=== PATIENT | female | born 1950 | race Two or more races ===

== ENCOUNTER 2018-07-04 11:17 | Inpatient (IN) | payer MEDICAID ==
[~2018-07-04] VITALS: Ht 154.9 cm; Wt 88.7 kg
[2018-07-04] VITALS (7 sets, daily range): BP systolic 110–143; BP diastolic 59–81
--- NOTE | 2018-07-04 11:36 | NUR ---
ED Nurse Note: Pt CLAIRA from [facility] due to cellulitis of the left shoulder x 4 days. Redness, warmth, and tenderness noted. Denies any pain. Pt was started on keflex PO yesterday. Hx of anemia, schizo, HTN.
[2018-07-04] MEDS ORDERED: Cefepime HCl 2 GM in NS 110 ML IV STA (11:48)
[2018-07-04] MEDS ORDERED: Vancomycin 1 GM in NS 275 ML IV ONE (12:00)
--- NOTE | 2018-07-04 12:26 | NUR ---
ED Nurse Note: Xray at the bedside.
[2018-07-04 12:35] LABS: HEMATOCRIT 35.5 % (37.0-47.0); HEMOGLOBIN 11.6 G/DL (12.0-16.0); MEAN CORPUSCULAR VOLUME 82 FL (80-99); PLATELET COUNT 235 K/UL (150-450); RED BLOOD COUNT 4.32 M/UL (4.20-5.40); RED CELL DISTRIBUTION WIDTH 13.2 % (11.6-14.8)
[2018-07-04 12:42] LABS: WHITE BLOOD COUNT 25.8 K/UL (4.8-10.8)
[2018-07-04 12:46] LABS: APPEARANCE,URINE CLEAR; BILIRUBIN, URINE NEGATIVE (NEGATIVE); COLOR,URINE PALE YELLOW; GLUCOSE, URINE (UA) NEGATIVE (NEGATIVE); KETONES,URINE NEGATIVE (NEGATIVE); LEUKOCYTE ESTERASE ,URINE 1+ (NEGATIVE); NITRITE,URINE NEGATIVE (NEGATIVE); PH,URINE 6.5 (4.5-8.0); PROTEIN,URINE 2+ (NEGATIVE); UROBILINOGEN,URINE NORMAL MG/DL (0.0-1.0)
[2018-07-04 13:00] LABS: ALANINE AMINOTRANSFERASE 30 U/L (12-78); ALBUMIN 3.1 G/DL (3.4-5.0); ALBUMIN/GLOBULIN RATIO 0.6 (1.0-2.7); ALKALINE PHOSPHATASE 134 U/L (46-116); ANION GAP 9 mmol/L (5-15); ASPARTATE AMINO TRANSFERASE 14 U/L (15-37); BILIRUBIN,TOTAL 0.4 MG/DL (0.2-1.0); BLOOD UREA NITROGEN 17 mg/dL (7-18); CARBON DIOXIDE 25 MMOL/L (21-32); CHLORIDE 99 MMOL/L (98-107); CREATINE KINASE 60 U/L (26-308); CREATININE 1.6 MG/DL (0.55-1.30); POTASSIUM 4.1 MMOL/L (3.5-5.1); SODIUM 133 MMOL/L (136-145)
[2018-07-04 13:19] LABS: CALCIUM 13.5 MG/DL (8.5-10.1)
--- NOTE | 2018-07-04 14:34 | NUR ---
ED Nurse Note: Tried giving report, RN unavailable.
--- NOTE | 2018-07-04 14:50 | Emergency Room Report ---
History of Present Illness General Chief Complaint: Skin Rash/Abscess Source: Patient, EMS Present Illness HPI Patient was sent in from [facility] facility. She has some swelling and redness of the left shoulder. She was started on Keflex yesterday. The patient does complain about pain there. She denies any trauma. She's had a stroke in the past. No cough, sore throat, NVD, headache, dysuria, dyspnea. H/O depression (denies now), schizophrenia. Allergies: Coded Allergies: No Known Allergies (Unverified , 07/04/18) Patient History Past Medical History: see triage record Social History: Denies: smoking Social History Narrative [facility] facility [place] in [place] Reviewed Nursing Documentation: PMH: Agreed; PSxH: Agreed Nursing Documentation-PMH Past Medical History: No History, Except For Hx Cardiac Problems: Yes - Anemia Hx Hypertension: Yes Hx Dialysis: No - Chronic Renal Insufficiency History Of Psychiatric Problem: Yes - Schziophrenia Review of Systems All Other Systems: negative except mentioned in HPI Physical Exam Vital Signs Date Time Temp Pulse Resp B/P (MAP) Pulse Ox O2 Delivery O2 Flow Rate FiO2 07/04/18 11:19 99.3 64 16 136/77 93 Room Air Sp02 EP Interpretation: reviewed, abnormal - interpreted as low by me General Appearance: well appearing, no apparent distress, other - GCS 14 Head: normocephalic Eyes: bilateral eye normal inspection, bilateral eye PERRL ENT: moist mucus membranes Neck: full range of motion, supple, no bony tend Respiratory: lungs clear, normal breath sounds, other - swelling and induration L shoulder Cardiovascular #1: regular rate, rhythm Cardiovascular #2: 2+ radial (R) Gastrointestinal: normal inspection, normal bowel sounds, non tender, no mass, non-distended Musculoskeletal: back normal, normal range of motion Neurologic: alert, sensory intact, motor weakness, oriented - X2 Psychiatric: mood/affect normal Skin: warm/dry, other - erythema and induration L shoulder, no fluctuance Medical Decision Making Diagnostic Impression: Primary Impression: Cellulitis Qualified Codes: L03.818 - Cellulitis of other sites Additional Impressions: Leukocytosis Qualified Codes: D72.828 - Other elevated white blood cell count Hypercalcemia ER Course Patient presents with L shoulder erythema and induration. DDx: cellulitis, necrotizing fasciitis, abscess amongst others. Evaluation with EKG, CXR and labs. Treatment with IV hydration. EKG without injury. CXR no infiltrates or gas L shoulder area. Leukocytosis. Renal insufficiency. Normal lactic acid. Triple antibiotics begun in ED. Cannot exclude necrotizing fasciitis. This was discussed with the admitting physician and a consultation with Dr. Jimenez was undertaken. Admit med floor. Laboratory Tests Test 07/04/18 12:15 07/04/18 12:30 White Blood Count 25.8 K/UL (4.8-10.8) *H Red Blood Count 4.32 M/UL (4.20-5.40) Hemoglobin 11.6 G/DL (12.0-16.0) L Hematocrit 35.5 % (37.0-47.0) L Mean Corpuscular Volume 82 FL (80-99) Mean Corpuscular Hemoglobin 26.8 PG (27.0-31.0) L Mean Corpuscular Hemoglobin Concent 32.6 G/DL (32.0-36.0) Red Cell Distribution Width 13.2 % (11.6-14.8) Platelet Count 235 K/UL (150-450) Mean Platelet Volume 7.4 FL (6.5-10.1) Neutrophils (%) (Auto) % (45.0-75.0) Lymphocytes (%) (Auto) % (20.0-45.0) Monocytes (%) (Auto) % (1.0-10.0) Eosinophils (%) (Auto) % (0.0-3.0) Basophils (%) (Auto) % (0.0-2.0) Differential Total Cells Counted 100 Neutrophils % (Manual) 90 % (45-75) H Lymphocytes % (Manual) 6 % (20-45) L Monocytes % (Manual) 3 % (1-10) Eosinophils % (Manual) 1 % (0-3) Basophils % (Manual) 0 % (0-2) Band Neutrophils 0 % (0-8) Platelet Estimate Adequate Platelet Morphology Normal Red Blood Cell Morphology Normal Prothrombin Time 10.9 SEC (9.30-11.50) Prothrombin Time INR 1.0 (0.9-1.1) PTT 32 SEC (23-33) Sodium Level 133 MMOL/L (136-145) L Potassium Level 4.1 MMOL/L (3.5-5.1) Chloride Level 99 MMOL/L (98-107) Carbon Dioxide Level 25 MMOL/L (21-32) Anion Gap 9 mmol/L (5-15) Blood Urea Nitrogen 17 mg/dL (7-18) Creatinine 1.6 MG/DL (0.55-1.30) H Estimate Glomerular Filtration Rate 32.4 mL/min (>60) Glucose Level 100 MG/DL (74-106) Lactic Acid Level 0.90 mmol/L (0.4-2.0) Calcium Level 13.5 MG/DL (8.5-10.1) *H Magnesium Level 2.1 MG/DL (1.8-2.4) Total Bilirubin 0.4 MG/DL (0.2-1.0) Aspartate Amino Transferase (AST) 14 U/L (15-37) L Alanine Aminotransferase (ALT) 30 U/L (12-78) Alkaline Phosphatase 134 U/L (46-116) H Total Creatine Kinase 60 U/L (26-308) Troponin I 0.000 ng/mL (0.000-0.056) Pro-B-Type Natriuretic Peptide 259 pg/mL (0-125) H Total Protein 8.7 G/DL (6.4-8.2) H Albumin 3.1 G/DL (3.4-5.0) L Globulin 5.6 g/dL Albumin/Globulin Ratio 0.6 (1.0-2.7) L Urine Color Pale yellow Urine Appearance Clear Urine pH 6.5 (4.5-8.0) Urine Specific [place] 1.015 (1.005-1.035) Urine Protein 2+ (NEGATIVE) H Urine Glucose (UA) Negative (NEGATIVE) Urine Ketones Negative (NEGATIVE) Urine Blood Negative (NEGATIVE) Urine Nitrite Negative (NEGATIVE) Urine Bilirubin Negative (NEGATIVE) Urine Urobilinogen Normal MG/DL (0.0-1.0) Urine Leukocyte Esterase 1+ (NEGATIVE) H Urine RBC 0-2 /HPF (0 - 2) Urine WBC 0-2 /HPF (0 - 2) Urine Squamous Epithelial Cells Few /LPF (NONE/OCC) Urine Bacteria Occasional /HPF (NONE) EKG Diagnostic Results Rate: normal Rhythm: NSR ST Segments: no acute changes - RBBB Rhythm Strip Diag. Results EP Interpretation: yes Rhythm: NSR, no PVC's, no ectopy Chest X-Ray Diagnostic Results Chest X-Ray Diagnostic Results : Chest X-Ray Ordered: Yes # of Views/Limited/Complete: 1 View Indication: Other EP Interpretation: Yes Interpretation: no consolidation, no effusion, no pneumothorax Impression: Other Electronically Signed by: Electronically signed by Iain Fowler MD Last Vital Signs Date Time Temp Pulse Resp B/P (MAP) Pulse Ox O2 Delivery O2 Flow Rate FiO2 07/04/18 13:42 99.3 63 17 110/61 100 Room Air Status: improved Disposition: ADMITTED INPATIENT Condition: Serious Referrals: Mady Perez MD (PCP) Iain Fowler MD Jul 04, 2018 14:50
[2018-07-04] MEDS ORDERED: ADALAT10 MG (15:10)
--- NOTE | 2018-07-04 15:13 | NUR ---
ED Nurse Note: Gave telephone report to RORY Benoit. Transported pt up to unit. Left ER w/ all belongings. No acute distress noted.
[2018-07-04] MEDS ORDERED: Isovue-300 100ml vial INJ PRN (15:45)
--- NOTE | 2018-07-04 17:41 | NUR ---
CHARGE NURSE NOTES: CONTACTED DR. NIELSON FOR ADMISSION ORDERS. PER MD WILL CALL BACK IN 15 MINS.
[2018-07-04] MEDS ORDERED: HYDROcodone/Acetamin 5/325 tab ORAL PRN (18:30)
--- NOTE | 2018-07-04 19:36 | NUR ---
CHARGE NURSE NOTES: DR. TORRES MADE AN ORDER TO TRANSFER PATIENT TO ICU FOR CRITICAL CT RESULT. DR. NISREEN PICHARDO.
--- NOTE | 2018-07-04 19:44 | NUR ---
NURSE NOTES: Received a report from RORY Benoit. Pt is in stable condition. AAOX4. Able to make needs known. IV site is patent and intact. Bed in lowest position. Bed alarm is on. Call light within reach. Will transfer the pt once the receiving nurse is ready.
--- NOTE | 2018-07-04 19:48 | NUR ---
HAND-OFF: Report given to RORY Vick.
--- NOTE | 2018-07-04 19:53 | NUR ---
HAND-OFF: Report given to RORY Reyna.
--- NOTE | 2018-07-04 19:55 | NUR ---
NURSE NOTES: Transferred the pt to the ICU. All belongings are with the pt. Belongings checked. Pt is in stable condition.
--- NOTE | 2018-07-04 20:00 | NUR ---
NURSE NOTES: Admitted a transfer from [facility] 67YOF with (L) Shoulder cellulitis,AAO per CT result shows no pus accumulation on cellulitis site but Resp.Status is compromise R/T swelling that airway pipe (TRACHEAL) bec.thin like pt.breathing thru a straw.See V/S.Scope SR.Denies CP.P.Ox.95-97%.
[2018-07-04] MEDS ORDERED: Heparin 5000 units/ml inj SUBQ SCH (21:00)
--- NOTE | 2018-07-04 21:51 | Consultation ---
History of Present Illness General Date patient seen: Jul 04, 2018 Reason for Hospitalization: Skin Rash/Abscess Present Illness HPI This is a 67-year-old female who presented to the emergency department in [facility] complaining of worsening left neck and shoulder and clavicular pain. States that she has had some discomfort for a few days now but cannot recall when it first began. Denies any nausea vomiting fever chills. States she is otherwise well. Denies any respiratory or swallowing deficits. In ED was noted to have a significant leukocytosis and abnormal labs. Left clavicular/neck erythema, edema, tenderness. Patient was admitted for further care and management. Surgery was called to evaluate and assist with care. Patient seen, patient evaluated, chart reviewed. Allergies: Coded Allergies: No Known Allergies (Unverified , 07/04/18) Medication History Miscellaneous Medications Nifedipine (Nifedipine*), (Reported) Patient History History Provided By: Patient, Medical Record, PMD Healthcare decision maker Resuscitation status Advanced Directive on File Past Medical/Surgical History Past Medical/Surgical History: (1) Cellulitis Review of Systems Review of Symptoms General ROS: no weight loss or fever Psychological ROS: no depression or mood changes, no memory loss Ophthalmic ROS: no visual changes or eye irritation ENT ROS: no nasal congestion, hearing loss, dizziness Allergy and Immunology ROS: no allergic symptoms or urticaria Hematological and Lymphatic ROS: no swollen glands, unusual bleeding or bruising Endocrine ROS: no polyuria, polydipsia, weight changes, temperature intolerance Respiratory ROS: no cough, shortness of breath, or wheezing Cardiovascular ROS: no chest pain or dyspnea on exertion Gastrointestinal ROS: denies abdominal pain, bright red blood in stool. Musculoskeletal ROS: no myalgias or arthralgias Neurological ROS: no TIA or stroke symptoms Dermatological ROS: no new or changing skin lesions, rashes or pruritis Physical Exam Physical Exam General appearance: alert, cooperative, no distress, appears stated age Head: Normocephalic, without obvious abnormality, atraumatic Eyes: conjunctivae/corneas clear. PERRL, EOM's intact. Fundi benign Throat: Lips, mucosa, and tongue normal. Teeth and gums normal Neck: supple, symmetrical, trachea midline, adenopathy, thyroid: tender in left neck and zone 1 down to clavicle. no abscess, indurated, erythema, warm. no drainage. Lungs: clear to auscultation bilaterally Heart: regular rate and rhythm, S1, S2 normal, no murmur, click, rub or gallop Abdomen: soft, non-tender. Bowel sounds normal. No masses, no organomegaly Extremities: extremities normal, atraumatic, no cyanosis or edema Pulses: 2+ and symmetric Skin: Skin color, texture, turgor normal. No rashes or lesions Neurologic: Grossly normal Last 24 Hour Vital Signs Date Time Temp Pulse Resp B/P (MAP) Pulse Ox O2 Delivery O2 Flow Rate FiO2 07/04/18 18:34 Room Air 07/04/18 18:04 Room Air 07/04/18 17:10 Room Air 07/04/18 16:00 99.5 75 19 119/59 (79) 99 07/04/18 15:12 98.1 63 22 115/65 98 Room Air 07/04/18 13:42 99.3 63 17 110/61 100 Room Air 07/04/18 11:37 99.2 63 11 117/76 99 Room Air 07/04/18 11:19 99.3 64 16 136/77 93 Room Air Laboratory Tests Test 07/04/18 12:15 07/04/18 12:30 White Blood Count 25.8 K/UL (4.8-10.8) *H Red Blood Count 4.32 M/UL (4.20-5.40) Hemoglobin 11.6 G/DL (12.0-16.0) L Hematocrit 35.5 % (37.0-47.0) L Mean Corpuscular Volume 82 FL (80-99) Mean Corpuscular Hemoglobin 26.8 PG (27.0-31.0) L Mean Corpuscular Hemoglobin Concent 32.6 G/DL (32.0-36.0) Red Cell Distribution Width 13.2 % (11.6-14.8) Platelet Count 235 K/UL (150-450) Mean Platelet Volume 7.4 FL (6.5-10.1) Neutrophils (%) (Auto) % (45.0-75.0) Lymphocytes (%) (Auto) % (20.0-45.0) Monocytes (%) (Auto) % (1.0-10.0) Eosinophils (%) (Auto) % (0.0-3.0) Basophils (%) (Auto) % (0.0-2.0) Differential Total Cells Counted 100 Neutrophils % (Manual) 90 % (45-75) H Lymphocytes % (Manual) 6 % (20-45) L Monocytes % (Manual) 3 % (1-10) Eosinophils % (Manual) 1 % (0-3) Basophils % (Manual) 0 % (0-2) Band Neutrophils 0 % (0-8) Platelet Estimate Adequate Platelet Morphology Normal Red Blood Cell Morphology Normal Prothrombin Time 10.9 SEC (9.30-11.50) Prothromb Time International Ratio 1.0 (0.9-1.1) Activated Partial Thromboplast Time 32 SEC (23-33) Sodium Level 133 MMOL/L (136-145) L Potassium Level 4.1 MMOL/L (3.5-5.1) Chloride Level 99 MMOL/L (98-107) Carbon Dioxide Level 25 MMOL/L (21-32) Anion Gap 9 mmol/L (5-15) Blood Urea Nitrogen 17 mg/dL (7-18) Creatinine 1.6 MG/DL (0.55-1.30) H Estimat Glomerular Filtration Rate 32.4 mL/min (>60) Glucose Level 100 MG/DL (74-106) Lactic Acid Level 0.90 mmol/L (0.4-2.0) Calcium Level 13.5 MG/DL (8.5-10.1) *H Magnesium Level 2.1 MG/DL (1.8-2.4) Total Bilirubin 0.4 MG/DL (0.2-1.0) Aspartate Amino Transf (AST/SGOT) 14 U/L (15-37) L Alanine Aminotransferase (ALT/SGPT) 30 U/L (12-78) Alkaline Phosphatase 134 U/L (46-116) H Total Creatine Kinase 60 U/L (26-308) Troponin I 0.000 ng/mL (0.000-0.056) Pro-B-Type Natriuretic Peptide 259 pg/mL (0-125) H Total Protein 8.7 G/DL (6.4-8.2) H Albumin 3.1 G/DL (3.4-5.0) L Globulin 5.6 g/dL Albumin/Globulin Ratio 0.6 (1.0-2.7) L Urine Color Pale yellow Urine Appearance Clear Urine pH 6.5 (4.5-8.0) Urine Specific [place] 1.015 (1.005-1.035) Urine Protein 2+ (NEGATIVE) H Urine Glucose (UA) Negative (NEGATIVE) Urine Ketones Negative (NEGATIVE) Urine Blood Negative (NEGATIVE) Urine Nitrite Negative (NEGATIVE) Urine Bilirubin Negative (NEGATIVE) Urine Urobilinogen Normal MG/DL (0.0-1.0) Urine Leukocyte Esterase 1+ (NEGATIVE) H Urine RBC 0-2 /HPF (0 - 2) Urine WBC 0-2 /HPF (0 - 2) Urine Squamous Epithelial Cells Few /LPF (NONE/OCC) Urine Bacteria Occasional /HPF (NONE) Height (Feet): 5 Height (Inches): 1.00 Weight (Pounds): 180 Medications Current Medications Medications (Trade) Dose Ordered Sig/Omari Route PRN Reason Start Time Stop Time Status Last Admin Dose Admin Acetaminophen (Tylenol) 650 mg Q6H PRN ORAL Mild Pain/Temp > 100.5 07/04/18 18:30 08/03/18 18:29 Acetaminophen/ Hydrocodone Bitart ([place] 5/325) 1 tab Q6H PRN ORAL Severe Pain (Pain Scale 7-10) 07/04/18 18:30 07/11/18 18:29 Benztropine Mesylate (Cogentin) 1 mg BID ORAL 07/05/18 09:00 08/04/18 08:59 Cefepime HCl 2 gm/ Dextrose 55 ml @ 110 mls/hr Q12HR@0000,1200 IVPB 07/05/18 00:00 07/12/18 00:00 Docusate Sodium (Colace) 250 mg DAILY ORAL 07/05/18 09:00 08/04/18 08:59 Haloperidol (Haldol) 5 mg DAILY ORAL 07/05/18 09:00 08/04/18 08:59 Heparin Sodium (Porcine) (Heparin 5000 units/ml) 5,000 units EVERY 12 HOURS SUBQ 07/04/18 21:00 08/03/18 20:59 07/04/18 21:02 Iopamidol (Isovue-300 100ml) 100 ml NOW PRN INJ Radiology Procedure 07/04/18 15:45 07/06/18 15:34 Levofloxacin 150 ml @ 100 mls/hr Q48H IVPB 07/06/18 13:00 07/13/18 12:59 Marcellus Carbonate (Marcellus Carbonate) 300 mg BID ORAL 07/05/18 09:00 08/04/18 08:59 Mirtazapine (Remeron) 7.5 mg BEDTIME ORAL 07/04/18 21:00 08/03/18 20:59 07/04/18 21:03 Nifedipine (Adalat) 10 mg Q12HR ORAL 07/05/18 09:00 08/04/18 08:59 Pantoprazole (Protonix) 40 mg DAILY ORAL 07/05/18 09:00 08/04/18 08:59 Vancomycin HCl (Vanco rx to dose) 1 ea DAILY PRN MISC Per rx protocol 07/04/18 18:30 08/03/18 18:29 Vancomycin HCl 750 mg/Sodium Chloride 275 ml @ 183.333 mls/hr Q24H IVPB 07/05/18 14:00 07/10/18 13:59 Assessment/Plan Problem List: (1) Cellulitis Assessment & Plan: 67-year-old with left neck cellulitis. Leukocytosis. Low- grade fevers. Tenderness on examination with large area of cellulitis without fluctuance. CT scan ordered and pending final read but did speak with the radiologist and there is significant inflammation in the oropharynx and neck around the pharynx and trachea. There is subcutaneous tissue swelling consistent with cellulitis in the area as identified on clinical examination. There is a narrowed airway. Even these findings patient was transferred to the intensive care unit for close monitoring. Etiology of patient's infection is currently unknown and will need further workup. Currently respiratory stable without any signs of compromise or distress. Patient states she is breathing well without any shortness of breath or difficulty. Airway is currently patent. Radiological findings noted. N.p.o. IV abx cultures will need ENT evaluation if shows signs of respiratory issues will need urgent intubation for airway protection vs tracheostomy will follow with recs thank you ICD Codes: L03.90 - Cellulitis, unspecified SNOMED: [id number] Qualifiers: Qualified Codes: L03.221 - Cellulitis of neck Florencio Jimenez Jul 04, 2018 21:51
--- NOTE | 2018-07-04 22:30 | NUR ---
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
[2018-07-04] MEDS: Cefepime HCl 2 GM in D5W 55 ML IVPB SCH (23:44)
[2018-07-05] VITALS (24 sets, daily range): BP systolic 118–148; BP diastolic 49–87
--- NOTE | 2018-07-05 00:07 | NUR ---
NURSE NOTES: See V/S.Scope rhythm same.Repositioned self to comfort.Resp.Status closely monitored.Voided.P.Ox.95-96% on RA.Due meds admin.
[2018-07-05] MEDS ORDERED: HYDROcodone/Acetamin 5/325 tab ORAL PRN (00:30)
--- NOTE | 2018-07-05 02:00 | NUR ---
NURSE NOTES: Desat.to 87% when in deep sleep.Had to be awaken and easily respond to deep breathing.Cont.close monitoring with Resp.status.
--- NOTE | 2018-07-05 04:20 | NUR ---
NURSE NOTES: Blood drawn for cbc/cmp./tsh etc.spec.to Lab.see V/S.scope rhythm same.denies CP.cont.plan of care.
[2018-07-05 06:00] LABS: HEMATOCRIT 32.7 % (37.0-47.0); HEMOGLOBIN 10.5 G/DL (12.0-16.0); MEAN CORPUSCULAR VOLUME 83 FL (80-99); PLATELET COUNT 214 K/UL (150-450); RED BLOOD COUNT 3.93 M/UL (4.20-5.40); RED CELL DISTRIBUTION WIDTH 13.5 % (11.6-14.8); WHITE BLOOD COUNT 19.6 K/UL (4.8-10.8)
[2018-07-05 06:36] LABS: ALANINE AMINOTRANSFERASE 26 U/L (12-78); ALBUMIN 2.7 G/DL (3.4-5.0); ALBUMIN/GLOBULIN RATIO 0.5 (1.0-2.7); ALKALINE PHOSPHATASE 131 U/L (46-116); ANION GAP 10 mmol/L (5-15); ASPARTATE AMINO TRANSFERASE 14 U/L (15-37); BILIRUBIN,TOTAL 0.3 MG/DL (0.2-1.0); BLOOD UREA NITROGEN 17 mg/dL (7-18); CARBON DIOXIDE 23 MMOL/L (21-32); CHLORIDE 110 MMOL/L (98-107); CREATININE 1.5 MG/DL (0.55-1.30); POTASSIUM 3.8 MMOL/L (3.5-5.1); SODIUM 143 MMOL/L (136-145)
[2018-07-05 06:50] LABS: CALCIUM 14.1 MG/DL (8.5-10.1)
--- NOTE | 2018-07-05 07:30 | NUR ---
HAND-OFF: Report given to RORY CAMPOS.
--- NOTE | 2018-07-05 08:05 | Nephrology Progress Note ---
Subjective Date patient seen: Jul 05, 2018 Time patient seen: 08:05 Allergies: Coded Allergies: No Known Allergies (Unverified , 07/04/18) Subjective Patient seen and examined. Full consult dictated and hypercalcemia treated Objective Last 24 Hour Vital Signs Date Time Temp Pulse Resp B/P (MAP) Pulse Ox O2 Delivery O2 Flow Rate FiO2 07/05/18 06:00 83 20 125/67 (86) 97 07/05/18 05:00 78 17 127/67 (87) 96 07/05/18 04:00 98.6 73 20 126/62 (83) 95 07/05/18 04:00 Room Air 07/05/18 03:00 79 20 138/78 (98) 95 07/05/18 02:00 78 20 133/71 (91) 94 07/05/18 01:00 98.8 73 20 128/72 (90) 95 07/05/18 00:00 80 19 131/75 (93) 96 07/05/18 00:00 Room Air 07/04/18 23:00 83 21 128/66 (86) 95 07/04/18 22:00 73 23 143/78 (99) 97 07/04/18 21:00 74 12 140/76 (97) 96 07/04/18 21:00 Room Air 07/04/18 20:00 99.2 75 21 142/81 (101) 77 07/04/18 18:34 Room Air 07/04/18 18:04 Room Air 07/04/18 17:10 Room Air 07/04/18 16:00 99.5 75 19 119/59 (79) 99 07/04/18 15:12 98.1 63 22 115/65 98 Room Air 07/04/18 13:42 99.3 63 17 110/61 100 Room Air 07/04/18 11:37 99.2 63 11 117/76 99 Room Air 07/04/18 11:19 99.3 64 16 136/77 93 Room Air Intake and Output 07/04/18 07/05/18 19:00 07:00 Intake Total 350 ml 645 ml Output Total 800 ml Balance 350 ml -155 ml Intake Oral 490 ml IV Total 350 ml 155 ml Output Urine Total 800 ml # Voids 1 3 Laboratory Tests 07/04/18 12:15: White Blood Count 25.8*H, Red Blood Count 4.32, Hemoglobin 11.6L, Hematocrit 35.5L, Mean Corpuscular Volume 82, Mean Corpuscular Hemoglobin 26.8L, Mean Corpuscular Hemoglobin Concent 32.6, Red Cell Distribution Width 13.2, Platelet Count 235, Mean Platelet Volume 7.4, Neutrophils (%) (Auto) , Lymphocytes (%) ( Auto) , Monocytes (%) (Auto) , Eosinophils (%) (Auto) , Basophils (%) (Auto) , Differential Total Cells Counted 100, Neutrophils % (Manual) 90H, Lymphocytes % (Manual) 6L, Monocytes % (Manual) 3, Eosinophils % (Manual) 1, Basophils % ( Manual) 0, Band Neutrophils 0, Platelet Estimate Adequate, Platelet Morphology Normal, Red Blood Cell Morphology Normal, Prothrombin Time 10.9, Prothromb Time International Ratio 1.0, Activated Partial Thromboplast Time 32, Sodium Level 133L, Potassium Level 4.1, Chloride Level 99, Carbon Dioxide Level 25, Anion Gap 9, Blood Urea Nitrogen 17, Creatinine 1.6H, Estimat Glomerular Filtration Rate 32.4, Glucose Level 100, Lactic Acid Level 0.90, Calcium Level 13.5*H, Magnesium Level 2.1, Total Bilirubin 0.4, Aspartate Amino Transf (AST/SGOT) 14L , Alanine Aminotransferase (ALT/SGPT) 30, Alkaline Phosphatase 134H, Total Creatine Kinase 60, Troponin I 0.000, Pro-B-Type Natriuretic Peptide 259H, Total Protein 8.7H, Albumin 3.1L, Globulin 5.6, Albumin/Globulin Ratio 0.6L 07/04/18 12:30: Urine Color Pale yellow, Urine Appearance Clear, Urine pH 6.5, Urine Specific [place] 1.015, Urine Protein 2+H, Urine Glucose (UA) Negative, Urine Ketones Negative, Urine Blood Negative, Urine Nitrite Negative, Urine Bilirubin Negative , Urine Urobilinogen Normal, Urine Leukocyte Esterase 1+H, Urine RBC 0-2, Urine WBC 0-2, Urine Squamous Epithelial Cells Few, Urine Bacteria Occasional 07/05/18 04:50: White Blood Count 19.6H, Red Blood Count 3.93L, Hemoglobin 10.5L, Hematocrit 32.7L, Mean Corpuscular Volume 83, Mean Corpuscular Hemoglobin 26.6L, Mean Corpuscular Hemoglobin Concent 32.0, Red Cell Distribution Width 13.5, Platelet Count 214, Mean Platelet Volume 7.4, Neutrophils (%) (Auto) , Lymphocytes (%) ( Auto) , Monocytes (%) (Auto) , Eosinophils (%) (Auto) , Basophils (%) (Auto) , Neutrophils % (Manual) [Pending], Lymphocytes % (Manual) [Pending], Platelet Estimate [Pending], Platelet Morphology [Pending], Sodium Level 143#, Potassium Level 3.8, Chloride Level 110H, Carbon Dioxide Level 23, Anion Gap 10, Blood Urea Nitrogen 17, Creatinine 1.5H, Estimat Glomerular Filtration Rate 34.9, Glucose Level 74, Calcium Level 14.1*H, Total Bilirubin 0.3, Aspartate Amino Transf (AST/SGOT) 14L, Alanine Aminotransferase (ALT/SGPT) 26, Alkaline Phosphatase 131H, Total Protein 8.2, Albumin 2.7L, Globulin 5.5, Albumin/ Globulin Ratio 0.5L, Hemoglobin A1c 5.5, Calcium (Send out) [Pending], Thyroid Stimulating Hormone (TSH) 2.948, Parathyroid Hormone (Intact) [Pending], Oso Level [Pending] Height (Feet): 5 Height (Inches): 1.00 Weight (Pounds): 192 Kota Navarrete MD Jul 05, 2018 08:05
[2018-07-05] MEDS: NIFEdipine 10mg cap ORAL SCH ×2 (08:28→20:55)
[2018-07-05] MEDS: Docusate 250mg cap ORAL SCH (08:28)
[2018-07-05] MEDS: Benztropine 1mg tab ORAL SCH ×2 (08:29→17:04)
[2018-07-05] MEDS: Heparin 5000 units/ml inj SUBQ SCH ×2 (08:33→20:56)
--- NOTE | 2018-07-05 08:40 | NUR ---
NURSE NOTES: Report received from RORY Bergeron
[2018-07-05] MEDS ORDERED: Docusate 250mg cap ORAL SCH (09:00)
[2018-07-05] MEDS ORDERED: Benztropine 1mg tab ORAL SCH (09:00)
[2018-07-05] MEDS ORDERED: NIFEdipine 10mg cap ORAL SCH (09:00)
[2018-07-05] MEDS ORDERED: Pamidronate Disodium Inj 30 MG in Sodium Chloride 550 ML IVPB ONE (09:00)
--- NOTE | 2018-07-05 10:40 | NUR ---
NURSE NOTES: Asleep when received. Afebrile and easily arousal verbal and tactile stimuli.Mouth care done and ice chips given.Still noted with redness and swell on the left neck.On close monitoring for respiratory status.Able to self repositioned.IV line placed right hand 22 yoel , patent and running well.HOB elevated to prevent aspiration.Kept clean dry and comfortable.Will continue to monitor.Seen by Dr Navarrete will follow up with new orders.
--- NOTE | 2018-07-05 11:03 | NUR ---
[employer] RUNNERSREGULATORY LEAD 67 Y/O FEMALE SLIME FROM [facility] TO [facility] ER CC:SKIN RASH /ABSCESS SI:SHOULDER CELLULITIS VS: BP 136/77, P 64, T 99.4, RR 11, SpO2 93 WBC 25.8, Hgb 11.6, Hct 35.5, CR 1.5 IS:CEFEPIME HCI 110ml IV NS 2,400 Ml IVLG LEVOFLOXACIN 150 ml IV VANCOMYCIN HCI 275ml IV REMERON 7.5mg HEPARIN SUBQ ADMITTED TO ICU DC PLAN: RETURN TO [facility].
[2018-07-05] MEDS ORDERED: Cefepime HCl 2 GM in D5W 55 ML IVPB SCH ×3 (12:00)
--- NOTE | 2018-07-05 12:21 | NUR ---
NURSE NOTES: Patient seen bu Dr Baltazar and Dr Perez, keep patient on close monitoring for respiratory status.No apparent acute distress noted at this time.Kept clean dry and comfortable.Urine not collected, pt has not voided yet.
[2018-07-05] MEDS: Cefepime HCl 2 GM in D5W 55 ML IVPB SCH (14:00)
[2018-07-05] MEDS ORDERED: Vancomycin 750mg/NS 275ml IVPB SCH ×2 (14:00)
[2018-07-05] MEDS: Vancomycin 750 MG in NS 275 ML IVPB SCH (14:02)
--- NOTE | 2018-07-05 14:05 | Surgery Progress Note ---
Surgery Progress Note Subjective Additional Comments no acute events. leukocytosis improving . no n/v/f/c. no respiratory complaints. no swallowing deficits. states only pain in left neck. otherwise well. Objective Last 24 Hour Vital Signs Date Time Temp Pulse Resp B/P (MAP) Pulse Ox O2 Delivery O2 Flow Rate FiO2 07/05/18 12:00 97.8 65 17 127/60 (82) 98 07/05/18 12:00 Room Air 07/05/18 11:00 77 19 127/72 (90) 98 07/05/18 10:00 72 19 118/87 (97) 97 07/05/18 09:00 71 19 130/49 (76) 97 07/05/18 08:28 76 123/56 07/05/18 08:00 Room Air 07/05/18 08:00 78 18 123/56 (78) 97 07/05/18 07:00 98.6 79 17 124/65 (84) 100 07/05/18 06:00 83 20 125/67 (86) 97 07/05/18 05:00 78 17 127/67 (87) 96 07/05/18 04:00 98.6 73 20 126/62 (83) 95 07/05/18 04:00 Room Air 07/05/18 03:00 79 20 138/78 (98) 95 07/05/18 02:00 78 20 133/71 (91) 94 07/05/18 01:00 98.8 73 20 128/72 (90) 95 07/05/18 00:00 80 19 131/75 (93) 96 07/05/18 00:00 Room Air 07/04/18 23:00 83 21 128/66 (86) 95 07/04/18 22:00 73 23 143/78 (99) 97 07/04/18 21:00 74 12 140/76 (97) 96 07/04/18 21:00 Room Air 07/04/18 20:00 99.2 75 21 142/81 (101) 77 07/04/18 18:34 Room Air 07/04/18 18:04 Room Air 07/04/18 17:10 Room Air 07/04/18 16:00 99.5 75 19 119/59 (79) 99 07/04/18 15:12 98.1 63 22 115/65 98 Room Air I&O Intake and Output 07/04/18 07/05/18 19:00 07:00 Intake Total 350 ml 645 ml Output Total 800 ml Balance 350 ml -155 ml Intake Oral 490 ml IV Total 350 ml 155 ml Output Urine Total 800 ml # Voids 1 3 Drains: none Cardiovascular: RSR Respiratory: clear Abdomen: soft, non-tender, present bowel sounds, non-distended Extremities: no edema, no tenderness, no cyanosis Laboratory Tests Test 07/05/18 04:50 White Blood Count 19.6 K/UL (4.8-10.8) H Red Blood Count 3.93 M/UL (4.20-5.40) L Hemoglobin 10.5 G/DL (12.0-16.0) L Hematocrit 32.7 % (37.0-47.0) L Mean Corpuscular Volume 83 FL (80-99) Mean Corpuscular Hemoglobin 26.6 PG (27.0-31.0) L Mean Corpuscular Hemoglobin Concent 32.0 G/DL (32.0-36.0) Red Cell Distribution Width 13.5 % (11.6-14.8) Platelet Count 214 K/UL (150-450) Mean Platelet Volume 7.4 FL (6.5-10.1) Neutrophils (%) (Auto) % (45.0-75.0) Lymphocytes (%) (Auto) % (20.0-45.0) Monocytes (%) (Auto) % (1.0-10.0) Eosinophils (%) (Auto) % (0.0-3.0) Basophils (%) (Auto) % (0.0-2.0) Differential Total Cells Counted 100 Neutrophils % (Manual) 83 % (45-75) H Lymphocytes % (Manual) 12 % (20-45) L Monocytes % (Manual) 4 % (1-10) Eosinophils % (Manual) 1 % (0-3) Basophils % (Manual) 0 % (0-2) Band Neutrophils 0 % (0-8) Platelet Estimate Adequate Platelet Morphology Normal Hypochromasia 1+ Sodium Level 143 MMOL/L (136-145) # Potassium Level 3.8 MMOL/L (3.5-5.1) Chloride Level 110 MMOL/L (98-107) H Carbon Dioxide Level 23 MMOL/L (21-32) Anion Gap 10 mmol/L (5-15) Blood Urea Nitrogen 17 mg/dL (7-18) Creatinine 1.5 MG/DL (0.55-1.30) H Estimat Glomerular Filtration Rate 34.9 mL/min (>60) Glucose Level 74 MG/DL (74-106) Hemoglobin A1c 5.5 % (4.3-6.0) Calcium Level 14.1 MG/DL (8.5-10.1) *H Calcium (Send out) Pending Total Bilirubin 0.3 MG/DL (0.2-1.0) Aspartate Amino Transf (AST/SGOT) 14 U/L (15-37) L Alanine Aminotransferase (ALT/SGPT) 26 U/L (12-78) Alkaline Phosphatase 131 U/L (46-116) H Total Protein 8.2 G/DL (6.4-8.2) Total Protein (PEP) Pending Albumin 2.7 G/DL (3.4-5.0) L Albumin (PEP) Pending Globulin 5.5 g/dL Globulin (PEP) Pending Albumin/Globulin Ratio Pending Slqir-5-Psjeobjxk Pending Ubanj-5-Ijybxbbqi Pending Beta Globulins Pending Beta Gamma Globulin Pending PEP Abnormal Protein Bands Pending Protein Electrophoresis Interpret Pending Vitamin D 25-Hydroxy Pending 25-Hydroxy Vitamin D2 Pending 25-Hydroxy Vitamin D3 Pending Thyroid Stimulating Hormone (TSH) 2.948 uiU/mL (0.358-3.740) Parathyroid Hormone (Intact) Pending [place] Level 0.57 MMOL/L (1.00-1.20) Plan Problems: (1) Cellulitis Assessment & Plan: 67-year-old with left neck cellulitis. Leukocytosis. Low- grade fevers. Tenderness on examination with large area of cellulitis without fluctuance. CT scan ordered and pending final read but did speak with the radiologist and there is significant inflammation in the oropharynx and neck around the pharynx and trachea. There is subcutaneous tissue swelling consistent with cellulitis in the area as identified on clinical examination. There is a narrowed airway. Even these findings patient was transferred to the intensive care unit for close monitoring. Etiology of patient's infection is currently unknown and will need further workup. Currently respiratory stable without any signs of compromise or distress. Patient states she is breathing well without any shortness of breath or difficulty. Airway is currently patent. Radiological findings noted. labs improved today exam stable if not slightly improved keep in ICU for monitoring. N.p.o. IV abx cultures will need ENT evaluation pending final read of CT if shows signs of respiratory issues will need urgent intubation for airway protection vs tracheostomy will follow with recs thank you Florencio Jimenez Jul 05, 2018 14:05
--- NOTE | 2018-07-05 14:11 | NUR ---
NURSE NOTES: Asleep, no apparent distress. Kept clean and dry.Call light within easy reach
--- NOTE | 2018-07-05 14:16 | History & Physical ---
History of Present Illness General Date patient seen: Jul 05, 2018 Reason for Hospitalization: Skin Rash/Abscess Present Illness HPI 67 years old female. presented for worsening of redness in the base of neck. No fever or chills. no nausea, no sob. partial response to po antibiotic . Allergies: Coded Allergies: No Known Allergies (Unverified , 07/04/18) Medication History Miscellaneous Medications Nifedipine (Nifedipine*), (Reported) Patient History Healthcare decision maker Resuscitation status Advanced Directive on File Past Medical/Surgical History Past Medical/Surgical History: (1) Cellulitis Review of Systems Review of Symptoms General ROS: no weight loss or fever Psychological ROS: no depression or mood changes, no memory loss Ophthalmic ROS: no visual changes or eye irritation ENT ROS: no nasal congestion, hearing loss, dizziness Allergy and Immunology ROS: no allergic symptoms or urticaria Hematological and Lymphatic ROS: no swollen glands, unusual bleeding or bruising Endocrine ROS: no polyuria, polydipsia, weight changes, temperature intolerance Respiratory ROS: no cough, shortness of breath, or wheezing Cardiovascular ROS: no chest pain or dyspnea on exertion Gastrointestinal ROS: denies abdominal pain, bright red blood in stool. Musculoskeletal ROS: no myalgias or arthralgias Neurological ROS: no TIA or stroke symptoms Dermatological ROS: diffuse redness in base of the neck Physical Exam Physical Exam General appearance: alert, cooperative, no distress, appears stated age Head: Normocephalic, without obvious abnormality, atraumatic Eyes: conjunctivae/corneas clear. PERRL, EOM's intact. Fundi benign Throat: Lips, mucosa, and tongue normal. Teeth and gums normal Neck: supple, symmetrical, trachea midline, no adenopathy, t Lungs: clear to auscultation bilaterally Heart: regular rate and rhythm, S1, S2 normal, no murmur, click, rub or gallop Abdomen: soft, non-tender. Bowel sounds normal. No masses, no organomegaly Extremities: Diffuse swelling in base of the neck. Pulses: 2+ and symmetric Skin: Skin color, texture, turgor normal. No rashes or lesions Neurologic: Grossly normal Last 24 Hour Vital Signs Date Time Temp Pulse Resp B/P (MAP) Pulse Ox O2 Delivery O2 Flow Rate FiO2 07/05/18 12:00 97.8 65 17 127/60 (82) 98 07/05/18 12:00 Room Air 07/05/18 11:00 77 19 127/72 (90) 98 07/05/18 10:00 72 19 118/87 (97) 97 07/05/18 09:00 71 19 130/49 (76) 97 07/05/18 08:28 76 123/56 07/05/18 08:00 Room Air 07/05/18 08:00 78 18 123/56 (78) 97 07/05/18 07:00 98.6 79 17 124/65 (84) 100 07/05/18 06:00 83 20 125/67 (86) 97 07/05/18 05:00 78 17 127/67 (87) 96 07/05/18 04:00 98.6 73 20 126/62 (83) 95 07/05/18 04:00 Room Air 07/05/18 03:00 79 20 138/78 (98) 95 07/05/18 02:00 78 20 133/71 (91) 94 07/05/18 01:00 98.8 73 20 128/72 (90) 95 07/05/18 00:00 80 19 131/75 (93) 96 07/05/18 00:00 Room Air 07/04/18 23:00 83 21 128/66 (86) 95 07/04/18 22:00 73 23 143/78 (99) 97 07/04/18 21:00 74 12 140/76 (97) 96 07/04/18 21:00 Room Air 07/04/18 20:00 99.2 75 21 142/81 (101) 77 07/04/18 18:34 Room Air 07/04/18 18:04 Room Air 07/04/18 17:10 Room Air 07/04/18 16:00 99.5 75 19 119/59 (79) 99 07/04/18 15:12 98.1 63 22 115/65 98 Room Air Intake and Output 07/04/18 07/05/18 19:00 07:00 Intake Total 350 ml 645 ml Output Total 800 ml Balance 350 ml -155 ml Intake Oral 490 ml IV Total 350 ml 155 ml Output Urine Total 800 ml # Voids 1 3 Laboratory Tests Test 07/05/18 04:50 White Blood Count 19.6 K/UL (4.8-10.8) H Red Blood Count 3.93 M/UL (4.20-5.40) L Hemoglobin 10.5 G/DL (12.0-16.0) L Hematocrit 32.7 % (37.0-47.0) L Mean Corpuscular Volume 83 FL (80-99) Mean Corpuscular Hemoglobin 26.6 PG (27.0-31.0) L Mean Corpuscular Hemoglobin Concent 32.0 G/DL (32.0-36.0) Red Cell Distribution Width 13.5 % (11.6-14.8) Platelet Count 214 K/UL (150-450) Mean Platelet Volume 7.4 FL (6.5-10.1) Neutrophils (%) (Auto) % (45.0-75.0) Lymphocytes (%) (Auto) % (20.0-45.0) Monocytes (%) (Auto) % (1.0-10.0) Eosinophils (%) (Auto) % (0.0-3.0) Basophils (%) (Auto) % (0.0-2.0) Differential Total Cells Counted 100 Neutrophils % (Manual) 83 % (45-75) H Lymphocytes % (Manual) 12 % (20-45) L Monocytes % (Manual) 4 % (1-10) Eosinophils % (Manual) 1 % (0-3) Basophils % (Manual) 0 % (0-2) Band Neutrophils 0 % (0-8) Platelet Estimate Adequate Platelet Morphology Normal Hypochromasia 1+ Sodium Level 143 MMOL/L (136-145) # Potassium Level 3.8 MMOL/L (3.5-5.1) Chloride Level 110 MMOL/L (98-107) H Carbon Dioxide Level 23 MMOL/L (21-32) Anion Gap 10 mmol/L (5-15) Blood Urea Nitrogen 17 mg/dL (7-18) Creatinine 1.5 MG/DL (0.55-1.30) H Estimat Glomerular Filtration Rate 34.9 mL/min (>60) Glucose Level 74 MG/DL (74-106) Hemoglobin A1c 5.5 % (4.3-6.0) Calcium Level 14.1 MG/DL (8.5-10.1) *H Calcium (Send out) Pending Total Bilirubin 0.3 MG/DL (0.2-1.0) Aspartate Amino Transf (AST/SGOT) 14 U/L (15-37) L Alanine Aminotransferase (ALT/SGPT) 26 U/L (12-78) Alkaline Phosphatase 131 U/L (46-116) H Total Protein 8.2 G/DL (6.4-8.2) Total Protein (PEP) Pending Albumin 2.7 G/DL (3.4-5.0) L Albumin (PEP) Pending Globulin 5.5 g/dL Globulin (PEP) Pending Albumin/Globulin Ratio Pending Swkta-1-Tvtlfjjrh Pending Rfash-2-Erbfsyaok Pending Beta Globulins Pending Beta Gamma Globulin Pending PEP Abnormal Protein Bands Pending Protein Electrophoresis Interpret Pending Vitamin D 25-Hydroxy Pending 25-Hydroxy Vitamin D2 Pending 25-Hydroxy Vitamin D3 Pending Thyroid Stimulating Hormone (TSH) 2.948 uiU/mL (0.358-3.740) Parathyroid Hormone (Intact) Pending [place] Level 0.57 MMOL/L (1.00-1.20) Height (Feet): 5 Height (Inches): 1.00 Weight (Pounds): 192 Medications Current Medications Medications (Trade) Dose Ordered Sig/Omari Route PRN Reason Start Time Stop Time Status Last Admin Dose Admin Acetaminophen (Tylenol) 650 mg Q6H PRN ORAL Mild Pain/Temp > 100.5 07/05/18 00:30 08/03/18 18:29 Acetaminophen/ Hydrocodone Bitart ([place] 5/325) 1 tab Q6H PRN ORAL Severe Pain (Pain Scale 7-10) 07/05/18 00:30 07/11/18 18:29 Benztropine Mesylate (Cogentin) 1 mg BID ORAL 07/05/18 09:00 08/04/18 08:59 07/05/18 08:29 Cefepime HCl 2 gm/ Dextrose 55 ml @ 110 mls/hr Q12HR@0000,1200 IVPB 07/05/18 00:00 07/12/18 00:00 07/05/18 14:00 Docusate Sodium (Colace) 250 mg DAILY ORAL 07/05/18 09:00 08/04/18 08:59 07/05/18 08:28 Haloperidol (Haldol) 5 mg DAILY ORAL 07/05/18 09:00 08/04/18 08:59 07/05/18 08:28 Heparin Sodium (Porcine) (Heparin 5000 units/ml) 5,000 units EVERY 12 HOURS SUBQ 07/05/18 09:00 08/03/18 20:59 07/05/18 08:33 Iopamidol (Isovue-300 100ml) 100 ml NOW PRN INJ Radiology Procedure 07/05/18 15:45 07/06/18 15:34 [place] Carbonate ([place] Carbonate) 300 mg BID ORAL 07/05/18 09:00 08/04/18 08:59 07/05/18 08:33 Metronidazole 100 ml @ 100 mls/hr Q8HR IVPB 07/04/18 23:30 07/11/18 23:29 07/05/18 14:00 Mirtazapine (Remeron) 7.5 mg BEDTIME ORAL 07/05/18 21:00 08/03/18 20:59 Nifedipine (Adalat) 10 mg Q12HR ORAL 07/05/18 09:00 08/04/18 08:59 07/05/18 08:28 Pantoprazole (Protonix) 40 mg DAILY ORAL 07/05/18 09:00 08/04/18 08:59 07/05/18 08:27 Vancomycin HCl (Vanco rx to dose) 1 ea DAILY PRN MISC Per rx protocol 07/05/18 09:00 08/03/18 18:29 Vancomycin HCl 750 mg/Sodium Chloride 275 ml @ 183.333 mls/hr Q24H IVPB 07/05/18 14:00 07/10/18 13:59 07/05/18 14:02 Assessment/Plan Assessment/Plan 1- Diffuse soft tissue swelling of the neck 2- Diffuse Cellulitis of base of neck 3- Hypercalcemia Plan: Notes form Nephro and surgeon reviewed Will consult ENT No sign of respirator compromise at this time current abx [facility] Hospital declaration INPATIENT level of care is warranted for this patient because patient is a 89 year old with who presents with suspicion of . I have a high level of concern because . Patient is at high risk for . Plan of care/treatment include . Patient care is expected to be greater than 2 midnights. OBSERVATION level of care is warranted for this patient. Patient is a 89 year old with who presents with . Patient will be admitted for 1 midnight, but if additional night(s) is/are necessary, patient will be converted to inpatient status for the entire hospitalization Disposition: Once the patient is stable to leave the hospital, I anticipate the patient will likely be discharged to the following environment: Estimated discharge date: I spent 70 minutes on this patient's case, and minutes was dedicated to counseling and/or care coordination. MIPS (Merit-based Incentive Payment System) Applicable CPT: 81103, 93557 CHECK ALL THAT ARE MET: Measure #5 (CHF): All ages. Prescribe MANNIE/ARB upon discharge for patients with left ventricular systolic dysfunction. If not, the reason is clearly documented in the medical chart. Measure #8 (CHF): All ages. Prescribe a beta anitha upon discharge for patients with left ventricular systolic dysfunction. If not, the reason is clearly documented in the medical chart. Measure #47 Advance care plan or surrogate decision maker documented in the medical record. Measure #130 The provider has documented, updated, or reviewed the patients current medication list and has documented it in the patients note. Measure #374 (All): Send report to referring provider. Measure #407(Sepsis due to MSSA bacteremia): Age 18+ Patient treated with a beta-lactam antibiotic (Nafcillin, Oxacillin or Cefazolin) as definitive therapy. MEDICAL COMPLEXITY High complexity medical decision making (need 2/3 categories) Problem - need 4 points Acute/new problem with new plan for workup (4 points, 1 max) Acute/new problem without additional workup (3 points, 1 max) Unstable chronic problem actively being managed (2 point each, 2 max) Stable chronic problem actively being managed (1 point each, 2 max) Self-limited/transient process (constipation, muscle ache, etc) (1 point each , 2 max) Data - need 4 points Reviewed labs/imaging studies (1 points, 2 max) Independent review of imaging (EKG, xrays, etc) (2 points, 2 max) Discussed case with consult/other MD/RN (2 points, 2 max) High Risk - qualify if have one of the following: Severe exacerbation of acute problem, acute mental status change, IV narcotics , monitoring drug levels (vancomycin, INR, tacrolimus etc) Mady Perez MD Jul 05, 2018 14:16
[2018-07-05] MEDS ORDERED: Isovue-300 100ml vial INJ PRN (15:45)
--- NOTE | 2018-07-05 16:30 | NUR ---
NURSE NOTES: Awake in bed watching tv with no s/s acute distress.Kept clean and dry.Call light within easy reach
--- NOTE | 2018-07-05 18:10 | NUR ---
NURSE NOTES: Patient asleep,no s/s acute distress. Call light within easy reach
--- NOTE | 2018-07-05 19:26 | NUR ---
HAND-OFF: Report given to RORY Whitley.
--- NOTE | 2018-07-05 19:30 | NUR ---
NURSE NOTES:Received pt awake and alert oriebted x3 gallo x4 speaks [place] only, Sb-SR on the monitor, bp stable afebrile, 02 sat 100% on room air. IVF infusing well to pts Rt hand, NS at 125ml/hr, site atraumatic . Voiding well lg amt of yellowish urine,- will continue to monitor.
--- NOTE | 2018-07-05 22:00 | NUR ---
NURSE NOTES:Voiding lg amt of yellowish urine- partial bath given- No resp. distress noted.
[2018-07-06] VITALS (20 sets, daily range): BP systolic 110–149; BP diastolic 39–78
--- NOTE | 2018-07-06 | NUR ---
NURSE NOTES:Watching tv at this time,lees
[2018-07-06] MEDS: Cefepime HCl 2 GM in D5W 55 ML IVPB SCH ×2 (00:33→12:55)
--- NOTE | 2018-07-06 00:57 | NUR ---
NURSE NOTES:Tylenol 650mg po was given due to shoulder to neck pain
--- NOTE | 2018-07-06 02:00 | NUR ---
NURSE NOTES:sleeping well at this time. Pain free.
--- NOTE | 2018-07-06 04:06 | NUR ---
NURSE NOTES:Sinus Lxkocdcegut96/min Bp 122/57. 02 sat 100%
--- NOTE | 2018-07-06 06:00 | NUR ---
NURSE NOTES:uneventful night. no resp, distress noted.
[2018-07-06 06:56] LABS: ANION GAP 12 mmol/L (5-15); BLOOD UREA NITROGEN 18 mg/dL (7-18); CARBON DIOXIDE 21 MMOL/L (21-32); CHLORIDE 110 MMOL/L (98-107); CREATININE 1.6 MG/DL (0.55-1.30); SODIUM 143 MMOL/L (136-145)
--- NOTE | 2018-07-06 07:00 | NUR ---
HAND-OFF: Report given to Alondra VALADEZ.
[2018-07-06 07:14] LABS: CALCIUM 13.9 MG/DL (8.5-10.1)
--- NOTE | 2018-07-06 07:24 | NUR ---
NURSE NOTES: Report received from Angi VALADEZ. Pt asleep but arousable. Pt connected to telemetry monitor, SR. Pt on RA saturating 100%, no SOB. Pt kept NPO at this time. PT RH connected to NS @ 125 cc/hr. ERNESTINE yung noted and intact. Safety measures in place with bed locked in lowest position, side rails x3 up and bed alarm on. Will continue to monitor and continue plan of care.
[2018-07-06] MEDS: Docusate 250mg cap ORAL SCH (08:13)
[2018-07-06] MEDS: NIFEdipine 10mg cap ORAL SCH ×2 (08:14→22:07)
[2018-07-06] MEDS: Benztropine 1mg tab ORAL SCH ×2 (08:14→17:09)
[2018-07-06] MEDS: Heparin 5000 units/ml inj SUBQ SCH ×2 (08:15→22:10)
--- NOTE | 2018-07-06 08:54 | Nephrology Progress Note ---
Assessment/Plan Assessment/Plan A/P 1) YASMEEN- multifact (Contrast Neph/sepsis/hypercalcemia/vol depl) - Continue IVFs and treating hypercalcemia -a void any nephrotoxins 2) Hypercalcemia- can be caused by lithium - IVFs, s/p pamidronate - w/u pending - add calcitonin x 4 doses 3) Neck Cellulitis- Abx per ID and mgmt per surgery Subjective Date patient seen: Jul 06, 2018 Time patient seen: 08:51 ROS Limited/Unobtainable: No Allergies: Coded Allergies: No Known Allergies (Unverified , 07/04/18) Subjective Patient in no overt distress Objective Last 24 Hour Vital Signs Date Time Temp Pulse Resp B/P (MAP) Pulse Ox O2 Delivery O2 Flow Rate FiO2 07/06/18 08:14 56 112/39 07/06/18 08:00 Room Air 07/06/18 08:00 99.0 70 20 133/75 (94) 100 07/06/18 07:00 56 18 112/39 (63) 96 07/06/18 06:00 60 18 120/62 (81) 96 07/06/18 05:00 65 18 122/62 (82) 96 07/06/18 04:00 98.4 63 18 139/68 (91) 96 07/06/18 04:00 Room Air 07/06/18 03:00 59 18 120/56 (77) 96 07/06/18 02:00 59 18 122/56 (78) 96 07/06/18 01:00 70 18 119/59 (79) 100 07/06/18 00:00 98.0 70 18 138/63 (88) 100 07/06/18 00:00 Room Air 07/05/18 23:00 65 19 137/62 (87) 98 07/05/18 22:00 65 19 120/64 (82) 98 07/05/18 21:00 66 19 123/64 (83) 98 07/05/18 20:55 67 130/62 07/05/18 20:00 98.5 67 19 131/59 (83) 99 07/05/18 20:00 Room Air 07/05/18 19:00 67 18 148/63 (91) 96 07/05/18 18:00 63 25 130/68 (88) 99 07/05/18 17:00 60 25 127/58 (81) 95 07/05/18 16:00 Room Air 07/05/18 16:00 98.0 66 17 120/61 (80) 99 07/05/18 15:00 64 19 119/62 (81) 98 07/05/18 14:00 64 19 133/65 (87) 99 07/05/18 13:00 61 19 124/58 (80) 98 07/05/18 12:00 97.8 65 17 127/60 (82) 98 07/05/18 12:00 Room Air 07/05/18 11:00 77 19 127/72 (90) 98 07/05/18 10:00 72 19 118/87 (97) 97 07/05/18 09:00 71 19 130/49 (76) 97 Intake and Output 07/05/18 07/06/18 19:00 07:00 Intake Total 2221.666 ml 1980 ml Output Total 450 ml 2000 ml Balance 1771.666 ml -20 ml Intake Oral 800 ml 480 ml IV Total 1421.666 ml 1500 ml Output Urine Total 450 ml 2000 ml # Voids 1 Laboratory Tests 07/05/18 14:00: Urine Total Protein [Pending], Urine Albumin (%) [Pending], Urine Alpha-1- Globulins (%) [Pending], Urine Ordtk-0-Jsclkxjdz (%) [Pending], Urine Beta- Globulin (%) [Pending], Urine Gamma Globulin (%) [Pending], Ur Protein Electrophoresis M-Jordy [Pending], Urine Protein Electrophoresis Intrp [Pending] 07/06/18 05:00: Sodium Level 143, Potassium Level 4.0, Chloride Level 110H, Carbon Dioxide Level 21, Anion Gap 12, Blood Urea Nitrogen 18, Creatinine 1.6H, Estimat Glomerular Filtration Rate 32.4, Glucose Level 53L, Calcium Level 13.9*H, Ionized Calcium (Measured) 1.61H Height (Feet): 5 Height (Inches): 1.00 Weight (Pounds): 196 General Appearance: no apparent distress, alert EENT: normal ENT inspection Neck: normal alignment, supple Cardiovascular: normal rate, regular rhythm Respiratory/Chest: lungs clear, normal breath sounds Abdomen: non tender, soft Edema: 1+ Arm (L), 1+ Arm (R), 1+ Leg (L), 1+ Leg (R), 1+ Pedal (L), 1+ Pedal ( R), 1+ Generalized Kota Navarrete MD Jul 06, 2018 08:54
--- NOTE | 2018-07-06 09:10 | NUR ---
NURSE NOTES: Dr Hargrove here to see pt. will review Chest CT. No acute distress. Will continue to monitor.
--- NOTE | 2018-07-06 10:37 | Consultation ---
History of Present Illness General Date patient seen: Jul 06, 2018 Time patient seen: 09:00 Chief Complaint: Skin Rash/Abscess Referring physician: Dr. Perez Reason for Consultation: Swelling in neck Present Illness HPI Pt admitted for leukocytosis and some possible swelling in neck. CT pending of H/N per Dr. Barriga note. No difficulty breathing or swallowing. Allergies: Coded Allergies: No Known Allergies (Unverified , 07/04/18) Medication History Miscellaneous Medications Nifedipine (Nifedipine*), (Reported) Patient History Limited by: language barrier History Provided By: Medical Record Healthcare decision maker Resuscitation status Advanced Directive on File Review of Systems Constitutional: Reports: no symptoms Eye: Reports: no symptoms ENT: Reports: other - erythema left upper chest and neck Physical Exam General Appearance: no apparent distress - laying flat in bed without difficulty breathing. HEENT: other - erythema of upper left chest and lower neck on left-not temder Last 24 Hour Vital Signs Date Time Temp Pulse Resp B/P (MAP) Pulse Ox O2 Delivery O2 Flow Rate FiO2 07/06/18 09:00 74 18 130/63 (85) 100 07/06/18 08:51 85 07/06/18 08:14 56 112/39 07/06/18 08:00 Room Air 07/06/18 08:00 99.0 70 20 133/75 (94) 100 07/06/18 07:00 56 18 112/39 (63) 96 07/06/18 06:00 60 18 120/62 (81) 96 07/06/18 05:00 65 18 122/62 (82) 96 07/06/18 04:00 98.4 63 18 139/68 (91) 96 07/06/18 04:00 Room Air 07/06/18 03:00 59 18 120/56 (77) 96 07/06/18 02:00 59 18 122/56 (78) 96 07/06/18 01:00 70 18 119/59 (79) 100 07/06/18 00:00 98.0 70 18 138/63 (88) 100 07/06/18 00:00 Room Air 07/05/18 23:00 65 19 137/62 (87) 98 07/05/18 22:00 65 19 120/64 (82) 98 07/05/18 21:00 66 19 123/64 (83) 98 07/05/18 20:55 67 130/62 07/05/18 20:00 98.5 67 19 131/59 (83) 99 07/05/18 20:00 Room Air 07/05/18 19:00 67 18 148/63 (91) 96 07/05/18 18:00 63 25 130/68 (88) 99 07/05/18 17:00 60 25 127/58 (81) 95 07/05/18 16:00 Room Air 07/05/18 16:00 98.0 66 17 120/61 (80) 99 07/05/18 15:00 64 19 119/62 (81) 98 07/05/18 14:00 64 19 133/65 (87) 99 07/05/18 13:00 61 19 124/58 (80) 98 07/05/18 12:00 97.8 65 17 127/60 (82) 98 07/05/18 12:00 Room Air 07/05/18 11:00 77 19 127/72 (90) 98 Intake and Output 07/05/18 07/06/18 19:00 07:00 Intake Total 2221.666 ml 1980 ml Output Total 450 ml 2000 ml Balance 1771.666 ml -20 ml Intake Oral 800 ml 480 ml IV Total 1421.666 ml 1500 ml Output Urine Total 450 ml 2000 ml # Voids 1 Laboratory Tests Test 07/05/18 14:00 07/06/18 05:00 Urine Total Protein Pending Urine Albumin (%) Pending Urine [id number] (%) Pending Urine Mccvj-5-Pkipmbgus (%) Pending Urine Beta-Globulin (%) Pending Urine Gamma Globulin (%) Pending Ur Protein Electrophoresis M-Jordy Pending Urine Protein Electrophoresis Intrp Pending Sodium Level 143 MMOL/L (136-145) Potassium Level 4.0 MMOL/L (3.5-5.1) Chloride Level 110 MMOL/L (98-107) H Carbon Dioxide Level 21 MMOL/L (21-32) Anion Gap 12 mmol/L (5-15) Blood Urea Nitrogen 18 mg/dL (7-18) Creatinine 1.6 MG/DL (0.55-1.30) H Estimat Glomerular Filtration Rate 32.4 mL/min (>60) Glucose Level 53 MG/DL (74-106) L Calcium Level 13.9 MG/DL (8.5-10.1) *H Ionized Calcium (Measured) 1.61 mmol/L (1.10-1.35) H Height (Feet): 5 Height (Inches): 1.00 Weight (Pounds): 196 Medications Current Medications Medications (Trade) Dose Ordered Sig/Omari Route PRN Reason Start Time Stop Time Status Last Admin Dose Admin Acetaminophen (Tylenol) 650 mg Q6H PRN ORAL Mild Pain/Temp > 100.5 07/05/18 00:30 08/03/18 18:29 07/06/18 00:56 Acetaminophen/ Hydrocodone Bitart ([place] 5/325) 1 tab Q6H PRN ORAL Severe Pain (Pain Scale 7-10) 07/05/18 00:30 07/11/18 18:29 Benztropine Mesylate (Cogentin) 1 mg BID ORAL 07/05/18 09:00 08/04/18 08:59 07/06/18 08:14 Calcitonin [place] (Miacalcin) 1 sprays BID NASAL 07/06/18 10:30 08/05/18 10:29 Cefepime HCl 2 gm/ Dextrose 55 ml @ 110 mls/hr Q12HR@0000,1200 IVPB 07/05/18 00:00 07/12/18 00:00 07/06/18 00:33 Docusate Sodium (Colace) 250 mg DAILY ORAL 07/05/18 09:00 08/04/18 08:59 07/06/18 08:13 Haloperidol (Haldol) 5 mg DAILY ORAL 07/05/18 09:00 08/04/18 08:59 07/06/18 08:13 Heparin Sodium (Porcine) (Heparin 5000 units/ml) 5,000 units EVERY 12 HOURS SUBQ 07/05/18 09:00 08/03/18 20:59 07/06/18 08:15 Iopamidol (Isovue-300 100ml) 100 ml NOW PRN INJ Radiology Procedure 07/05/18 15:45 07/06/18 15:34 [place] Carbonate ([place] Carbonate) 300 mg BID ORAL 07/05/18 09:00 08/04/18 08:59 07/06/18 08:13 Metronidazole 100 ml @ 100 mls/hr Q8HR IVPB 07/04/18 23:30 07/11/18 23:29 07/06/18 06:18 Mirtazapine (Remeron) 7.5 mg BEDTIME ORAL 07/05/18 21:00 08/03/18 20:59 07/05/18 20:55 Nifedipine (Adalat) 10 mg Q12HR ORAL 07/05/18 09:00 08/04/18 08:59 07/06/18 08:14 Pantoprazole (Protonix) 40 mg DAILY ORAL 07/05/18 09:00 08/04/18 08:59 07/06/18 08:13 Sodium Chloride 1,000 ml @ 125 mls/hr Q8H IV 07/05/18 16:06 08/04/18 16:05 07/06/18 08:12 Vancomycin HCl (Vanco rx to dose) 1 ea DAILY PRN MISC Per rx protocol 07/05/18 09:00 08/03/18 18:29 Vancomycin HCl 750 mg/Sodium Chloride 275 ml @ 183.333 mls/hr Q24H IVPB 07/05/18 14:00 07/10/18 13:59 07/05/18 14:02 Assessment/Plan Status: stable Assessment/Plan Will review CT scan neck to see if any issue with airway. Otherwise continue present care. MIPS Medication Reconciliation Is this a Psycho/Diag encounte: No Depression Does this Patient have Dementi: Karlo Fuentes MD Jul 06, 2018 10:37
--- NOTE | 2018-07-06 13:00 | NUR ---
NURSE NOTES: DR Perez here to see pt. No acute distress. Pt voided and had a large bm per commode. Will continue to monitor.
--- NOTE | 2018-07-06 13:51 | Consultation ---
DATE OF CONSULTATION: 07/05/2018 CONSULTING PHYSICIAN: Kota Navarrete M.D. REFERRING PHYSICIAN: Mady Perez M.D. REASON FOR CONSULTATION: 1. Acute kidney injury. 2. Hypercalcemia. HISTORY OF PRESENT ILLNESS: The patient is a 67-year-old female, sent from skilled nursing facility for further evaluation and care, swelling and redness of her left shoulder. She had been placed on Keflex prior. She was complaining about some pain in the area. Neurosurgery had evaluated the patient and noted a narrow airway. She was transferred to intensive care unit the patient had creatinine of 1.6, albumin 2.1, and calcium level over 14. She denies any nausea, vomiting, or diarrhea. The patient has been on lithium for schizophrenia. PAST MEDICAL HISTORY: 1. Depression. 2. Schizophrenia. 3. Anemia. 4. Hypertension SOCIAL HISTORY: No tobacco, alcohol, or illicit drug use. FAMILY HISTORY: Positive for hypertension. REVIEW OF SYSTEMS: NEUROLOGIC: No headache, change in vision, syncope, presyncopal episodes. CARDIOVASCULAR: No current chest pain, palpitations, or angina. PULMONARY: No difficulty breathing, productive cough, or sputum. GASTROINTESTINAL/GENITOURINARY: No change in urine or bowel habits. No nausea, vomiting, or diarrhea. ENDOCRINOLOGY: No night sweats, fevers, or chills. MUSCULOSKELETAL: The patient is complaining of left shoulder pain. PHYSICAL EXAMINATION: VITAL SIGNS: Blood pressure 125/67, respiratory rate 20, pulse 83, temperature 98.5, and 97% oxygen saturation on room air. GENERAL: The patient is awake, seemingly alert, not otherwise in distress. HEENT: Extraocular muscles intact. No lymphadenopathy noted. CARDIOVASCULAR: S1 and S2. No rubs or gallops. Regular rate. PULMONARY: Clear to auscultation bilaterally. No rales, rhonchi, or wheezes. ABDOMEN: Nondistended, nontender, and obese. EXTREMITIES: No edema noted. LABORATORY AND DIAGNOSTIC DATA: Labs dated 07/05/2018, sodium 150, potassium 3.8, creatinine of 1.5, calcium 14.1, ionized calcium pending, PTH pending, TSH 2.9, albumin 2.7, and lithium level pending. Hemoglobin 10.5, white cell count 19.6, and platelet count 214,000. ASSESSMENT AND PLAN: 1. Acute on chronic kidney disease. At this time, baseline creatinine not known. Acute kidney injury could be secondary to severe volume depletion and hypercalcemia. At this time, we will continue aggressive hydration while monitoring renal function and renal ultrasound to rule out the possibility of underlying obstruction. Also concern is proximal tubular damage from cytokine, inflammatory damage from underlying cellulitis/infection. 2. Hypercalcemia. This could be secondary to her lithium. Liborio Negron Torres level is pending. Due to the extremely high level of calcium, the patient will be treated with one dose of pamidronate and aggressive hydration. SPEP, UPEP, PTH, and vitamin D levels have been now ordered and are pending. 3. Left shoulder cellulitis/sepsis. Continue IV antibiotics and General Surgery to evaluate. 4. Hypertension, stable. Adjust medications as deemed appropriate. Let me take this opportunity to thank Dr. Perez for allowing me to assist in care of this patient. Kota Navarrete MD DR: JOSEPH/CINTHYA JOB#: [id number] CC:
--- NOTE | 2018-07-06 14:13 | NUR ---
NURSE NOTES: Dr Carrions here to see pt. says cellulitis looks better. Dr Jimenez came to assess pt. said pt can transfer to med surg. No acute distress. Will continue to monitor.
[2018-07-06] MEDS: Vancomycin 750 MG in NS 275 ML IVPB SCH (14:55)
--- NOTE | 2018-07-06 15:06 | Infectious Diseases Prog Note ---
Assessment/Plan Problems: (1) Cellulitis Assessment & Plan: of the left neck and upper shoulder, continue vancomycin , cefepime and metronidazole empirically, may need skin biopsy if no improvement with antibiotics alone to rule out malignant process (2) Sepsis Assessment & Plan: with leukocytosis , due to the above , continue wide spectrum antibiotics pending cultures (3) Hypercalcemia Assessment & Plan: rule out malignancy , renal is following (4) Renal failure Assessment & Plan: suspect due to the above, continue hydration , with close monitoring of renal function and renally dosed medications . Subjective Constitutional: Reports: no symptoms HEENT: Reports: other - left upper shoulder and neck skin swelling and redness with local tenderness Respiratory: Reports: no symptoms Breasts: Reports: no symptoms Cardiovascular: Reports: no symptoms Gastrointestinal/Abdominal: Reports: no symptoms Genitourinary: Reports: no symptoms Neurologic: Reports: no symptoms Psychiatric: Reports: no symptoms Skin: Reports: no symptoms Endocrine: Reports: no symptoms Hematologic: Reports: no symptoms Musculoskeletal: Reports: no symptoms Allergies: Coded Allergies: No Known Allergies (Unverified , 07/04/18) Objective Vital Signs Last 24 Hour Vital Signs Date Time Temp Pulse Resp B/P (MAP) Pulse Ox O2 Delivery O2 Flow Rate FiO2 07/06/18 14:00 63 18 143/63 (89) 99 07/06/18 13:00 64 19 149/62 (91) 100 07/06/18 12:00 98.9 67 19 110/78 (89) 100 07/06/18 12:00 Room Air 07/06/18 11:00 66 16 125/63 (83) 100 07/06/18 10:00 68 16 130/68 (88) 100 07/06/18 09:00 74 18 130/63 (85) 100 07/06/18 08:51 85 07/06/18 08:14 56 112/39 07/06/18 08:00 Room Air 07/06/18 08:00 99.0 70 20 133/75 (94) 100 07/06/18 07:00 56 18 112/39 (63) 96 07/06/18 06:00 60 18 120/62 (81) 96 07/06/18 05:00 65 18 122/62 (82) 96 07/06/18 04:00 98.4 63 18 139/68 (91) 96 07/06/18 04:00 Room Air 07/06/18 03:00 59 18 120/56 (77) 96 07/06/18 02:00 59 18 122/56 (78) 96 07/06/18 01:00 70 18 119/59 (79) 100 07/06/18 00:00 98.0 70 18 138/63 (88) 100 07/06/18 00:00 Room Air 07/05/18 23:00 65 19 137/62 (87) 98 07/05/18 22:00 65 19 120/64 (82) 98 07/05/18 21:00 66 19 123/64 (83) 98 07/05/18 20:55 67 130/62 07/05/18 20:00 98.5 67 19 131/59 (83) 99 07/05/18 20:00 Room Air 07/05/18 19:00 67 18 148/63 (91) 96 07/05/18 18:00 63 25 130/68 (88) 99 07/05/18 17:00 60 25 127/58 (81) 95 07/05/18 16:00 Room Air 07/05/18 16:00 98.0 66 17 120/61 (80) 99 07/05/18 15:00 64 19 119/62 (81) 98 Height (Feet): 5 Height (Inches): 1.00 Weight (Pounds): 196 General Appearance: WD/WN, no acute distress HEENT: normocephalic, atraumatic, anicteric, mucous membranes moist, PERRL, pharynx normal, supple, no JVD Respiratory/Chest: chest wall non-tender, normal breath sounds, no respiratory distress, no accessory muscle use, decreased breath sounds Cardiovascular: normal peripheral pulses, normal rate, regular rhythm, no gallop/murmur, no JVD Abdomen: normal bowel sounds, soft, non tender, no organomegaly, non distended , no mass, no scars Extremities: no cyanosis, no clubbing, other - left upper shoulder skin swelling and tenderness Skin: no lesions, no ulcers, other - red, thickened and warm on the left lower neck and upper shoulder 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 Complete 07/04/18 12:40 Rectum VRE Culture - Final NO VANCOMYCIN RESISTANT ENTEROCOCCUS ... Complete 07/04/18 12:40 Rectum - Final NO CARBAPENEM-RESISTANT ENTEROBACTERI... Complete Laboratory Tests Test 07/06/18 05:00 Sodium Level 143 MMOL/L (136-145) Potassium Level 4.0 MMOL/L (3.5-5.1) Chloride Level 110 MMOL/L (98-107) H Carbon Dioxide Level 21 MMOL/L (21-32) Anion Gap 12 mmol/L (5-15) Blood Urea Nitrogen 18 mg/dL (7-18) Creatinine 1.6 MG/DL (0.55-1.30) H Estimat Glomerular Filtration Rate 32.4 mL/min (>60) Glucose Level 53 MG/DL (74-106) L Calcium Level 13.9 MG/DL (8.5-10.1) *H Ionized Calcium (Measured) 1.61 mmol/L (1.10-1.35) H Current Medications Medications (Trade) Dose Ordered Sig/Omari Route PRN Reason Start Time Stop Time Status Last Admin Dose Admin Acetaminophen (Tylenol) 650 mg Q6H PRN ORAL Mild Pain/Temp > 100.5 07/05/18 00:30 08/03/18 18:29 07/06/18 00:56 Acetaminophen/ Hydrocodone Bitart ([place] 5/325) 1 tab Q6H PRN ORAL Severe Pain (Pain Scale 7-10) 07/05/18 00:30 07/11/18 18:29 Benztropine Mesylate (Cogentin) 1 mg BID ORAL 07/05/18 09:00 08/04/18 08:59 07/06/18 08:14 Calcitonin [place] (Miacalcin) 1 sprays BID NASAL 07/06/18 10:30 08/05/18 10:29 07/06/18 11:41 Cefepime HCl 2 gm/ Dextrose 55 ml @ 110 mls/hr Q12HR@0000,1200 IVPB 07/05/18 00:00 07/12/18 00:00 07/06/18 12:55 Docusate Sodium (Colace) 250 mg DAILY ORAL 07/05/18 09:00 08/04/18 08:59 07/06/18 08:13 Haloperidol (Haldol) 5 mg DAILY ORAL 07/05/18 09:00 08/04/18 08:59 07/06/18 08:13 Heparin Sodium (Porcine) (Heparin 5000 units/ml) 5,000 units EVERY 12 HOURS SUBQ 07/05/18 09:00 08/03/18 20:59 07/06/18 08:15 Iopamidol (Isovue-300 100ml) 100 ml NOW PRN INJ Radiology Procedure 07/05/18 15:45 07/06/18 15:34 [place] Carbonate ([place] Carbonate) 300 mg BID ORAL 07/05/18 09:00 08/04/18 08:59 07/06/18 08:13 Metronidazole 100 ml @ 100 mls/hr Q8HR IVPB 07/04/18 23:30 07/11/18 23:29 07/06/18 13:56 Mirtazapine (Remeron) 7.5 mg BEDTIME ORAL 07/05/18 21:00 08/03/18 20:59 07/05/18 20:55 Nifedipine (Adalat) 10 mg Q12HR ORAL 07/05/18 09:00 08/04/18 08:59 07/06/18 08:14 Pantoprazole (Protonix) 40 mg DAILY ORAL 07/05/18 09:00 08/04/18 08:59 07/06/18 08:13 Sodium Chloride 1,000 ml @ 125 mls/hr Q8H IV 07/05/18 16:06 08/04/18 16:05 07/06/18 08:12 Vancomycin HCl (Vanco rx to dose) 1 ea DAILY PRN MISC Per rx protocol 07/05/18 09:00 08/03/18 18:29 Vancomycin HCl 750 mg/Sodium Chloride 275 ml @ 183.333 mls/hr Q24H IVPB 07/05/18 14:00 07/10/18 13:59 07/06/18 14:55 Gloria Nelson M.D. Jul 06, 2018 15:06
--- NOTE | 2018-07-06 15:46 | NUR ---
TRAINING GENERALISTREEL WINDER SI: SHOULDER CELLULITIS VS: BP 149/62, P 64, T 98.9, RR 16, SpO2 99 CR 1.6, CHLORIDE 110, GLUCOSE 53, Ca 13.9, IS: METRONIDAZOLE 100ml IVPB CALCITONIN [place] 1 SPRAY CEFEPIME HCI 55ml IV PROTONIX 40mg NIFEDIPINE 10mg LITHIUM CARBONATE 300mg HEPARIN SUBQ HALDOL 5mg COGENTIN 1mg VANCOMYCIN HCI 275ml IV ICU STATUS
--- NOTE | 2018-07-06 15:55 | Surgery Progress Note ---
Surgery Progress Note Subjective Additional Comments improved today. pain improved. comfortable. no sob. no respiratory issues. swallowing okay Objective Last 24 Hour Vital Signs Date Time Temp Pulse Resp B/P (MAP) Pulse Ox O2 Delivery O2 Flow Rate FiO2 07/06/18 15:00 71 18 118/55 (76) 99 07/06/18 14:00 63 18 143/63 (89) 99 07/06/18 13:00 64 19 149/62 (91) 100 07/06/18 12:00 98.9 67 19 110/78 (89) 100 07/06/18 12:00 Room Air 07/06/18 11:00 66 16 125/63 (83) 100 07/06/18 10:00 68 16 130/68 (88) 100 07/06/18 09:00 74 18 130/63 (85) 100 07/06/18 08:51 85 07/06/18 08:14 56 112/39 07/06/18 08:00 Room Air 07/06/18 08:00 99.0 70 20 133/75 (94) 100 07/06/18 07:00 56 18 112/39 (63) 96 07/06/18 06:00 60 18 120/62 (81) 96 07/06/18 05:00 65 18 122/62 (82) 96 07/06/18 04:00 98.4 63 18 139/68 (91) 96 07/06/18 04:00 Room Air 07/06/18 03:00 59 18 120/56 (77) 96 07/06/18 02:00 59 18 122/56 (78) 96 07/06/18 01:00 70 18 119/59 (79) 100 07/06/18 00:00 98.0 70 18 138/63 (88) 100 07/06/18 00:00 Room Air 07/05/18 23:00 65 19 137/62 (87) 98 07/05/18 22:00 65 19 120/64 (82) 98 07/05/18 21:00 66 19 123/64 (83) 98 07/05/18 20:55 67 130/62 07/05/18 20:00 98.5 67 19 131/59 (83) 99 07/05/18 20:00 Room Air 07/05/18 19:00 67 18 148/63 (91) 96 07/05/18 18:00 63 25 130/68 (88) 99 07/05/18 17:00 60 25 127/58 (81) 95 07/05/18 16:00 Room Air 07/05/18 16:00 98.0 66 17 120/61 (80) 99 I&O Intake and Output 07/05/18 07/06/18 19:00 07:00 Intake Total 2221.666 ml 1980 ml Output Total 450 ml 2000 ml Balance 1771.666 ml -20 ml Intake Oral 800 ml 480 ml IV Total 1421.666 ml 1500 ml Output Urine Total 450 ml 2000 ml # Voids 1 Cardiovascular: RSR Respiratory: clear Abdomen: soft, non-tender, non-distended Extremities: no tenderness, no cyanosis Laboratory Tests Test 07/06/18 05:00 Sodium Level 143 MMOL/L (136-145) Potassium Level 4.0 MMOL/L (3.5-5.1) Chloride Level 110 MMOL/L (98-107) H Carbon Dioxide Level 21 MMOL/L (21-32) Anion Gap 12 mmol/L (5-15) Blood Urea Nitrogen 18 mg/dL (7-18) Creatinine 1.6 MG/DL (0.55-1.30) H Estimat Glomerular Filtration Rate 32.4 mL/min (>60) Glucose Level 53 MG/DL (74-106) L Calcium Level 13.9 MG/DL (8.5-10.1) *H Ionized Calcium (Measured) 1.61 mmol/L (1.10-1.35) H Plan Problems: (1) Cellulitis Assessment & Plan: 67-year-old with left neck cellulitis. Leukocytosis. Low- grade fevers. Tenderness on examination with large area of cellulitis without fluctuance. CT scan ordered and pending final read but did speak with the radiologist and there is significant inflammation in the oropharynx and neck around the pharynx and trachea. There is subcutaneous tissue swelling consistent with cellulitis in the area as identified on clinical examination. There is a narrowed airway. Even these findings patient was transferred to the intensive care unit for close monitoring. Etiology of patient's infection is currently unknown and will need further workup. Currently respiratory stable without any signs of compromise or distress. Patient states she is breathing well without any shortness of breath or difficulty. Airway is currently patent. Radiological findings noted. labs improved today exam stable if not slightly improved okay to downgrade. N.p.o. IV abx cultures appreciate ENT input pending final read of CT if shows signs of respiratory issues will need urgent intubation for airway protection vs tracheostomy will follow with recs thank you Florencio Jimenez Jul 06, 2018 15:55
--- NOTE | 2018-07-06 16:21 | NUR ---
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 Patient with a history of mental health disorder, schizophrenia. POLST completed by mahesh Yañez [phone]. 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 Once medically appropriate patient is anticipated to return to [facility] upon discharge. Will monitor and be available as needed.
--- NOTE | 2018-07-06 16:23 | General Progress Note ---
Assessment/Plan Assessment/Plan Review of Systems Review of Symptoms General ROS: no weight loss or fever Psychological ROS: no depression or mood changes, no memory loss Ophthalmic ROS: no visual changes or eye irritation ENT ROS: no nasal congestion, hearing loss, dizziness Allergy and Immunology ROS: no allergic symptoms or urticaria Hematological and Lymphatic ROS: no swollen glands, unusual bleeding or bruising Endocrine ROS: no polyuria, polydipsia, weight changes, temperature intolerance Respiratory ROS: no cough, shortness of breath, or wheezing Cardiovascular ROS: no chest pain or dyspnea on exertion Gastrointestinal ROS: denies abdominal pain, bright red blood in stool. Musculoskeletal ROS: no myalgias or arthralgias Neurological ROS: no TIA or stroke symptoms Dermatological ROS: diffuse redness in base of the neck S: I am feeling ok O: appears comfrotable. no breathing compromise Physical Exam Physical Exam General appearance: alert, cooperative, no distress, appears stated age Head: Normocephalic, without obvious abnormality, atraumatic Eyes: conjunctivae/corneas clear. PERRL, EOM's intact. Fundi benign Throat: Lips, mucosa, and tongue normal. Teeth and gums normal Neck: supple, symmetrical, trachea midline, no adenopathy, t Lungs: clear to auscultation bilaterally Heart: regular rate and rhythm, S1, S2 normal, no murmur, click, rub or gallop Abdomen: soft, non-tender. Bowel sounds normal. No masses, no organomegaly Extremities: Diffuse swelling in base of the neck. Pulses: 2+ and symmetric Skin: Skin color, texture, turgor normal. No rashes or lesions Neurologic: Grossly normal 1- Sepsis 2. Diffuse soft tissue swelling of the neck 2- Diffuse Cellulitis of base of neck 3- Hypercalcemia Plan: Notes form Nephro and ID reviewed consult notes from ENT is reviewed No sign of respirator compromise at this time current abx Ok to transfer to [facility] Subjective Allergies: Coded Allergies: No Known Allergies (Unverified , 07/04/18) Objective Last 24 Hour Vital Signs Date Time Temp Pulse Resp B/P (MAP) Pulse Ox O2 Delivery O2 Flow Rate FiO2 07/06/18 16:00 Room Air 07/06/18 16:00 98.7 62 16 111/59 (76) 100 07/06/18 15:00 71 18 118/55 (76) 99 07/06/18 14:00 63 18 143/63 (89) 99 07/06/18 13:00 64 19 149/62 (91) 100 07/06/18 12:00 98.9 67 19 110/78 (89) 100 07/06/18 12:00 Room Air 07/06/18 11:00 66 16 125/63 (83) 100 07/06/18 10:00 68 16 130/68 (88) 100 07/06/18 09:00 74 18 130/63 (85) 100 07/06/18 08:51 85 07/06/18 08:14 56 112/39 07/06/18 08:00 Room Air 07/06/18 08:00 99.0 70 20 133/75 (94) 100 07/06/18 07:00 56 18 112/39 (63) 96 07/06/18 06:00 60 18 120/62 (81) 96 07/06/18 05:00 65 18 122/62 (82) 96 07/06/18 04:00 98.4 63 18 139/68 (91) 96 07/06/18 04:00 Room Air 07/06/18 03:00 59 18 120/56 (77) 96 07/06/18 02:00 59 18 122/56 (78) 96 07/06/18 01:00 70 18 119/59 (79) 100 07/06/18 00:00 98.0 70 18 138/63 (88) 100 07/06/18 00:00 Room Air 07/05/18 23:00 65 19 137/62 (87) 98 07/05/18 22:00 65 19 120/64 (82) 98 07/05/18 21:00 66 19 123/64 (83) 98 07/05/18 20:55 67 130/62 07/05/18 20:00 98.5 67 19 131/59 (83) 99 07/05/18 20:00 Room Air 07/05/18 19:00 67 18 148/63 (91) 96 07/05/18 18:00 63 25 130/68 (88) 99 07/05/18 17:00 60 25 127/58 (81) 95 Intake and Output 07/05/18 07/06/18 19:00 07:00 Intake Total 2221.666 ml 1980 ml Output Total 450 ml 2000 ml Balance 1771.666 ml -20 ml Intake Oral 800 ml 480 ml IV Total 1421.666 ml 1500 ml Output Urine Total 450 ml 2000 ml # Voids 1 Laboratory Tests 07/06/18 05:00: Sodium Level 143, Potassium Level 4.0, Chloride Level 110H, Carbon Dioxide Level 21, Anion Gap 12, Blood Urea Nitrogen 18, Creatinine 1.6H, Estimat Glomerular Filtration Rate 32.4, Glucose Level 53L, Calcium Level 13.9*H, Ionized Calcium (Measured) 1.61H Height (Feet): 5 Height (Inches): 1.00 Weight (Pounds): 196 Mady Perez MD Jul 06, 2018 16:22
[2018-07-06] MEDS ORDERED: HYDROcodone/Acetamin 5/325 tab ORAL PRN (17:33)
--- NOTE | 2018-07-06 17:50 | NUR ---
NURSE NOTES: Pt resting comfortably. VSS. Will continue to monitor.
[2018-07-06] MEDS ORDERED: Benztropine 1mg tab ORAL SCH (18:00)
--- NOTE | 2018-07-06 18:34 | NUR ---
RECEIVED PATIENT FROM ICU AWAKE.. DJIBOUTIAN SPEAKING NO RESPIRATORY DISTRESS OR SOB.. PLACED HEAD OF THE BED UP 40 DEGREES TO PREVENT ANY ASPIRATION. ASKED PAIN IF ANY PAIN OR DISCOMFORT.. STATED NO PAIN LEFT FOREARM INTACT , RUNNING NS@125/CC PATIENT IS A FALL RISK.. WILL CONTINUE TO MONITOR FOR ANY DISTRESS CALL LIGHT IN REACH
--- NOTE | 2018-07-06 18:35 | NUR ---
HAND-OFF: Report given to Key VALADEZ.
[2018-07-06] MEDS ORDERED: NS 275ml ONE ×2 (18:57→19:03)
[2018-07-06] MEDS ORDERED: Tubing IV Secondary IV ONE ×2 (18:57→19:03)
--- NOTE | 2018-07-06 18:59 | NUR ---
report given to Raquel velazco patient is stable no acute distress no respiratory distress or sob abdomen distended and obese with bowl sounds present.. call light inreahcv
--- NOTE | 2018-07-06 19:14 | Cardiology Report ---
APPROVED REPORT EKG Measurement Heart [id number] Sinus bradycardia Right bundle branch block T wave abnormality, consider lateral ischemia Abnormal ECG
--- NOTE | 2018-07-06 19:30 | NUR ---
NURSE NOTES: Report received from Key VALADEZ. Pt is resting in bed in stable condition. Pt is awake, alert, and oriented x4, primarily turkish speaking. Pt is on room air and breathing is even and unlabored. No acute distress noted. IV site on L forearm is red and puffy. IV site discontinued. Will place new IV site NATALY. Bed is in lowest position with brake engaged, side rails up x3, and bed alarm on. Call light and side table are placed within reach. Will continue to monitor.
--- NOTE | 2018-07-06 21:00 | NUR ---
NURSE NOTES: New IV site placed in L hand #22g. Site is asymptomatic, patent, and intact. IV fluids restarted at rx rate.
--- NOTE | 2018-07-06 21:30 | Consultation ---
DATE OF CONSULTATION: 07/03/2018 INFECTIOUS DISEASE CONSULTATION CONSULTING PHYSICIAN: Gloria Nelson M.D. REQUESTING PHYSICIAN: Mady Perez M.D. REASON FOR CONSULTATION: Left lower neck and left upper shoulder skin cellulitis with sepsis and leukocytosis. Recommendation for antibiotics treatment. HISTORY OF PRESENT ILLNESS: The patient is a 67-year-old female with past medical history of hypertension, cardiac disease, anemia, and schizophrenia, was [facility] to [facility] emergency room for swelling and redness of the left lower neck and upper shoulder. The patient was started on Keflex at the facility with no significant improvement. She does have some pain and tenderness in that area. Denied any fall or trauma. No skin injury. No cough, sore throat, nausea, vomiting, or diarrhea. No headache. No dyspnea. In the emergency room, the patient had a fever of 99.3 with pulse of 64 and respiration of 16 and saturating 93% on room air. Chest x-ray showed no infiltrate or gas in the left shoulder area. WBC were significantly elevated concerning for sepsis. So, Infectious Disease consultation was requested for antibiotics treatment and further management. As of note, the patient is a poor historian. Could not provide good history. History was mainly obtained from the medical record. REVIEW OF SYSTEMS: A 14-point of system reviewed were all negative apart from the one I mentioned above in my History and Physical. PAST MEDICAL HISTORY: Significant for anemia, hypertension, chronic renal failure, and and schizophrenia. PAST SURGICAL HISTORY: Not on record. MEDICATIONS: The patient was started on Levaquin, vancomycin, and cefepime. For the rest of her medications, please refer to MAR. ALLERGIES: No known drug allergies. SOCIAL HISTORY: The patient [facility]. She was mainly born in [place]. No recent drugs, tobacco, or alcohol. FAMILY HISTORY: Unable to obtain. PHYSICAL EXAMINATION: VITAL SIGNS: Temperature 98, pulse 66, respirations 17, blood pressure 120/61, and saturation 99% on room air. GENERAL: A middle-aged female, obese, St Helenian speaker, lying in bed with significant redness and swelling in the left lower neck and upper shoulder area, not in acute distress. HEENT: Normocephalic and atraumatic. Pupils reactive to light equally. Moist oral mucosa. No exudate or thrush. NECK: Red, swollen, and tender in the left lower aspect with lymphadenopathy. Swelling, tenderness, and edema extend to the left upper shoulder area. Decreased range of motion in the left neck. CARDIOVASCULAR: Regular rate and rhythm. No murmur or gallop. LUNGS: Clear bilaterally. No wheezing or rhonchi. Normal breathing efforts. ABDOMEN: Soft, obese, nontender, and nondistended. Normal bowel sounds. No hepatosplenomegaly or ascites. EXTREMITY: No edema or cyanosis. SKIN: Red, tender, and erythematous in the left lower neck and left upper shoulder. GENITOURINARY: Normal genitalia. No [place]. LABORATORY DATA: Labs showed white count of 19.6 down from 25.8, hemoglobin of 10.5,and platelet count of 214,000. BUN of 18 and creatinine of 1.6. Calcium of 13.9. Urinalysis showed +2 protein and +1 leukocyte esterase. MICROBIOLOGY: Blood culture x2 negative to date. Methicillin resistant Staphylococcus aureus swab is negative. ASSESSMENT AND RECOMMENDATION: 1. Left lower neck and upper shoulder skin cellulitis with redness and thickness. Continue vancomycin, cefepime, and metronidazole empirically. The patient may need skin biopsy if no improvement with antibiotics alone to rule out malignant process of the soft tissue of the neck and shoulder being hypercalcemic, which raised the question of occult malignancy. 2. Sepsis with leukocytosis due to the above. Continue wide-spectrum antibiotics pending culture. 3. Hypercalcemia. Rule out malignancy such as multiple myeloma or squamous cell carcinoma. Renal is following. 4. Renal failure, suspect due to the above. Continue hydration with close monitor of renal function and renally-dosed medications. Thank you for the consult. ID will continue to follow. Gloria Nelson M.D. DR: DONNA JOB#: [id number] CC:
[2018-07-07] VITALS: BP 122/72
[2018-07-07] MEDS: Cefepime HCl 2 GM in D5W 55 ML IVPB SCH ×3 (01:22→23:11)
[2018-07-07 04:00] VITALS: BP 119/57
--- NOTE | 2018-07-07 07:43 | NUR ---
HAND-OFF: Report given to Flakita VALADEZ. Pt is resting in bed in stable condition. No acute distress noted. Endorsed plan of care.
[2018-07-07 07:44] LABS: ANION GAP 9 mmol/L (5-15); BLOOD UREA NITROGEN 15 mg/dL (7-18); CALCIUM 10.7 MG/DL (8.5-10.1); CARBON DIOXIDE 20 MMOL/L (21-32); CHLORIDE 114 MMOL/L (98-107); CREATININE 1.2 MG/DL (0.55-1.30); POTASSIUM 3.7 MMOL/L (3.5-5.1); SODIUM 143 MMOL/L (136-145)
[2018-07-07 08:00] VITALS: BP 113/61
--- NOTE | 2018-07-07 08:16 | Nephrology Progress Note ---
Assessment/Plan Assessment/Plan A/P 1) YASMEEN- multifact (Contrast Neph/sepsis/hypercalcemia/vol depl) - DC IVFs now. Cr down to 1.2 -avoid any nephrotoxins 2) Hypercalcemia- can be caused by lithium - IVFs, s/p pamidronate and calcitonin - w/u pending - will DC IVFs and calcitonin. Calcium level much improved 3) Neck Cellulitis- Abx per ID and mgmt per surgery Subjective Date patient seen: Jul 07, 2018 Time patient seen: 08:15 ROS Limited/Unobtainable: No Allergies: Coded Allergies: No Known Allergies (Unverified , 07/04/18) Subjective Patient in no overt distress. Transferred out of MICU Objective Last 24 Hour Vital Signs Date Time Temp Pulse Resp B/P (MAP) Pulse Ox O2 Delivery O2 Flow Rate FiO2 07/07/18 04:00 98.1 55 20 119/57 (77) 96 07/07/18 00:00 98.4 57 18 122/72 (89) 97 07/06/18 22:07 60 122/63 07/06/18 21:00 Room Air 07/06/18 20:00 98.7 61 17 122/63 (82) 97 07/06/18 18:00 98.5 79 17 147/72 (97) 99 07/06/18 17:00 67 16 111/59 (76) 100 07/06/18 16:00 Room Air 07/06/18 16:00 98.7 62 16 111/59 (76) 100 07/06/18 15:00 71 18 118/55 (76) 99 07/06/18 14:00 63 18 143/63 (89) 99 07/06/18 13:00 64 19 149/62 (91) 100 07/06/18 12:00 98.9 67 19 110/78 (89) 100 07/06/18 12:00 Room Air 07/06/18 11:00 66 16 125/63 (83) 100 07/06/18 10:00 68 16 130/68 (88) 100 07/06/18 09:00 74 18 130/63 (85) 100 07/06/18 08:51 85 Intake and Output 07/06/18 07/07/18 18:59 06:59 Intake Total 2740 ml 980 ml Output Total 2100 ml Balance 640 ml 980 ml Intake Oral 1560 ml 980 ml IV Total 1180 ml Output Urine Total 2100 ml # Voids 6 # Bowel Movements 1 Laboratory Tests 07/07/18 06:24: Sodium Level 143, Potassium Level 3.7, Chloride Level 114H, Carbon Dioxide Level 20L, Anion Gap 9, Blood Urea Nitrogen 15, Creatinine 1.2, Estimat Glomerular Filtration Rate 45.1, Glucose Level 85, Calcium Level 10.7#H Height (Feet): 5 Height (Inches): 1.00 Weight (Pounds): 195 General Appearance: no apparent distress EENT: normal ENT inspection Neck: normal alignment, supple Cardiovascular: normal rate, regular rhythm Respiratory/Chest: lungs clear, normal breath sounds Abdomen: non tender, soft Edema: 1+ Arm (L), 1+ Arm (R), 1+ Leg (L), 1+ Leg (R), 1+ Pedal (L), 1+ Pedal ( R), 1+ Generalized Kota Navarrete MD Jul 07, 2018 08:16
[2018-07-07] MEDS: Benztropine 1mg tab ORAL SCH ×2 (08:23→17:34)
[2018-07-07] MEDS: Docusate 250mg cap ORAL SCH (08:24)
[2018-07-07] MEDS: NIFEdipine 10mg cap ORAL SCH ×2 (08:25→21:02)
[2018-07-07] MEDS: Heparin 5000 units/ml inj SUBQ SCH ×2 (08:27→21:03)
--- NOTE | 2018-07-07 10:34 | NUR ---
NURSE NOTES: No signs of discomfort or pain noted. Pt is resting comfortably. IV line intact. Pt is ambulatory with assist, was instructed to call for help if she needs to go out of the bed.
[2018-07-07 12:00] VITALS: BP 119/66
--- NOTE | 2018-07-07 13:45 | Infectious Diseases Prog Note ---
Assessment/Plan Problems: (1) Cellulitis Assessment & Plan: of the left neck and upper shoulder, continue vancomycin , cefepime and metronidazole empirically, may need skin biopsy if no improvement with antibiotics alone to rule out malignant process (2) Sepsis Assessment & Plan: with leukocytosis , due to the above , continue wide spectrum antibiotics pending cultures (3) Hypercalcemia Assessment & Plan: rule out malignancy , renal is following (4) Renal failure Assessment & Plan: suspect due to the above, continue hydration , with close monitoring of renal function and renally dosed medications . Subjective Allergies: Coded Allergies: No Known Allergies (Unverified , 07/04/18) Objective Vital Signs Last 24 Hour Vital Signs Date Time Temp Pulse Resp B/P (MAP) Pulse Ox O2 Delivery O2 Flow Rate FiO2 07/07/18 12:00 98.3 71 18 119/66 (83) 98 07/07/18 09:00 Room Air 07/07/18 08:25 65 113/61 07/07/18 08:00 98.4 65 18 113/61 (78) 98 07/07/18 04:00 98.1 55 20 119/57 (77) 96 07/07/18 00:00 98.4 57 18 122/72 (89) 97 07/06/18 22:07 60 122/63 07/06/18 21:00 Room Air 07/06/18 20:00 98.7 61 17 122/63 (82) 97 07/06/18 18:00 98.5 79 17 147/72 (97) 99 07/06/18 17:00 67 16 111/59 (76) 100 07/06/18 16:00 Room Air 07/06/18 16:00 98.7 62 16 111/59 (76) 100 07/06/18 15:00 71 18 118/55 (76) 99 07/06/18 14:00 63 18 143/63 (89) 99 Height (Feet): 5 Height (Inches): 1.00 Weight (Pounds): 195 Laboratory Tests Test 07/07/18 06:24 07/07/18 12:59 Sodium Level 143 MMOL/L (136-145) Potassium Level 3.7 MMOL/L (3.5-5.1) Chloride Level 114 MMOL/L (98-107) H Carbon Dioxide Level 20 MMOL/L (21-32) L Anion Gap 9 mmol/L (5-15) Blood Urea Nitrogen 15 mg/dL (7-18) Creatinine 1.2 MG/DL (0.55-1.30) Estimat Glomerular Filtration Rate 45.1 mL/min (>60) Glucose Level 85 MG/DL (74-106) Calcium Level 10.7 MG/DL (8.5-10.1) #H Vancomycin Level Trough Pending Current Medications Medications (Trade) Dose Ordered Sig/Omari Route PRN Reason Start Time Stop Time Status Last Admin Dose Admin Acetaminophen (Tylenol) 650 mg Q6H PRN ORAL Mild Pain/Temp > 100.5 07/06/18 17:33 08/05/18 17:32 Acetaminophen/ Hydrocodone Bitart ([place] 5/325) 1 tab Q6H PRN ORAL Severe Pain (Pain Scale 7-10) 07/06/18 17:33 07/13/18 17:32 Benztropine Mesylate (Cogentin) 1 mg BID ORAL 07/07/18 09:00 08/06/18 08:59 07/07/18 08:23 Cefepime HCl 2 gm/ Dextrose 55 ml @ 110 mls/hr Q12HR@0000,1200 IVPB 07/07/18 00:00 07/12/18 00:00 07/07/18 12:08 Docusate Sodium (Colace) 250 mg DAILY ORAL 07/07/18 09:00 08/04/18 08:59 07/07/18 08:24 Haloperidol (Haldol) 5 mg DAILY ORAL 07/07/18 09:00 08/04/18 08:59 07/07/18 08:24 Heparin Sodium (Porcine) (Heparin 5000 units/ml) 5,000 units EVERY 12 HOURS SUBQ 07/06/18 21:00 08/03/18 20:59 07/07/18 08:27 [place] Carbonate ([place] Carbonate) 300 mg BID ORAL 07/07/18 09:00 08/06/18 08:59 07/07/18 08:25 Metronidazole 100 ml @ 100 mls/hr Q8HR IVPB 07/06/18 22:00 07/11/18 23:29 07/07/18 05:46 Mirtazapine (Remeron) 7.5 mg BEDTIME ORAL 07/06/18 21:00 08/03/18 20:59 07/06/18 22:05 Nifedipine (Adalat) 10 mg Q12HR ORAL 07/06/18 21:00 08/04/18 08:59 07/06/18 22:07 Pantoprazole (Protonix) 40 mg DAILY ORAL 07/07/18 09:00 08/04/18 08:59 07/07/18 08:24 Vancomycin HCl (Vanco rx to dose) 1 ea DAILY PRN MISC Per rx protocol 07/07/18 09:00 08/03/18 18:29 Vancomycin HCl 750 mg/Sodium Chloride 275 ml @ 183.333 mls/hr Q24H IVPB 07/07/18 14:00 07/10/18 13:59 Gloria Nelson M.D. Jul 07, 2018 13:45
[2018-07-07] MEDS ORDERED: Vancomycin 750 MG in NS 275 ML IVPB SCH (14:00)
--- NOTE | 2018-07-07 14:09 | General Progress Note ---
Progress Note Progress Note ENT note Pt left shoulder a bit softer but no sig.change in erythema. Fiberoptic exam indicates supraglottic airway narrowing, although pt was lying flat when I came into the room resting comfortably. CT scan reviewed with Radiology-retropharyngeal abscess into clavicle. I suggest she be transferred to a hospital where a higher level of care is supplied. She will need drainage but may get complicated. Also may need a trach to secure airway if no sig. improvement. She is stable at this time. I have left a message for PMD as well have discussed with CNO-Ms. Maldonado. Karlo Hargrove MD Jul 07, 2018 14:09
--- NOTE | 2018-07-07 15:14 | NUR ---
CASE MANAGEMENT:REVIEW 07/07/18 SI: SEPSIS. CELLULITIS 98.3 71 18 119/66 98% ON RA IS: IV VANCOMYCIN Q12 IV CEFEPIME Q12 IV FLAGYL Q8HRS HEPARIN SQ Q12 : MED/SURG STATUS 3 EAST
[2018-07-07] MEDS: Vancomycin 750 MG in NS 275 ML IVPB SCH (15:32)
[2018-07-07 16:00] VITALS: BP 116/82
--- NOTE | 2018-07-07 18:21 | Infectious Diseases Prog Note ---
Assessment/Plan Problems: (1) Retropharyngeal abscess Assessment & Plan: with extension to the left clavicle , on triple antibiotics , need I&D , S/P ENT eval, will require transfer to higher level of care facility (2) Cellulitis Assessment & Plan: of the left neck and upper shoulder, continue vancomycin , cefepime and metronidazole empirically, may need skin biopsy if no improvement with antibiotics alone to rule out malignant process (3) Sepsis Assessment & Plan: with leukocytosis , due to the above , continue wide spectrum antibiotics pending cultures (4) Hypercalcemia Assessment & Plan: rule out malignancy , renal is following (5) Renal failure Assessment & Plan: suspect due to the above, continue hydration , with close monitoring of renal function and renally dosed medications . Subjective Constitutional: Reports: no symptoms HEENT: Reports: dysphagia, congestion Respiratory: Reports: no symptoms Breasts: Reports: no symptoms Cardiovascular: Reports: no symptoms Gastrointestinal/Abdominal: Reports: no symptoms Genitourinary: Reports: no symptoms Neurologic: Reports: no symptoms Psychiatric: Reports: no symptoms Skin: Reports: other - red, thick and tender on the left upper clavicle Hematologic: Reports: no symptoms Musculoskeletal: Reports: pain Allergies: Coded Allergies: No Known Allergies (Unverified , 07/04/18) Objective Vital Signs Last 24 Hour Vital Signs Date Time Temp Pulse Resp B/P (MAP) Pulse Ox O2 Delivery O2 Flow Rate FiO2 07/07/18 16:00 98.5 94 18 116/82 (93) 98 07/07/18 12:00 98.3 71 18 119/66 (83) 98 07/07/18 09:00 Room Air 07/07/18 08:25 65 113/61 07/07/18 08:00 98.4 65 18 113/61 (78) 98 07/07/18 04:00 98.1 55 20 119/57 (77) 96 07/07/18 00:00 98.4 57 18 122/72 (89) 97 07/06/18 22:07 60 122/63 07/06/18 21:00 Room Air 07/06/18 20:00 98.7 61 17 122/63 (82) 97 Height (Feet): 5 Height (Inches): 1.00 Weight (Pounds): 195 General Appearance: WD/WN, no acute distress HEENT: normocephalic, atraumatic, anicteric, mucous membranes moist, PERRL, EOMI, supple, no JVD Respiratory/Chest: chest wall non-tender, lungs clear, normal breath sounds, no respiratory distress, no accessory muscle use Cardiovascular: normal peripheral pulses, normal rate, regular rhythm, no gallop/murmur, no JVD Abdomen: normal bowel sounds, soft, non tender, no organomegaly, non distended , no mass, no scars Genitourinary: normal external genitalia Extremities: no cyanosis, no clubbing Skin: no rash, no lesions, no ulcers, other - red, thick and tender on the left upper shoulder and left lower neck Neurologic/Psychiatric: aspnet developer II-XII grossly normal, alert, responsive Lymphatic: no neck adenopathy, no groin adenopathy Musculoskeletal: normal muscle bulk, no effusion Laboratory Tests Test 07/07/18 06:24 07/07/18 12:59 Sodium Level 143 MMOL/L (136-145) Potassium Level 3.7 MMOL/L (3.5-5.1) Chloride Level 114 MMOL/L (98-107) H Carbon Dioxide Level 20 MMOL/L (21-32) L Anion Gap 9 mmol/L (5-15) Blood Urea Nitrogen 15 mg/dL (7-18) Creatinine 1.2 MG/DL (0.55-1.30) Estimat Glomerular Filtration Rate 45.1 mL/min (>60) Glucose Level 85 MG/DL (74-106) Calcium Level 10.7 MG/DL (8.5-10.1) #H Vancomycin Level Trough 7.8 ug/mL (5.0-12.0) Current Medications Medications (Trade) Dose Ordered Sig/Omari Route PRN Reason Start Time Stop Time Status Last Admin Dose Admin Acetaminophen (Tylenol) 650 mg Q6H PRN ORAL Mild Pain/Temp > 100.5 07/06/18 17:33 08/05/18 17:32 Acetaminophen/ Hydrocodone Bitart ([place] 5/325) 1 tab Q6H PRN ORAL Severe Pain (Pain Scale 7-10) 07/06/18 17:33 07/13/18 17:32 Benztropine Mesylate (Cogentin) 1 mg BID ORAL 07/07/18 09:00 08/06/18 08:59 07/07/18 17:34 Cefepime HCl 2 gm/ Dextrose 55 ml @ 110 mls/hr Q12HR@0000,1200 IVPB 07/07/18 00:00 07/12/18 00:00 07/07/18 12:08 Docusate Sodium (Colace) 250 mg DAILY ORAL 07/07/18 09:00 08/04/18 08:59 07/07/18 08:24 Haloperidol (Haldol) 5 mg DAILY ORAL 07/07/18 09:00 08/04/18 08:59 07/07/18 08:24 Heparin Sodium (Porcine) (Heparin 5000 units/ml) 5,000 units EVERY 12 HOURS SUBQ 07/06/18 21:00 08/03/18 20:59 07/07/18 08:27 [place] Carbonate ([place] Carbonate) 300 mg BID ORAL 07/07/18 09:00 08/06/18 08:59 07/07/18 17:34 Metronidazole 100 ml @ 100 mls/hr Q8HR IVPB 07/06/18 22:00 07/11/18 23:29 07/07/18 14:24 Mirtazapine (Remeron) 7.5 mg BEDTIME ORAL 07/06/18 21:00 08/03/18 20:59 07/06/18 22:05 Nifedipine (Adalat) 10 mg Q12HR ORAL 07/06/18 21:00 08/04/18 08:59 07/06/18 22:07 Pantoprazole (Protonix) 40 mg DAILY ORAL 07/07/18 09:00 08/04/18 08:59 07/07/18 08:24 Vancomycin HCl (Vanco rx to dose) 1 ea DAILY PRN MISC Per rx protocol 07/07/18 09:00 08/03/18 18:29 Vancomycin HCl 750 mg/Sodium Chloride 275 ml @ 183.333 mls/hr Q12H IVPB 07/07/18 15:00 07/12/18 14:59 07/07/18 15:32 Gloria Nelson M.D. Jul 07, 2018 18:21
--- NOTE | 2018-07-07 19:38 | NUR ---
NURSE NOTES: Initial rounding done. Pt resting in bed, resp even. denies pain at this time. IV Left hand intact/clean. Call light w/in reach.
--- NOTE | 2018-07-07 19:53 | NUR ---
HAND-OFF: Report given to RORY Cole.
[2018-07-07 20:00] VITALS: BP 149/66
--- NOTE | 2018-07-07 21:41 | Surgery Progress Note ---
Surgery Progress Note Subjective Additional Comments no acute events. resting comfortable. discussed with PCP. plan to transfer to higher level of care as per ENT Objective Last 24 Hour Vital Signs Date Time Temp Pulse Resp B/P (MAP) Pulse Ox O2 Delivery O2 Flow Rate FiO2 07/07/18 21:02 60 149/66 07/07/18 20:43 Room Air 07/07/18 20:00 98.1 60 20 149/66 (93) 100 07/07/18 16:00 98.5 94 18 116/82 (93) 98 07/07/18 12:00 98.3 71 18 119/66 (83) 98 07/07/18 09:00 Room Air 07/07/18 08:25 65 113/61 07/07/18 08:00 98.4 65 18 113/61 (78) 98 07/07/18 04:00 98.1 55 20 119/57 (77) 96 07/07/18 00:00 98.4 57 18 122/72 (89) 97 07/06/18 22:07 60 122/63 I&O Intake and Output 07/06/18 07/07/18 19:00 07:00 Intake Total 2555 ml 980 ml Output Total 2000 ml Balance 555 ml 980 ml Intake Oral 1500 ml 980 ml IV Total 1055 ml Output Urine Total 2000 ml # Voids 6 # Bowel Movements 1 Cardiovascular: RSR Respiratory: clear Abdomen: soft, present bowel sounds Extremities: no tenderness, no cyanosis Laboratory Tests Test 07/07/18 06:24 07/07/18 12:59 Sodium Level 143 MMOL/L (136-145) Potassium Level 3.7 MMOL/L (3.5-5.1) Chloride Level 114 MMOL/L (98-107) H Carbon Dioxide Level 20 MMOL/L (21-32) L Anion Gap 9 mmol/L (5-15) Blood Urea Nitrogen 15 mg/dL (7-18) Creatinine 1.2 MG/DL (0.55-1.30) Estimat Glomerular Filtration Rate 45.1 mL/min (>60) Glucose Level 85 MG/DL (74-106) Calcium Level 10.7 MG/DL (8.5-10.1) #H Vancomycin Level Trough 7.8 ug/mL (5.0-12.0) Plan Problems: (1) Cellulitis Assessment & Plan: 67-year-old with left neck cellulitis. Leukocytosis. Low- grade fevers. Tenderness on examination with large area of cellulitis without fluctuance. CT scan ordered and pending final read but did speak with the radiologist and there is significant inflammation in the oropharynx and neck around the pharynx and trachea. There is subcutaneous tissue swelling consistent with cellulitis in the area as identified on clinical examination. There is a narrowed airway. Even these findings patient was transferred to the intensive care unit for close monitoring. Etiology of patient's infection is currently unknown and will need further workup. Currently respiratory stable without any signs of compromise or distress. Patient states she is breathing well without any shortness of breath or difficulty. Airway is currently patent. Radiological findings noted. labs improved today exam stable if not slightly improved okay to downgrade. N.p.o. IV abx cultures appreciate ENT input - transfer for higher level of care pending final read of CT if shows signs of respiratory issues will need urgent intubation for airway protection vs tracheostomy will follow with recs thank you Florencio Jimenez Jul 07, 2018 21:41
[2018-07-08] VITALS: BP 136/87
[2018-07-08] MEDS: Vancomycin 750 MG in NS 275 ML IVPB SCH ×2 (02:26→15:33)
--- NOTE | 2018-07-08 03:30 | Operative Note - Dictated ---
DATE OF OPERATION: 07/07/2018 SURGEON: Karlo Hargrove M.D. WEB WORKER: None. INDICATION FOR PROCEDURE: Airway narrowing on CT scan. PREOPERATIVE DIAGNOSIS: Airway narrowing on CT scan. POSTOPERATIVE DIAGNOSIS: Supraglottic airway narrowing, but the larynx itself is fine. PROCEDURE: Fiberoptic laryngoscopy. TECHNIQUE: The patient was prepped and draped in usual manner. Nurse helped me. The patient was seated up although she was lying flat when I went into the room, and seen comfortable. I then sat her up. I placed a scope through her right nostril without difficulty. There is a thin airway supraglottically, but once I got to the false vocal cord all the way down to the vocal cords open airway. Scope was removed. ESTIMATED BLOOD LOSS: Zero. COMPLICATIONS: None. DRAINS: None. Please note, I have left a call for Dr. Perez, the primary. This patient should be transferred, she does appears to be a parapharyngeal abscess and perhaps from the tonsil into her left clavicle area. This was reviewed with the radiologist who concurred. Karlo Hargrove M.D. : CARMITA JOB#: [id number] CC: IMAN
[2018-07-08 04:00] VITALS: BP 126/72
[2018-07-08 07:15] LABS: ANION GAP 9 mmol/L (5-15); BLOOD UREA NITROGEN 13 mg/dL (7-18); CALCIUM 10.3 MG/DL (8.5-10.1); CARBON DIOXIDE 21 MMOL/L (21-32); CHLORIDE 117 MMOL/L (98-107); CREATININE 1.2 MG/DL (0.55-1.30); POTASSIUM 3.7 MMOL/L (3.5-5.1); SODIUM 147 MMOL/L (136-145)
--- NOTE | 2018-07-08 07:15 | NUR ---
HAND-OFF: Report given to RORY Velasquez.
--- NOTE | 2018-07-08 07:20 | NUR ---
NURSE NOTES: Report received from outgoing nurse, rounds made. Patient sitting/dangling at bedside, eating breakfast. Patient alert, Ukrainian speaking, calm. No distress or c/o pain/SOB on RA or NV. Left hand heplock intact, asymptomatic. Call light in reach, bed in lowest position. Will continue to monitor.
[2018-07-08 08:00] VITALS: BP 140/68
--- NOTE | 2018-07-08 08:11 | NUR ---
TRANSFER UPDATE 3 PAGE HAND WRITTEN FORM COMPLETED AND FAXED TO [facility] ([facility]) REQUESTING A HIGHER LEVEL OF CARE Addendum: 07/08/18 at 0812 by RADHA CERNA LVN LVN [facility] T: [phone] F: [phone] Addendum: 07/08/18 at 1309 by RADHA CERNA LVN LVN [facility] IS REQUESTING PROOF OF RESIDENCY AND EXACT PROCEDURE THAT NEEDS TO BE DONE PER DR NIELSON ~ NEEDS INCISION AND DRAINAGE OF THE BASE OF THE NECK EXTENSION TO THE DEEP COMPARTMENTS OF POSSIBLE COMPRISE OF UPPER AIRWAY SECONDARY TO DIFFUSE CELLULITIS W/POSSIBLE DEEP COMPARTMENT ABSCESS FORM SETTER STEEL PAN FORMS IS TRYING TO GET PROOF OF RESIDENCY FROM JAIL *ASSIGNED [facility] NUMBER IS [id number]
[2018-07-08] MEDS: NIFEdipine 10mg cap ORAL SCH ×2 (08:29→20:33)
[2018-07-08] MEDS: Benztropine 1mg tab ORAL SCH ×2 (08:29→17:36)
[2018-07-08] MEDS: Docusate 250mg cap ORAL SCH (08:29)
[2018-07-08] MEDS: Heparin 5000 units/ml inj SUBQ SCH ×2 (08:32→20:37)
--- NOTE | 2018-07-08 08:45 | NUR ---
NURSE NOTES: Patient with left neck/upper shoulder redness/swelling, skin remains intact. Medicated with [place] 5/325 mg as ordered, pain 4/10. Warm compress applied as ordered. Will continue to monitor.
--- NOTE | 2018-07-08 09:36 | General Progress Note ---
Progress Note Progress Note ENT Pt remains unchanged ID note read and appreciated I spoke with CNO and Primary who agree with me that pt. should be transferred to a hospital with a greater acuity of care for this pt. Karlo Hargrove MD Jul 08, 2018 09:36
--- NOTE | 2018-07-08 09:56 | NUR ---
CASE MANAGEMENT:REVIEW 07/08/18 SI: PARAPHARYNGEAL ABSCESS EXTENDING TO CLAVICLE 98.3 61 20 140/68 100% ON RA NA+147 IS: IV VANCOMYCIN Q12 IV CEFEPIME Q12 IV FLAGYL Q8HRS LIBRIUM PO BID HEPARIN SQ Q12 : MED/SURG STATUS 3 EAST
[2018-07-08] MEDS: Cefepime HCl 2 GM in D5W 55 ML IVPB SCH (11:30)
[2018-07-08 12:00] VITALS: BP 126/62
--- NOTE | 2018-07-08 13:18 | General Progress Note ---
Assessment/Plan Status: stable Assessment/Plan S: I am feeling ok O: diffuse redness and swelling in the base of the neck. Review of Systems Review of Symptoms General ROS: no weight loss or fever Psychological ROS: no depression or mood changes, no memory loss Ophthalmic ROS: no visual changes or eye irritation ENT ROS: no nasal congestion, hearing loss, dizziness Allergy and Immunology ROS: no allergic symptoms or urticaria Hematological and Lymphatic ROS: no swollen glands, unusual bleeding or bruising Endocrine ROS: no polyuria, polydipsia, weight changes, temperature intolerance Respiratory ROS: no cough, shortness of breath, or wheezing Cardiovascular ROS: no chest pain or dyspnea on exertion Gastrointestinal ROS: denies abdominal pain, bright red blood in stool. Musculoskeletal ROS: no myalgias or arthralgias Neurological ROS: no TIA or stroke symptoms Dermatological ROS: diffuse redness in base of the neck Physical Exam Physical Exam General appearance: alert, cooperative, no distress, appears stated age Head: Normocephalic, without obvious abnormality, atraumatic Eyes: conjunctivae/corneas clear. PERRL, EOM's intact. Fundi benign Throat: Lips, mucosa, and tongue normal. Teeth and gums normal Neck: supple, symmetrical, trachea midline, no adenopathy, t Lungs: clear to auscultation bilaterally Heart: regular rate and rhythm, S1, S2 normal, no murmur, click, rub or gallop Abdomen: soft, non-tender. Bowel sounds normal. No masses, no organomegaly Extremities: Diffuse swelling in base of the neck. Pulses: 2+ and symmetric Neurologic: Grossly normal 1- Sepsis 2. Diffuse soft tissue swelling of the neck, possible parapharyngeal abcess 3- Diffuse Cellulitis of base of neck 4- Hypercalcemia Plan: D/w ENT, agreed and will proceed for transferring patient to higher level of care secondary to possibility of expansion of infection/abscess in deep compartment of head and neck region. No sign of respiratory compromise at this time current abx Subjective Allergies: Coded Allergies: No Known Allergies (Unverified , 07/04/18) Objective Last 24 Hour Vital Signs Date Time Temp Pulse Resp B/P (MAP) Pulse Ox O2 Delivery O2 Flow Rate FiO2 07/08/18 12:00 97.4 60 20 126/62 (83) 100 07/08/18 09:00 Room Air 3/28/19 08:29 61 140/68 07/08/18 08:00 98.3 61 20 140/68 (92) 100 07/08/18 04:00 97.5 56 16 126/72 (90) 100 07/08/18 00:00 96.1 58 18 136/87 (103) 99 07/07/18 21:02 60 149/66 07/07/18 20:43 Room Air 07/07/18 20:00 98.1 60 20 149/66 (93) 100 07/07/18 16:00 98.5 94 18 116/82 (93) 98 Intake and Output 07/07/18 07/08/18 18:59 06:59 Intake Total 435088 ml 475.000 ml Balance 968000 ml 475.000 ml Intake Oral 1000 ml IV Total 131185 ml 475.000 ml # Voids 1 2 Laboratory Tests 07/08/18 05:20: Sodium Level 147H, Potassium Level 3.7, Chloride Level 117H, Carbon Dioxide Level 21, Anion Gap 9, Blood Urea Nitrogen 13, Creatinine 1.2, Estimat Glomerular Filtration Rate 45.1, Glucose Level 81, Calcium Level 10.3H Height (Feet): 5 Height (Inches): 1.00 Weight (Pounds): 200 Mady Perez MD Jul 08, 2018 13:18
--- NOTE | 2018-07-08 13:58 | Nephrology Progress Note ---
Assessment/Plan Assessment/Plan A/P 1) YASMEEN- multifact (Contrast Neph/sepsis/hypercalcemia/vol depl) - Cr stable -avoid any nephrotoxins 2) Hypercalcemia- can be caused by lithium - IVFs stopped. s/p pamidronate and calcitonin. Ca level improved - w/u pending 3) Neck Cellulitis- Abx per ID and mgmt per surgery 4) Hypernatremia- mild. If worsens will add D5W Subjective Date patient seen: Jul 08, 2018 Time patient seen: 13:57 ROS Limited/Unobtainable: No Allergies: Coded Allergies: No Known Allergies (Unverified , 07/04/18) Subjective Patient in no overt distress. Resting comfortably Objective Last 24 Hour Vital Signs Date Time Temp Pulse Resp B/P (MAP) Pulse Ox O2 Delivery O2 Flow Rate FiO2 07/08/18 13:18 Room Air 07/08/18 12:00 97.4 60 20 126/62 (83) 100 07/08/18 09:00 Room Air 07/08/18 08:29 61 140/68 07/08/18 08:00 98.3 61 20 140/68 (92) 100 07/08/18 04:00 97.5 56 16 126/72 (90) 100 07/08/18 00:00 96.1 58 18 136/87 (103) 99 07/07/18 21:02 60 149/66 07/07/18 20:43 Room Air 07/07/18 20:00 98.1 60 20 149/66 (93) 100 07/07/18 16:00 98.5 94 18 116/82 (93) 98 Intake and Output 07/07/18 07/08/18 19:00 07:00 Intake Total 510791 ml 475.000 ml Balance 606674 ml 475.000 ml Intake Oral 1000 ml IV Total 698531 ml 475.000 ml # Voids 1 2 Laboratory Tests 07/08/18 05:20: Sodium Level 147H, Potassium Level 3.7, Chloride Level 117H, Carbon Dioxide Level 21, Anion Gap 9, Blood Urea Nitrogen 13, Creatinine 1.2, Estimat Glomerular Filtration Rate 45.1, Glucose Level 81, Calcium Level 10.3H Height (Feet): 5 Height (Inches): 1.00 Weight (Pounds): 200 General Appearance: no apparent distress, alert EENT: normal ENT inspection Neck: normal alignment, supple Cardiovascular: normal rate, regular rhythm Respiratory/Chest: lungs clear, normal breath sounds Abdomen: non tender, soft Edema: no edema noted Arm (L), no edema noted Arm (R), no edema noted Leg (L), no edema noted Leg (R), no edema noted Pedal (L), no edema noted Pedal (R), no edema noted Generalized Kota Navarrete MD Jul 08, 2018 13:58
--- NOTE | 2018-07-08 15:26 | Surgery Progress Note ---
Surgery Progress Note Subjective Symptoms: improved, tolerating diet, voiding well, passing flatus, BM, pain decreased Objective Last 24 Hour Vital Signs Date Time Temp Pulse Resp B/P (MAP) Pulse Ox O2 Delivery O2 Flow Rate FiO2 07/08/18 13:18 Room Air 07/08/18 12:00 97.4 60 20 126/62 (83) 100 07/08/18 09:00 Room Air 07/08/18 08:29 61 140/68 07/08/18 08:00 98.3 61 20 140/68 (92) 100 07/08/18 04:00 97.5 56 16 126/72 (90) 100 07/08/18 00:00 96.1 58 18 136/87 (103) 99 07/07/18 21:02 60 149/66 07/07/18 20:43 Room Air 07/07/18 20:00 98.1 60 20 149/66 (93) 100 07/07/18 16:00 98.5 94 18 116/82 (93) 98 I&O Intake and Output 07/07/18 07/08/18 19:00 07:00 Intake Total 014440 ml 475.000 ml Balance 244221 ml 475.000 ml Intake Oral 1000 ml IV Total 532423 ml 475.000 ml # Voids 1 2 Drains: none Cardiovascular: RSR Respiratory: clear Abdomen: soft, non-tender, present bowel sounds, non-distended Extremities: no edema, no tenderness, no cyanosis Laboratory Tests Test 07/08/18 05:20 Sodium Level 147 MMOL/L (136-145) H Potassium Level 3.7 MMOL/L (3.5-5.1) Chloride Level 117 MMOL/L (98-107) H Carbon Dioxide Level 21 MMOL/L (21-32) Anion Gap 9 mmol/L (5-15) Blood Urea Nitrogen 13 mg/dL (7-18) Creatinine 1.2 MG/DL (0.55-1.30) Estimat Glomerular Filtration Rate 45.1 mL/min (>60) Glucose Level 81 MG/DL (74-106) Calcium Level 10.3 MG/DL (8.5-10.1) H Plan Problems: (1) Cellulitis Assessment & Plan: 67-year-old with left neck cellulitis. Leukocytosis. Low- grade fevers. Tenderness on examination with large area of cellulitis without fluctuance. CT scan ordered and pending final read but did speak with the radiologist and there is significant inflammation in the oropharynx and neck around the pharynx and trachea. There is subcutaneous tissue swelling consistent with cellulitis in the area as identified on clinical examination. There is a narrowed airway. Even these findings patient was transferred to the intensive care unit for close monitoring. Etiology of patient's infection is currently unknown and will need further workup. Currently respiratory stable without any signs of compromise or distress. Patient states she is breathing well without any shortness of breath or difficulty. Airway is currently patent. Radiological findings noted. labs improved exam improved liquid soft diet IV abx appreciate ENT input - transfer for higher level of care if shows signs of respiratory issues will need urgent intubation for airway protection vs tracheostomy will follow with recs thank you Florencio Jimenez Jul 08, 2018 15:26
[2018-07-08 16:00] VITALS: BP 140/70
--- NOTE | 2018-07-08 18:11 | Infectious Diseases Prog Note ---
Assessment/Plan Problems: (1) Retropharyngeal abscess Assessment & Plan: with extension to the left clavicle , on triple antibiotics , need I&D , S/P ENT eval, will require transfer to higher level of care facility for close monitoring and surgical intervention (2) Cellulitis Assessment & Plan: of the left neck and upper shoulder, continue vancomycin , cefepime and metronidazole empirically, may need skin biopsy if no improvement with antibiotics alone to rule out malignant process (3) Sepsis Assessment & Plan: with leukocytosis , due to the above , continue wide spectrum antibiotics pending cultures (4) Hypercalcemia Assessment & Plan: rule out malignancy , renal is following (5) Renal failure Assessment & Plan: suspect due to the above, continue hydration , with close monitoring of renal function and renally dosed medications . Subjective Constitutional: Reports: no symptoms HEENT: Reports: other - left neck and upper shoulder skin redness and thickness Respiratory: Reports: no symptoms Cardiovascular: Reports: no symptoms Gastrointestinal/Abdominal: Reports: no symptoms Genitourinary: Reports: no symptoms Neurologic: Reports: weakness Psychiatric: Reports: no symptoms Skin: Reports: other - left lower neck skin redness and thicness Endocrine: Reports: no symptoms Hematologic: Reports: no symptoms Musculoskeletal: Reports: no symptoms Allergies: Coded Allergies: No Known Allergies (Unverified , 07/04/18) Objective Vital Signs Last 24 Hour Vital Signs Date Time Temp Pulse Resp B/P (MAP) Pulse Ox O2 Delivery O2 Flow Rate FiO2 07/08/18 17:49 Room Air 07/08/18 16:00 98.2 60 20 140/70 (93) 99 07/08/18 13:18 Room Air 07/08/18 12:00 97.4 60 20 126/62 (83) 100 07/08/18 09:00 Room Air 07/08/18 08:29 61 140/68 07/08/18 08:00 98.3 61 20 140/68 (92) 100 07/08/18 04:00 97.5 56 16 126/72 (90) 100 07/08/18 00:00 96.1 58 18 136/87 (103) 99 07/07/18 21:02 60 149/66 07/07/18 20:43 Room Air 07/07/18 20:00 98.1 60 20 149/66 (93) 100 Height (Feet): 5 Height (Inches): 1.00 Weight (Pounds): 200 General Appearance: WD/WN, no acute distress HEENT: normocephalic, atraumatic, anicteric, mucous membranes moist, PERRL, pharynx normal, supple, no JVD, other - left lower neck skin swelling and redness Respiratory/Chest: chest wall non-tender, lungs clear, normal breath sounds, no respiratory distress, no accessory muscle use Cardiovascular: normal peripheral pulses, normal rate, regular rhythm, no gallop/murmur, no JVD Abdomen: normal bowel sounds, soft, non tender, no organomegaly, non distended , no mass, no scars Genitourinary: normal external genitalia Extremities: no cyanosis, no clubbing Skin: no rash, no lesions, no ulcers Neurologic/Psychiatric: alert, responsive Lymphatic: no groin adenopathy, other Musculoskeletal: normal muscle bulk Laboratory Tests Test 07/08/18 05:20 Sodium Level 147 MMOL/L (136-145) H Potassium Level 3.7 MMOL/L (3.5-5.1) Chloride Level 117 MMOL/L (98-107) H Carbon Dioxide Level 21 MMOL/L (21-32) Anion Gap 9 mmol/L (5-15) Blood Urea Nitrogen 13 mg/dL (7-18) Creatinine 1.2 MG/DL (0.55-1.30) Estimat Glomerular Filtration Rate 45.1 mL/min (>60) Glucose Level 81 MG/DL (74-106) Calcium Level 10.3 MG/DL (8.5-10.1) H Current Medications Medications (Trade) Dose Ordered Sig/Omari Route PRN Reason Start Time Stop Time Status Last Admin Dose Admin Acetaminophen (Tylenol) 650 mg Q6H PRN ORAL Mild Pain/Temp > 100.5 07/06/18 17:33 08/05/18 17:32 Acetaminophen/ Hydrocodone Bitart ([place] 5/325) 1 tab Q6H PRN ORAL Severe Pain (Pain Scale 7-10) 07/06/18 17:33 07/13/18 17:32 07/08/18 08:28 Benztropine Mesylate (Cogentin) 1 mg BID ORAL 07/07/18 09:00 08/06/18 08:59 07/08/18 17:36 Cefepime HCl 2 gm/ Dextrose 55 ml @ 110 mls/hr Q12HR@0000,1200 IVPB 07/07/18 00:00 07/12/18 00:00 07/08/18 11:30 Docusate Sodium (Colace) 250 mg DAILY ORAL 07/07/18 09:00 08/04/18 08:59 07/08/18 08:29 Haloperidol (Haldol) 5 mg DAILY ORAL 07/07/18 09:00 08/04/18 08:59 07/08/18 08:29 Heparin Sodium (Porcine) (Heparin 5000 units/ml) 5,000 units EVERY 12 HOURS SUBQ 07/06/18 21:00 08/03/18 20:59 07/08/18 08:32 Furman Carbonate (Furman Carbonate) 300 mg BID ORAL 07/07/18 09:00 08/06/18 08:59 07/08/18 17:36 Metronidazole 100 ml @ 100 mls/hr Q8HR IVPB 07/06/18 22:00 07/11/18 23:29 07/08/18 14:14 Mirtazapine (Remeron) 7.5 mg BEDTIME ORAL 07/06/18 21:00 08/03/18 20:59 07/07/18 21:02 Nifedipine (Adalat) 10 mg Q12HR ORAL 07/06/18 21:00 08/04/18 08:59 07/08/18 08:29 Pantoprazole (Protonix) 40 mg DAILY ORAL 07/07/18 09:00 08/04/18 08:59 07/08/18 08:29 Vancomycin HCl (Vanco rx to dose) 1 ea DAILY PRN MISC Per rx protocol 07/07/18 09:00 08/03/18 18:29 Vancomycin HCl 750 mg/Sodium Chloride 275 ml @ 183.333 mls/hr Q12H IVPB 07/07/18 15:00 07/12/18 14:59 07/08/18 15:33 Gloria Nelson M.D. Jul 08, 2018 18:11
[2018-07-08 18:54] LABS: BASOPHILS % (AUTO) 0.7 % (0.0-2.0); EOSINOPHILS % (AUTO) 4.3 % (0.0-3.0); HEMATOCRIT 30.1 % (37.0-47.0); HEMOGLOBIN 9.5 G/DL (12.0-16.0); LYMPHOCYTES % (AUTO) 15.2 % (20.0-45.0); MEAN CORPUSCULAR VOLUME 84 FL (80-99); MONOCYTES % (AUTO) 5.2 % (1.0-10.0); NEUTROPHILS % (AUTO) 74.6 % (45.0-75.0); PLATELET COUNT 213 K/UL (150-450); RED BLOOD COUNT 3.59 M/UL (4.20-5.40); RED CELL DISTRIBUTION WIDTH 13.6 % (11.6-14.8); WHITE BLOOD COUNT 9.9 K/UL (4.8-10.8)
--- NOTE | 2018-07-08 19:10 | NUR ---
HAND-OFF: Report given to Kathleen VALADEZ.
[2018-07-08 19:13] LABS: ALANINE AMINOTRANSFERASE 47 U/L (12-78); ALBUMIN 2.4 G/DL (3.4-5.0); ALBUMIN/GLOBULIN RATIO 0.6 (1.0-2.7); ALKALINE PHOSPHATASE 99 U/L (46-116); ANION GAP 10 mmol/L (5-15); ASPARTATE AMINO TRANSFERASE 49 U/L (15-37); BILIRUBIN,TOTAL 0.1 MG/DL (0.2-1.0); BLOOD UREA NITROGEN 11 mg/dL (7-18); CALCIUM 9.6 MG/DL (8.5-10.1); CARBON DIOXIDE 22 MMOL/L (21-32); CHLORIDE 114 MMOL/L (98-107); CREATININE 1.4 MG/DL (0.55-1.30); POTASSIUM 3.7 MMOL/L (3.5-5.1); SODIUM 146 MMOL/L (136-145)
--- NOTE | 2018-07-08 19:53 | NUR ---
NURSE NOTES: Received patient in bed, awake, alert, oriented, Haitian speaking only, VSS, afebrile, no acute distress noted, call light is within reach, bed is in lowest position, locked and alarm is on. Will continue to monitor for safety and comfort.
[2018-07-08 20:00] VITALS: BP 137/86
[2018-07-09] VITALS: BP 129/87
[2018-07-09] MEDS: Cefepime HCl 2 GM in D5W 55 ML IVPB SCH ×3 (00:29→23:32)
[2018-07-09 02:18] LABS: BASOPHILS % (AUTO) 0.7 % (0.0-2.0); EOSINOPHILS % (AUTO) 3.7 % (0.0-3.0); HEMATOCRIT 33.5 % (37.0-47.0); HEMOGLOBIN 10.6 G/DL (12.0-16.0); LYMPHOCYTES % (AUTO) 17.1 % (20.0-45.0); MEAN CORPUSCULAR VOLUME 84 FL (80-99); MONOCYTES % (AUTO) 4.1 % (1.0-10.0); NEUTROPHILS % (AUTO) 74.4 % (45.0-75.0); PLATELET COUNT 176 K/UL (150-450); RED BLOOD COUNT 3.99 M/UL (4.20-5.40); RED CELL DISTRIBUTION WIDTH 14.2 % (11.6-14.8); WHITE BLOOD COUNT 9.7 K/UL (4.8-10.8)
[2018-07-09 03:04] LABS: ANION GAP 14 mmol/L (5-15); BLOOD UREA NITROGEN 12 mg/dL (7-18); CALCIUM 10.3 MG/DL (8.5-10.1); CARBON DIOXIDE 18 MMOL/L (21-32); CHLORIDE 113 MMOL/L (98-107); CREATININE 1.3 MG/DL (0.55-1.30); SODIUM 145 MMOL/L (136-145)
[2018-07-09 04:00] VITALS: BP 137/87
--- NOTE | 2018-07-09 06:56 | NUR ---
HAND-OFF: Report given to Cathy VALADEZ.
--- NOTE | 2018-07-09 07:10 | NUR ---
NURSE NOTES: Report received from outgoing nurse, rounds made. Patient sleeping in supine position in bed. IV antibiotic infusing to left hand IV site, intact/asymptomatic. Left neck/upper shoulder area skin red, tight, remains intact. Call light in reach, bed in lowest position, will continue to monitor.
[2018-07-09 08:00] VITALS: BP 149/88
[2018-07-09] MEDS: Vancomycin 1.5gm/D5W 275ml IVPB SCH ×2 (08:09)
[2018-07-09] MEDS: Benztropine 1mg tab ORAL SCH ×2 (08:27→17:47)
[2018-07-09] MEDS: Docusate 250mg cap ORAL SCH (08:27)
[2018-07-09] MEDS: NIFEdipine 10mg cap ORAL SCH ×2 (08:27→21:08)
[2018-07-09] MEDS: Heparin 5000 units/ml inj SUBQ SCH ×2 (08:31→21:09)
--- NOTE | 2018-07-09 11:23 | NUR ---
CASE MANAGEMENT:REVIEW 07/09/18 SI: PARAPHARYNGEAL ABSCESS EXTENDING TO CLAVICLE 97.9 64 20 149/88 100% ON RA IS: IV VANCOMYCIN Q12 IV CEFEPIME Q12 IV FLAGYL Q8HRS LIBRIUM PO BID HEPARIN SQ Q12 : MED/SURG STATUS 3 EAST
--- NOTE | 2018-07-09 11:30 | NUR ---
TRANSFER UPDATE CALLED [facility] AND SPOKE WITH ARLINE LOCKE T: [phone] F: [phone] [facility] #[id number] PER DR NIELSON ~ NEEDS INCISION AND DRAINAGE OF THE BASE OF THE NECK EXTENSION TO THE DEEP COMPARTMENTS OF POSSIBLE COMPRISE OF UPPER AIRWAY SECONDARY TO DIFFUSE CELLULITIS W/POSSIBLE DEEP COMPARTMENT ABSCESS Addendum: 07/09/18 at 1200 by RADHA CERNA LVN LVN CALLED [facility] AND SPOKE WITH ARLINE PER ARLINE THEY HAVE EVERYTHING THEY NEED AND CASE HAS BEEN REVIEW. UNFORTUNATELY THEY ARE FULL TO CAPACITY AT THIS TIME. [facility] HAS THE PHONE NUMBER TO THE NURSES STATION IN CASE TRANSFER OCCURS AFTER COLOR ROOM ATTENDANT HAS GONE FOR THE DAY
[2018-07-09 12:00] VITALS: BP 120/66
--- NOTE | 2018-07-09 12:35 | General Progress Note ---
Assessment/Plan Assessment/Plan S: I am feeling ok O: diffuse redness and swelling in the base of the neck. Review of Systems Review of Symptoms General ROS: no weight loss or fever Psychological ROS: no depression or mood changes, no memory loss Ophthalmic ROS: no visual changes or eye irritation ENT ROS: no nasal congestion, hearing loss, dizziness Allergy and Immunology ROS: no allergic symptoms or urticaria Hematological and Lymphatic ROS: no swollen glands, unusual bleeding or bruising Endocrine ROS: no polyuria, polydipsia, weight changes, temperature intolerance Respiratory ROS: no cough, shortness of breath, or wheezing Cardiovascular ROS: no chest pain or dyspnea on exertion Gastrointestinal ROS: denies abdominal pain, bright red blood in stool. Musculoskeletal ROS: no myalgias or arthralgias Neurological ROS: no TIA or stroke symptoms Dermatological ROS: diffuse redness in base of the neck Physical Exam Physical Exam General appearance: alert, cooperative, no distress, appears stated age Head: Normocephalic, without obvious abnormality, atraumatic Eyes: conjunctivae/corneas clear. PERRL, EOM's intact. Fundi benign Throat: Lips, mucosa, and tongue normal. Teeth and gums normal Neck: supple, symmetrical, trachea midline, no adenopathy, t Lungs: clear to auscultation bilaterally Heart: regular rate and rhythm, S1, S2 normal, no murmur, click, rub or gallop Abdomen: soft, non-tender. Bowel sounds normal. No masses, no organomegaly Extremities: Diffuse swelling in base of the neck. Pulses: 2+ and symmetric Neurologic: Grossly normal 1- Sepsis : Resolved 2. Diffuse soft tissue swelling of the neck, possible parapharyngeal abscess 3- Diffuse Cellulitis of base of neck 4- Hypercalcemia, workup deferred to outpatient Plan: D/w ENT, agreed and will proceed for transferring patient to higher level of care secondary to possibility of expansion of infection/abscess in deep compartment of head and neck region. No sign of respiratory compromise at this time current abx Subjective Allergies: Coded Allergies: No Known Allergies (Unverified , 07/04/18) Objective Last 24 Hour Vital Signs Date Time Temp Pulse Resp B/P (MAP) Pulse Ox O2 Delivery O2 Flow Rate FiO2 07/09/18 08:27 64 149/88 07/09/18 08:00 97.9 64 20 149/88 (108) 100 07/09/18 04:00 97.9 89 18 137/87 (104) 07/09/18 00:00 98.9 87 18 129/87 (101) 07/08/18 21:00 Room Air 07/08/18 20:33 85 137/89 07/08/18 20:00 98.7 87 20 137/86 (103) 07/08/18 17:49 Room Air 07/08/18 16:00 98.2 60 20 140/70 (93) 99 07/08/18 13:18 Room Air Intake and Output 07/08/18 07/09/18 18:59 06:59 Intake Total 1584 ml Output Total 601 ml Balance 983 ml Intake Oral 1584 ml Output Urine Total 600 ml Stool Total 1 ml # Voids 4 3 # Bowel Movements 3 Laboratory Tests 07/08/18 18:20: White Blood Count 9.9, Red Blood Count 3.59L, Hemoglobin 9.5L, Hematocrit 30.1L , Mean Corpuscular Volume 84, Mean Corpuscular Hemoglobin 26.6L, Mean Corpuscular Hemoglobin Concent 31.7L, Red Cell Distribution Width 13.6, Platelet Count 213, Mean Platelet Volume 6.6, Neutrophils (%) (Auto) 74.6, Lymphocytes (%) (Auto) 15.2L, Monocytes (%) (Auto) 5.2, Eosinophils (%) (Auto) 4.3H, Basophils (%) (Auto) 0.7, Sodium Level 146H, Potassium Level 3.7, Chloride Level 114H, Carbon Dioxide Level 22, Anion Gap 10, Blood Urea Nitrogen 11, Creatinine 1.4H, Estimat Glomerular Filtration Rate 37.8, Glucose Level 124H , Calcium Level 9.6, Total Bilirubin 0.1L, Aspartate Amino Transf (AST/SGOT) 49H , Alanine Aminotransferase (ALT/SGPT) 47, Alkaline Phosphatase 99, Total Protein 6.6, Albumin 2.4L, Globulin 4.2, Albumin/Globulin Ratio 0.6L 07/09/18 02:00: White Blood Count 9.7, Red Blood Count 3.99L, Hemoglobin 10.6L, Hematocrit 33.5L , Mean Corpuscular Volume 84, Mean Corpuscular Hemoglobin 26.6L, Mean Corpuscular Hemoglobin Concent 31.7L, Red Cell Distribution Width 14.2, Platelet Count 176, Mean Platelet Volume 8.5, Neutrophils (%) (Auto) 74.4, Lymphocytes (%) (Auto) 17.1L, Monocytes (%) (Auto) 4.1, Eosinophils (%) (Auto) 3.7H, Basophils (%) (Auto) 0.7, Sodium Level 145, Potassium Level 4.0, Chloride Level 113H, Carbon Dioxide Level 18L, Anion Gap 14, Blood Urea Nitrogen 12, Creatinine 1.3, Estimat Glomerular Filtration Rate 41.1, Glucose Level 83, Calcium Level 10.3H, Vancomycin Level Trough 16.1H Height (Feet): 5 Height (Inches): 1.00 Weight (Pounds): 200 Mady Perez MD Jul 09, 2018 12:35
--- NOTE | 2018-07-09 14:32 | Nephrology Progress Note ---
Assessment/Plan Assessment/Plan A/P 1) YASMEEN- multifact (Contrast Neph/sepsis/hypercalcemia/vol depl) - Cr stable at 1.2-1.3 -avoid any nephrotoxins and treat hypercalcemia 2) Hypercalcemia- SPEP neg. UPEP pending. Large Prot:Alb dissociation - s/p pamidronate and calcitonin. Ca level improved, monitor for now. Pending transfer 3) Neck Cellulitis- ENT, agrees and will proceed for transferring patient to higher level of care secondary to possibility of expansion of infection/abscess in deep compartment of head and neck region 4) Hypernatremia- resolved Subjective Date patient seen: Jul 09, 2018 Time patient seen: 14:30 ROS Limited/Unobtainable: No Allergies: Coded Allergies: No Known Allergies (Unverified , 07/04/18) Subjective Patient in good spirits. No overt distress Objective Last 24 Hour Vital Signs Date Time Temp Pulse Resp B/P (MAP) Pulse Ox O2 Delivery O2 Flow Rate FiO2 07/09/18 12:00 98.0 62 20 120/66 (84) 99 07/09/18 09:00 Room Air 07/09/18 08:27 64 149/88 07/09/18 08:00 97.9 64 20 149/88 (108) 100 07/09/18 04:00 97.9 89 18 137/87 (104) 07/09/18 00:00 98.9 87 18 129/87 (101) 07/08/18 21:00 Room Air 07/08/18 20:33 85 137/89 07/08/18 20:00 98.7 87 20 137/86 (103) 07/08/18 17:49 Room Air 07/08/18 16:00 98.2 60 20 140/70 (93) 99 Intake and Output 07/08/18 07/09/18 18:59 06:59 Intake Total 1584 ml Output Total 601 ml Balance 983 ml Intake Oral 1584 ml Output Urine Total 600 ml Stool Total 1 ml # Voids 4 3 # Bowel Movements 3 Laboratory Tests 07/08/18 18:20: White Blood Count 9.9, Red Blood Count 3.59L, Hemoglobin 9.5L, Hematocrit 30.1L , Mean Corpuscular Volume 84, Mean Corpuscular Hemoglobin 26.6L, Mean Corpuscular Hemoglobin Concent 31.7L, Red Cell Distribution Width 13.6, Platelet Count 213, Mean Platelet Volume 6.6, Neutrophils (%) (Auto) 74.6, Lymphocytes (%) (Auto) 15.2L, Monocytes (%) (Auto) 5.2, Eosinophils (%) (Auto) 4.3H, Basophils (%) (Auto) 0.7, Sodium Level 146H, Potassium Level 3.7, Chloride Level 114H, Carbon Dioxide Level 22, Anion Gap 10, Blood Urea Nitrogen 11, Creatinine 1.4H, Estimat Glomerular Filtration Rate 37.8, Glucose Level 124H , Calcium Level 9.6, Total Bilirubin 0.1L, Aspartate Amino Transf (AST/SGOT) 49H , Alanine Aminotransferase (ALT/SGPT) 47, Alkaline Phosphatase 99, Total Protein 6.6, Albumin 2.4L, Globulin 4.2, Albumin/Globulin Ratio 0.6L 07/09/18 02:00: White Blood Count 9.7, Red Blood Count 3.99L, Hemoglobin 10.6L, Hematocrit 33.5L , Mean Corpuscular Volume 84, Mean Corpuscular Hemoglobin 26.6L, Mean Corpuscular Hemoglobin Concent 31.7L, Red Cell Distribution Width 14.2, Platelet Count 176, Mean Platelet Volume 8.5, Neutrophils (%) (Auto) 74.4, Lymphocytes (%) (Auto) 17.1L, Monocytes (%) (Auto) 4.1, Eosinophils (%) (Auto) 3.7H, Basophils (%) (Auto) 0.7, Sodium Level 145, Potassium Level 4.0, Chloride Level 113H, Carbon Dioxide Level 18L, Anion Gap 14, Blood Urea Nitrogen 12, Creatinine 1.3, Estimat Glomerular Filtration Rate 41.1, Glucose Level 83, Calcium Level 10.3H, Vancomycin Level Trough 16.1H Height (Feet): 5 Height (Inches): 1.00 Weight (Pounds): 200 General Appearance: no apparent distress EENT: normal ENT inspection Neck: normal alignment, supple Cardiovascular: normal rate, regular rhythm Respiratory/Chest: lungs clear, normal breath sounds Abdomen: non tender, soft Edema: no edema noted Arm (L), no edema noted Arm (R), no edema noted Leg (L), no edema noted Leg (R), no edema noted Pedal (L), no edema noted Pedal (R), no edema noted Generalized Kota Navarrete MD Jul 09, 2018 14:32
--- NOTE | 2018-07-09 15:40 | Infectious Diseases Prog Note ---
Assessment/Plan Problems: (1) Retropharyngeal abscess Assessment & Plan: with extension to the left clavicle , on triple antibiotics , need I&D , S/P ENT eval, will require transfer to higher level of care facility for close monitoring and surgical intervention (2) Cellulitis Assessment & Plan: of the left neck and upper shoulder, continue vancomycin , cefepime and metronidazole empirically, may need skin biopsy if no improvement with antibiotics alone to rule out malignant process (3) Sepsis Assessment & Plan: with leukocytosis , due to the above , continue wide spectrum antibiotics pending cultures (4) Hypercalcemia Assessment & Plan: improving , rule out malignancy , renal is following (5) Renal failure Assessment & Plan: suspect due to the above, continue hydration , with close monitoring of renal function and renally dosed medications . Subjective Constitutional: Reports: no symptoms HEENT: Reports: other - LEFT LOWER NECK SWELLING WITH REDNESS AND SKIN THICKNESS Respiratory: Reports: no symptoms Breasts: Reports: no symptoms Cardiovascular: Reports: no symptoms Gastrointestinal/Abdominal: Reports: no symptoms Genitourinary: Reports: no symptoms Neurologic: Reports: no symptoms Psychiatric: Reports: no symptoms Skin: Reports: no symptoms, other - skin redness and thickness on the left lower neck and left shoulder Endocrine: Reports: no symptoms Hematologic: Reports: no symptoms Musculoskeletal: Reports: no symptoms Allergies: Coded Allergies: No Known Allergies (Unverified , 07/04/18) Objective Vital Signs Last 24 Hour Vital Signs Date Time Temp Pulse Resp B/P (MAP) Pulse Ox O2 Delivery O2 Flow Rate FiO2 07/09/18 12:00 98.0 62 20 120/66 (84) 99 07/09/18 09:00 Room Air 07/09/18 08:27 64 149/88 07/09/18 08:00 97.9 64 20 149/88 (108) 100 07/09/18 04:00 97.9 89 18 137/87 (104) 07/09/18 00:00 98.9 87 18 129/87 (101) 07/08/18 21:00 Room Air 07/08/18 20:33 85 137/89 07/08/18 20:00 98.7 87 20 137/86 (103) 07/08/18 17:49 Room Air 07/08/18 16:00 98.2 60 20 140/70 (93) 99 Height (Feet): 5 Height (Inches): 1.00 Weight (Pounds): 200 General Appearance: WD/WN, no acute distress HEENT: normocephalic, atraumatic, anicteric, mucous membranes moist, PERRL Respiratory/Chest: chest wall non-tender, lungs clear, normal breath sounds, no respiratory distress, no accessory muscle use Cardiovascular: normal peripheral pulses, normal rate, regularly irregular, no gallop/murmur, no JVD Abdomen: normal bowel sounds, soft, non tender, no organomegaly, non distended , no mass, no scars Extremities: no cyanosis, no clubbing Skin: no lesions, other - red, thick and erythematous in the left lower neck and upper shoulder Neurologic/Psychiatric: alert, responsive Lymphatic: no neck adenopathy, no groin adenopathy Laboratory Tests Test 07/08/18 18:20 07/09/18 02:00 White Blood Count 9.9 K/UL (4.8-10.8) 9.7 K/UL (4.8-10.8) Red Blood Count 3.59 M/UL (4.20-5.40) L 3.99 M/UL (4.20-5.40) L Hemoglobin 9.5 G/DL (12.0-16.0) L 10.6 G/DL (12.0-16.0) L Hematocrit 30.1 % (37.0-47.0) L 33.5 % (37.0-47.0) L Mean Corpuscular Volume 84 FL (80-99) 84 FL (80-99) Mean Corpuscular Hemoglobin 26.6 PG (27.0-31.0) L 26.6 PG (27.0-31.0) L Mean Corpuscular Hemoglobin Concent 31.7 G/DL (32.0-36.0) L 31.7 G/DL (32.0-36.0) L Red Cell Distribution Width 13.6 % (11.6-14.8) 14.2 % (11.6-14.8) Platelet Count 213 K/UL (150-450) 176 K/UL (150-450) Mean Platelet Volume 6.6 FL (6.5-10.1) 8.5 FL (6.5-10.1) Neutrophils (%) (Auto) 74.6 % (45.0-75.0) 74.4 % (45.0-75.0) Lymphocytes (%) (Auto) 15.2 % (20.0-45.0) L 17.1 % (20.0-45.0) L Monocytes (%) (Auto) 5.2 % (1.0-10.0) 4.1 % (1.0-10.0) Eosinophils (%) (Auto) 4.3 % (0.0-3.0) H 3.7 % (0.0-3.0) H Basophils (%) (Auto) 0.7 % (0.0-2.0) 0.7 % (0.0-2.0) Sodium Level 146 MMOL/L (136-145) H 145 MMOL/L (136-145) Potassium Level 3.7 MMOL/L (3.5-5.1) 4.0 MMOL/L (3.5-5.1) Chloride Level 114 MMOL/L (98-107) H 113 MMOL/L (98-107) H Carbon Dioxide Level 22 MMOL/L (21-32) 18 MMOL/L (21-32) L Anion Gap 10 mmol/L (5-15) 14 mmol/L (5-15) Blood Urea Nitrogen 11 mg/dL (7-18) 12 mg/dL (7-18) Creatinine 1.4 MG/DL (0.55-1.30) H 1.3 MG/DL (0.55-1.30) Estimat Glomerular Filtration Rate 37.8 mL/min (>60) 41.1 mL/min (>60) Glucose Level 124 MG/DL (74-106) H 83 MG/DL (74-106) Calcium Level 9.6 MG/DL (8.5-10.1) 10.3 MG/DL (8.5-10.1) H Total Bilirubin 0.1 MG/DL (0.2-1.0) L Aspartate Amino Transf (AST/SGOT) 49 U/L (15-37) H Alanine Aminotransferase (ALT/SGPT) 47 U/L (12-78) Alkaline Phosphatase 99 U/L (46-116) Total Protein 6.6 G/DL (6.4-8.2) Albumin 2.4 G/DL (3.4-5.0) L Globulin 4.2 g/dL Albumin/Globulin Ratio 0.6 (1.0-2.7) L Vancomycin Level Trough 16.1 ug/mL (5.0-12.0) H Current Medications Medications (Trade) Dose Ordered Sig/Omari Route PRN Reason Start Time Stop Time Status Last Admin Dose Admin Acetaminophen (Tylenol) 650 mg Q6H PRN ORAL Mild Pain/Temp > 100.5 07/06/18 17:33 08/05/18 17:32 Acetaminophen/ Hydrocodone Bitart ([place] 5/325) 1 tab Q6H PRN ORAL Severe Pain (Pain Scale 7-10) 07/06/18 17:33 07/13/18 17:32 07/08/18 08:28 Benztropine Mesylate (Cogentin) 1 mg BID ORAL 07/07/18 09:00 08/06/18 08:59 07/09/18 08:27 Cefepime HCl 2 gm/ Dextrose 55 ml @ 110 mls/hr Q12HR@0000,1200 IVPB 07/07/18 00:00 07/12/18 00:00 07/09/18 12:58 Docusate Sodium (Colace) 250 mg DAILY ORAL 07/07/18 09:00 08/04/18 08:59 07/09/18 08:27 Haloperidol (Haldol) 5 mg DAILY ORAL 07/07/18 09:00 08/04/18 08:59 07/09/18 08:27 Heparin Sodium (Porcine) (Heparin 5000 units/ml) 5,000 units EVERY 12 HOURS SUBQ 07/06/18 21:00 08/03/18 20:59 07/09/18 08:31 Rotan Carbonate (Rotan Carbonate) 300 mg BID ORAL 07/07/18 09:00 08/06/18 08:59 07/09/18 08:28 Metronidazole 100 ml @ 100 mls/hr Q8HR IVPB 07/06/18 22:00 07/11/18 23:29 07/09/18 13:55 Mirtazapine (Remeron) 7.5 mg BEDTIME ORAL 07/06/18 21:00 08/03/18 20:59 07/08/18 20:33 Nifedipine (Adalat) 10 mg Q12HR ORAL 07/06/18 21:00 08/04/18 08:59 07/09/18 08:27 Pantoprazole (Protonix) 40 mg DAILY ORAL 07/07/18 09:00 08/04/18 08:59 07/09/18 08:27 Vancomycin HCl (Vanco rx to dose) 1 ea DAILY PRN MISC Per rx protocol 07/07/18 09:00 08/03/18 18:29 Vancomycin HCl 1.5 gm/Dextrose 275 ml @ 137.5 mls/ hr Q24H IVPB 07/09/18 08:00 07/14/18 07:59 07/09/18 08:09 Gloria Nelson M.D. Jul 09, 2018 15:40
[2018-07-09 16:00] VITALS: BP 151/76
--- NOTE | 2018-07-09 17:06 | Surgery Progress Note ---
Surgery Progress Note Subjective Symptoms: improved, pain absent, tolerating diet, passing flatus, BM Additional Comments no acute events. doing well. comfortable. edema improved. Objective Last 24 Hour Vital Signs Date Time Temp Pulse Resp B/P (MAP) Pulse Ox O2 Delivery O2 Flow Rate FiO2 07/09/18 16:00 97.6 53 19 151/76 (101) 100 07/09/18 12:00 98.0 62 20 120/66 (84) 99 07/09/18 09:00 Room Air 07/09/18 08:27 64 149/88 07/09/18 08:00 97.9 64 20 149/88 (108) 100 07/09/18 04:00 97.9 89 18 137/87 (104) 07/09/18 00:00 98.9 87 18 129/87 (101) 07/08/18 21:00 Room Air 07/08/18 20:33 85 137/89 07/08/18 20:00 98.7 87 20 137/86 (103) 07/08/18 17:49 Room Air I&O Intake and Output 07/08/18 07/09/18 19:00 07:00 Intake Total 1584 ml Output Total 601 ml Balance 983 ml Intake Oral 1584 ml Output Urine Total 600 ml Stool Total 1 ml # Voids 4 3 # Bowel Movements 3 Drains: none Cardiovascular: RSR Respiratory: clear Abdomen: soft, non-tender, present bowel sounds, non-distended Extremities: no tenderness, no cyanosis Laboratory Tests Test 07/08/18 18:20 07/09/18 02:00 White Blood Count 9.9 K/UL (4.8-10.8) 9.7 K/UL (4.8-10.8) Red Blood Count 3.59 M/UL (4.20-5.40) L 3.99 M/UL (4.20-5.40) L Hemoglobin 9.5 G/DL (12.0-16.0) L 10.6 G/DL (12.0-16.0) L Hematocrit 30.1 % (37.0-47.0) L 33.5 % (37.0-47.0) L Mean Corpuscular Volume 84 FL (80-99) 84 FL (80-99) Mean Corpuscular Hemoglobin 26.6 PG (27.0-31.0) L 26.6 PG (27.0-31.0) L Mean Corpuscular Hemoglobin Concent 31.7 G/DL (32.0-36.0) L 31.7 G/DL (32.0-36.0) L Red Cell Distribution Width 13.6 % (11.6-14.8) 14.2 % (11.6-14.8) Platelet Count 213 K/UL (150-450) 176 K/UL (150-450) Mean Platelet Volume 6.6 FL (6.5-10.1) 8.5 FL (6.5-10.1) Neutrophils (%) (Auto) 74.6 % (45.0-75.0) 74.4 % (45.0-75.0) Lymphocytes (%) (Auto) 15.2 % (20.0-45.0) L 17.1 % (20.0-45.0) L Monocytes (%) (Auto) 5.2 % (1.0-10.0) 4.1 % (1.0-10.0) Eosinophils (%) (Auto) 4.3 % (0.0-3.0) H 3.7 % (0.0-3.0) H Basophils (%) (Auto) 0.7 % (0.0-2.0) 0.7 % (0.0-2.0) Sodium Level 146 MMOL/L (136-145) H 145 MMOL/L (136-145) Potassium Level 3.7 MMOL/L (3.5-5.1) 4.0 MMOL/L (3.5-5.1) Chloride Level 114 MMOL/L (98-107) H 113 MMOL/L (98-107) H Carbon Dioxide Level 22 MMOL/L (21-32) 18 MMOL/L (21-32) L Anion Gap 10 mmol/L (5-15) 14 mmol/L (5-15) Blood Urea Nitrogen 11 mg/dL (7-18) 12 mg/dL (7-18) Creatinine 1.4 MG/DL (0.55-1.30) H 1.3 MG/DL (0.55-1.30) Estimat Glomerular Filtration Rate 37.8 mL/min (>60) 41.1 mL/min (>60) Glucose Level 124 MG/DL (74-106) H 83 MG/DL (74-106) Calcium Level 9.6 MG/DL (8.5-10.1) 10.3 MG/DL (8.5-10.1) H Total Bilirubin 0.1 MG/DL (0.2-1.0) L Aspartate Amino Transf (AST/SGOT) 49 U/L (15-37) H Alanine Aminotransferase (ALT/SGPT) 47 U/L (12-78) Alkaline Phosphatase 99 U/L (46-116) Total Protein 6.6 G/DL (6.4-8.2) Albumin 2.4 G/DL (3.4-5.0) L Globulin 4.2 g/dL Albumin/Globulin Ratio 0.6 (1.0-2.7) L Vancomycin Level Trough 16.1 ug/mL (5.0-12.0) H Plan Problems: (1) Cellulitis Assessment & Plan: 67-year-old with left neck cellulitis. Leukocytosis. Low- grade fevers. Tenderness on examination with large area of cellulitis without fluctuance. CT scan ordered and pending final read but did speak with the radiologist and there is significant inflammation in the oropharynx and neck around the pharynx and trachea. There is subcutaneous tissue swelling consistent with cellulitis in the area as identified on clinical examination. There is a narrowed airway. Even these findings patient was transferred to the intensive care unit for close monitoring. Etiology of patient's infection is currently unknown and will need further workup. Currently respiratory stable without any signs of compromise or distress. Patient states she is breathing well without any shortness of breath or difficulty. Airway is currently patent. Radiological findings noted. labs improved exam improved liquid soft diet IV abx appreciate ENT input - transfer for higher level of care for I&D if shows signs of respiratory issues will need urgent intubation for airway protection vs tracheostomy will follow with recs thank you Florencio Jimenez Jul 09, 2018 17:06
--- NOTE | 2018-07-09 19:30 | NUR ---
HAND-OFF: Report given to Lulu VALADEZ.
[2018-07-09 20:00] VITALS: BP 141/73
[2018-07-09] MEDS ORDERED: NS 275ml ONE (20:33)
--- NOTE | 2018-07-10 00:55 | NUR ---
NURSE NOTES: Report received from RORY Velasquez. Pt is lying comfortably in semi-fowlers with no signs of distress. Pt is is A+Ox4 and denies pain/SOB. Respirations are even and unlabored on room air. IV site is patent, intact, and saline locked. Bed is at lowest position, brakes engaged, siderails x2, bed alarm on, and call light within reach. Pt is in stable condition at this time; will continue to monitor. Addendum: 07/10/18 at 0056 by MYA DAVID RN correct date and time: 07/09/181939
[2018-07-10 04:00] VITALS: BP 148/76
--- NOTE | 2018-07-10 07:17 | NUR ---
NURSE NOTES: Report given to RORY Velasquez. Pt in stable condition; plan of care endorsed.
--- NOTE | 2018-07-10 07:20 | NUR ---
NURSE NOTES: Report received from outgoing nurse, rounds made. Patient alert, [place]ones[place] speaking. No SOB on RA, pain, NV. Afebrile, VSS. Left neck/upper shoulder remains unchanged, redness, rough/tight skin, remains intact. Left hand IV, intact, mild swelling noted, will restart. Call light in reach, bed in lowest position, will continue to monitor.
[2018-07-10 08:00] VITALS: BP 124/66
[2018-07-10] MEDS: Vancomycin 1.5gm/D5W 275ml IVPB SCH ×2 (08:14)
[2018-07-10] MEDS: NIFEdipine 10mg cap ORAL SCH ×2 (08:15→21:08)
[2018-07-10] MEDS: Benztropine 1mg tab ORAL SCH ×2 (08:15→18:42)
[2018-07-10] MEDS: Docusate 250mg cap ORAL SCH (08:16)
[2018-07-10] MEDS: Heparin 5000 units/ml inj SUBQ SCH ×2 (08:17→21:13)
[2018-07-10 08:43] LABS: BASOPHILS % (AUTO) 0.9 % (0.0-2.0); EOSINOPHILS % (AUTO) 4.2 % (0.0-3.0); HEMOGLOBIN 10.4 G/DL (12.0-16.0); LYMPHOCYTES % (AUTO) 16.7 % (20.0-45.0); MEAN CORPUSCULAR VOLUME 85 FL (80-99); MONOCYTES % (AUTO) 5.3 % (1.0-10.0); NEUTROPHILS % (AUTO) 72.9 % (45.0-75.0); PLATELET COUNT 248 K/UL (150-450); RED BLOOD COUNT 3.91 M/UL (4.20-5.40); RED CELL DISTRIBUTION WIDTH 14.5 % (11.6-14.8); WHITE BLOOD COUNT 8.6 K/UL (4.8-10.8)
[2018-07-10 09:07] LABS: ANION GAP 9 mmol/L (5-15); BLOOD UREA NITROGEN 11 mg/dL (7-18); CALCIUM 9.8 MG/DL (8.5-10.1); CARBON DIOXIDE 21 MMOL/L (21-32); CHLORIDE 116 MMOL/L (98-107); CREATININE 1.3 MG/DL (0.55-1.30); POTASSIUM 3.7 MMOL/L (3.5-5.1); SODIUM 146 MMOL/L (136-145)
[2018-07-10 12:00] VITALS: BP 120/67
[2018-07-10] MEDS: Cefepime HCl 2 GM in D5W 55 ML IVPB SCH ×2 (12:18→23:54)
--- NOTE | 2018-07-10 14:07 | NUR ---
CASE MANAGEMENT: REVIEW SI: LEFT NECK CELLULITIS . PAIN IN LEFT NECK CT SCAN - SUPRAGLOTTIC AIRWAY NARROWING . T 98.2 HR 52 RR 21 BP 148/76 SAT 97% ROOM AIR LYMPH 16.7 NA 146 IS: VANCO IV Q24HR CEFEPIME IV Q12HR FLAGYL IV Q8HR [place] 5/325 PO Q6HR PRN SOFT PO DIET MED/SURG STATUS DCP: TRANSFER FOR HIGHER LEVEL OF CARE . PATIENT IS FROM HOME .
--- NOTE | 2018-07-10 14:50 | Infectious Diseases Prog Note ---
Assessment/Plan Problems: (1) Retropharyngeal abscess Assessment & Plan: with extension to the left clavicle , on triple antibiotics , need I&D , S/P ENT eval, will require transfer to higher level of care facility for close monitoring and surgical intervention (2) Cellulitis Assessment & Plan: of the left neck and upper shoulder, continue vancomycin , cefepime and metronidazole empirically, may need skin biopsy if no improvement with antibiotics alone to rule out malignant process (3) Sepsis Assessment & Plan: with leukocytosis , due to the above , continue wide spectrum antibiotics pending cultures (4) Hypercalcemia Assessment & Plan: improving , rule out malignancy , renal is following (5) Renal failure Assessment & Plan: suspect due to the above, continue hydration , with close monitoring of renal function and renally dosed medications . Subjective Constitutional: Reports: no symptoms HEENT: Reports: no symptoms Respiratory: Reports: no symptoms Breasts: Reports: no symptoms Cardiovascular: Reports: no symptoms Gastrointestinal/Abdominal: Reports: no symptoms Genitourinary: Reports: no symptoms Neurologic: Reports: no symptoms Psychiatric: Reports: no symptoms Skin: Reports: no symptoms Endocrine: Reports: no symptoms Hematologic: Reports: no symptoms Musculoskeletal: Reports: no symptoms Allergies: Coded Allergies: No Known Allergies (Unverified , 07/04/18) Objective Vital Signs Last 24 Hour Vital Signs Date Time Temp Pulse Resp B/P (MAP) Pulse Ox O2 Delivery O2 Flow Rate FiO2 07/10/18 12:00 98.1 93 19 120/67 (84) 99 07/10/18 08:15 82 124/66 07/10/18 08:00 98.2 82 21 124/66 (85) 97 07/10/18 04:00 97.6 52 20 148/76 (100) 100 07/09/18 21:08 61 141/73 07/09/18 21:00 Room Air 07/09/18 20:00 98.0 61 18 141/73 (95) 100 07/09/18 16:00 97.6 53 19 151/76 (101) 100 Height (Feet): 5 Height (Inches): 1.00 Weight (Pounds): 201 General Appearance: WD/WN, no acute distress HEENT: normocephalic, atraumatic, anicteric, mucous membranes moist Respiratory/Chest: chest wall non-tender, no respiratory distress, no accessory muscle use, decreased breath sounds Cardiovascular: normal peripheral pulses, normal rate, regular rhythm, no gallop/murmur, no JVD Abdomen: normal bowel sounds, soft, non tender, no organomegaly, non distended , no mass, no scars Extremities: no cyanosis, no clubbing Skin: no rash, no lesions, other - red, thick and nontender on the left lower neck and left upper shoulder Neurologic/Psychiatric: alert, responsive Lymphatic: no neck adenopathy, no groin adenopathy Musculoskeletal: normal muscle bulk, no effusion Laboratory Tests Test 07/10/18 07:57 White Blood Count 8.6 K/UL (4.8-10.8) Red Blood Count 3.91 M/UL (4.20-5.40) L Hemoglobin 10.4 G/DL (12.0-16.0) L Hematocrit 33.0 % (37.0-47.0) L Mean Corpuscular Volume 85 FL (80-99) Mean Corpuscular Hemoglobin 26.5 PG (27.0-31.0) L Mean Corpuscular Hemoglobin Concent 31.4 G/DL (32.0-36.0) L Red Cell Distribution Width 14.5 % (11.6-14.8) Platelet Count 248 K/UL (150-450) Mean Platelet Volume 7.0 FL (6.5-10.1) Neutrophils (%) (Auto) 72.9 % (45.0-75.0) Lymphocytes (%) (Auto) 16.7 % (20.0-45.0) L Monocytes (%) (Auto) 5.3 % (1.0-10.0) Eosinophils (%) (Auto) 4.2 % (0.0-3.0) H Basophils (%) (Auto) 0.9 % (0.0-2.0) Sodium Level 146 MMOL/L (136-145) H Potassium Level 3.7 MMOL/L (3.5-5.1) Chloride Level 116 MMOL/L (98-107) H Carbon Dioxide Level 21 MMOL/L (21-32) Anion Gap 9 mmol/L (5-15) Blood Urea Nitrogen 11 mg/dL (7-18) Creatinine 1.3 MG/DL (0.55-1.30) Estimat Glomerular Filtration Rate 41.1 mL/min (>60) Glucose Level 121 MG/DL (74-106) H Calcium Level 9.8 MG/DL (8.5-10.1) Current Medications Medications (Trade) Dose Ordered Sig/Omari Route PRN Reason Start Time Stop Time Status Last Admin Dose Admin Acetaminophen (Tylenol) 650 mg Q6H PRN ORAL Mild Pain/Temp > 100.5 07/06/18 17:33 08/05/18 17:32 Acetaminophen/ Hydrocodone Bitart ([place] 5/325) 1 tab Q6H PRN ORAL Severe Pain (Pain Scale 7-10) 07/06/18 17:33 07/13/18 17:32 07/08/18 08:28 Benztropine Mesylate (Cogentin) 1 mg BID ORAL 07/07/18 09:00 08/06/18 08:59 07/10/18 08:15 Cefepime HCl 2 gm/ Dextrose 55 ml @ 110 mls/hr Q12HR@0000,1200 IVPB 07/07/18 00:00 07/12/18 00:00 07/10/18 12:18 Docusate Sodium (Colace) 250 mg DAILY ORAL 07/07/18 09:00 08/04/18 08:59 07/10/18 08:16 Haloperidol (Haldol) 5 mg DAILY ORAL 07/07/18 09:00 08/04/18 08:59 07/10/18 08:16 Heparin Sodium (Porcine) (Heparin 5000 units/ml) 5,000 units EVERY 12 HOURS SUBQ 07/06/18 21:00 08/03/18 20:59 07/10/18 08:17 [place] Carbonate ([place] Carbonate) 300 mg BID ORAL 07/07/18 09:00 08/06/18 08:59 07/10/18 08:15 Metronidazole 100 ml @ 100 mls/hr Q8HR IVPB 07/06/18 22:00 07/11/18 23:29 07/10/18 14:08 Mirtazapine (Remeron) 7.5 mg BEDTIME ORAL 07/06/18 21:00 08/03/18 20:59 07/09/18 21:08 Nifedipine (Adalat) 10 mg Q12HR ORAL 07/06/18 21:00 08/04/18 08:59 07/10/18 08:15 Pantoprazole (Protonix) 40 mg DAILY ORAL 07/07/18 09:00 08/04/18 08:59 07/10/18 08:15 Vancomycin HCl (Vanco rx to dose) 1 ea DAILY PRN MISC Per rx protocol 07/07/18 09:00 08/03/18 18:29 Vancomycin HCl 1.5 gm/Dextrose 275 ml @ 137.5 mls/ hr Q24H IVPB 07/09/18 08:00 07/14/18 07:59 07/10/18 08:14 Gloria Nelson M.D. Jul 10, 2018 14:50
[2018-07-10 16:00] VITALS: BP 145/80
--- NOTE | 2018-07-10 16:54 | Surgery Progress Note ---
Surgery Progress Note Subjective Symptoms: improved, tolerating diet, passing flatus, pain decreased Additional Comments family at bedside. discussed care and plan. she looks improved. still with cellulitis Objective Last 24 Hour Vital Signs Date Time Temp Pulse Resp B/P (MAP) Pulse Ox O2 Delivery O2 Flow Rate FiO2 07/10/18 12:00 98.1 93 19 120/67 (84) 99 07/10/18 09:00 Room Air 07/10/18 08:15 82 124/66 07/10/18 08:00 98.2 82 21 124/66 (85) 97 07/10/18 04:00 97.6 52 20 148/76 (100) 100 07/09/18 21:08 61 141/73 07/09/18 21:00 Room Air 07/09/18 20:00 98.0 61 18 141/73 (95) 100 I&O Intake and Output 07/09/18 07/10/18 18:59 06:59 Intake Total 720 ml Balance 720 ml Intake Oral 720 ml # Voids 2 1 # Bowel Movements 1 Cardiovascular: RSR Respiratory: clear Abdomen: soft, flat, non-tender, present bowel sounds, non-distended Extremities: no edema, no tenderness, no cyanosis Laboratory Tests Test 07/10/18 07:57 White Blood Count 8.6 K/UL (4.8-10.8) Red Blood Count 3.91 M/UL (4.20-5.40) L Hemoglobin 10.4 G/DL (12.0-16.0) L Hematocrit 33.0 % (37.0-47.0) L Mean Corpuscular Volume 85 FL (80-99) Mean Corpuscular Hemoglobin 26.5 PG (27.0-31.0) L Mean Corpuscular Hemoglobin Concent 31.4 G/DL (32.0-36.0) L Red Cell Distribution Width 14.5 % (11.6-14.8) Platelet Count 248 K/UL (150-450) Mean Platelet Volume 7.0 FL (6.5-10.1) Neutrophils (%) (Auto) 72.9 % (45.0-75.0) Lymphocytes (%) (Auto) 16.7 % (20.0-45.0) L Monocytes (%) (Auto) 5.3 % (1.0-10.0) Eosinophils (%) (Auto) 4.2 % (0.0-3.0) H Basophils (%) (Auto) 0.9 % (0.0-2.0) Sodium Level 146 MMOL/L (136-145) H Potassium Level 3.7 MMOL/L (3.5-5.1) Chloride Level 116 MMOL/L (98-107) H Carbon Dioxide Level 21 MMOL/L (21-32) Anion Gap 9 mmol/L (5-15) Blood Urea Nitrogen 11 mg/dL (7-18) Creatinine 1.3 MG/DL (0.55-1.30) Estimat Glomerular Filtration Rate 41.1 mL/min (>60) Glucose Level 121 MG/DL (74-106) H Calcium Level 9.8 MG/DL (8.5-10.1) Plan Problems: (1) Cellulitis Assessment & Plan: 67-year-old with left neck cellulitis. Leukocytosis. Low- grade fevers. Tenderness on examination with large area of cellulitis without fluctuance. CT scan ordered and pending final read but did speak with the radiologist and there is significant inflammation in the oropharynx and neck around the pharynx and trachea. There is subcutaneous tissue swelling consistent with cellulitis in the area as identified on clinical examination. There is a narrowed airway. Even these findings patient was transferred to the intensive care unit for close monitoring. Etiology of patient's infection is currently unknown and will need further workup. Currently respiratory stable without any signs of compromise or distress. Patient states she is breathing well without any shortness of breath or difficulty. Airway is currently patent. Radiological findings noted. labs improved exam improved liquid soft diet IV abx appreciate ENT input - transfer for higher level of care for I&D if shows signs of respiratory issues will need urgent intubation for airway protection vs tracheostomy will follow with recs thank you Florencio Jimenez Jul 10, 2018 16:54
[2018-07-10] MEDS ORDERED: NS 500ML ONE (18:43)
[2018-07-10] MEDS ORDERED: Tubing IV Secondary IV ONE (18:43)
--- NOTE | 2018-07-10 19:40 | NUR ---
HAND-OFF: Report given to Alexandria VALADEZ.
[2018-07-10 20:00] VITALS: BP 129/87
--- NOTE | 2018-07-10 20:00 | NUR ---
NURSE NOTES: Patient in bed, awake, alert. IV in place, patent. No complaints of pain at this time, no s/s distress. Redness noted on left side of neck, no drainage noted, intact. Bed in lowest position, call light within reach, bed alarm on. will continue to monitor.
[2018-07-10 22:00] VITALS: BP 129/87
[2018-07-11 00:40] VITALS: BP 154/81
[2018-07-11 04:00] VITALS: BP 135/96
--- NOTE | 2018-07-11 04:00 | NUR ---
NURSE NOTES: PATIENT ASLEEP, NO DISTRESS NOTED.
--- NOTE | 2018-07-11 07:15 | NUR ---
NURSE NOTES: Report received from outgoing nurse, rounds made. Patient sleeping in supine position in bed. No distress noted. No SOB on RA. TKO IV infusing to right wrist, without difficulty. Left neck/upper shoulder area reddened, thickened, remains intact. Bed in lowest position, call light in reach, will continue to monitor.
--- NOTE | 2018-07-11 07:28 | NUR ---
HAND-OFF: Report given to DESEAN Uriostegui RN.
[2018-07-11 07:53] LABS: BASOPHILS % (AUTO) 0.8 % (0.0-2.0); EOSINOPHILS % (AUTO) 3.8 % (0.0-3.0); HEMOGLOBIN 10.2 G/DL (12.0-16.0); LYMPHOCYTES % (AUTO) 17.1 % (20.0-45.0); MEAN CORPUSCULAR VOLUME 83 FL (80-99); MONOCYTES % (AUTO) 5.7 % (1.0-10.0); NEUTROPHILS % (AUTO) 72.6 % (45.0-75.0); PLATELET COUNT 251 K/UL (150-450); RED BLOOD COUNT 3.83 M/UL (4.20-5.40); RED CELL DISTRIBUTION WIDTH 14.4 % (11.6-14.8); WHITE BLOOD COUNT 8.8 K/UL (4.8-10.8)
[2018-07-11 08:00] VITALS: BP 135/76
[2018-07-11 08:48] LABS: ANION GAP 9 mmol/L (5-15); BLOOD UREA NITROGEN 9 mg/dL (7-18); CALCIUM 9.8 MG/DL (8.5-10.1); CARBON DIOXIDE 20 MMOL/L (21-32); CHLORIDE 116 MMOL/L (98-107); CREATININE 1.3 MG/DL (0.55-1.30); SODIUM 145 MMOL/L (136-145)
[2018-07-11] MEDS: Vancomycin 1.5gm/D5W 275ml IVPB SCH ×2 (08:51)
[2018-07-11] MEDS: Benztropine 1mg tab ORAL SCH ×2 (08:51→18:19)
[2018-07-11] MEDS: Docusate 250mg cap ORAL SCH (08:52)
[2018-07-11] MEDS: NIFEdipine 10mg cap ORAL SCH ×2 (08:52→21:19)
[2018-07-11] MEDS: Heparin 5000 units/ml inj SUBQ SCH ×2 (08:53→21:21)
[2018-07-11 12:00] VITALS: BP 132/68
[2018-07-11] MEDS: Cefepime HCl 2 GM in D5W 55 ML IVPB SCH ×2 (12:09→23:50)
[2018-07-11] MEDS ORDERED: Lidocaine 1% Plain 30 ml INJ PRN (12:29)
[2018-07-11] MEDS ORDERED: Heparin1,000 units/500ml Premix(Conc:2 units/ml) IV PRN (12:29)
[2018-07-11] MEDS ORDERED: NS 500ML ONE (12:49)
[2018-07-11] MEDS ORDERED: Tubing IV Secondary IV ONE (12:49)
--- NOTE | 2018-07-11 14:21 | Surgery Progress Note ---
Surgery Progress Note Subjective Symptoms: improved, tolerating diet, passing flatus, BM, pain decreased Additional Comments no complaints. doing well. comfortable. respiratory stable Objective Last 24 Hour Vital Signs Date Time Temp Pulse Resp B/P (MAP) Pulse Ox O2 Delivery O2 Flow Rate FiO2 07/11/18 12:00 98.3 64 18 132/68 (89) 98 07/11/18 09:00 Room Air 07/11/18 08:52 64 135/76 07/11/18 08:00 98.1 64 18 135/76 (95) 98 07/11/18 04:00 98.1 53 19 135/96 (109) 98 07/11/18 00:40 98.0 57 19 154/81 (105) 100 07/10/18 22:01 Room Air 07/10/18 21:08 68 129/87 07/10/18 20:00 97.9 68 19 129/87 (101) 100 07/10/18 16:00 97.1 62 20 145/80 (101) 96 I&O Intake and Output 07/10/18 07/11/18 19:00 07:00 Intake Total 720 ml 395 ml Balance 720 ml 395 ml Intake Oral 720 ml 240 ml IV Total 155 ml # Voids 6 4 Drains: none Cardiovascular: RSR Respiratory: clear Abdomen: soft, non-tender, present bowel sounds, non-distended Extremities: no edema, no tenderness, no cyanosis Laboratory Tests Test 07/11/18 07:37 White Blood Count 8.8 K/UL (4.8-10.8) Red Blood Count 3.83 M/UL (4.20-5.40) L Hemoglobin 10.2 G/DL (12.0-16.0) L Hematocrit 32.0 % (37.0-47.0) L Mean Corpuscular Volume 83 FL (80-99) Mean Corpuscular Hemoglobin 26.6 PG (27.0-31.0) L Mean Corpuscular Hemoglobin Concent 31.9 G/DL (32.0-36.0) L Red Cell Distribution Width 14.4 % (11.6-14.8) Platelet Count 251 K/UL (150-450) Mean Platelet Volume 6.9 FL (6.5-10.1) Neutrophils (%) (Auto) 72.6 % (45.0-75.0) Lymphocytes (%) (Auto) 17.1 % (20.0-45.0) L Monocytes (%) (Auto) 5.7 % (1.0-10.0) Eosinophils (%) (Auto) 3.8 % (0.0-3.0) H Basophils (%) (Auto) 0.8 % (0.0-2.0) Sodium Level 145 MMOL/L (136-145) Potassium Level 4.0 MMOL/L (3.5-5.1) Chloride Level 116 MMOL/L (98-107) H Carbon Dioxide Level 20 MMOL/L (21-32) L Anion Gap 9 mmol/L (5-15) Blood Urea Nitrogen 9 mg/dL (7-18) Creatinine 1.3 MG/DL (0.55-1.30) Estimat Glomerular Filtration Rate 41.1 mL/min (>60) Glucose Level 89 MG/DL (74-106) Calcium Level 9.8 MG/DL (8.5-10.1) Plan Problems: (1) Cellulitis Assessment & Plan: 67-year-old with left neck cellulitis. Leukocytosis. Low- grade fevers. Tenderness on examination with large area of cellulitis without fluctuance. CT scan ordered and pending final read but did speak with the radiologist and there is significant inflammation in the oropharynx and neck around the pharynx and trachea. There is subcutaneous tissue swelling consistent with cellulitis in the area as identified on clinical examination. There is a narrowed airway. Even these findings patient was transferred to the intensive care unit for close monitoring. Etiology of patient's infection is currently unknown and will need further workup. Currently respiratory stable without any signs of compromise or distress. Patient states she is breathing well without any shortness of breath or difficulty. Airway is currently patent. Radiological findings noted. labs improved exam improved liquid soft diet IV abx appreciate ENT input - transfer for higher level of care for I&D if shows signs of respiratory issues will need urgent intubation for airway protection vs tracheostomy will follow with recs thank you Florencio Jimenez Jul 11, 2018 14:21
[2018-07-11 16:00] VITALS: BP 136/69
--- NOTE | 2018-07-11 18:45 | NUR ---
NURSE NOTES: Patient and family member notified of new order for PICC line placement. Family member translated to patient, verbalized understanding. Consent signed by family member (brother). Plans for PICC line insertion 07/12/2018.
--- NOTE | 2018-07-11 19:20 | NUR ---
HAND-OFF: Report given to Giana Puente RN.
--- NOTE | 2018-07-11 19:29 | Infectious Diseases Prog Note ---
Assessment/Plan Problems: (1) Retropharyngeal abscess Assessment & Plan: with extension to the left clavicle , on triple antibiotics , need I&D , S/P ENT eval, will require transfer to higher level of care facility for close monitoring and surgical intervention (2) Cellulitis Assessment & Plan: of the left neck and upper shoulder, continue vancomycin , cefepime and metronidazole empirically, may need skin biopsy if no improvement with antibiotics alone to rule out malignant process (3) Sepsis Assessment & Plan: with leukocytosis , due to the above , continue wide spectrum antibiotics pending cultures (4) Hypercalcemia Assessment & Plan: improving , rule out malignancy , renal is following (5) Renal failure Assessment & Plan: suspect due to the above, continue hydration , with close monitoring of renal function and renally dosed medications . Subjective Constitutional: Reports: no symptoms Respiratory: Reports: no symptoms Breasts: Reports: no symptoms Cardiovascular: Reports: no symptoms Gastrointestinal/Abdominal: Reports: no symptoms Genitourinary: Reports: no symptoms Neurologic: Reports: no symptoms Psychiatric: Reports: no symptoms Skin: Reports: other - red and thick on the left upper shoulder Endocrine: Reports: no symptoms Hematologic: Reports: no symptoms Musculoskeletal: Reports: no symptoms Allergies: Coded Allergies: No Known Allergies (Unverified , 07/04/18) Objective Vital Signs Last 24 Hour Vital Signs Date Time Temp Pulse Resp B/P (MAP) Pulse Ox O2 Delivery O2 Flow Rate FiO2 07/11/18 16:00 98.1 61 18 136/69 (91) 98 07/11/18 12:00 98.3 64 18 132/68 (89) 98 07/11/18 09:00 Room Air 07/11/18 08:52 64 135/76 07/11/18 08:00 98.1 64 18 135/76 (95) 98 07/11/18 04:00 98.1 53 19 135/96 (109) 98 07/11/18 00:40 98.0 57 19 154/81 (105) 100 07/10/18 22:01 Room Air 07/10/18 21:08 68 129/87 07/10/18 20:00 97.9 68 19 129/87 (101) 100 Height (Feet): 5 Height (Inches): 1.00 Weight (Pounds): 203 General Appearance: WD/WN, no acute distress HEENT: normocephalic, atraumatic, anicteric, mucous membranes moist, PERRL Respiratory/Chest: chest wall non-tender, lungs clear, normal breath sounds, no respiratory distress, no accessory muscle use Cardiovascular: normal peripheral pulses, normal rate, regular rhythm, no gallop/murmur, no JVD Abdomen: normal bowel sounds, soft, non tender, no organomegaly, non distended , no mass, no scars Genitourinary: normal external genitalia Extremities: no cyanosis, no clubbing Skin: no rash, no lesions, no ulcers Neurologic/Psychiatric: manager chemistry II-XII grossly normal, alert, responsive Lymphatic: no groin adenopathy, other - left neck lymphadenopathy Musculoskeletal: normal muscle bulk, no effusion Laboratory Tests Test 07/11/18 07:37 White Blood Count 8.8 K/UL (4.8-10.8) Red Blood Count 3.83 M/UL (4.20-5.40) L Hemoglobin 10.2 G/DL (12.0-16.0) L Hematocrit 32.0 % (37.0-47.0) L Mean Corpuscular Volume 83 FL (80-99) Mean Corpuscular Hemoglobin 26.6 PG (27.0-31.0) L Mean Corpuscular Hemoglobin Concent 31.9 G/DL (32.0-36.0) L Red Cell Distribution Width 14.4 % (11.6-14.8) Platelet Count 251 K/UL (150-450) Mean Platelet Volume 6.9 FL (6.5-10.1) Neutrophils (%) (Auto) 72.6 % (45.0-75.0) Lymphocytes (%) (Auto) 17.1 % (20.0-45.0) L Monocytes (%) (Auto) 5.7 % (1.0-10.0) Eosinophils (%) (Auto) 3.8 % (0.0-3.0) H Basophils (%) (Auto) 0.8 % (0.0-2.0) Sodium Level 145 MMOL/L (136-145) Potassium Level 4.0 MMOL/L (3.5-5.1) Chloride Level 116 MMOL/L (98-107) H Carbon Dioxide Level 20 MMOL/L (21-32) L Anion Gap 9 mmol/L (5-15) Blood Urea Nitrogen 9 mg/dL (7-18) Creatinine 1.3 MG/DL (0.55-1.30) Estimat Glomerular Filtration Rate 41.1 mL/min (>60) Glucose Level 89 MG/DL (74-106) Calcium Level 9.8 MG/DL (8.5-10.1) Current Medications Medications (Trade) Dose Ordered Sig/Omari Route PRN Reason Start Time Stop Time Status Last Admin Dose Admin Acetaminophen (Tylenol) 650 mg Q6H PRN ORAL Mild Pain/Temp > 100.5 07/06/18 17:33 08/05/18 17:32 Acetaminophen/ Hydrocodone Bitart ([place] 5/325) 1 tab Q6H PRN ORAL Severe Pain (Pain Scale 7-10) 07/06/18 17:33 07/13/18 17:32 07/08/18 08:28 Benztropine Mesylate (Cogentin) 1 mg BID ORAL 07/07/18 09:00 08/06/18 08:59 07/11/18 18:19 Cefepime HCl 2 gm/ Dextrose 55 ml @ 110 mls/hr Q12HR@0000,1200 IVPB 07/07/18 00:00 07/16/18 00:00 07/11/18 12:09 Chlorhexidine Gluconate (Hyun-Hex 2%) 1 applic DAILY@2000 TOPIC 07/11/18 20:00 08/10/18 19:59 Docusate Sodium (Colace) 250 mg DAILY ORAL 07/07/18 09:00 08/04/18 08:59 07/11/18 08:52 Haloperidol (Haldol) 5 mg DAILY ORAL 07/07/18 09:00 08/04/18 08:59 07/11/18 08:52 Heparin Sodium (Porcine) (Heparin 5000 units/ml) 5,000 units EVERY 12 HOURS SUBQ 07/06/18 21:00 08/03/18 20:59 07/11/18 08:53 Heparin Sodium/ Sodium Chloride (Heparin 1000 units/500ml Premix) 1,000 unit ONCE PRN IV PICC LINE 07/11/18 12:29 07/11/18 23:59 Lidocaine HCl (Xylocaine 1% 30ml) 30 ml ONCE PRN INJ picc 07/11/18 12:29 07/11/18 23:59 [place] Carbonate ([place] Carbonate) 300 mg BID ORAL 07/07/18 09:00 08/06/18 08:59 07/11/18 18:19 Metronidazole 100 ml @ 100 mls/hr Q8HR IVPB 07/06/18 22:00 07/16/18 21:59 07/11/18 13:29 Mirtazapine (Remeron) 7.5 mg BEDTIME ORAL 07/06/18 21:00 08/03/18 20:59 07/10/18 21:08 Nifedipine (Adalat) 10 mg Q12HR ORAL 07/06/18 21:00 08/04/18 08:59 07/11/18 08:52 Pantoprazole (Protonix) 40 mg DAILY ORAL 07/07/18 09:00 08/04/18 08:59 07/11/18 08:52 Vancomycin HCl (Vanco rx to dose) 1 ea DAILY PRN MISC Per rx protocol 07/07/18 09:00 08/03/18 18:29 Vancomycin HCl 1.5 gm/Dextrose 275 ml @ 137.5 mls/ hr Q24H IVPB 07/09/18 08:00 07/14/18 07:59 07/11/18 08:51 Gloria Nelson M.D. Jul 11, 2018 19:29
--- NOTE | 2018-07-11 19:36 | NUR ---
CASE MANAGEMENT: REVIEW 07/11/2018 SI:SHOULDER CELLULITIS. T 98.1 HR 61 RR 18 B/P 136/69 SATS 98% ON RA CL 116 CO2 20 IS:COGENTIN PO BID LITHIUM PO BID HALDOL PO QD ADALAT PO Q12H CEFEPIME IV Q12H VANCO IV Q24H FLAGYL IV Q8H MED/SURG STATUS
[2018-07-11 20:00] VITALS: BP 145/66
[2018-07-11] MEDS: Dyna-Hex 2% Top Sol 2oz TOPIC SCH ×2 (21:00→21:19)
--- NOTE | 2018-07-11 22:12 | NUR ---
NURSE NOTES: Report received from outgoing nurse, rounds made. Patient sleeping in supine position in bed. No distress noted. No SOB on RA. NS lock IV 24 gauge right wrist, asymptomatic. Bed in lowest position, side rails x2. Bed alarm on and call light within reach.
[2018-07-12] VITALS: BP 132/72
[2018-07-12 04:56] VITALS: BP 138/58
--- NOTE | 2018-07-12 07:38 | NUR ---
HAND-OFF: Report given to Isela VALADEZ.
--- NOTE | 2018-07-12 07:39 | NUR ---
NURSE NOTES: Pt sitting up at bedside . is feeding her breakfast. Pt did not respond verbally. when property underwriter entered room. made aware to press call light if he needed assistance
[2018-07-12 08:00] VITALS: BP 164/75
--- NOTE | 2018-07-12 08:32 | NUR ---
CASE MANAGEMENT:REVIEW 07/12/18 SI: LEFT NECK CELLULITIS PARAPHARYNGEAL ABSCESS EXTENDING TO CLAVICLE 97.7 52 18 138/58 100% ON RA IS: IV VANCOMYCIN Q24 IV CEFEPIME Q12 IV FLAGYL Q8HRS LIBRIUM PO BID HEPARIN SQ Q12 : MED/SURG STATUS 3 EAST PLAN: PATIENT IS ON THE [facility] LIST TO TRANSFER TO A HIGHER LEVEL OF CARE
--- NOTE | 2018-07-12 08:35 | NUR ---
TRANSFER UPDATE CALLED [facility] AND SPOKE WITH NAZANIN WHO STATED THEY ARE AT CAPACITY. HYDROLOGICAL TECHNICAL OFFICER WILL CONTINUE TO F/U [facility] T: [phone] F: [phone] [facility] #[id number]
[2018-07-12] MEDS: NIFEdipine 10mg cap ORAL SCH ×2 (08:59→21:11)
[2018-07-12] MEDS: Docusate 250mg cap ORAL SCH (08:59)
[2018-07-12] MEDS: Heparin 5000 units/ml inj SUBQ SCH ×2 (09:00→21:19)
[2018-07-12] MEDS ORDERED: Lidocaine 1% Plain 30 ml INJ PRN (09:00)
[2018-07-12] MEDS ORDERED: Heparin1,000 units/500ml Premix(Conc:2 units/ml) IV PRN (09:00)
[2018-07-12] MEDS: Vancomycin 1.5gm/D5W 275ml IVPB SCH ×2 (09:00)
[2018-07-12] MEDS: Benztropine 1mg tab ORAL SCH ×2 (09:00→18:19)
--- NOTE | 2018-07-12 10:25 | NUR ---
NURSE NOTES: Pt off of unit went down for picc line placement stable condition
--- NOTE | 2018-07-12 10:45 | NUR ---
NURSE NOTES: Pt returned from picc line placement . Peripheral IV in use for completion of antibiotic therapy
[2018-07-12 12:00] VITALS: BP 181/81
--- NOTE | 2018-07-12 13:59 | Surgery Progress Note ---
Surgery Progress Note Subjective Symptoms: improved, tolerating diet, passing flatus, BM, pain decreased Objective Last 24 Hour Vital Signs Date Time Temp Pulse Resp B/P (MAP) Pulse Ox O2 Delivery O2 Flow Rate FiO2 07/12/18 09:00 Room Air 07/12/18 08:59 64 164/75 07/12/18 08:00 97.1 64 17 164/75 (104) 100 07/12/18 04:56 97.7 52 18 138/58 (84) 100 07/12/18 00:00 97.2 58 20 132/72 (92) 95 07/11/18 21:19 56 145/66 07/11/18 21:00 Room Air 07/11/18 20:00 97.9 56 18 145/66 (92) 100 07/11/18 16:00 98.1 61 18 136/69 (91) 98 I&O Intake and Output 07/11/18 07/12/18 19:00 07:00 Intake Total 960 ml 255 ml Balance 960 ml 255 ml Intake Oral 960 ml IV Total 255 ml # Voids 4 2 Dressing: dry Wound: clean Drains: none Cardiovascular: RSR Respiratory: clear Abdomen: soft, flat, non-tender Extremities: no edema, no tenderness, no cyanosis Plan Problems: (1) Cellulitis Assessment & Plan: 67-year-old with left neck cellulitis. Leukocytosis. Low- grade fevers. Tenderness on examination with large area of cellulitis without fluctuance. CT scan ordered and pending final read but did speak with the radiologist and there is significant inflammation in the oropharynx and neck around the pharynx and trachea. There is subcutaneous tissue swelling consistent with cellulitis in the area as identified on clinical examination. There is a narrowed airway. Even these findings patient was transferred to the intensive care unit for close monitoring. Etiology of patient's infection is currently unknown and will need further workup. Currently respiratory stable without any signs of compromise or distress. Patient states she is breathing well without any shortness of breath or difficulty. Airway is currently patent. Radiological findings noted. labs improved exam improved liquid soft diet IV abx appreciate ENT input - transfer for higher level of care for I&D if shows signs of respiratory issues will need urgent intubation for airway protection vs tracheostomy will follow with recs thank you Florencio Jimenez Jul 12, 2018 13:59
--- NOTE | 2018-07-12 14:02 | Diagnostic Imaging Report ---
Indications: Needs long-term IV access Technique: Ultrasound confirms patent compressible right basilic vein. Total sterile technique, including sterile probe cover and sterile gel, hat, mask, sterile gown, large sterile drape, and preparation with 2% chlorhexidine utilized. Local anesthesia with 1% lidocaine. Under real-time ultrasound guidance, puncture right vein using 21-gauge needle, documented and archived, passage 0.018 guidewire under direct fluoroscopy, which was used to determine appropriate catheter length, exchange for 4 Stateless peel-away sheath. 4 Stateless Bard dual-lumen power PICC cut to 41 cm. It was inserted through the peel-away sheath. Peel-away sheath and guidewire removed. Catheter fixed to the skin. Both catheter ports aspirated and flushed. Patient tolerated procedure well, without immediate complication. Digital radiograph documents satisfactory catheter tip position, at the cavoatrial junction. Total fluoroscopy time 15.4 seconds. Total dose area product [id number] Total number of images: 1 Impression: Successful placement of right arm PICC under sonographic and fluoroscopic guidance, as described above.
--- NOTE | 2018-07-12 14:42 | General Progress Note ---
Assessment/Plan Assessment/Plan S: I am feeling ok O: diffuse redness and swelling in the base of the neck, interval improvement. at the bedside Review of Systems Review of Symptoms General ROS: no weight loss or fever Psychological ROS: no depression or mood changes, no memory loss Ophthalmic ROS: no visual changes or eye irritation ENT ROS: no nasal congestion, hearing loss, dizziness Allergy and Immunology ROS: no allergic symptoms or urticaria Hematological and Lymphatic ROS: no swollen glands, unusual bleeding or bruising Endocrine ROS: no polyuria, polydipsia, weight changes, temperature intolerance Respiratory ROS: no cough, shortness of breath, or wheezing Cardiovascular ROS: no chest pain or dyspnea on exertion Gastrointestinal ROS: denies abdominal pain, bright red blood in stool. Musculoskeletal ROS: no myalgias or arthralgias Neurological ROS: no TIA or stroke symptoms Dermatological ROS: diffuse redness in base of the neck Physical Exam Physical Exam General appearance: alert, cooperative, no distress, appears stated age Head: Normocephalic, without obvious abnormality, atraumatic Eyes: conjunctivae/corneas clear. PERRL, EOM's intact. Fundi benign Throat: Lips, mucosa, and tongue normal. Teeth and gums normal Neck: supple, symmetrical, trachea midline, no adenopathy, t Lungs: clear to auscultation bilaterally Heart: regular rate and rhythm, S1, S2 normal, no murmur, click, rub or gallop Abdomen: soft, non-tender. Bowel sounds normal. No masses, no organomegaly Extremities: Diffuse swelling in base of the neck. Pulses: 2+ and symmetric Neurologic: Grossly normal 1- Sepsis : Resolved 2. Diffuse soft tissue swelling of the neck, possible parapharyngeal abscess 3- Diffuse Cellulitis of base of neck 4- Hypercalcemia, workup deferred to outpatient Plan: D/w ENT, agreed and will proceed for transferring patient to higher level of care secondary to possibility of expansion of infection/abscess in deep compartment of head and neck region. No sign of respiratory compromise at this time current abx Subjective Allergies: Coded Allergies: No Known Allergies (Unverified , 07/04/18) Objective Last 24 Hour Vital Signs Date Time Temp Pulse Resp B/P (MAP) Pulse Ox O2 Delivery O2 Flow Rate FiO2 07/12/18 09:00 Room Air 07/12/18 08:59 64 164/75 07/12/18 08:00 97.1 64 17 164/75 (104) 100 07/12/18 04:56 97.7 52 18 138/58 (84) 100 07/12/18 00:00 97.2 58 20 132/72 (92) 95 07/11/18 21:19 56 145/66 07/11/18 21:00 Room Air 07/11/18 20:00 97.9 56 18 145/66 (92) 100 07/11/18 16:00 98.1 61 18 136/69 (91) 98 Intake and Output 07/11/18 07/12/18 19:00 07:00 Intake Total 960 ml 255 ml Balance 960 ml 255 ml Intake Oral 960 ml IV Total 255 ml # Voids 4 2 Height (Feet): 5 Height (Inches): 1.00 Weight (Pounds): 203 Mady Perez MD Jul 12, 2018 14:42
--- NOTE | 2018-07-12 15:38 | NUR ---
RD ASSESSMENT & RECOMMENDATIONS SEE CARE ACTIVITY FOR COMPLETE ASSESSMENT DAILY ESTIMATED NEEDS: Needs based on Obese/ 59kg abw 25-30 kcals/kg 2655-3264 total kcals 1-1.2 g protein/kg 59-70 g total protein 25-30 mL/kg 2561-4102 total fluid mLs NUTRITION DIAGNOSIS: Chewing difficult R/T poor dentition as evidenced by edentulous status, on soft easy chew texture. CURRENT DIET:REGULAR, SOFT EASY CHEW PO DIET RECOMMENDATIONS: REGULAR, texture as tolerated ADDITIONAL RECOMMENDATIONS: * Calibrated bedscale wt for accurate CBW * Texture as tolerated- edentulous
[2018-07-12 16:00] VITALS: BP 149/69
--- NOTE | 2018-07-12 16:36 | Infectious Diseases Prog Note ---
Assessment/Plan Problems: (1) Retropharyngeal abscess Assessment & Plan: with extension to the left clavicle , on triple antibiotics , need I&D , S/P ENT eval, will require transfer to higher level of care facility for close monitoring and surgical intervention (2) Cellulitis Assessment & Plan: of the left neck and upper shoulder, continue vancomycin , cefepime and metronidazole empirically, may need skin biopsy if no improvement with antibiotics alone to rule out malignant process (3) Sepsis Assessment & Plan: with leukocytosis , due to the above , continue wide spectrum antibiotics pending cultures (4) Hypercalcemia Assessment & Plan: improving , rule out malignancy , renal is following (5) Renal failure Assessment & Plan: suspect due to the above, continue hydration , with close monitoring of renal function and renally dosed medications . Subjective Constitutional: Reports: no symptoms HEENT: Reports: no symptoms Respiratory: Reports: no symptoms Breasts: Reports: no symptoms Cardiovascular: Reports: no symptoms Gastrointestinal/Abdominal: Reports: no symptoms Genitourinary: Reports: no symptoms Neurologic: Reports: no symptoms Psychiatric: Reports: no symptoms Skin: Reports: no symptoms Endocrine: Reports: no symptoms Hematologic: Reports: no symptoms Musculoskeletal: Reports: no symptoms Allergies: Coded Allergies: No Known Allergies (Unverified , 07/04/18) Objective Vital Signs Last 24 Hour Vital Signs Date Time Temp Pulse Resp B/P (MAP) Pulse Ox O2 Delivery O2 Flow Rate FiO2 07/12/18 09:00 Room Air 07/12/18 08:59 64 164/75 07/12/18 08:00 97.1 64 17 164/75 (104) 100 07/12/18 04:56 97.7 52 18 138/58 (84) 100 07/12/18 00:00 97.2 58 20 132/72 (92) 95 07/11/18 21:19 56 145/66 07/11/18 21:00 Room Air 07/11/18 20:00 97.9 56 18 145/66 (92) 100 Height (Feet): 5 Height (Inches): 1.00 Weight (Pounds): 203 General Appearance: WD/WN, no acute distress HEENT: normocephalic, atraumatic, anicteric, mucous membranes moist, PERRL Respiratory/Chest: chest wall non-tender, lungs clear, normal breath sounds, no respiratory distress, no accessory muscle use Cardiovascular: normal peripheral pulses, normal rate, regular rhythm, no gallop/murmur, no JVD Abdomen: normal bowel sounds, soft, non tender, no organomegaly, non distended , no mass, no scars Extremities: no cyanosis, no clubbing Skin: no rash, no lesions, no ulcers Neurologic/Psychiatric: alert, oriented x 3, responsive Lymphatic: no neck adenopathy, no groin adenopathy Musculoskeletal: normal muscle bulk, no effusion Current Medications Medications (Trade) Dose Ordered Sig/Omari Route PRN Reason Start Time Stop Time Status Last Admin Dose Admin Acetaminophen (Tylenol) 650 mg Q6H PRN ORAL Mild Pain/Temp > 100.5 07/06/18 17:33 08/05/18 17:32 Acetaminophen/ Hydrocodone Bitart ([place] 5/325) 1 tab Q6H PRN ORAL Severe Pain (Pain Scale 7-10) 07/06/18 17:33 07/13/18 17:32 07/08/18 08:28 Benztropine Mesylate (Cogentin) 1 mg BID ORAL 07/07/18 09:00 08/06/18 08:59 07/12/18 09:00 Cefepime HCl 2 gm/ Dextrose 55 ml @ 110 mls/hr Q24H IVPB 07/13/18 00:00 07/16/18 00:00 Chlorhexidine Gluconate (Hyun-Hex 2%) 1 applic DAILY@2000 TOPIC 07/11/18 20:00 08/10/18 19:59 Docusate Sodium (Colace) 250 mg DAILY ORAL 07/07/18 09:00 08/04/18 08:59 07/12/18 08:59 Haloperidol (Haldol) 5 mg DAILY ORAL 07/07/18 09:00 08/04/18 08:59 07/12/18 09:00 Heparin Sodium (Porcine) (Heparin 5000 units/ml) 5,000 units EVERY 12 HOURS SUBQ 07/06/18 21:00 08/03/18 20:59 07/11/18 21:21 Heparin Sodium/ Sodium Chloride (Heparin 1000 units/500ml Premix) 1,000 unit ONCE PRN IV LINE 07/12/18 09:00 07/12/18 23:59 Lidocaine HCl (Xylocaine 1% 30ml) 30 ml ONCE PRN INJ LINE 07/12/18 09:00 07/12/18 23:59 [place] Carbonate ([place] Carbonate) 300 mg BID ORAL 07/07/18 09:00 08/06/18 08:59 07/12/18 09:00 Metronidazole 100 ml @ 100 mls/hr Q8HR IVPB 07/06/18 22:00 07/16/18 21:59 07/12/18 14:03 Mirtazapine (Remeron) 7.5 mg BEDTIME ORAL 07/06/18 21:00 08/03/18 20:59 07/11/18 21:18 Nifedipine (Adalat) 10 mg Q12HR ORAL 07/06/18 21:00 08/04/18 08:59 07/12/18 08:59 Pantoprazole (Protonix) 40 mg DAILY ORAL 07/07/18 09:00 08/04/18 08:59 07/12/18 08:59 Vancomycin HCl (Vanco rx to dose) 1 ea DAILY PRN MISC Per rx protocol 07/07/18 09:00 08/03/18 18:29 Vancomycin HCl 1.5 gm/Dextrose 275 ml @ 137.5 mls/ hr Q24H IVPB 07/09/18 08:00 07/14/18 07:59 07/12/18 09:00 Gloria Nelson M.D. Jul 12, 2018 16:36
--- NOTE | 2018-07-12 19:40 | NUR ---
NURSE NOTES:Patient receive from Lily Pérez Patient A/A/AOX4 . patient denies any pain at this time .NO S/S of distress noted right peripheral G#24 H/L and right upper forearm picc line patent and intact . patient at bedside . call light within reach . bed in low position at all times . will continue to monitor.
[2018-07-12 20:00] VITALS: BP 133/94
--- NOTE | 2018-07-12 20:40 | NUR ---
NURSE NOTES: pt currently sleeping , remains at bedside. Current plan of care will be followed
--- NOTE | 2018-07-12 20:41 | NUR ---
HAND-OFF: Report given to Miranda.RORY
[2018-07-13] VITALS: BP 140/69
[2018-07-13] MEDS: Cefepime HCl 2 GM in D5W 55 ML IVPB SCH (00:31)
[2018-07-13 04:00] VITALS: BP 138/82
--- NOTE | 2018-07-13 07:25 | NUR ---
NURSE NOTES: Pt sleeping , is at bedside. Call light is in reach. Hydroelectric Operator informed that he could press call light if he needed anything. Pt is a Frisian speaker, child like bx. Current plan of care will be given.
--- NOTE | 2018-07-13 07:40 | NUR ---
HAND-OFF: Report given to Lily Pérez
[2018-07-13 08:00] VITALS: BP 135/71
[2018-07-13] MEDS: NIFEdipine 10mg cap ORAL SCH ×2 (08:56→20:35)
[2018-07-13] MEDS: Docusate 250mg cap ORAL SCH (08:56)
[2018-07-13] MEDS: Benztropine 1mg tab ORAL SCH ×2 (08:56→18:20)
[2018-07-13] MEDS: Heparin 5000 units/ml inj SUBQ SCH ×2 (08:57→20:43)
[2018-07-13 12:00] VITALS: BP 116/62
[2018-07-13] MEDS: Vancomycin 1gm/D5W 275ml IVPB SCH ×2 (12:09)
--- NOTE | 2018-07-13 12:13 | Surgery Progress Note ---
Surgery Progress Note Subjective Additional Comments cellulitis much improved. doing well. no complaints. tolerating diet. respiratory stable. Objective Last 24 Hour Vital Signs Date Time Temp Pulse Resp B/P (MAP) Pulse Ox O2 Delivery O2 Flow Rate FiO2 07/13/18 09:00 Room Air 07/13/18 08:56 64 135/71 07/13/18 08:00 97.9 62 18 135/71 (92) 98 07/13/18 04:00 98.5 64 18 138/82 (100) 97 07/13/18 00:00 98.4 69 17 140/69 (92) 97 07/12/18 21:11 57 133/94 07/12/18 21:00 Room Air 07/12/18 20:00 98.7 57 18 133/94 (107) 98 07/12/18 16:00 97.8 51 17 149/69 (95) 100 I&O Intake and Output 07/12/18 07/13/18 19:00 07:00 Intake Total 477.5 ml 475 ml Balance 477.5 ml 475 ml Intake Oral 240 ml 320 ml IV Total 237.5 ml 155 ml # Voids 2 2 Drains: none Cardiovascular: RSR Respiratory: clear Abdomen: soft, flat, non-tender, non-distended Extremities: no tenderness, no cyanosis Laboratory Tests Test 07/13/18 07:00 Vancomycin Level Trough 18.7 ug/mL (5.0-12.0) H Plan Problems: (1) Cellulitis Assessment & Plan: 67-year-old with left neck cellulitis. Leukocytosis. Low- grade fevers. Tenderness on examination with large area of cellulitis without fluctuance. CT scan ordered and pending final read but did speak with the radiologist and there is significant inflammation in the oropharynx and neck around the pharynx and trachea. There is subcutaneous tissue swelling consistent with cellulitis in the area as identified on clinical examination. There is a narrowed airway. Even these findings patient was transferred to the intensive care unit for close monitoring. Etiology of patient's infection is currently unknown and will need further workup. Currently respiratory stable without any signs of compromise or distress. Patient states she is breathing well without any shortness of breath or difficulty. Airway is currently patent. Radiological findings noted. labs improved exam improved liquid soft diet IV abx appreciate ENT input - transfer for higher level of care for I&D if shows signs of respiratory issues will need urgent intubation for airway protection vs tracheostomy will follow with recs thank you Florencio Jimenez Jul 13, 2018 12:13
--- NOTE | 2018-07-13 12:29 | NUR ---
CASE MANAGEMENT:REVIEW 07/13/18 SI: LEFT NECK CELLULITIS PARAPHARYNGEAL ABSCESS EXTENDING TO CLAVICLE 97.9 62 18 135/71 98% ON RA IS: IV VANCOMYCIN Q24 IV CEFEPIME Q12 IV FLAGYL Q8HRS LIBRIUM PO BID HEPARIN SQ Q12 : MED/SURG STATUS 3 EAST PLAN: PATIENT IS ON THE [facility] LIST TO TRANSFER TO A HIGHER LEVEL OF CARE...WAITING FOR A BED
--- NOTE | 2018-07-13 12:32 | NUR ---
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
--- NOTE | 2018-07-13 15:18 | NUR ---
NURSE NOTES: Pt sitting up at side of bed . Provided with IV antibiotic denies nausea or vomiting as a possible adverse effect of antibiotic use. Pt is ambulatory and is continent of urine and bowel . Pt is stable. Does take frequent naps, . Current plan of care will be followed
--- NOTE | 2018-07-13 15:52 | Infectious Diseases Prog Note ---
Assessment/Plan Problems: (1) Retropharyngeal abscess Assessment & Plan: with extension to the left clavicle , on triple antibiotics , need I&D , S/P ENT eval, will require transfer to higher level of care facility for close monitoring and surgical intervention (2) Cellulitis Assessment & Plan: of the left neck and upper shoulder, continue vancomycin , cefepime and metronidazole empirically, may need skin biopsy if no improvement with antibiotics alone to rule out malignant process (3) Sepsis Assessment & Plan: with leukocytosis , due to the above , continue wide spectrum antibiotics pending cultures (4) Hypercalcemia Assessment & Plan: improving , rule out malignancy , renal is following (5) Renal failure Assessment & Plan: suspect due to the above, continue hydration , with close monitoring of renal function and renally dosed medications . Subjective Constitutional: Reports: no symptoms HEENT: Reports: other - left upper shoulder skin redness and thickness Respiratory: Reports: no symptoms Cardiovascular: Reports: no symptoms Gastrointestinal/Abdominal: Reports: no symptoms Genitourinary: Reports: no symptoms Neurologic: Reports: no symptoms Psychiatric: Reports: no symptoms Skin: Reports: other - red, thick on the left upper shoulder Endocrine: Reports: no symptoms Hematologic: Reports: no symptoms Musculoskeletal: Reports: no symptoms Allergies: Coded Allergies: No Known Allergies (Unverified , 07/04/18) Objective Vital Signs Last 24 Hour Vital Signs Date Time Temp Pulse Resp B/P (MAP) Pulse Ox O2 Delivery O2 Flow Rate FiO2 07/13/18 12:00 98.1 56 20 116/62 (80) 97 07/13/18 09:00 Room Air 07/13/18 08:56 64 135/71 07/13/18 08:00 97.9 62 18 135/71 (92) 98 07/13/18 04:00 98.5 64 18 138/82 (100) 97 07/13/18 00:00 98.4 69 17 140/69 (92) 97 07/12/18 21:11 57 133/94 07/12/18 21:00 Room Air 07/12/18 20:00 98.7 57 18 133/94 (107) 98 07/12/18 16:00 97.8 51 17 149/69 (95) 100 Height (Feet): 5 Height (Inches): 1.00 Weight (Pounds): 203 General Appearance: WD/WN, no acute distress HEENT: normocephalic, atraumatic, anicteric, mucous membranes moist, PERRL Respiratory/Chest: chest wall non-tender, lungs clear, normal breath sounds, no respiratory distress, no accessory muscle use Cardiovascular: normal peripheral pulses, normal rate, regular rhythm, no gallop/murmur, no JVD Abdomen: normal bowel sounds, soft, non tender, no organomegaly, non distended , no mass, no scars Genitourinary: normal external genitalia Extremities: no cyanosis, no clubbing Skin: no rash, no lesions, no ulcers Neurologic/Psychiatric: alert, responsive Laboratory Tests Test 07/13/18 07:00 Vancomycin Level Trough 18.7 ug/mL (5.0-12.0) H Current Medications Medications (Trade) Dose Ordered Sig/Omari Route PRN Reason Start Time Stop Time Status Last Admin Dose Admin Acetaminophen (Tylenol) 650 mg Q6H PRN ORAL Mild Pain/Temp > 100.5 07/06/18 17:33 08/05/18 17:32 Acetaminophen/ Hydrocodone Bitart ([place] 5/325) 1 tab Q6H PRN ORAL Severe Pain (Pain Scale 7-10) 07/06/18 17:33 07/13/18 17:32 07/08/18 08:28 Benztropine Mesylate (Cogentin) 1 mg BID ORAL 07/07/18 09:00 08/06/18 08:59 07/13/18 08:56 Cefepime HCl 2 gm/ Dextrose 55 ml @ 110 mls/hr Q24H IVPB 07/13/18 00:00 07/16/18 00:00 07/13/18 00:31 Chlorhexidine Gluconate (Hyun-Hex 2%) 1 applic DAILY@2000 TOPIC 07/11/18 20:00 08/10/18 19:59 Docusate Sodium (Colace) 250 mg DAILY ORAL 07/07/18 09:00 08/04/18 08:59 07/13/18 08:56 Haloperidol (Haldol) 5 mg DAILY ORAL 07/07/18 09:00 08/04/18 08:59 07/13/18 08:56 Heparin Sodium (Porcine) (Heparin 5000 units/ml) 5,000 units EVERY 12 HOURS SUBQ 07/06/18 21:00 08/03/18 20:59 07/13/18 08:57 [place] Carbonate ([place] Carbonate) 300 mg BID ORAL 07/07/18 09:00 08/06/18 08:59 07/13/18 08:56 Metronidazole 100 ml @ 100 mls/hr Q8HR IVPB 07/06/18 22:00 07/16/18 21:59 07/13/18 14:08 Mirtazapine (Remeron) 7.5 mg BEDTIME ORAL 07/06/18 21:00 08/03/18 20:59 07/12/18 21:11 Nifedipine (Adalat) 10 mg Q12HR ORAL 07/06/18 21:00 08/04/18 08:59 07/13/18 08:56 Pantoprazole (Protonix) 40 mg DAILY ORAL 07/07/18 09:00 08/04/18 08:59 07/13/18 08:56 Vancomycin HCl (Vanco rx to dose) 1 ea DAILY PRN MISC Per rx protocol 07/07/18 09:00 08/03/18 18:29 Vancomycin HCl 1 gm/Dextrose 275 ml @ 183.708 mls/hr Q24H IVPB 07/13/18 10:00 07/18/18 09:59 07/13/18 12:09 Gloria Nelson M.D. Jul 13, 2018 15:52
[2018-07-13 16:00] VITALS: BP 135/65
--- NOTE | 2018-07-13 16:33 | General Progress Note ---
Assessment/Plan Assessment/Plan S: I am feeling ok O: diffuse redness and swelling in the base of the neck, interval improvement. at the bedside Review of Systems Review of Symptoms General ROS: no weight loss or fever Psychological ROS: no depression or mood changes, no memory loss Ophthalmic ROS: no visual changes or eye irritation ENT ROS: no nasal congestion, hearing loss, dizziness Allergy and Immunology ROS: no allergic symptoms or urticaria Hematological and Lymphatic ROS: no swollen glands, unusual bleeding or bruising Endocrine ROS: no polyuria, polydipsia, weight changes, temperature intolerance Respiratory ROS: no cough, shortness of breath, or wheezing Cardiovascular ROS: no chest pain or dyspnea on exertion Gastrointestinal ROS: denies abdominal pain, bright red blood in stool. Musculoskeletal ROS: no myalgias or arthralgias Neurological ROS: no TIA or stroke symptoms Dermatological ROS: diffuse redness in base of the neck Physical Exam Physical Exam General appearance: alert, cooperative, no distress, appears stated age Head: Normocephalic, without obvious abnormality, atraumatic Eyes: conjunctivae/corneas clear. PERRL, EOM's intact. Fundi benign Throat: Lips, mucosa, and tongue normal. Teeth and gums normal Neck: supple, symmetrical, trachea midline, no adenopathy, t Lungs: clear to auscultation bilaterally Heart: regular rate and rhythm, S1, S2 normal, no murmur, click, rub or gallop Abdomen: soft, non-tender. Bowel sounds normal. No masses, no organomegaly Extremities: Diffuse swelling in base of the neck. Pulses: 2+ and symmetric Neurologic: Grossly normal 1- Sepsis : Resolved 2. Diffuse soft tissue swelling of the neck, possible parapharyngeal abscess 3- Diffuse Cellulitis of base of neck 4- Hypercalcemia, workup deferred to outpatient Plan: D/w ENT, agreed and will proceed for transferring patient to higher level of care secondary to possibility of expansion of infection/abscess in deep compartment of head and neck region. No sign of respiratory compromise at this time current abx on [facility] list , Subjective Allergies: Coded Allergies: No Known Allergies (Unverified , 07/04/18) Objective Last 24 Hour Vital Signs Date Time Temp Pulse Resp B/P (MAP) Pulse Ox O2 Delivery O2 Flow Rate FiO2 07/13/18 12:00 98.1 56 20 116/62 (80) 97 07/13/18 09:00 Room Air 07/13/18 08:56 64 135/71 07/13/18 08:00 97.9 62 18 135/71 (92) 98 07/13/18 04:00 98.5 64 18 138/82 (100) 97 07/13/18 00:00 98.4 69 17 140/69 (92) 97 07/12/18 21:11 57 133/94 07/12/18 21:00 Room Air 07/12/18 20:00 98.7 57 18 133/94 (107) 98 Intake and Output 07/12/18 07/13/18 19:00 07:00 Intake Total 477.5 ml 475 ml Balance 477.5 ml 475 ml Intake Oral 240 ml 320 ml IV Total 237.5 ml 155 ml # Voids 2 2 Laboratory Tests 07/13/18 07:00: Vancomycin Level Trough 18.7H Height (Feet): 5 Height (Inches): 1.00 Weight (Pounds): 203 Mady Perez MD Jul 13, 2018 16:33
--- NOTE | 2018-07-13 18:50 | NUR ---
NURSE NOTES: Pt currently sleeping curriculum writer provided bed bath. Pt hair malodorous, visible flakes. Skin to neck and shoulder area has diminished redness. remains at bedside. Bed is in safe position. Bandage to picc line changed and cleaned earlier in shift. Surrounding skin intact no visible redness or swelling noted, remains patent
--- NOTE | 2018-07-13 19:26 | NUR ---
HAND-OFF: Report given to Miranda .RORY
[2018-07-13 20:00] VITALS: BP 156/81
[2018-07-13] MEDS: Dyna-Hex 2% Top Sol 2oz TOPIC SCH (20:34)
[2018-07-14] VITALS: BP 144/78
[2018-07-14] MEDS: Cefepime HCl 2 GM in D5W 55 ML IVPB SCH ×2 (00:06→23:56)
[2018-07-14 04:00] VITALS: BP 145/73
[2018-07-14 07:03] LABS: ANION GAP 8 mmol/L (5-15); BLOOD UREA NITROGEN 11 mg/dL (7-18); CALCIUM 9.7 MG/DL (8.5-10.1); CARBON DIOXIDE 23 MMOL/L (21-32); CHLORIDE 118 MMOL/L (98-107); CREATININE 1.2 MG/DL (0.55-1.30); SODIUM 149 MMOL/L (136-145)
--- NOTE | 2018-07-14 07:40 | NUR ---
HAND-OFF: Report given to Lily Thakkar patient on stable condition.
--- NOTE | 2018-07-14 07:41 | NUR ---
NURSE NOTES: Pt sitting up at side of bed. Remains in stable condition, Breathing room air , Current plan of care will be followed. is at bedside
--- NOTE | 2018-07-14 07:59 | Nephrology Progress Note ---
Assessment/Plan Assessment/Plan A/P 1) YASMEEN- multifact (Contrast Neph/sepsis/hypercalcemia/vol depl) - Cr stable at 1.2 -avoid any nephrotoxins. 2) Hypercalcemia- SPEP neg. UPEP pending. Large Prot:Alb dissociation. PTH pending - s/p pamidronate and calcitonin. Ca level normal 3) Neck Cellulitis- ENT, agrees and will proceed for transferring patient to higher level of care secondary to possibility of expansion of infection/abscess in deep compartment of head and neck region 4) Hypernatremia- add D5W x 1 L Subjective Date patient seen: Jul 14, 2018 Time patient seen: 07:57 Allergies: Coded Allergies: No Known Allergies (Unverified , 07/04/18) Subjective Patient asleep Objective Last 24 Hour Vital Signs Date Time Temp Pulse Resp B/P (MAP) Pulse Ox O2 Delivery O2 Flow Rate FiO2 07/14/18 04:00 97.3 62 19 145/73 (97) 97 07/14/18 00:00 98.5 60 19 144/78 (100) 99 07/13/18 21:00 Room Air 07/13/18 20:35 58 156/81 07/13/18 20:00 98.7 58 20 156/81 (106) 99 07/13/18 16:00 98.3 55 135/65 (88) 07/13/18 12:00 98.1 56 20 116/62 (80) 97 07/13/18 09:00 Room Air 07/13/18 08:56 64 135/71 07/13/18 08:00 97.9 62 18 135/71 (92) 98 Intake and Output 07/13/18 07/14/18 19:00 07:00 Intake Total 1527.416 ml 960 ml Balance 1527.416 ml 960 ml Intake Oral 960 ml 760 ml IV Total 567.416 ml 200 ml # Voids 1 4 # Bowel Movements 1 Laboratory Tests 07/14/18 05:00: Sodium Level 149H, Potassium Level 4.0, Chloride Level 118H, Carbon Dioxide Level 23, Anion Gap 8, Blood Urea Nitrogen 11, Creatinine 1.2, Estimat Glomerular Filtration Rate 45.1, Glucose Level 91, Calcium Level 9.7 Height (Feet): 5 Height (Inches): 1.00 Weight (Pounds): 203 De Cy,Kota MD Jul 14, 2018 07:59
[2018-07-14 08:00] VITALS: BP 161/83
[2018-07-14] MEDS: Docusate 250mg cap ORAL SCH (08:50)
[2018-07-14] MEDS: Benztropine 1mg tab ORAL SCH ×2 (08:50→17:29)
[2018-07-14] MEDS: NIFEdipine 10mg cap ORAL SCH ×2 (08:51→20:37)
[2018-07-14] MEDS: Vancomycin 1gm/D5W 275ml IVPB SCH ×2 (09:09)
[2018-07-14] MEDS: Heparin 5000 units/ml inj SUBQ SCH ×2 (09:19→20:38)
--- NOTE | 2018-07-14 09:21 | General Progress Note ---
Assessment/Plan Assessment/Plan S: I am feeling ok O: diffuse redness and swelling in the base of the neck, interval improvement. at the bedside Review of Systems Review of Symptoms General ROS: no weight loss or fever Psychological ROS: no depression or mood changes, no memory loss Ophthalmic ROS: no visual changes or eye irritation ENT ROS: no nasal congestion, hearing loss, dizziness Allergy and Immunology ROS: no allergic symptoms or urticaria Hematological and Lymphatic ROS: no swollen glands, unusual bleeding or bruising Endocrine ROS: no polyuria, polydipsia, weight changes, temperature intolerance Respiratory ROS: no cough, shortness of breath, or wheezing Cardiovascular ROS: no chest pain or dyspnea on exertion Gastrointestinal ROS: denies abdominal pain, bright red blood in stool. Musculoskeletal ROS: no myalgias or arthralgias Neurological ROS: no TIA or stroke symptoms Dermatological ROS: diffuse redness in base of the neck Physical Exam Physical Exam General appearance: alert, cooperative, no distress, appears stated age Head: Normocephalic, without obvious abnormality, atraumatic Eyes: conjunctivae/corneas clear. PERRL, EOM's intact. Fundi benign Throat: Lips, mucosa, and tongue normal. Teeth and gums normal Neck: supple, symmetrical, trachea midline, no adenopathy, t Lungs: clear to auscultation bilaterally Heart: regular rate and rhythm, S1, S2 normal, no murmur, click, rub or gallop Abdomen: soft, non-tender. Bowel sounds normal. No masses, no organomegaly Extremities: Diffuse swelling in base of the neck. Pulses: 2+ and symmetric Neurologic: Grossly normal 1- Sepsis : Resolved 2. Diffuse soft tissue swelling of the neck, possible parapharyngeal abscess 3- Diffuse Cellulitis of base of neck 4- Hypercalcemia, workup deferred to outpatient Plan: D/w ENT, agreed and will proceed for transferring patient to higher level of care secondary to possibility of expansion of infection/abscess in deep compartment of head and neck region. No sign of respiratory compromise at this time current abx on MAC list , Subjective Allergies: Coded Allergies: No Known Allergies (Unverified , 07/04/18) Objective Last 24 Hour Vital Signs Date Time Temp Pulse Resp B/P (MAP) Pulse Ox O2 Delivery O2 Flow Rate FiO2 07/14/18 08:51 68 161/83 07/14/18 04:00 97.3 62 19 145/73 (97) 97 07/14/18 00:00 98.5 60 19 144/78 (100) 99 07/13/18 21:00 Room Air 07/13/18 20:35 58 156/81 07/13/18 20:00 98.7 58 20 156/81 (106) 99 07/13/18 16:00 98.3 55 135/65 (88) 07/13/18 12:00 98.1 56 20 116/62 (80) 97 Intake and Output 07/13/18 07/14/18 19:00 07:00 Intake Total 1527.416 ml 960 ml Balance 1527.416 ml 960 ml Intake Oral 960 ml 760 ml IV Total 567.416 ml 200 ml # Voids 1 4 # Bowel Movements 1 Laboratory Tests 07/14/18 05:00: Sodium Level 149H, Potassium Level 4.0, Chloride Level 118H, Carbon Dioxide Level 23, Anion Gap 8, Blood Urea Nitrogen 11, Creatinine 1.2, Estimat Glomerular Filtration Rate 45.1, Glucose Level 91, Calcium Level 9.7 Height (Feet): 5 Height (Inches): 1.00 Weight (Pounds): 203 Mady Perez MD Jul 14, 2018 09:21
[2018-07-14 12:00] VITALS: BP 139/79
--- NOTE | 2018-07-14 15:30 | NUR ---
NURSE NOTES: Pt remained in stable condition , able to verbalize known needs , bx is child like. Picc line patent surrounding skin is intact., no visible swelling. is at bedside. Skin to left side of neck and shoulders has greatly improved in appearance area is not as red , and swelling has went down tremendously. Denies pain upon palpation to area. Remainder of skin intact and clear, no possible dermatological side effect 2 to antibiotic use noted. Denies n/v . inquired on plan of care, informed that there are no pending discharge orders at this time. Current paln of care will be followed , and noted updated if necessary
--- NOTE | 2018-07-14 15:44 | Surgery Progress Note ---
Surgery Progress Note Subjective Additional Comments no acute events. comfortable. stable Objective Last 24 Hour Vital Signs Date Time Temp Pulse Resp B/P (MAP) Pulse Ox O2 Delivery O2 Flow Rate FiO2 07/14/18 12:00 98.3 59 18 139/79 (99) 98 07/14/18 09:00 Room Air 07/14/18 08:51 68 161/83 07/14/18 08:00 98.0 68 17 161/83 (109) 99 07/14/18 04:00 97.3 62 19 145/73 (97) 97 07/14/18 00:00 98.5 60 19 144/78 (100) 99 07/13/18 21:00 Room Air 07/13/18 20:35 58 156/81 07/13/18 20:00 98.7 58 20 156/81 (106) 99 07/13/18 16:00 98.3 55 135/65 (88) I&O Intake and Output 07/13/18 07/14/18 19:00 07:00 Intake Total 1527.416 ml 960 ml Balance 1527.416 ml 960 ml Intake Oral 960 ml 760 ml IV Total 567.416 ml 200 ml # Voids 1 4 # Bowel Movements 1 Drains: none Cardiovascular: RSR Respiratory: clear Abdomen: soft, non-tender, non-distended Extremities: no tenderness, no cyanosis Laboratory Tests Test 07/14/18 05:00 Sodium Level 149 MMOL/L (136-145) H Potassium Level 4.0 MMOL/L (3.5-5.1) Chloride Level 118 MMOL/L (98-107) H Carbon Dioxide Level 23 MMOL/L (21-32) Anion Gap 8 mmol/L (5-15) Blood Urea Nitrogen 11 mg/dL (7-18) Creatinine 1.2 MG/DL (0.55-1.30) Estimat Glomerular Filtration Rate 45.1 mL/min (>60) Glucose Level 91 MG/DL (74-106) Calcium Level 9.7 MG/DL (8.5-10.1) Plan Problems: (1) Cellulitis Assessment & Plan: 67-year-old with left neck cellulitis. Leukocytosis. Low- grade fevers. Tenderness on examination with large area of cellulitis without fluctuance. CT scan ordered and pending final read but did speak with the radiologist and there is significant inflammation in the oropharynx and neck around the pharynx and trachea. There is subcutaneous tissue swelling consistent with cellulitis in the area as identified on clinical examination. There is a narrowed airway. Even these findings patient was transferred to the intensive care unit for close monitoring. Etiology of patient's infection is currently unknown and will need further workup. Currently respiratory stable without any signs of compromise or distress. Patient states she is breathing well without any shortness of breath or difficulty. Airway is currently patent. Radiological findings noted. labs improved exam improved liquid soft diet IV abx appreciate ENT input - transfer for higher level of care for I&D if shows signs of respiratory issues will need urgent intubation for airway protection vs tracheostomy will follow with recs thank you Florencio Jimenez Jul 14, 2018 15:44
[2018-07-14 16:00] VITALS: BP 148/72
--- NOTE | 2018-07-14 18:18 | Infectious Diseases Prog Note ---
Assessment/Plan Problems: (1) Retropharyngeal abscess Assessment & Plan: with extension to the left clavicle , on triple antibiotics , need I&D , S/P ENT eval, will require transfer to higher level of care facility for close monitoring and surgical intervention (2) Cellulitis Assessment & Plan: of the left neck and upper shoulder, continue vancomycin , cefepime and metronidazole empirically, may need skin biopsy if no improvement with antibiotics alone to rule out malignant process (3) Sepsis Assessment & Plan: with leukocytosis , due to the above , continue wide spectrum antibiotics pending cultures (4) Hypercalcemia Assessment & Plan: improving , rule out malignancy , renal is following (5) Renal failure Assessment & Plan: suspect due to the above, continue hydration , with close monitoring of renal function and renally dosed medications . Subjective Constitutional: Reports: no symptoms HEENT: Reports: other - left lower neck and upper shoulder skin redness and thickness Respiratory: Reports: no symptoms Breasts: Reports: no symptoms Cardiovascular: Reports: no symptoms Gastrointestinal/Abdominal: Reports: no symptoms Genitourinary: Reports: no symptoms Neurologic: Reports: no symptoms Psychiatric: Reports: no symptoms Skin: Reports: no symptoms Endocrine: Reports: no symptoms Hematologic: Reports: no symptoms Musculoskeletal: Reports: no symptoms Allergies: Coded Allergies: No Known Allergies (Unverified , 07/04/18) Objective Vital Signs Last 24 Hour Vital Signs Date Time Temp Pulse Resp B/P (MAP) Pulse Ox O2 Delivery O2 Flow Rate FiO2 07/14/18 16:00 98.2 55 18 148/72 (97) 98 07/14/18 12:00 98.3 59 18 139/79 (99) 98 07/14/18 09:00 Room Air 07/14/18 08:51 68 161/83 07/14/18 08:00 98.0 68 17 161/83 (109) 99 07/14/18 04:00 97.3 62 19 145/73 (97) 97 07/14/18 00:00 98.5 60 19 144/78 (100) 99 07/13/18 21:00 Room Air 07/13/18 20:35 58 156/81 07/13/18 20:00 98.7 58 20 156/81 (106) 99 Height (Feet): 5 Height (Inches): 1.00 Weight (Pounds): 203 General Appearance: WD/WN, no acute distress HEENT: normocephalic, atraumatic, anicteric, mucous membranes moist, PERRL, EOMI, pharynx normal, supple, no JVD, other - left upper shoulder and lower neck skin swelling with thickness Respiratory/Chest: chest wall non-tender, lungs clear, normal breath sounds, no respiratory distress, no accessory muscle use Cardiovascular: normal peripheral pulses, normal rate, regular rhythm, no gallop/murmur, no JVD Abdomen: normal bowel sounds, soft, non tender, no organomegaly, non distended , no mass, no scars Extremities: no cyanosis, no clubbing Skin: no rash, no lesions, no ulcers 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, no motor/sensory deficits, alert, oriented x 3, responsive Lymphatic: no neck adenopathy, no groin adenopathy Musculoskeletal: normal muscle bulk, no effusion Laboratory Tests Test 07/14/18 05:00 Sodium Level 149 MMOL/L (136-145) H Potassium Level 4.0 MMOL/L (3.5-5.1) Chloride Level 118 MMOL/L (98-107) H Carbon Dioxide Level 23 MMOL/L (21-32) Anion Gap 8 mmol/L (5-15) Blood Urea Nitrogen 11 mg/dL (7-18) Creatinine 1.2 MG/DL (0.55-1.30) Estimat Glomerular Filtration Rate 45.1 mL/min (>60) Glucose Level 91 MG/DL (74-106) Calcium Level 9.7 MG/DL (8.5-10.1) Current Medications Medications (Trade) Dose Ordered Sig/Omari Route PRN Reason Start Time Stop Time Status Last Admin Dose Admin Acetaminophen (Tylenol) 650 mg Q6H PRN ORAL Mild Pain/Temp > 100.5 07/06/18 17:33 08/05/18 17:32 Benztropine Mesylate (Cogentin) 1 mg BID ORAL 07/07/18 09:00 08/06/18 08:59 07/14/18 17:29 Cefepime HCl 2 gm/ Dextrose 55 ml @ 110 mls/hr Q24H IVPB 07/13/18 00:00 07/16/18 00:00 07/14/18 00:06 Chlorhexidine Gluconate (Hyun-Hex 2%) 1 applic DAILY@2000 TOPIC 07/11/18 20:00 08/10/18 19:59 07/13/18 20:34 Dextrose 1,000 ml @ 75 mls/hr [id number] IV 07/14/18 08:01 08/13/18 08:00 07/14/18 08:52 Docusate Sodium (Colace) 250 mg DAILY ORAL 07/07/18 09:00 08/04/18 08:59 07/14/18 08:50 Haloperidol (Haldol) 5 mg DAILY ORAL 07/07/18 09:00 08/04/18 08:59 07/14/18 08:50 Heparin Sodium (Porcine) (Heparin 5000 units/ml) 5,000 units EVERY 12 HOURS SUBQ 07/06/18 21:00 08/03/18 20:59 07/14/18 09:19 [place] Carbonate ([place] Carbonate) 300 mg BID ORAL 07/07/18 09:00 08/06/18 08:59 07/14/18 17:29 Metronidazole 100 ml @ 100 mls/hr Q8HR IVPB 07/06/18 22:00 07/16/18 21:59 07/14/18 13:27 Mirtazapine (Remeron) 7.5 mg BEDTIME ORAL 07/06/18 21:00 08/03/18 20:59 07/13/18 20:35 Nifedipine (Adalat) 10 mg Q12HR ORAL 07/06/18 21:00 08/04/18 08:59 07/14/18 08:51 Pantoprazole (Protonix) 40 mg DAILY ORAL 07/07/18 09:00 08/04/18 08:59 07/14/18 08:49 Vancomycin HCl (Vanco rx to dose) 1 ea DAILY PRN MISC Per rx protocol 07/07/18 09:00 08/03/18 18:29 Vancomycin HCl 1 gm/Dextrose 275 ml @ 183.708 mls/hr Q24H IVPB 07/13/18 10:00 07/18/18 09:59 07/14/18 09:09 Gloria Nelson M.D. Jul 14, 2018 18:18
--- NOTE | 2018-07-14 19:40 | NUR ---
HAND-OFF: Report given to Joseph VALADEZ.
--- NOTE | 2018-07-14 19:40 | NUR ---
NURSE NOTES: Report taken from RORY Apariico. Patient awake and in bed, A&Ox3, at bedside. Patient does seem to have behavior below her age. No signs of distress on room air. Stating that she has had no pain. Right shoulder, neck area irritated with slight red color, no inflammation, continue to monitor. PICC line c/d/i running D5W at 75 ml/hr. Case management awaiting bed opening in other facility for transfer. Bed in lowest position, call light within reach.
[2018-07-14 20:00] VITALS: BP 149/70
[2018-07-14] MEDS: Dyna-Hex 2% Top Sol 2oz TOPIC SCH (20:36)
[2018-07-15] VITALS: BP 155/82
[2018-07-15 04:00] VITALS: BP 114/52
--- NOTE | 2018-07-15 07:44 | NUR ---
HAND-OFF: Report given to RORY Schofield. Patient awake and stable. Patient refused to be changed by APPLICATIONS ANALYST. Awaiting transfer to new hospital.
--- NOTE | 2018-07-15 07:50 | NUR ---
NURSE NOTES: During shift change patient alert awake with out no distress call light with in reach family at bedside, bed on low position locked. patient had odor offered to be change refused and stated in a few minute will get up and clean up will continue to follow up. L. shoulder redness noted skin intact no complain of pain.
[2018-07-15 08:42] VITALS: BP 124/72
[2018-07-15] MEDS: Benztropine 1mg tab ORAL SCH ×2 (08:55→17:18)
[2018-07-15] MEDS: Docusate 250mg cap ORAL SCH (08:55)
[2018-07-15] MEDS: NIFEdipine 10mg cap ORAL SCH ×2 (08:55→21:43)
[2018-07-15] MEDS: Heparin 5000 units/ml inj SUBQ SCH ×2 (08:56→21:40)
[2018-07-15 09:02] LABS: ANION GAP 8 mmol/L (5-15); BLOOD UREA NITROGEN 11 mg/dL (7-18); CALCIUM 9.6 MG/DL (8.5-10.1); CARBON DIOXIDE 22 MMOL/L (21-32); CHLORIDE 115 MMOL/L (98-107); CREATININE 1.3 MG/DL (0.55-1.30); POTASSIUM 4.2 MMOL/L (3.5-5.1); SODIUM 145 MMOL/L (136-145)
[2018-07-15] MEDS: Vancomycin 1gm/D5W 275ml IVPB SCH ×2 (09:40)
[2018-07-15 12:00] VITALS: BP 136/68
--- NOTE | 2018-07-15 13:53 | General Progress Note ---
Assessment/Plan Assessment/Plan S: I am feeling ok O: diffuse redness and swelling in the base of the neck, interval improvement. at the bedside Review of Systems Review of Symptoms General ROS: no weight loss or fever Psychological ROS: no depression or mood changes, no memory loss Ophthalmic ROS: no visual changes or eye irritation ENT ROS: no nasal congestion, hearing loss, dizziness Allergy and Immunology ROS: no allergic symptoms or urticaria Hematological and Lymphatic ROS: no swollen glands, unusual bleeding or bruising Endocrine ROS: no polyuria, polydipsia, weight changes, temperature intolerance Respiratory ROS: no cough, shortness of breath, or wheezing Cardiovascular ROS: no chest pain or dyspnea on exertion Gastrointestinal ROS: denies abdominal pain, bright red blood in stool. Musculoskeletal ROS: no myalgias or arthralgias Neurological ROS: no TIA or stroke symptoms Dermatological ROS: diffuse redness in base of the neck Physical Exam Physical Exam General appearance: alert, cooperative, no distress, appears stated age Head: Normocephalic, without obvious abnormality, atraumatic Eyes: conjunctivae/corneas clear. PERRL, EOM's intact. Fundi benign Throat: Lips, mucosa, and tongue normal. Teeth and gums normal Neck: supple, symmetrical, trachea midline, no adenopathy, t Lungs: clear to auscultation bilaterally Heart: regular rate and rhythm, S1, S2 normal, no murmur, click, rub or gallop Abdomen: soft, non-tender. Bowel sounds normal. No masses, no organomegaly Extremities: Diffuse swelling in base of the neck. Pulses: 2+ and symmetric Neurologic: Grossly normal 1- Sepsis : Resolved 2. Diffuse soft tissue swelling of the neck, possible parapharyngeal abscess 3- Diffuse Cellulitis of base of neck 4- Hypercalcemia, workup deferred to outpatient Plan: D/w ENT, agreed and will proceed for transferring patient to higher level of care secondary to possibility of expansion of infection/abscess in deep compartment of head and neck region. No sign of respiratory compromise at this time current abx on MAC list Subjective Allergies: Coded Allergies: No Known Allergies (Unverified , 07/04/18) Objective Last 24 Hour Vital Signs Date Time Temp Pulse Resp B/P (MAP) Pulse Ox O2 Delivery O2 Flow Rate FiO2 07/15/18 12:00 97.2 62 20 136/68 (90) 96 07/15/18 09:00 Room Air 07/15/18 08:55 64 124/72 07/15/18 08:42 98.6 64 20 124/72 (89) 99 07/15/18 04:00 98.0 95 18 114/52 (72) 98 07/15/18 00:00 99.0 62 18 155/82 (106) 100 07/14/18 21:00 Room Air 07/14/18 20:37 57 149/70 07/14/18 20:00 99.0 57 17 149/70 (96) 99 07/14/18 16:00 98.2 55 18 148/72 (97) 98 Intake and Output 07/14/18 07/15/18 19:00 07:00 Intake Total 1000 ml Balance 1000 ml Intake Oral 1000 ml # Voids 1 2 Laboratory Tests 07/15/18 08:00: Sodium Level 145, Potassium Level 4.2, Chloride Level 115H, Carbon Dioxide Level 22, Anion Gap 8, Blood Urea Nitrogen 11, Creatinine 1.3, Estimat Glomerular Filtration Rate 41.1, Glucose Level 142H, Calcium Level 9.6 Height (Feet): 5 Height (Inches): 1.00 Weight (Pounds): 202 Mady Perez MD Jul 15, 2018 13:53
[2018-07-15] MEDS ORDERED: NS 500ML ONE (14:49)
[2018-07-15] MEDS ORDERED: Tubing IV Secondary IV ONE (14:49)
[2018-07-15] MEDS ORDERED: NS 275ml ONE (14:49)
--- NOTE | 2018-07-15 14:56 | NUR ---
CASE MANAGEMENT:REVIEW 07/14/18 SI: LEFT NECK CELLULITIS PARAPHARYNGEAL ABSCESS EXTENDING TO CLAVICLE 99.0 57 17 149/70 99% ON RA IS: IV VANCOMYCIN Q24 IV CEFEPIME Q12 IV FLAGYL Q8HRS LIBRIUM PO BID HEPARIN SQ Q12 : MED/SURG STATUS 3 EAST PLAN: PATIENT IS ON THE [facility] LIST TO TRANSFER TO A HIGHER LEVEL OF CARE...WAITING FOR A BED 07/15/18 SI: LEFT NECK CELLULITIS PARAPHARYNGEAL ABSCESS EXTENDING TO CLAVICLE 97.2 62 20 136/68 96% ON RA IS: IV VANCOMYCIN Q24 IV CEFEPIME Q12 IV FLAGYL Q8HRS LIBRIUM PO BID HEPARIN SQ Q12 : MED/SURG STATUS 3 EAST PLAN: PATIENT IS ON THE MAC LIST TO TRANSFER TO A HIGHER LEVEL OF CARE...STILL WAITING FOR A BED
--- NOTE | 2018-07-15 14:58 | NUR ---
TRANSFER UPDATE CALLED [facility] AND SPOKE WITH [facility] WHO STATED THEY ARE STILL AT [facility] AND CANNOT ACCEPT THIS PATIENT AT THIS TIME JAVA ARCHITECT WILL CONTINUE TO F/U [facility] T: [phone] F: [phone] [facility] [id number]
[2018-07-15 16:00] VITALS: BP 116/73
--- NOTE | 2018-07-15 16:24 | Surgery Progress Note ---
Surgery Progress Note Subjective Symptoms: improved, pain absent, tolerating diet, voiding well, passing flatus , BM Objective Last 24 Hour Vital Signs Date Time Temp Pulse Resp B/P (MAP) Pulse Ox O2 Delivery O2 Flow Rate FiO2 07/15/18 12:00 97.2 62 20 136/68 (90) 96 07/15/18 09:00 Room Air 07/15/18 08:55 64 124/72 07/15/18 08:42 98.6 64 20 124/72 (89) 99 07/15/18 04:00 98.0 95 18 114/52 (72) 98 07/15/18 00:00 99.0 62 18 155/82 (106) 100 07/14/18 21:00 Room Air 07/14/18 20:37 57 149/70 07/14/18 20:00 99.0 57 17 149/70 (96) 99 I&O Intake and Output 07/14/18 07/15/18 19:00 07:00 Intake Total 1000 ml Balance 1000 ml Intake Oral 1000 ml # Voids 1 2 Dressing: dry Wound: clean Drains: none Cardiovascular: RSR Respiratory: clear Abdomen: soft, flat, non-tender, non-distended Extremities: no edema, no tenderness, no cyanosis Laboratory Tests Test 07/15/18 08:00 Sodium Level 145 MMOL/L (136-145) Potassium Level 4.2 MMOL/L (3.5-5.1) Chloride Level 115 MMOL/L (98-107) H Carbon Dioxide Level 22 MMOL/L (21-32) Anion Gap 8 mmol/L (5-15) Blood Urea Nitrogen 11 mg/dL (7-18) Creatinine 1.3 MG/DL (0.55-1.30) Estimat Glomerular Filtration Rate 41.1 mL/min (>60) Glucose Level 142 MG/DL (74-106) H Calcium Level 9.6 MG/DL (8.5-10.1) Plan Problems: (1) Cellulitis Assessment & Plan: 67-year-old with left neck cellulitis. Leukocytosis. Low- grade fevers. Tenderness on examination with large area of cellulitis without fluctuance. CT scan ordered and pending final read but did speak with the radiologist and there is significant inflammation in the oropharynx and neck around the pharynx and trachea. There is subcutaneous tissue swelling consistent with cellulitis in the area as identified on clinical examination. There is a narrowed airway. Even these findings patient was transferred to the intensive care unit for close monitoring. Etiology of patient's infection is currently unknown and will need further workup. Currently respiratory stable without any signs of compromise or distress. Patient states she is breathing well without any shortness of breath or difficulty. Airway is currently patent. Radiological findings noted. labs improved exam improved liquid soft diet IV abx appreciate ENT input - transfer for higher level of care for I&D if shows signs of respiratory issues will need urgent intubation for airway protection vs tracheostomy Cellulitis has significantly improved and continues to do so. No signs of airway obstruction noted at this time. Tolerating diet. Unfortunately very difficult to find transfer for higher level of care eval. At some point may consider since patient stable DC with outpatient follow-up. will follow with recs thank you Florencio Jimenez Jul 15, 2018 16:24
--- NOTE | 2018-07-15 18:19 | Infectious Diseases Prog Note ---
Assessment/Plan Problems: (1) Retropharyngeal abscess Assessment & Plan: with extension to the left clavicle , on triple antibiotics , need I&D , S/P ENT eval, will require transfer to higher level of care facility for close monitoring and surgical intervention (2) Cellulitis Assessment & Plan: of the left neck and upper shoulder, continue vancomycin , cefepime and metronidazole empirically, may need skin biopsy if no improvement with antibiotics alone to rule out malignant process (3) Sepsis Assessment & Plan: with leukocytosis , due to the above , continue wide spectrum antibiotics pending cultures (4) Hypercalcemia Assessment & Plan: improving , rule out malignancy , renal is following Subjective Constitutional: Reports: no symptoms HEENT: Reports: no symptoms Respiratory: Reports: no symptoms Breasts: Reports: no symptoms Cardiovascular: Reports: no symptoms Gastrointestinal/Abdominal: Reports: no symptoms Genitourinary: Reports: no symptoms Neurologic: Reports: no symptoms Psychiatric: Reports: no symptoms Skin: Reports: no symptoms Endocrine: Reports: no symptoms Hematologic: Reports: no symptoms Musculoskeletal: Reports: no symptoms Allergies: Coded Allergies: No Known Allergies (Unverified , 07/04/18) Objective Vital Signs Last 24 Hour Vital Signs Date Time Temp Pulse Resp B/P (MAP) Pulse Ox O2 Delivery O2 Flow Rate FiO2 07/15/18 16:00 98.7 59 20 116/73 (87) 96 07/15/18 12:00 97.2 62 20 136/68 (90) 96 07/15/18 09:00 Room Air 07/15/18 08:55 64 124/72 07/15/18 08:42 98.6 64 20 124/72 (89) 99 07/15/18 04:00 98.0 95 18 114/52 (72) 98 07/15/18 00:00 99.0 62 18 155/82 (106) 100 07/14/18 21:00 Room Air 07/14/18 20:37 57 149/70 07/14/18 20:00 99.0 57 17 149/70 (96) 99 Height (Feet): 5 Height (Inches): 1.00 Weight (Pounds): 202 General Appearance: WD/WN, no acute distress HEENT: normocephalic, atraumatic, anicteric, mucous membranes moist, PERRL, EOMI, pharynx normal, supple, no JVD Respiratory/Chest: chest wall non-tender, lungs clear, no respiratory distress , no accessory muscle use Cardiovascular: normal peripheral pulses, normal rate, regular rhythm, no gallop/murmur, no JVD Abdomen: normal bowel sounds, soft, non tender, no organomegaly, non distended , no mass, no scars Extremities: no cyanosis, no clubbing Skin: no rash, no lesions, no ulcers Neurologic/Psychiatric: alert, oriented x 3, responsive Lymphatic: no neck adenopathy, no groin adenopathy Musculoskeletal: normal muscle bulk, no effusion Laboratory Tests Test 07/15/18 08:00 Sodium Level 145 MMOL/L (136-145) Potassium Level 4.2 MMOL/L (3.5-5.1) Chloride Level 115 MMOL/L (98-107) H Carbon Dioxide Level 22 MMOL/L (21-32) Anion Gap 8 mmol/L (5-15) Blood Urea Nitrogen 11 mg/dL (7-18) Creatinine 1.3 MG/DL (0.55-1.30) Estimat Glomerular Filtration Rate 41.1 mL/min (>60) Glucose Level 142 MG/DL (74-106) H Calcium Level 9.6 MG/DL (8.5-10.1) Current Medications Medications (Trade) Dose Ordered Sig/Omari Route PRN Reason Start Time Stop Time Status Last Admin Dose Admin Acetaminophen (Tylenol) 650 mg Q6H PRN ORAL Mild Pain/Temp > 100.5 07/06/18 17:33 08/05/18 17:32 Benztropine Mesylate (Cogentin) 1 mg BID ORAL 07/07/18 09:00 08/06/18 08:59 07/15/18 17:18 Cefepime HCl 2 gm/ Dextrose 55 ml @ 110 mls/hr Q24H IVPB 07/13/18 00:00 07/20/18 00:00 07/14/18 23:56 Chlorhexidine Gluconate (Hyun-Hex 2%) 1 applic DAILY@2000 TOPIC 07/11/18 20:00 08/10/18 19:59 07/14/18 20:36 Dextrose 1,000 ml @ 75 mls/hr [id number] IV 07/14/18 08:01 08/13/18 08:00 07/15/18 10:41 Docusate Sodium (Colace) 250 mg DAILY ORAL 07/07/18 09:00 08/04/18 08:59 07/15/18 08:55 Haloperidol (Haldol) 5 mg DAILY ORAL 07/07/18 09:00 08/04/18 08:59 07/15/18 08:55 Heparin Sodium (Porcine) (Heparin 5000 units/ml) 5,000 units EVERY 12 HOURS SUBQ 07/06/18 21:00 08/03/18 20:59 07/15/18 08:56 [place] Carbonate ([place] Carbonate) 300 mg BID ORAL 07/07/18 09:00 08/06/18 08:59 07/15/18 17:18 Metronidazole 100 ml @ 100 mls/hr Q8HR IVPB 07/06/18 22:00 07/20/18 21:59 07/15/18 14:34 Mirtazapine (Remeron) 7.5 mg BEDTIME ORAL 07/06/18 21:00 08/03/18 20:59 07/14/18 20:37 Nifedipine (Adalat) 10 mg Q12HR ORAL 07/06/18 21:00 08/04/18 08:59 07/15/18 08:55 Pantoprazole (Protonix) 40 mg DAILY ORAL 07/07/18 09:00 08/04/18 08:59 07/15/18 08:55 Vancomycin HCl (Vanco rx to dose) 1 ea DAILY PRN MISC Per rx protocol 07/07/18 09:00 08/03/18 18:29 Vancomycin HCl 1 gm/Dextrose 275 ml @ 183.708 mls/hr Q24H IVPB 07/13/18 10:00 07/18/18 09:59 07/15/18 09:40 Gloria Nelson M.D. Jul 15, 2018 18:19
--- NOTE | 2018-07-15 19:15 | NUR ---
HAND-OFF: Report given to RORY James patient awake alert with out no distress.
--- NOTE | 2018-07-15 19:18 | NUR ---
NURSE NOTES: Report taken from RORY Schofield. Patient awake and in bed, A&Ox3. Does need reminded why she is in the hospital. No signs of distress on room air. No complaints of pain. Skin at the left shoulder/neck area, red, with no inflammation or pain. PICC line R forearm, c/d/i running D5W @ 75mls/hr. Patient is continent. Awaiting open bed at higher care facility. Bed in lowest position, call light within reach.
[2018-07-15 20:00] VITALS: BP 108/69
[2018-07-15] MEDS: Dyna-Hex 2% Top Sol 2oz TOPIC SCH (20:00)
[2018-07-16] VITALS: BP 140/71
[2018-07-16] MEDS: Cefepime HCl 2 GM in D5W 55 ML IVPB SCH ×2 (01:01→23:22)
--- NOTE | 2018-07-16 07:08 | NUR ---
HAND-OFF: Report given to RORY Schofield. Patient asleep in bed, VS stable.
--- NOTE | 2018-07-16 07:46 | NUR ---
NURSE NOTES: during shift change patient asleep with out no distress call light with in reach bed on low position locked will continue to monitor. vanco through order is pending PICC line is not drawing will notify lab to draw blood.
[2018-07-16 08:00] VITALS: BP 148/78
[2018-07-16] MEDS: Docusate 250mg cap ORAL SCH (09:03)
[2018-07-16] MEDS: Benztropine 1mg tab ORAL SCH ×2 (09:03→17:01)
[2018-07-16] MEDS: NIFEdipine 10mg cap ORAL SCH ×2 (09:03→21:07)
[2018-07-16] MEDS: Heparin 5000 units/ml inj SUBQ SCH ×2 (09:04→21:13)
[2018-07-16] MEDS: Vancomycin 1gm/D5W 275ml IVPB SCH ×2 (10:13)
--- NOTE | 2018-07-16 11:29 | Surgery Progress Note ---
Surgery Progress Note Subjective Symptoms: improved, pain absent, tolerating diet, voiding well, passing flatus , BM Objective Last 24 Hour Vital Signs Date Time Temp Pulse Resp B/P (MAP) Pulse Ox O2 Delivery O2 Flow Rate FiO2 07/16/18 09:03 76 140/71 07/16/18 00:00 98.8 76 18 140/71 (94) 96 07/15/18 21:43 64 108/69 07/15/18 21:00 Room Air 07/15/18 20:00 98.2 64 18 108/69 (82) 100 07/15/18 16:00 98.7 59 20 116/73 (87) 96 07/15/18 12:00 97.2 62 20 136/68 (90) 96 I&O Intake and Output 07/15/18 07/16/18 18:59 06:59 Intake Total 400 ml Balance 400 ml Intake Oral 400 ml # Voids 3 2 Cardiovascular: RSR Respiratory: clear Abdomen: soft, flat, non-tender, present bowel sounds, non-distended Extremities: no edema, no tenderness, no cyanosis Laboratory Tests Test 07/16/18 08:50 Vancomycin Level Trough 13.1 ug/mL (5.0-12.0) H Plan Problems: (1) Cellulitis Assessment & Plan: 67-year-old with left neck cellulitis. Leukocytosis. Low- grade fevers. Tenderness on examination with large area of cellulitis without fluctuance. CT scan ordered and pending final read but did speak with the radiologist and there is significant inflammation in the oropharynx and neck around the pharynx and trachea. There is subcutaneous tissue swelling consistent with cellulitis in the area as identified on clinical examination. There is a narrowed airway. Even these findings patient was transferred to the intensive care unit for close monitoring. Etiology of patient's infection is currently unknown and will need further workup. Currently respiratory stable without any signs of compromise or distress. Patient states she is breathing well without any shortness of breath or difficulty. Airway is currently patent. Radiological findings noted. labs improved exam improved liquid soft diet IV abx appreciate ENT input - transfer for higher level of care for I&D if shows signs of respiratory issues will need urgent intubation for airway protection vs tracheostomy Cellulitis has significantly improved and continues to do so. No signs of airway obstruction noted at this time. Tolerating diet. Unfortunately very difficult to find transfer for higher level of care eval. At some point may consider since patient stable DC with outpatient follow-up. will follow with recs thank you Florencio Jimenez Jul 16, 2018 11:29
[2018-07-16 11:57] VITALS: BP 132/73
--- NOTE | 2018-07-16 13:01 | General Progress Note ---
Assessment/Plan Assessment/Plan S: I am feeling ok O: diffuse redness and swelling in the base of the neck, interval improvement. at the bedside Review of Systems Review of Symptoms General ROS: no weight loss or fever Psychological ROS: no depression or mood changes, no memory loss Ophthalmic ROS: no visual changes or eye irritation ENT ROS: no nasal congestion, hearing loss, dizziness Allergy and Immunology ROS: no allergic symptoms or urticaria Hematological and Lymphatic ROS: no swollen glands, unusual bleeding or bruising Endocrine ROS: no polyuria, polydipsia, weight changes, temperature intolerance Respiratory ROS: no cough, shortness of breath, or wheezing Cardiovascular ROS: no chest pain or dyspnea on exertion Gastrointestinal ROS: denies abdominal pain, bright red blood in stool. Musculoskeletal ROS: no myalgias or arthralgias Neurological ROS: no TIA or stroke symptoms Dermatological ROS: diffuse redness in base of the neck Physical Exam Physical Exam General appearance: alert, cooperative, no distress, appears stated age Head: Normocephalic, without obvious abnormality, atraumatic Eyes: conjunctivae/corneas clear. PERRL, EOM's intact. Fundi benign Throat: Lips, mucosa, and tongue normal. Teeth and gums normal Neck: supple, symmetrical, trachea midline, no adenopathy, t Lungs: clear to auscultation bilaterally Heart: regular rate and rhythm, S1, S2 normal, no murmur, click, rub or gallop Abdomen: soft, non-tender. Bowel sounds normal. No masses, no organomegaly Extremities: Diffuse swelling in base of the neck. Pulses: 2+ and symmetric Neurologic: Grossly normal 1- Sepsis : Resolved 2. Diffuse soft tissue swelling of the neck, possible parapharyngeal abscess 3- Diffuse Cellulitis of base of neck 4- Hypercalcemia, workup deferred to outpatient Plan: D/w ENT, agreed and will proceed for transferring patient to higher level of care secondary to possibility of expansion of infection/abscess in deep compartment of head and neck region. No sign of respiratory compromise at this time current abx on MAC list Subjective Allergies: Coded Allergies: No Known Allergies (Unverified , 07/04/18) Objective Last 24 Hour Vital Signs Date Time Temp Pulse Resp B/P (MAP) Pulse Ox O2 Delivery O2 Flow Rate FiO2 07/16/18 11:57 98.5 69 18 132/73 (92) 98 07/16/18 09:03 76 140/71 07/16/18 09:00 Room Air 07/16/18 08:00 98.4 64 19 148/78 (101) 97 07/16/18 00:00 98.8 76 18 140/71 (94) 96 07/15/18 21:43 64 108/69 07/15/18 21:00 Room Air 07/15/18 20:00 98.2 64 18 108/69 (82) 100 07/15/18 16:00 98.7 59 20 116/73 (87) 96 Intake and Output 07/15/18 07/16/18 19:00 07:00 Intake Total 400 ml Balance 400 ml Intake Oral 400 ml # Voids 3 2 Laboratory Tests 07/16/18 08:50: Vancomycin Level Trough 13.1H Height (Feet): 5 Height (Inches): 1.00 Weight (Pounds): 202 Mady Perez MD Jul 16, 2018 13:00
[2018-07-16 16:05] VITALS: BP 153/73
--- NOTE | 2018-07-16 18:25 | Infectious Diseases Prog Note ---
Assessment/Plan Problems: (1) Retropharyngeal abscess Assessment & Plan: with extension to the left clavicle , on triple antibiotics , need I&D , S/P ENT eval, will require transfer to higher level of care facility for close monitoring and surgical intervention, clinically stable for now, may require trach if respiratory status worsened (2) Cellulitis Assessment & Plan: of the left neck and upper shoulder, continue vancomycin , cefepime and metronidazole empirically, may need skin biopsy if no improvement with antibiotics alone to rule out malignant process (3) Sepsis Assessment & Plan: with leukocytosis , due to the above , continue wide spectrum antibiotics pending cultures (4) Hypercalcemia Assessment & Plan: improving , rule out malignancy , renal is following Subjective Constitutional: Reports: no symptoms HEENT: Reports: no symptoms Respiratory: Reports: no symptoms Breasts: Reports: no symptoms Cardiovascular: Reports: no symptoms Gastrointestinal/Abdominal: Reports: no symptoms Genitourinary: Reports: no symptoms Neurologic: Reports: no symptoms Psychiatric: Reports: no symptoms Skin: Reports: no symptoms Endocrine: Reports: no symptoms Hematologic: Reports: no symptoms Musculoskeletal: Reports: no symptoms Allergies: Coded Allergies: No Known Allergies (Unverified , 07/04/18) Objective Vital Signs Last 24 Hour Vital Signs Date Time Temp Pulse Resp B/P (MAP) Pulse Ox O2 Delivery O2 Flow Rate FiO2 07/16/18 16:05 98.7 65 17 153/73 (99) 99 07/16/18 11:57 98.5 69 18 132/73 (92) 98 07/16/18 09:03 76 140/71 07/16/18 09:00 Room Air 07/16/18 08:00 98.4 64 19 148/78 (101) 97 07/16/18 00:00 98.8 76 18 140/71 (94) 96 07/15/18 21:43 64 108/69 07/15/18 21:00 Room Air 07/15/18 20:00 98.2 64 18 108/69 (82) 100 Height (Feet): 5 Height (Inches): 1.00 Weight (Pounds): 201 General Appearance: WD/WN, no acute distress HEENT: normocephalic, atraumatic, anicteric, mucous membranes moist Respiratory/Chest: chest wall non-tender, lungs clear, normal breath sounds, no respiratory distress, no accessory muscle use Cardiovascular: normal peripheral pulses, normal rate, regular rhythm, no gallop/murmur, no JVD Abdomen: normal bowel sounds, soft, non tender, no organomegaly, non distended , no mass, no scars Genitourinary: normal external genitalia Extremities: no cyanosis, no clubbing Skin: no rash, no lesions, no ulcers 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, alert, responsive Lymphatic: no neck adenopathy, no groin adenopathy Musculoskeletal: normal muscle bulk, no effusion Laboratory Tests Test 07/16/18 08:50 Vancomycin Level Trough 13.1 ug/mL (5.0-12.0) H Current Medications Medications (Trade) Dose Ordered Sig/Omari Route PRN Reason Start Time Stop Time Status Last Admin Dose Admin Acetaminophen (Tylenol) 650 mg Q6H PRN ORAL Mild Pain/Temp > 100.5 07/06/18 17:33 08/05/18 17:32 Benztropine Mesylate (Cogentin) 1 mg BID ORAL 07/07/18 09:00 08/06/18 08:59 07/16/18 17:01 Cefepime HCl 2 gm/ Dextrose 55 ml @ 110 mls/hr Q24H IVPB 07/13/18 00:00 07/20/18 00:00 07/16/18 01:01 Chlorhexidine Gluconate (Hyun-Hex 2%) 1 applic DAILY@2000 TOPIC 07/11/18 20:00 08/10/18 19:59 07/15/18 20:00 Dextrose 1,000 ml @ 75 mls/hr [id number] IV 07/14/18 08:01 08/13/18 08:00 07/16/18 13:06 Docusate Sodium (Colace) 250 mg DAILY ORAL 07/07/18 09:00 08/04/18 08:59 07/16/18 09:03 Haloperidol (Haldol) 5 mg DAILY ORAL 07/07/18 09:00 08/04/18 08:59 07/16/18 09:03 Heparin Sodium (Porcine) (Heparin 5000 units/ml) 5,000 units EVERY 12 HOURS SUBQ 07/06/18 21:00 08/03/18 20:59 07/16/18 09:04 [place] Carbonate ([place] Carbonate) 300 mg BID ORAL 07/07/18 09:00 08/06/18 08:59 07/16/18 17:01 Metronidazole 100 ml @ 100 mls/hr Q8HR IVPB 07/06/18 22:00 07/20/18 21:59 07/16/18 13:06 Mirtazapine (Remeron) 7.5 mg BEDTIME ORAL 07/06/18 21:00 08/03/18 20:59 07/15/18 21:43 Nifedipine (Adalat) 10 mg Q12HR ORAL 07/06/18 21:00 08/04/18 08:59 07/16/18 09:03 Pantoprazole (Protonix) 40 mg DAILY ORAL 07/07/18 09:00 08/04/18 08:59 07/16/18 09:03 Vancomycin HCl (Vanco rx to dose) 1 ea DAILY PRN MISC Per rx protocol 07/07/18 09:00 08/03/18 18:29 Vancomycin HCl 1 gm/Dextrose 275 ml @ 183.708 mls/hr Q24H IVPB 07/13/18 10:00 07/18/18 09:59 07/16/18 10:13 Gloria Nelson M.D. Jul 16, 2018 18:25
--- NOTE | 2018-07-16 19:33 | NUR ---
HAND-OFF: Report given to Yobany Galvez RN patient alert awake with out no distress pt. requested to void during hand off transferred to the bathroom and back to bed safe by RN.
--- NOTE | 2018-07-16 19:45 | NUR ---
NURSE NOTES: Received report from RORY Nguyễn. Received pt lying in bed, AOX4, Lao speaking only, able to make needs known without difficulty. Pt assisted OOB by RORY Schofield to the restroom with steady gait, pt voided without difficulty, safely back in bed without any distress noted. Bed in lowest position and locked, side rails up x 2, call light within reach. Family at bed side. Will continue to monitor.
[2018-07-16 20:00] VITALS: BP 144/70
[2018-07-16] MEDS: Dyna-Hex 2% Top Sol 2oz TOPIC SCH (21:08)
[2018-07-17] VITALS: BP 156/74
[2018-07-17 04:00] VITALS: BP 157/77
--- NOTE | 2018-07-17 07:30 | NUR ---
HAND-OFF: Report given to RORY Villa. Pt in stable condition.
--- NOTE | 2018-07-17 07:45 | NUR ---
NURSE NOTES: Received pt from Yobany Graham. RN, pt was sleeping comfortably was at bedside no acute distress, call light w/in reach.
[2018-07-17 08:00] VITALS: BP 140/64
[2018-07-17] MEDS: Benztropine 1mg tab ORAL SCH ×2 (09:53→18:21)
[2018-07-17] MEDS: Docusate 250mg cap ORAL SCH (09:53)
[2018-07-17] MEDS: NIFEdipine 10mg cap ORAL SCH ×2 (09:56→20:25)
[2018-07-17] MEDS: Heparin 5000 units/ml inj SUBQ SCH ×2 (09:58→20:35)
[2018-07-17] MEDS: Vancomycin 1gm/D5W 275ml IVPB SCH ×2 (09:58)
[2018-07-17 12:00] VITALS: BP 141/73
--- NOTE | 2018-07-17 12:14 | NUR ---
CASE MANAGEMENT: REVIEW 07/16/18 SI: LEFT NECK CELLULITIS PARAPHARYNGEAL ABSCESS EXTENDING TO CLAVICLE T 99.1 HR 63 RR 18 B/P 144/70 SATS 100% ON RA NO LABS TODAY IS: IV VANCOMYCIN Q24H IV CEFEPIME Q12H IV FLAGYL Q8HRS LIBRIUM PO BID HEPARIN SUBQ Q12H : MED/SURG STATUS 3 EAST PLAN: PATIENT IS ON THE MAC LIST TO TRANSFER TO A HIGHER LEVEL OF CARE...STILL WAITING FOR A BED 07/17/18 SI: LEFT NECK CELLULITIS PARAPHARYNGEAL ABSCESS EXTENDING TO CLAVICLE T 98.6 HR 63 RR 17 B/P 140/64 SATS 96% ON RA NO LABS TODAY IS: IV VANCOMYCIN Q24H IV CEFEPIME Q12H IV FLAGYL Q8HRS LIBRIUM PO BID HEPARIN SUBQ Q12H : MED/SURG STATUS 3 E[place] PLAN: PATIENT IS ON THE MAC LIST TO TRANSFER TO A HIGHER LEVEL OF CARE...STILL WAITING FOR A BED
--- NOTE | 2018-07-17 15:50 | Infectious Diseases Prog Note ---
Assessment/Plan Problems: (1) Retropharyngeal abscess Assessment & Plan: with extension to the left clavicle , on triple antibiotics , need I&D , S/P ENT eval, will require transfer to higher level of care facility for close monitoring and surgical intervention, clinically stable for now, may require trach if respiratory status worsened (2) Cellulitis Assessment & Plan: of the left neck and upper shoulder, continue vancomycin , cefepime and metronidazole empirically, may need skin biopsy if no improvement with antibiotics alone to rule out malignant process (3) Sepsis Assessment & Plan: with leukocytosis , due to the above , continue wide spectrum antibiotics pending cultures (4) Hypercalcemia Assessment & Plan: improving , rule out malignancy , renal is following Subjective Constitutional: Reports: no symptoms HEENT: Reports: no symptoms Respiratory: Reports: no symptoms Breasts: Reports: no symptoms Cardiovascular: Reports: no symptoms Gastrointestinal/Abdominal: Reports: no symptoms Genitourinary: Reports: no symptoms Neurologic: Reports: no symptoms Psychiatric: Reports: no symptoms Skin: Reports: no symptoms Endocrine: Reports: no symptoms Hematologic: Reports: no symptoms Musculoskeletal: Reports: no symptoms Allergies: Coded Allergies: No Known Allergies (Unverified , 07/04/18) Objective Vital Signs Last 24 Hour Vital Signs Date Time Temp Pulse Resp B/P (MAP) Pulse Ox O2 Delivery O2 Flow Rate FiO2 07/17/18 12:00 98.6 56 141/73 (95) 07/17/18 09:56 63 140/83 07/17/18 08:00 98.6 63 140/64 (89) 07/17/18 07:52 Room Air 07/17/18 04:00 98.6 56 17 157/77 (103) 96 07/17/18 00:00 98.2 59 17 156/74 (101) 100 07/16/18 21:07 64 174/87 07/16/18 21:00 Room Air 07/16/18 20:00 99.1 63 18 144/70 (94) 100 07/16/18 16:05 98.7 65 17 153/73 (99) 99 Height (Feet): 5 Height (Inches): 1.00 Weight (Pounds): 201 General Appearance: WD/WN, no acute distress HEENT: normocephalic, atraumatic, anicteric, mucous membranes moist, PERRL, other - left upper shoulder skin redness with thickining Respiratory/Chest: chest wall non-tender, lungs clear, normal breath sounds, no respiratory distress, no accessory muscle use Cardiovascular: normal peripheral pulses, normal rate, regular rhythm, no gallop/murmur, no JVD Abdomen: normal bowel sounds, soft, non tender, no organomegaly, non distended , no mass, no scars Genitourinary: normal external genitalia Extremities: no cyanosis, no clubbing Skin: no rash, no lesions, no ulcers 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, no motor/sensory deficits, abnormal gait, alert, oriented x 3, responsive, normal mood/affect Lymphatic: no neck adenopathy, no groin adenopathy Musculoskeletal: normal muscle bulk, no effusion Current Medications Medications (Trade) Dose Ordered Sig/Omari Route PRN Reason Start Time Stop Time Status Last Admin Dose Admin Acetaminophen (Tylenol) 650 mg Q6H PRN ORAL Mild Pain/Temp > 100.5 07/06/18 17:33 08/05/18 17:32 Benztropine Mesylate (Cogentin) 1 mg BID ORAL 07/07/18 09:00 08/06/18 08:59 07/17/18 09:53 Cefepime HCl 2 gm/ Dextrose 55 ml @ 110 mls/hr Q24H IVPB 07/13/18 00:00 07/20/18 00:00 07/16/18 23:22 Chlorhexidine Gluconate (Hyun-Hex 2%) 1 applic DAILY@2000 TOPIC 07/11/18 20:00 08/10/18 19:59 07/16/18 21:08 Dextrose 1,000 ml @ 75 mls/hr [id number] IV 07/14/18 08:01 08/13/18 08:00 07/17/18 02:32 Docusate Sodium (Colace) 250 mg DAILY ORAL 07/07/18 09:00 08/04/18 08:59 07/17/18 09:53 Haloperidol (Haldol) 5 mg DAILY ORAL 07/07/18 09:00 08/04/18 08:59 07/17/18 09:53 Heparin Sodium (Porcine) (Heparin 5000 units/ml) 5,000 units EVERY 12 HOURS SUBQ 07/06/18 21:00 08/03/18 20:59 07/17/18 09:58 [place] Carbonate ([place] Carbonate) 300 mg BID ORAL 07/07/18 09:00 08/06/18 08:59 07/17/18 09:53 Metronidazole 100 ml @ 100 mls/hr Q8HR IVPB 07/06/18 22:00 07/20/18 21:59 07/17/18 14:26 Mirtazapine (Remeron) 7.5 mg BEDTIME ORAL 07/06/18 21:00 08/03/18 20:59 07/16/18 21:07 Nifedipine (Adalat) 10 mg Q12HR ORAL 07/06/18 21:00 08/04/18 08:59 07/17/18 09:56 Pantoprazole (Protonix) 40 mg DAILY ORAL 07/07/18 09:00 08/04/18 08:59 07/17/18 09:58 Vancomycin HCl (Vanco rx to dose) 1 ea DAILY PRN MISC Per rx protocol 07/07/18 09:00 08/03/18 18:29 Vancomycin HCl 1 gm/Dextrose 275 ml @ 183.708 mls/hr Q24H IVPB 07/13/18 10:00 07/22/18 09:59 07/17/18 09:58 Gloria Nelson M.D. Jul 17, 2018 15:50
--- NOTE | 2018-07-17 15:52 | Surgery Progress Note ---
Surgery Progress Note Subjective Symptoms: improved Objective Last 24 Hour Vital Signs Date Time Temp Pulse Resp B/P (MAP) Pulse Ox O2 Delivery O2 Flow Rate FiO2 07/17/18 12:00 98.6 56 141/73 (95) 07/17/18 09:56 63 140/83 07/17/18 08:00 98.6 63 140/64 (89) 07/17/18 07:52 Room Air 07/17/18 04:00 98.6 56 17 157/77 (103) 96 07/17/18 00:00 98.2 59 17 156/74 (101) 100 07/16/18 21:07 64 174/87 07/16/18 21:00 Room Air 07/16/18 20:00 99.1 63 18 144/70 (94) 100 07/16/18 16:05 98.7 65 17 153/73 (99) 99 I&O Intake and Output 07/16/18 07/17/18 18:59 06:59 Intake Total 1355 ml Balance 1355 ml Intake Oral 100 ml IV Total 1255 ml # Voids 3 3 Cardiovascular: RSR Respiratory: clear Abdomen: soft, flat, present bowel sounds, non-distended Extremities: no edema, no tenderness, no cyanosis Plan Problems: (1) Cellulitis Assessment & Plan: 67-year-old with left neck cellulitis. Leukocytosis. Low- grade fevers. Tenderness on examination with large area of cellulitis without fluctuance. CT scan ordered and pending final read but did speak with the radiologist and there is significant inflammation in the oropharynx and neck around the pharynx and trachea. There is subcutaneous tissue swelling consistent with cellulitis in the area as identified on clinical examination. There is a narrowed airway. Even these findings patient was transferred to the intensive care unit for close monitoring. Etiology of patient's infection is currently unknown and will need further workup. Currently respiratory stable without any signs of compromise or distress. Patient states she is breathing well without any shortness of breath or difficulty. Airway is currently patent. Radiological findings noted. labs improved exam improved liquid soft diet IV abx appreciate ENT input - transfer for higher level of care for I&D if shows signs of respiratory issues will need urgent intubation for airway protection vs tracheostomy Cellulitis has significantly improved and continues to do so. No signs of airway obstruction noted at this time. Tolerating diet. Unfortunately very difficult to find transfer for higher level of care eval. At some point may consider since patient stable DC with outpatient follow-up. will follow with recs thank you Florencio Jimenez Jul 17, 2018 15:52
[2018-07-17 16:00] VITALS: BP 130/56
--- NOTE | 2018-07-17 19:50 | NUR ---
NURSE NOTES: Received report and rounds done with outgoing nurse RORY Villa. Received pt lying in bed, AOX4, Bulgarian speaking only, able to make needs known without any problem. PICC line R upper arm patent and intact. IV fluid infusing as ordered. Safety measures maintained. Bed in lowest position and locked, side rails up x 2, call light within reach. Will continue to monitor.
--- NOTE | 2018-07-17 20:04 | NUR ---
HAND-OFF: Report given to Yobany Galvez.
[2018-07-17] MEDS: Dyna-Hex 2% Top Sol 2oz TOPIC SCH (20:25)
[2018-07-17 21:00] VITALS: BP 145/67
[2018-07-17] MEDS: Cefepime HCl 2 GM in D5W 55 ML IVPB SCH (23:17)
[2018-07-18] VITALS: BP 150/83
[2018-07-18 04:00] VITALS: BP 156/74
--- NOTE | 2018-07-18 07:25 | NUR ---
HAND-OFF: Report given to RORY Petit. Pt in stable condition.
--- NOTE | 2018-07-18 07:31 | NUR ---
NURSE NOTES: received report from RORY Haywood. patient in bed. maldivian speaking. no respiratory distress noted. no c/o pain at this time. Picc line dirk 2lumens. bed in the lowest position. call light within reach. alarm on. will continue to monitor.
[2018-07-18 08:00] VITALS: BP 140/66
[2018-07-18 08:13] LABS: ANION GAP 5 mmol/L (5-15); BLOOD UREA NITROGEN 12 mg/dL (7-18); CALCIUM 10.1 MG/DL (8.5-10.1); CARBON DIOXIDE 25 MMOL/L (21-32); CHLORIDE 114 MMOL/L (98-107); CREATININE 1.3 MG/DL (0.55-1.30); POTASSIUM 4.4 MMOL/L (3.5-5.1); SODIUM 144 MMOL/L (136-145)
[2018-07-18] MEDS: Docusate 250mg cap ORAL SCH (08:49)
[2018-07-18] MEDS: Benztropine 1mg tab ORAL SCH ×2 (08:50→17:51)
[2018-07-18] MEDS: Heparin 5000 units/ml inj SUBQ SCH ×2 (08:51→20:57)
[2018-07-18] MEDS: NIFEdipine 10mg cap ORAL SCH ×2 (08:52→20:51)
[2018-07-18] MEDS: Vancomycin 1gm/D5W 275ml IVPB SCH ×2 (10:42)
[2018-07-18 12:00] VITALS: BP 133/68
[2018-07-18] MEDS ORDERED: Tubing IV Secondary IV ONE (13:53)
--- NOTE | 2018-07-18 14:38 | NUR ---
CASE MANAGEMENT: REVIEW SI: LEFT SHOULDER CELLULITIS . RETROPHARYNGEAL ABSCESS T 98.3 HR 57 RR 18 BP 150/83 SAT 96% ROOM AIR CHLORIDE 114 IS: VANCO IV Q24HR CEFEPIME IV Q24HR NIFEDIPINE PO Q12HR LITHIUM PO BID MED/SURG STATUS DCP: PATIENT IS FROM [facility] .
[2018-07-18 16:00] VITALS: BP 138/78
--- NOTE | 2018-07-18 18:16 | Surgery Progress Note ---
Surgery Progress Note Subjective Symptoms: improved, pain absent, tolerating diet, passing flatus, BM Additional Comments family at bedside. want to know when she will be discharged Objective Last 24 Hour Vital Signs Date Time Temp Pulse Resp B/P (MAP) Pulse Ox O2 Delivery O2 Flow Rate FiO2 07/18/18 16:00 99.3 59 18 138/78 (98) 96 07/18/18 12:00 98.3 57 18 133/68 (89) 96 07/18/18 09:00 Room Air 07/18/18 08:52 58 140/66 07/18/18 08:00 98.3 58 18 140/66 (90) 98 07/18/18 04:00 98.3 58 156/74 (101) 07/18/18 00:00 98.1 58 150/83 (105) 07/17/18 21:00 Room Air 07/17/18 21:00 98.6 57 145/67 (93) 07/17/18 20:25 62 145/67 I&O Intake and Output 07/17/18 07/18/18 18:59 06:59 Intake Total 695 ml 375 ml Balance 695 ml 375 ml Intake Oral 120 ml IV Total 75 ml 255 ml Other 620 ml # Voids 4 2 Cardiovascular: RSR Respiratory: clear Abdomen: soft, flat, non-tender, present bowel sounds, non-distended Extremities: no edema, no tenderness, no cyanosis Laboratory Tests Test 07/18/18 06:07 Sodium Level 144 MMOL/L (136-145) Potassium Level 4.4 MMOL/L (3.5-5.1) Chloride Level 114 MMOL/L (98-107) H Carbon Dioxide Level 25 MMOL/L (21-32) Anion Gap 5 mmol/L (5-15) Blood Urea Nitrogen 12 mg/dL (7-18) Creatinine 1.3 MG/DL (0.55-1.30) Estimat Glomerular Filtration Rate 41.1 mL/min (>60) Glucose Level 80 MG/DL (74-106) Calcium Level 10.1 MG/DL (8.5-10.1) Plan Problems: (1) Cellulitis Assessment & Plan: 67-year-old with left neck cellulitis. Leukocytosis. Low- grade fevers. Tenderness on examination with large area of cellulitis without fluctuance. CT scan ordered and pending final read but did speak with the radiologist and there is significant inflammation in the oropharynx and neck around the pharynx and trachea. There is subcutaneous tissue swelling consistent with cellulitis in the area as identified on clinical examination. There is a narrowed airway. Even these findings patient was transferred to the intensive care unit for close monitoring. Etiology of patient's infection is currently unknown and will need further workup. Currently respiratory stable without any signs of compromise or distress. Patient states she is breathing well without any shortness of breath or difficulty. Airway is currently patent. Radiological findings noted. labs improved exam improved liquid soft diet IV abx appreciate ENT input - transfer for higher level of care for I&D if shows signs of respiratory issues will need urgent intubation for airway protection vs tracheostomy Cellulitis has significantly improved and continues to do so. No signs of airway obstruction noted at this time. Tolerating diet. Unfortunately very difficult to find transfer for higher level of care eval. At some point may consider since patient stable DC with outpatient follow-up. still awaiting placement. significantly improved will follow with recs thank you Florencio Jimenez Jul 18, 2018 18:16
--- NOTE | 2018-07-18 19:08 | NUR ---
HAND-OFF: Report given to RORY Haywood.
--- NOTE | 2018-07-18 19:30 | NUR ---
NURSE NOTES: Received pt asleep, easily arousable by verbal stimuli, AOX4, denies pain, no distress noted. Telugu speaking, able to make needs known without problem. PICC line C/D/I. Safety measures maintained. Bed in lowest position and locked, side rails up x 2, call light within reach. Family at bedside. Will continue to monitor.
[2018-07-18 20:00] VITALS: BP 149/76
[2018-07-18] MEDS: Dyna-Hex 2% Top Sol 2oz TOPIC SCH (20:51)
--- NOTE | 2018-07-18 21:02 | Infectious Diseases Prog Note ---
Assessment/Plan Problems: (1) Retropharyngeal abscess Assessment & Plan: with extension to the left clavicle , on triple antibiotics , need I&D , S/P ENT eval, will require transfer to higher level of care facility for close monitoring and surgical intervention, clinically stable for now, may require trach if respiratory status worsened (2) Cellulitis Assessment & Plan: of the left neck and upper shoulder, continue vancomycin , cefepime and metronidazole empirically, may need skin biopsy if no improvement with antibiotics alone to rule out malignant process (3) Sepsis Assessment & Plan: with leukocytosis , due to the above , continue wide spectrum antibiotics pending cultures (4) Hypercalcemia Assessment & Plan: improving , rule out malignancy , renal is following Subjective Constitutional: Reports: no symptoms HEENT: Reports: no symptoms Respiratory: Reports: no symptoms Breasts: Reports: no symptoms Cardiovascular: Reports: no symptoms Gastrointestinal/Abdominal: Reports: no symptoms Genitourinary: Reports: no symptoms Neurologic: Reports: no symptoms Psychiatric: Reports: no symptoms Skin: Reports: no symptoms Endocrine: Reports: no symptoms Hematologic: Reports: no symptoms Musculoskeletal: Reports: no symptoms Allergies: Coded Allergies: No Known Allergies (Unverified , 07/04/18) Objective Vital Signs Last 24 Hour Vital Signs Date Time Temp Pulse Resp B/P (MAP) Pulse Ox O2 Delivery O2 Flow Rate FiO2 07/18/18 20:51 57 149/76 07/18/18 20:00 98.8 57 18 149/76 (100) 98 07/18/18 16:00 99.3 59 18 138/78 (98) 96 07/18/18 12:00 98.3 57 18 133/68 (89) 96 07/18/18 09:00 Room Air 07/18/18 08:52 58 140/66 07/18/18 08:00 98.3 58 18 140/66 (90) 98 07/18/18 04:00 98.3 58 156/74 (101) 07/18/18 00:00 98.1 58 150/83 (105) Height (Feet): 5 Height (Inches): 1.00 Weight (Pounds): 201 General Appearance: WD/WN, no acute distress HEENT: normocephalic, atraumatic, anicteric, mucous membranes moist, PERRL Respiratory/Chest: chest wall non-tender, lungs clear, normal breath sounds, no respiratory distress, no accessory muscle use Cardiovascular: normal peripheral pulses, normal rate, regular rhythm, no gallop/murmur, no JVD Abdomen: normal bowel sounds, soft, non tender, no organomegaly, non distended , no mass, no scars Genitourinary: normal external genitalia Extremities: no cyanosis, no clubbing Skin: no rash, no lesions, no ulcers 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, no motor/sensory deficits, abnormal gait, oriented x 3, responsive, normal mood/affect Lymphatic: no neck adenopathy, no groin adenopathy Musculoskeletal: normal muscle bulk, no effusion Laboratory Tests Test 07/18/18 06:07 Sodium Level 144 MMOL/L (136-145) Potassium Level 4.4 MMOL/L (3.5-5.1) Chloride Level 114 MMOL/L (98-107) H Carbon Dioxide Level 25 MMOL/L (21-32) Anion Gap 5 mmol/L (5-15) Blood Urea Nitrogen 12 mg/dL (7-18) Creatinine 1.3 MG/DL (0.55-1.30) Estimat Glomerular Filtration Rate 41.1 mL/min (>60) Glucose Level 80 MG/DL (74-106) Calcium Level 10.1 MG/DL (8.5-10.1) Current Medications Medications (Trade) Dose Ordered Sig/Omari Route PRN Reason Start Time Stop Time Status Last Admin Dose Admin Acetaminophen (Tylenol) 650 mg Q6H PRN ORAL Mild Pain/Temp > 100.5 07/06/18 17:33 08/05/18 17:32 Benztropine Mesylate (Cogentin) 1 mg BID ORAL 07/07/18 09:00 08/06/18 08:59 07/18/18 17:51 Cefepime HCl 2 gm/ Dextrose 55 ml @ 110 mls/hr Q24H IVPB 07/13/18 00:00 07/20/18 00:00 07/17/18 23:17 Chlorhexidine Gluconate (Hyun-Hex 2%) 1 applic DAILY@2000 TOPIC 07/11/18 20:00 08/10/18 19:59 07/18/18 20:51 Docusate Sodium (Colace) 250 mg DAILY ORAL 07/07/18 09:00 08/04/18 08:59 07/18/18 08:49 Haloperidol (Haldol) 5 mg DAILY ORAL 07/07/18 09:00 08/04/18 08:59 07/18/18 08:49 Heparin Sodium (Porcine) (Heparin 5000 units/ml) 5,000 units EVERY 12 HOURS SUBQ 07/06/18 21:00 08/03/18 20:59 07/18/18 20:57 [place] Carbonate ([place] Carbonate) 300 mg BID ORAL 07/07/18 09:00 08/06/18 08:59 07/18/18 17:51 Metronidazole 100 ml @ 100 mls/hr Q8HR IVPB 07/06/18 22:00 07/20/18 21:59 07/18/18 14:43 Mirtazapine (Remeron) 7.5 mg BEDTIME ORAL 07/06/18 21:00 08/03/18 20:59 07/18/18 20:51 Nifedipine (Adalat) 10 mg Q12HR ORAL 07/06/18 21:00 08/04/18 08:59 07/18/18 20:51 Pantoprazole (Protonix) 40 mg DAILY ORAL 07/07/18 09:00 08/04/18 08:59 07/18/18 08:50 Vancomycin HCl (Vanco rx to dose) 1 ea DAILY PRN MISC Per rx protocol 07/07/18 09:00 08/03/18 18:29 Vancomycin HCl 1 gm/Dextrose 275 ml @ 183.708 mls/hr Q24H IVPB 07/13/18 10:00 07/22/18 09:59 07/18/18 10:42 Gloria Nelson M.D. Jul 18, 2018 21:02
[2018-07-18] MEDS: Cefepime HCl 2 GM in D5W 55 ML IVPB SCH (23:25)
[2018-07-19] VITALS: BP 152/67
[2018-07-19 04:00] VITALS: BP 146/65
--- NOTE | 2018-07-19 07:22 | NUR ---
HAND-OFF: Report given to Jose E Crooks. Pt in stable condition.
--- NOTE | 2018-07-19 07:30 | NUR ---
NURSE NOTES: Patient is in bed asleep but arousable to verbal stimuli. Patient is stable, no SOB or facial grimacing noted. Patient appears very comfortable. All safety measures provided and call light within reach. Will continue to monitor.
[2018-07-19 08:00] VITALS: BP 126/59
--- NOTE | 2018-07-19 08:14 | General Progress Note ---
Assessment/Plan Assessment/Plan S: I am feeling ok O: diffuse redness and swelling in the base of the neck, interval improvement. at the bedside Review of Systems Review of Symptoms General ROS: no weight loss or fever Psychological ROS: no depression or mood changes, no memory loss Ophthalmic ROS: no visual changes or eye irritation ENT ROS: no nasal congestion, hearing loss, dizziness Allergy and Immunology ROS: no allergic symptoms or urticaria Hematological and Lymphatic ROS: no swollen glands, unusual bleeding or bruising Endocrine ROS: no polyuria, polydipsia, weight changes, temperature intolerance Respiratory ROS: no cough, shortness of breath, or wheezing Cardiovascular ROS: no chest pain or dyspnea on exertion Gastrointestinal ROS: denies abdominal pain, bright red blood in stool. Musculoskeletal ROS: no myalgias or arthralgias Neurological ROS: no TIA or stroke symptoms Dermatological ROS: diffuse redness in base of the neck Physical Exam Physical Exam General appearance: alert, cooperative, no distress, appears stated age Head: Normocephalic, without obvious abnormality, atraumatic Eyes: conjunctivae/corneas clear. PERRL, EOM's intact. Fundi benign Throat: Lips, mucosa, and tongue normal. Teeth and gums normal Neck: supple, symmetrical, trachea midline, no adenopathy, t Lungs: clear to auscultation bilaterally Heart: regular rate and rhythm, S1, S2 normal, no murmur, click, rub or gallop Abdomen: soft, non-tender. Bowel sounds normal. No masses, no organomegaly Extremities: Diffuse swelling in base of the neck. Pulses: 2+ and symmetric Neurologic: Grossly normal 1- Sepsis : Resolved 2. Diffuse soft tissue swelling of the neck, possible parapharyngeal abscess 3- Diffuse Cellulitis of base of neck 4- Hypercalcemia, workup deferred to outpatient Plan: D/w ENT, agreed and will proceed for transferring patient to higher level of care secondary to possibility of expansion of infection/abscess in deep compartment of head and neck region. No sign of respiratory compromise at this time current abx on MAC list Given the favorable response to our conservative management. will Ask ENT to re- assess Subjective Allergies: Coded Allergies: No Known Allergies (Unverified , 07/04/18) Objective Last 24 Hour Vital Signs Date Time Temp Pulse Resp B/P (MAP) Pulse Ox O2 Delivery O2 Flow Rate FiO2 07/19/18 04:00 98.6 59 18 146/65 (92) 96 07/19/18 00:00 99.0 58 18 152/67 (95) 96 07/18/18 21:00 Room Air 07/18/18 20:51 57 149/76 07/18/18 20:00 98.8 57 18 149/76 (100) 98 07/18/18 16:00 99.3 59 18 138/78 (98) 96 07/18/18 12:00 98.3 57 18 133/68 (89) 96 07/18/18 09:00 Room Air 07/18/18 08:52 58 140/66 Intake and Output 07/18/18 07/19/18 19:00 07:00 Intake Total 967.416 ml 455 ml Balance 967.416 ml 455 ml Intake Oral 500 ml 100 ml IV Total 467.416 ml 355 ml # Voids 2 2 Height (Feet): 5 Height (Inches): 1.00 Weight (Pounds): 201 Mady Perez MD Jul 19, 2018 08:14
--- NOTE | 2018-07-19 08:57 | NUR ---
CASE MANAGEMENT:REVIEW 07/19/18 SI: LEFT NECK CELLULITIS PARAPHARYNGEAL ABSCESS EXTENDING TO CLAVICLE 98.0 58 18 152/67 96% ON RA IS: IV VANCOMYCIN Q24 IV CEFEPIME Q12 IV FLAGYL Q8HRS LIBRIUM PO BID HEPARIN SQ Q12 : MED/SURG STATUS 3 EAST PLAN: PATIENT IS ON THE MAC LIST TO TRANSFER TO A HIGHER LEVEL OF CARE...WAITING FOR A BED [facility] [place] [facility] [place] NUMBER #[id number] ENT TO REASSESS
--- NOTE | 2018-07-19 09:00 | NUR ---
TRANSFER UPDATE [facility] [place] T: [phone] F: [phone] [facility] [place] #[id number] Addendum: 07/19/18 at 0902 by RADHA CERNA LVN LVN DISCHARGE PLANNING DISCUSSED WITH DR NIELSON
[2018-07-19] MEDS: Benztropine 1mg tab ORAL SCH ×2 (09:17→18:13)
[2018-07-19] MEDS: Docusate 250mg cap ORAL SCH (09:17)
[2018-07-19] MEDS: NIFEdipine 10mg cap ORAL SCH ×2 (09:18→20:20)
[2018-07-19] MEDS: Heparin 5000 units/ml inj SUBQ SCH ×2 (09:19→20:32)
[2018-07-19] MEDS: Vancomycin 1gm/D5W 275ml IVPB SCH ×4 (09:29→10:00)
[2018-07-19 12:00] VITALS: BP 131/68
--- NOTE | 2018-07-19 14:42 | Surgery Progress Note ---
Surgery Progress Note Subjective Symptoms: improved, pain absent, tolerating diet, passing flatus, BM Objective Last 24 Hour Vital Signs Date Time Temp Pulse Resp B/P (MAP) Pulse Ox O2 Delivery O2 Flow Rate FiO2 07/19/18 12:00 98.5 55 17 131/68 (89) 97 07/19/18 09:18 57 126/59 07/19/18 09:00 Room Air 07/19/18 08:00 98.3 57 19 126/59 (81) 98 07/19/18 04:00 98.6 59 18 146/65 (92) 96 07/19/18 00:00 99.0 58 18 152/67 (95) 96 07/18/18 21:00 Room Air 07/18/18 20:51 57 149/76 07/18/18 20:00 98.8 57 18 149/76 (100) 98 07/18/18 16:00 99.3 59 18 138/78 (98) 96 I&O Intake and Output 07/18/18 07/19/18 19:00 07:00 Intake Total 967.416 ml 455 ml Balance 967.416 ml 455 ml Intake Oral 500 ml 100 ml IV Total 467.416 ml 355 ml # Voids 2 2 Cardiovascular: RSR Respiratory: clear Abdomen: soft, flat, non-tender, present bowel sounds, non-distended Extremities: no tenderness, no cyanosis Plan Problems: (1) Cellulitis Assessment & Plan: 67-year-old with left neck cellulitis. Leukocytosis. Low- grade fevers. Tenderness on examination with large area of cellulitis without fluctuance. CT scan ordered and pending final read but did speak with the radiologist and there is significant inflammation in the oropharynx and neck around the pharynx and trachea. There is subcutaneous tissue swelling consistent with cellulitis in the area as identified on clinical examination. There is a narrowed airway. Even these findings patient was transferred to the intensive care unit for close monitoring. Etiology of patient's infection is currently unknown and will need further workup. Currently respiratory stable without any signs of compromise or distress. Patient states she is breathing well without any shortness of breath or difficulty. Airway is currently patent. Radiological findings noted. labs improved exam improved liquid soft diet IV abx appreciate ENT input - transfer for higher level of care for I&D if shows signs of respiratory issues will need urgent intubation for airway protection vs tracheostomy Cellulitis has significantly improved and continues to do so. No signs of airway obstruction noted at this time. Tolerating diet. Unfortunately very difficult to find transfer for higher level of care eval. At some point may consider since patient stable DC with outpatient follow-up. still awaiting placement. significantly improved will follow with recs thank you Florencio Jimenez Jul 19, 2018 14:42
[2018-07-19 16:00] VITALS: BP 127/65
--- NOTE | 2018-07-19 16:51 | Infectious Diseases Prog Note ---
Assessment/Plan Problems: (1) Retropharyngeal abscess Assessment & Plan: with extension to the left clavicle , on triple antibiotics , need I&D , S/P ENT eval, will require transfer to higher level of care facility for close monitoring and surgical intervention, clinically stable for now, may require trach if respiratory status worsened (2) Cellulitis Assessment & Plan: of the left neck and upper shoulder, continue vancomycin , cefepime and metronidazole empirically, may need skin biopsy if no improvement with antibiotics alone to rule out malignant process (3) Sepsis Assessment & Plan: with leukocytosis , due to the above , continue wide spectrum antibiotics pending cultures (4) Hypercalcemia Assessment & Plan: improving , rule out malignancy , renal is following Subjective Constitutional: Reports: no symptoms HEENT: Reports: no symptoms Respiratory: Reports: no symptoms Breasts: Reports: no symptoms Cardiovascular: Reports: no symptoms Gastrointestinal/Abdominal: Reports: no symptoms Genitourinary: Reports: no symptoms Neurologic: Reports: no symptoms Psychiatric: Reports: no symptoms Skin: Reports: no symptoms Endocrine: Reports: no symptoms Hematologic: Reports: no symptoms Musculoskeletal: Reports: no symptoms Allergies: Coded Allergies: No Known Allergies (Unverified , 07/04/18) Objective Vital Signs Last 24 Hour Vital Signs Date Time Temp Pulse Resp B/P (MAP) Pulse Ox O2 Delivery O2 Flow Rate FiO2 07/19/18 12:00 98.5 55 17 131/68 (89) 97 07/19/18 09:18 57 126/59 07/19/18 09:00 Room Air 07/19/18 08:00 98.3 57 19 126/59 (81) 98 07/19/18 04:00 98.6 59 18 146/65 (92) 96 07/19/18 00:00 99.0 58 18 152/67 (95) 96 07/18/18 21:00 Room Air 07/18/18 20:51 57 149/76 07/18/18 20:00 98.8 57 18 149/76 (100) 98 Height (Feet): 5 Height (Inches): 1.00 Weight (Pounds): 201 General Appearance: WD/WN, no acute distress HEENT: normocephalic, atraumatic, anicteric, mucous membranes moist Respiratory/Chest: chest wall non-tender, lungs clear, normal breath sounds, no respiratory distress, no accessory muscle use Cardiovascular: normal peripheral pulses, normal rate, regular rhythm, no gallop/murmur, no JVD Abdomen: normal bowel sounds, soft, non tender, no organomegaly, non distended , no mass, no scars Genitourinary: normal external genitalia Extremities: no cyanosis, no clubbing Skin: no rash, no lesions, no ulcers Neurologic/Psychiatric: home care rn II-XII grossly normal, no motor/sensory deficits, alert, responsive Lymphatic: no neck adenopathy, no groin adenopathy Musculoskeletal: normal muscle bulk, no effusion Current Medications Medications (Trade) Dose Ordered Sig/Omari Route PRN Reason Start Time Stop Time Status Last Admin Dose Admin Acetaminophen (Tylenol) 650 mg Q6H PRN ORAL Mild Pain/Temp > 100.5 07/06/18 17:33 08/05/18 17:32 Benztropine Mesylate (Cogentin) 1 mg BID ORAL 07/07/18 09:00 08/06/18 08:59 07/19/18 09:17 Cefepime HCl 2 gm/ Dextrose 55 ml @ 110 mls/hr Q24H IVPB 07/13/18 00:00 07/22/18 00:00 07/18/18 23:25 Chlorhexidine Gluconate (Hyun-Hex 2%) 1 applic DAILY@2000 TOPIC 07/11/18 20:00 08/10/18 19:59 07/18/18 20:51 Docusate Sodium (Colace) 250 mg DAILY ORAL 07/07/18 09:00 08/04/18 08:59 07/19/18 09:17 Haloperidol (Haldol) 5 mg DAILY ORAL 07/07/18 09:00 08/04/18 08:59 07/19/18 09:17 Heparin Sodium (Porcine) (Heparin 5000 units/ml) 5,000 units EVERY 12 HOURS SUBQ 07/06/18 21:00 08/03/18 20:59 07/19/18 09:19 [place] Carbonate ([place] Carbonate) 300 mg BID ORAL 07/07/18 09:00 08/06/18 08:59 07/19/18 09:17 Metronidazole 100 ml @ 100 mls/hr Q8HR IVPB 07/06/18 22:00 07/22/18 21:59 07/19/18 14:01 Mirtazapine (Remeron) 7.5 mg BEDTIME ORAL 07/06/18 21:00 08/03/18 20:59 07/18/18 20:51 Nifedipine (Adalat) 10 mg Q12HR ORAL 07/06/18 21:00 08/04/18 08:59 07/19/18 09:18 Pantoprazole (Protonix) 40 mg DAILY ORAL 07/07/18 09:00 08/04/18 08:59 07/19/18 09:17 Vancomycin HCl (Vanco rx to dose) 1 ea DAILY PRN MISC Per rx protocol 07/07/18 09:00 08/03/18 18:29 Vancomycin HCl 1 gm/Dextrose 275 ml @ 183.708 mls/hr Q24H IVPB 07/13/18 10:00 07/22/18 09:59 07/18/18 10:42 Gloria Nelson M.D. Jul 19, 2018 16:51
--- NOTE | 2018-07-19 19:30 | NUR ---
NURSE NOTES: Received report from RORY Crooks. Received pt in bed awake, alert and oriented x 4, [place] speaking only able to make needs known without any problem. Denies pain at this time, no distress noted. IV L FA #24 patent and intact. Safety measures maintained. Bed in lowest position and locked, side rails up x 2, call light within reach. Will continue to monitor.
--- NOTE | 2018-07-19 19:36 | NUR ---
HAND-OFF: Report given to Yobany VALADEZ. Patient is stable.
[2018-07-19 20:00] VITALS: BP 138/75
[2018-07-19] MEDS: Dyna-Hex 2% Top Sol 2oz TOPIC SCH (20:00)
[2018-07-19] MEDS: Cefepime HCl 2 GM in D5W 55 ML IVPB SCH (23:41)
[2018-07-20] VITALS: BP 142/65
[2018-07-20 04:00] VITALS: BP 104/60
--- NOTE | 2018-07-20 07:20 | NUR ---
NURSE NOTES:WALKING ROUNDS DONE WITH NIGHT RN(VIRGIL),PATIENT SITTING AT THE SIDE OF THE BED EATING BREAKFAST,ROOM AIR,A/O,NEPALESE SPEAKING,PLAN OF CARE:AWAITING FOR TRANSFER TO [facility] FOR I/D OF MASS IN LEFT NECK,AREA HARD TO TOUCH.WILL CONTINUE PLAN OF CARE.
--- NOTE | 2018-07-20 07:22 | NUR ---
HAND-OFF: Report given to RORY Hein. Pt in stable condition.
[2018-07-20 07:50] VITALS: BP 156/69
[2018-07-20] MEDS: Benztropine 1mg tab ORAL SCH ×2 (08:00→17:36)
[2018-07-20] MEDS: Docusate 250mg cap ORAL SCH (08:00)
[2018-07-20] MEDS: NIFEdipine 10mg cap ORAL SCH ×2 (08:00→20:49)
[2018-07-20] MEDS: Heparin 5000 units/ml inj SUBQ SCH ×2 (08:03→20:53)
[2018-07-20] MEDS: Vancomycin 1gm/D5W 275ml IVPB SCH ×2 (10:08)
[2018-07-20 12:00] VITALS: BP 126/62
--- NOTE | 2018-07-20 14:57 | NUR ---
RD ASSESSMENT & RECOMMENDATIONS SEE CARE ACTIVITY FOR COMPLETE ASSESSMENT DAILY ESTIMATED NEEDS: Needs based on Obese/ 59kg abw 25-30 kcals/kg 7727-5049 total kcals 1-1.2 g protein/kg 59-70 g total protein 25-30 mL/kg 9462-2503 total fluid mLs NUTRITION DIAGNOSIS: Chewing difficult R/T poor dentition as evidenced by edentulous status, on soft easy chew texture. CURRENT DIET:REGULAR, SOFT EASY CHEW PO DIET RECOMMENDATIONS: REGULAR, texture as tolerated ADDITIONAL RECOMMENDATIONS: * Calibrated bedscale wt for accurate CBW * Texture as tolerated- edentulous
--- NOTE | 2018-07-20 15:28 | NUR ---
CASE MANAGEMENT:REVIEW 07/20/18 SI: LEFT NECK CELLULITIS PARAPHARYNGEAL ABSCESS EXTENDING TO CLAVICLE 98.0 58 18 152/67 96% ON RA IS: IV VANCOMYCIN Q24 IV CEFEPIME Q24 IV FLAGYL Q8HRS LIBRIUM PO BID HEPARIN SQ Q12 : MED/SURG STATUS 3 EAST PLAN: PATIENT IS ON THE MAC LIST TO TRANSFER TO A HIGHER LEVEL OF CARE...WAITING FOR A BED [facility] [place] NUMBER #[id number]
--- NOTE | 2018-07-20 15:30 | NUR ---
TRANSFER UPDATE CALLED [facility] AND SPOKE WITH CHRIS. CRITICAL ACCESS HOSPITAL FACILITIES ARE STILL FULL TO [facility] [place] T: [phone] F: [phone] [facility] [place] #[id number]
[2018-07-20 16:00] VITALS: BP 128/64
--- NOTE | 2018-07-20 16:55 | General Progress Note ---
Assessment/Plan Assessment/Plan S: I am feeling ok O: diffuse redness and swelling in the base of the neck, interval improvement. at the bedside Review of Systems Review of Symptoms General ROS: no weight loss or fever Psychological ROS: no depression or mood changes, no memory loss Ophthalmic ROS: no visual changes or eye irritation ENT ROS: no nasal congestion, hearing loss, dizziness Allergy and Immunology ROS: no allergic symptoms or urticaria Hematological and Lymphatic ROS: no swollen glands, unusual bleeding or bruising Endocrine ROS: no polyuria, polydipsia, weight changes, temperature intolerance Respiratory ROS: no cough, shortness of breath, or wheezing Cardiovascular ROS: no chest pain or dyspnea on exertion Gastrointestinal ROS: denies abdominal pain, bright red blood in stool. Musculoskeletal ROS: no myalgias or arthralgias Neurological ROS: no TIA or stroke symptoms Dermatological ROS: diffuse redness in base of the neck Physical Exam Physical Exam General appearance: alert, cooperative, no distress, appears stated age Head: Normocephalic, without obvious abnormality, atraumatic Eyes: conjunctivae/corneas clear. PERRL, EOM's intact. Fundi benign Throat: Lips, mucosa, and tongue normal. Teeth and gums normal Neck: supple, symmetrical, trachea midline, no adenopathy, t Lungs: clear to auscultation bilaterally Heart: regular rate and rhythm, S1, S2 normal, no murmur, click, rub or gallop Abdomen: soft, non-tender. Bowel sounds normal. No masses, no organomegaly Extremities: Diffuse swelling in base of the neck. Pulses: 2+ and symmetric Neurologic: Grossly normal 1- Sepsis : Resolved 2. Diffuse soft tissue swelling of the neck, possible parapharyngeal abscess 3- Diffuse Cellulitis of base of neck 4- Hypercalcemia, workup deferred to outpatient Plan: D/w ENT, agreed and will proceed for transferring patient to higher level of care secondary to possibility of expansion of infection/abscess in deep compartment of head and neck region. No sign of respiratory compromise at this time current abx on MAC list Given the favorable response to our conservative management. Pending ENT assessment may be a candidate for outpatient followup Subjective Allergies: Coded Allergies: No Known Allergies (Unverified , 07/04/18) Objective Last 24 Hour Vital Signs Date Time Temp Pulse Resp B/P (MAP) Pulse Ox O2 Delivery O2 Flow Rate FiO2 07/20/18 16:00 98.8 55 18 128/64 (85) 98 07/20/18 12:00 98.6 57 18 126/62 (83) 98 07/20/18 08:00 57 156/69 07/20/18 07:50 97.4 57 17 156/69 (98) 98 07/20/18 07:31 Room Air 07/20/18 04:00 97.7 55 20 104/60 (75) 100 07/20/18 00:00 98.8 57 20 142/65 (90) 95 07/19/18 21:00 Room Air 07/19/18 20:20 57 138/75 07/19/18 20:00 99.2 57 20 138/75 (96) 98 Intake and Output 07/19/18 07/20/18 19:00 07:00 Intake Total 300 ml 375 ml Balance 300 ml 375 ml Intake Oral 300 ml 120 ml IV Total 255 ml # Voids 1 2 Height (Feet): 5 Height (Inches): 1.00 Weight (Pounds): 201 Mady Perez MD Jul 20, 2018 16:55
--- NOTE | 2018-07-20 17:59 | Infectious Diseases Prog Note ---
Assessment/Plan Problems: (1) Retropharyngeal abscess Assessment & Plan: with extension to the left clavicle , on triple antibiotics , need I&D , S/P ENT eval, will require transfer to higher level of care facility for close monitoring and surgical intervention, clinically stable for now, may require trach if respiratory status worsened (2) Cellulitis Assessment & Plan: of the left neck and upper shoulder, continue vancomycin , cefepime and metronidazole empirically, may need skin biopsy if no improvement with antibiotics alone to rule out malignant process (3) Sepsis Assessment & Plan: with leukocytosis , due to the above , continue wide spectrum antibiotics pending cultures (4) Hypercalcemia Assessment & Plan: improving , rule out malignancy , renal is following Subjective Constitutional: Reports: no symptoms HEENT: Reports: no symptoms Respiratory: Reports: no symptoms Breasts: Reports: no symptoms Cardiovascular: Reports: no symptoms Gastrointestinal/Abdominal: Reports: no symptoms Genitourinary: Reports: no symptoms Neurologic: Reports: no symptoms Psychiatric: Reports: no symptoms Skin: Reports: no symptoms Endocrine: Reports: no symptoms Hematologic: Reports: no symptoms Musculoskeletal: Reports: no symptoms Allergies: Coded Allergies: No Known Allergies (Unverified , 07/04/18) Objective Vital Signs Last 24 Hour Vital Signs Date Time Temp Pulse Resp B/P (MAP) Pulse Ox O2 Delivery O2 Flow Rate FiO2 07/20/18 16:00 98.8 55 18 128/64 (85) 98 07/20/18 12:00 98.6 57 18 126/62 (83) 98 07/20/18 08:00 57 156/69 07/20/18 07:50 97.4 57 17 156/69 (98) 98 07/20/18 07:31 Room Air 07/20/18 04:00 97.7 55 20 104/60 (75) 100 07/20/18 00:00 98.8 57 20 142/65 (90) 95 07/19/18 21:00 Room Air 07/19/18 20:20 57 138/75 07/19/18 20:00 99.2 57 20 138/75 (96) 98 Height (Feet): 5 Height (Inches): 1.00 Weight (Pounds): 201 General Appearance: WD/WN, no acute distress HEENT: normocephalic, atraumatic, anicteric, mucous membranes moist Respiratory/Chest: chest wall non-tender, lungs clear, normal breath sounds, no respiratory distress, no accessory muscle use, decreased breath sounds Cardiovascular: normal peripheral pulses, normal rate, regular rhythm, no gallop/murmur, no JVD Abdomen: normal bowel sounds, soft, non tender, no organomegaly, non distended , no mass, no scars Extremities: no cyanosis, no clubbing Skin: no rash, no lesions, no ulcers Neurologic/Psychiatric: no motor/sensory deficits, oriented x 3, responsive Lymphatic: no neck adenopathy, no groin adenopathy Musculoskeletal: normal muscle bulk, no effusion Current Medications Medications (Trade) Dose Ordered Sig/Omari Route PRN Reason Start Time Stop Time Status Last Admin Dose Admin Acetaminophen (Tylenol) 650 mg Q6H PRN ORAL Mild Pain/Temp > 100.5 07/06/18 17:33 08/05/18 17:32 Benztropine Mesylate (Cogentin) 1 mg BID ORAL 07/07/18 09:00 08/06/18 08:59 07/20/18 17:36 Cefepime HCl 2 gm/ Dextrose 55 ml @ 110 mls/hr Q24H IVPB 07/13/18 00:00 07/22/18 00:00 07/19/18 23:41 Chlorhexidine Gluconate (Hyun-Hex 2%) 1 applic DAILY@2000 TOPIC 07/11/18 20:00 08/10/18 19:59 07/18/18 20:51 Docusate Sodium (Colace) 250 mg DAILY ORAL 07/07/18 09:00 08/04/18 08:59 07/20/18 08:00 Haloperidol (Haldol) 5 mg DAILY ORAL 07/07/18 09:00 08/04/18 08:59 07/20/18 08:01 Heparin Sodium (Porcine) (Heparin 5000 units/ml) 5,000 units EVERY 12 HOURS SUBQ 07/06/18 21:00 08/03/18 20:59 07/20/18 08:03 [place] Carbonate ([place] Carbonate) 300 mg BID ORAL 07/07/18 09:00 08/06/18 08:59 07/20/18 17:36 Metronidazole 100 ml @ 100 mls/hr Q8HR IVPB 07/06/18 22:00 07/22/18 21:59 07/20/18 14:24 Mirtazapine (Remeron) 7.5 mg BEDTIME ORAL 07/06/18 21:00 08/03/18 20:59 07/19/18 20:19 Nifedipine (Adalat) 10 mg Q12HR ORAL 07/06/18 21:00 08/04/18 08:59 07/20/18 08:00 Pantoprazole (Protonix) 40 mg DAILY ORAL 07/07/18 09:00 08/04/18 08:59 07/20/18 08:00 Vancomycin HCl (Vanco rx to dose) 1 ea DAILY PRN MISC Per rx protocol 07/07/18 09:00 08/03/18 18:29 Vancomycin HCl 1 gm/Dextrose 275 ml @ 183.708 mls/hr Q24H IVPB 07/13/18 10:00 07/22/18 09:59 07/20/18 10:08 Gloria Nelson M.D. Jul 20, 2018 17:59
--- NOTE | 2018-07-20 18:38 | Surgery Progress Note ---
Surgery Progress Note Subjective Symptoms: improved, pain absent, tolerating diet, passing flatus, BM Additional Comments wants to go back to [facility]. family at bedside and states she feels much better . Objective Last 24 Hour Vital Signs Date Time Temp Pulse Resp B/P (MAP) Pulse Ox O2 Delivery O2 Flow Rate FiO2 07/20/18 16:00 98.8 55 18 128/64 (85) 98 07/20/18 12:00 98.6 57 18 126/62 (83) 98 07/20/18 08:00 57 156/69 07/20/18 07:50 97.4 57 17 156/69 (98) 98 07/20/18 07:31 Room Air 07/20/18 04:00 97.7 55 20 104/60 (75) 100 07/20/18 00:00 98.8 57 20 142/65 (90) 95 07/19/18 21:00 Room Air 07/19/18 20:20 57 138/75 07/19/18 20:00 99.2 57 20 138/75 (96) 98 I&O Intake and Output 07/19/18 07/20/18 19:00 07:00 Intake Total 300 ml 375 ml Balance 300 ml 375 ml Intake Oral 300 ml 120 ml IV Total 255 ml # Voids 1 2 Drains: none Cardiovascular: RSR Respiratory: clear Abdomen: soft, flat, non-tender, present bowel sounds, non-distended Extremities: no edema, no tenderness, no cyanosis Plan Problems: (1) Cellulitis Assessment & Plan: 67-year-old with left neck cellulitis. Leukocytosis. Low- grade fevers. Tenderness on examination with large area of cellulitis without fluctuance. CT scan ordered and pending final read but did speak with the radiologist and there is significant inflammation in the oropharynx and neck around the pharynx and trachea. There is subcutaneous tissue swelling consistent with cellulitis in the area as identified on clinical examination. There is a narrowed airway. Even these findings patient was transferred to the intensive care unit for close monitoring. Etiology of patient's infection is currently unknown and will need further workup. Currently respiratory stable without any signs of compromise or distress. Patient states she is breathing well without any shortness of breath or difficulty. Airway is currently patent. Radiological findings noted. labs improved exam improved liquid soft diet IV abx appreciate ENT input - transfer for higher level of care for I&D if shows signs of respiratory issues will need urgent intubation for airway protection vs tracheostomy Cellulitis has significantly improved and continues to do so. No signs of airway obstruction noted at this time. Tolerating diet. Unfortunately very difficult to find transfer for higher level of care eval. At some point may consider since patient stable DC with outpatient follow-up. still awaiting placement. significantly improved will follow with recs thank you Florencio Jimenez Jul 20, 2018 18:38
--- NOTE | 2018-07-20 19:30 | NUR ---
NURSE NOTES: Initial rounding done. Pt resting in bed AAOX3, responds appropriately. resp even, denies pain at this time. IV site LFA intact/clean drsg. Call light within reach.
--- NOTE | 2018-07-20 19:40 | NUR ---
HAND-OFF: Report given to KIM VALADEZ.PATIENT STABLE.
[2018-07-20 20:00] VITALS: BP 160/70
[2018-07-20] MEDS: Dyna-Hex 2% Top Sol 2oz TOPIC SCH (20:49)
[2018-07-20] MEDS ORDERED: Tubing IV Secondary IV ONE (21:53)
[2018-07-20] MEDS ORDERED: NS 500ML ONE (21:53)
[2018-07-20] MEDS: Cefepime HCl 2 GM in D5W 55 ML IVPB SCH (23:38)
[2018-07-21] VITALS: BP 141/70
[2018-07-21 04:00] VITALS: BP 123/63
--- NOTE | 2018-07-21 07:29 | NUR ---
HAND-OFF: Report given to RORY Mendez.
[2018-07-21 08:00] VITALS: BP 116/57
--- NOTE | 2018-07-21 08:21 | NUR ---
NURSE NOTES: ASLEEP. NO C/O PAIN .IN NO DISTRESS.
[2018-07-21] MEDS: Docusate 250mg cap ORAL SCH (08:37)
[2018-07-21] MEDS: NIFEdipine 10mg cap ORAL SCH ×2 (08:37→20:45)
[2018-07-21] MEDS: Benztropine 1mg tab ORAL SCH ×2 (08:37→17:38)
[2018-07-21] MEDS: Heparin 5000 units/ml inj SUBQ SCH ×2 (08:38→20:49)
--- NOTE | 2018-07-21 09:00 | NUR ---
NURSE NOTES: asif pouch catheter removed. will start supervised self intubation q3hrs as ordered.
--- NOTE | 2018-07-21 09:30 | NUR ---
NURSE NOTES: up ad seth as tolerated.
[2018-07-21] MEDS: Vancomycin 1gm/D5W 275ml IVPB SCH ×2 (10:02)
--- NOTE | 2018-07-21 11:08 | Surgery Progress Note ---
Surgery Progress Note Subjective Additional Comments no acute events. at bedside. comfortable. wants to go back to prior residence. no n/v/f/c. tolerating diet. ambulatory. comfortable. no complaints. Objective Last 24 Hour Vital Signs Date Time Temp Pulse Resp B/P (MAP) Pulse Ox O2 Delivery O2 Flow Rate FiO2 07/21/18 09:00 Room Air 07/21/18 08:37 74 116/57 07/21/18 08:00 97.1 74 19 116/57 (76) 97 07/21/18 04:00 98.2 59 20 123/63 (83) 99 07/21/18 00:00 98.6 60 20 141/70 (93) 94 07/20/18 21:00 Room Air 07/20/18 20:49 60 162/70 07/20/18 20:00 98.3 60 20 160/70 (100) 96 07/20/18 16:00 98.8 55 18 128/64 (85) 98 07/20/18 12:00 98.6 57 18 126/62 (83) 98 I&O Intake and Output 07/20/18 07/21/18 19:00 07:00 Intake Total 1111 ml 355 ml Balance 1111 ml 355 ml Intake Oral 736 ml IV Total 375 ml 355 ml # Voids 2 2 Drains: none Cardiovascular: RSR Respiratory: clear Abdomen: soft, flat, non-tender, present bowel sounds, non-distended Extremities: no edema, no tenderness, no cyanosis Additional Comments left neck/ clavicle wound much improved. still hard and red but improved and much smaller Plan Problems: (1) Cellulitis Assessment & Plan: 67-year-old with left neck cellulitis. Leukocytosis. Low- grade fevers. Tenderness on examination with large area of cellulitis without fluctuance. CT scan ordered and pending final read but did speak with the radiologist and there is significant inflammation in the oropharynx and neck around the pharynx and trachea. There is subcutaneous tissue swelling consistent with cellulitis in the area as identified on clinical examination. There is a narrowed airway. Even these findings patient was transferred to the intensive care unit for close monitoring. Etiology of patient's infection is currently unknown and will need further workup. Currently respiratory stable without any signs of compromise or distress. Patient states she is breathing well without any shortness of breath or difficulty. Airway is currently patent. Radiological findings noted. labs improved exam improved liquid soft diet IV abx appreciate ENT input - transfer for higher level of care for I&D if shows signs of respiratory issues will need urgent intubation for airway protection vs tracheostomy Cellulitis has significantly improved and continues to do so. No signs of airway obstruction noted at this time. Tolerating diet. Unfortunately very difficult to find transfer for higher level of care eval. At some point may consider since patient stable DC with outpatient follow-up. still awaiting placement. significantly improved awaiting ENT input for d/c will follow with recs thank you Florencio Jimenez Jul 21, 2018 11:08
--- NOTE | 2018-07-21 11:30 | General Progress Note ---
Assessment/Plan Assessment/Plan S: I am feeling ok O: diffuse redness and swelling in the base of the neck, interval improvement. Review of Systems Review of Symptoms General ROS: no weight loss or fever Psychological ROS: no depression or mood changes, no memory loss Ophthalmic ROS: no visual changes or eye irritation ENT ROS: no nasal congestion, hearing loss, dizziness Allergy and Immunology ROS: no allergic symptoms or urticaria Hematological and Lymphatic ROS: no swollen glands, unusual bleeding or bruising Endocrine ROS: no polyuria, polydipsia, weight changes, temperature intolerance Respiratory ROS: no cough, shortness of breath, or wheezing Cardiovascular ROS: no chest pain or dyspnea on exertion Gastrointestinal ROS: denies abdominal pain, bright red blood in stool. Musculoskeletal ROS: no myalgias or arthralgias Neurological ROS: no TIA or stroke symptoms Dermatological ROS: interval resolution of diffuse redness in base of the neck Physical Exam Physical Exam General appearance: alert, cooperative, no distress, appears stated age Head: Normocephalic, without obvious abnormality, atraumatic Eyes: conjunctivae/corneas clear. PERRL, EOM's intact. Fundi benign Throat: Lips, mucosa, and tongue normal. Teeth and gums normal Neck: supple, symmetrical, trachea midline, no adenopathy, t Lungs: clear to auscultation bilaterally Heart: regular rate and rhythm, S1, S2 normal, no murmur, click, rub or gallop Abdomen: soft, non-tender. Bowel sounds normal. No masses, no organomegaly Extremities: Diffuse swelling in base of the neck. Pulses: 2+ and symmetric Neurologic: Grossly normal, DERM interval resolution of diffuse redness in base of the neck 1- Sepsis : Resolved 2. Diffuse soft tissue swelling of the neck, possible parapharyngeal abscess 3- Diffuse Cellulitis of base of neck 4- Hypercalcemia, workup deferred to outpatient Plan: D/w ENT, agreed and will proceed for transferring patient to higher level of care secondary to possibility of expansion of infection/abscess in deep compartment of head and neck region. No sign of respiratory compromise at this time current abx on MAC list Given the favorable response to our conservative management. Pending ENT assessment may be a candidate for outpatient followup Subjective Allergies: Coded Allergies: No Known Allergies (Unverified , 07/04/18) Objective Last 24 Hour Vital Signs Date Time Temp Pulse Resp B/P (MAP) Pulse Ox O2 Delivery O2 Flow Rate FiO2 07/21/18 09:00 Room Air 07/21/18 08:37 74 116/57 07/21/18 08:00 97.1 74 19 116/57 (76) 97 07/21/18 04:00 98.2 59 20 123/63 (83) 99 07/21/18 00:00 98.6 60 20 141/70 (93) 94 07/20/18 21:00 Room Air 07/20/18 20:49 60 162/70 07/20/18 20:00 98.3 60 20 160/70 (100) 96 07/20/18 16:00 98.8 55 18 128/64 (85) 98 07/20/18 12:00 98.6 57 18 126/62 (83) 98 Intake and Output 07/20/18 07/21/18 19:00 07:00 Intake Total 1111 ml 355 ml Balance 1111 ml 355 ml Intake Oral 736 ml IV Total 375 ml 355 ml # Voids 2 2 Height (Feet): 5 Height (Inches): 1.00 Weight (Pounds): 195 Mady Perez MD Jul 21, 2018 11:30
[2018-07-21 12:00] VITALS: BP 119/57
--- NOTE | 2018-07-21 13:29 | NUR ---
CASE MANAGEMENT:REVIEW 07/21/18 SI: LEFT NECK CELLULITIS PARAPHARYNGEAL ABSCESS EXTENDING TO CLAVICLE 98.7 51 19 119/57 99% ON RA IS: IV VANCOMYCIN Q24 IV CEFEPIME Q24 IV FLAGYL Q8HRS LIBRIUM PO BID HEPARIN SQ Q12 : MED/SURG STATUS 3 EAST PLAN: PATIENT IS ON THE MAC LIST TO TRANSFER TO A HIGHER LEVEL OF CARE...WAITING [place] A [place] [facility] [id number]
--- NOTE | 2018-07-21 13:30 | NUR ---
TRANSFER UPDATE CALLED [facility] AND SPOKE WITH FRED. [facility] FACILITIES ARE STILL FULL TO CAPACITY [facility] T: [phone] OPT#2 F: [phone] [facility] [place] #[id number]
[2018-07-21 16:00] VITALS: BP 119/59
--- NOTE | 2018-07-21 17:49 | Infectious Diseases Prog Note ---
Assessment/Plan Problems: (1) Retropharyngeal abscess Assessment & Plan: with extension to the left clavicle , on triple antibiotics , need I&D , S/P ENT eval, will require transfer to higher level of care facility for close monitoring and surgical intervention, clinically stable for now, may require trach if respiratory status worsened (2) Cellulitis Assessment & Plan: of the left neck and upper shoulder, continue vancomycin , cefepime and metronidazole empirically, may need skin biopsy if no improvement with antibiotics alone to rule out malignant process (3) Sepsis Assessment & Plan: with leukocytosis , due to the above , continue wide spectrum antibiotics for four weeks (4) Hypercalcemia Assessment & Plan: improving , rule out malignancy , renal is following Subjective Constitutional: Reports: no symptoms HEENT: Reports: no symptoms Respiratory: Reports: no symptoms Breasts: Reports: no symptoms Cardiovascular: Reports: no symptoms Gastrointestinal/Abdominal: Reports: no symptoms Genitourinary: Reports: no symptoms Neurologic: Reports: no symptoms Psychiatric: Reports: no symptoms Skin: Reports: no symptoms Endocrine: Reports: no symptoms Hematologic: Reports: no symptoms Musculoskeletal: Reports: no symptoms Allergies: Coded Allergies: No Known Allergies (Unverified , 07/04/18) Objective Vital Signs Last 24 Hour Vital Signs Date Time Temp Pulse Resp B/P (MAP) Pulse Ox O2 Delivery O2 Flow Rate FiO2 07/21/18 16:00 97.5 87 18 119/59 (79) 99 07/21/18 12:00 98.7 51 19 119/57 (77) 99 07/21/18 09:00 Room Air 07/21/18 08:37 74 116/57 07/21/18 08:00 97.1 74 19 116/57 (76) 97 07/21/18 04:00 98.2 59 20 123/63 (83) 99 07/21/18 00:00 98.6 60 20 141/70 (93) 94 07/20/18 21:00 Room Air 07/20/18 20:49 60 162/70 07/20/18 20:00 98.3 60 20 160/70 (100) 96 Height (Feet): 5 Height (Inches): 1.00 Weight (Pounds): 195 General Appearance: WD/WN, no acute distress HEENT: normocephalic, atraumatic, anicteric, mucous membranes moist, PERRL Respiratory/Chest: chest wall non-tender, normal breath sounds, no respiratory distress, no accessory muscle use Cardiovascular: normal peripheral pulses, normal rate, regular rhythm, no gallop/murmur, no JVD Abdomen: normal bowel sounds, soft, non tender, no organomegaly, non distended , no mass, no scars Genitourinary: normal external genitalia Extremities: no cyanosis, no clubbing Skin: no rash, no lesions, no ulcers 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, no motor/sensory deficits, alert, oriented x 3, responsive Lymphatic: no neck adenopathy, no groin adenopathy Musculoskeletal: normal muscle bulk, no effusion Current Medications Medications (Trade) Dose Ordered Sig/Omari Route PRN Reason Start Time Stop Time Status Last Admin Dose Admin Acetaminophen (Tylenol) 650 mg Q6H PRN ORAL Mild Pain/Temp > 100.5 07/06/18 17:33 08/05/18 17:32 Benztropine Mesylate (Cogentin) 1 mg BID ORAL 07/07/18 09:00 08/06/18 08:59 07/21/18 08:37 Cefepime HCl 2 gm/ Dextrose 55 ml @ 110 mls/hr Q24H IVPB 07/13/18 00:00 08/04/18 00:00 07/20/18 23:38 Chlorhexidine Gluconate (Hyun-Hex 2%) 1 applic DAILY@2000 TOPIC 07/11/18 20:00 08/10/18 19:59 07/20/18 20:49 Docusate Sodium (Colace) 250 mg DAILY ORAL 07/07/18 09:00 08/04/18 08:59 07/21/18 08:37 Haloperidol (Haldol) 5 mg DAILY ORAL 07/07/18 09:00 08/04/18 08:59 07/21/18 08:37 Heparin Sodium (Porcine) (Heparin 5000 units/ml) 5,000 units EVERY 12 HOURS SUBQ 07/06/18 21:00 08/03/18 20:59 07/21/18 08:38 [place] Carbonate ([place] Carbonate) 300 mg BID ORAL 07/07/18 09:00 08/06/18 08:59 07/21/18 08:37 Metronidazole 100 ml @ 100 mls/hr Q8HR IVPB 07/06/18 22:00 08/04/18 21:59 07/21/18 13:42 Mirtazapine (Remeron) 7.5 mg BEDTIME ORAL 07/06/18 21:00 08/03/18 20:59 07/20/18 20:49 Nifedipine (Adalat) 10 mg Q12HR ORAL 07/06/18 21:00 08/04/18 08:59 07/21/18 08:37 Pantoprazole (Protonix) 40 mg DAILY ORAL 07/07/18 09:00 08/04/18 08:59 07/21/18 08:38 Vancomycin HCl (Vanco rx to dose) 1 ea DAILY PRN MISC Per rx protocol 07/07/18 09:00 08/03/18 18:29 Vancomycin HCl 1 gm/Dextrose 275 ml @ 183.708 mls/hr Q24H IVPB 07/13/18 10:00 08/04/18 09:59 07/21/18 10:02 Gloria Nelson M.D. Jul 21, 2018 17:49
--- NOTE | 2018-07-21 19:00 | NUR ---
NURSE NOTES: QUIET IN BED. IN NO DISTRESS.
--- NOTE | 2018-07-21 19:47 | NUR ---
NURSE NOTES:patient received from celia Pérez Patient Tanzanian speaking LFA g #24 ivf runningTKO infusing well. Patient denies of pain at this time . no s/s/ of distress noted . patient ambulated to bathroom safety maintained . Patient instructed to uses call light when . needed . will continue to monitor .
--- NOTE | 2018-07-21 19:47 | NUR ---
HAND-OFF: Report given to Whitney DENG LVN.
[2018-07-21 20:00] VITALS: BP 126/53
[2018-07-21] MEDS: Dyna-Hex 2% Top Sol 2oz TOPIC SCH (20:45)
[2018-07-22] VITALS: BP 142/52
[2018-07-22] MEDS: Cefepime HCl 2 GM in D5W 55 ML IVPB SCH (00:14)
[2018-07-22 04:00] VITALS: BP 132/71
[2018-07-22 08:00] VITALS: BP 143/69
--- NOTE | 2018-07-22 08:00 | NUR ---
HAND-OFF: Report given to kaleb Pérez
--- NOTE | 2018-07-22 08:00 | NUR ---
NURSE NOTES: Received report from Miranda MADRID, pt a/a/o x4 laying in bed with no signs of distress or other issues at this time. pt has a L FA gauge #24 TKO. pt in a soft diet, she is tolerating well with no n/v. pt's at bedside. side rales up x2. plan to transfer a higher level for further tx. I will f/u as needed.
[2018-07-22] MEDS: NIFEdipine 10mg cap ORAL SCH ×2 (09:58→21:54)
[2018-07-22] MEDS: Heparin 5000 units/ml inj SUBQ SCH ×2 (09:58→21:55)
[2018-07-22] MEDS: Docusate 250mg cap ORAL SCH (09:58)
[2018-07-22] MEDS: Benztropine 1mg tab ORAL SCH ×2 (09:59→18:16)
[2018-07-22] MEDS: Vancomycin 1gm/D5W 275ml IVPB SCH ×2 (10:33)
[2018-07-22 12:00] VITALS: BP 131/65
--- NOTE | 2018-07-22 13:07 | NUR ---
CASE MANAGEMENT:REVIEW 07/22/18 SI: LEFT NECK CELLULITIS PARAPHARYNGEAL ABSCESS EXTENDING TO CLAVICLE 98.0 50 20 143/69 99% ON RA IS: IV VANCOMYCIN Q24 IV CEFEPIME Q24 IV FLAGYL Q8HRS LIBRIUM PO BID HEPARIN SQ Q12 : MED/SURG STATUS 3 EAST PLAN: PATIENT IS ON THE MAC LIST TO TRANSFER TO A HIGHER LEVEL OF CARE...WAITING FOR A BED [facility] [place]BER #[id number] REFERRED TO [facility] ~ THEIR DOCTORS SAID TOO HIGH LEVEL FOR THEM
--- NOTE | 2018-07-22 13:10 | NUR ---
TRANSFER UPDATE CALLED [facility] AND SPOKE WITH FRED. [facility] FACILITIES ARE STILL FULL TO CAPACITY [facility] T: [phone] OPT#2 F: [phone] [facility] #[id number] ALSO REFERRED TO [facility] ~ AFTER REVIEWING THE CASE THEIR PHYSICIANS FELT IS WAS TOO HIGH LEVEL FOR THEM ALSO
--- NOTE | 2018-07-22 13:52 | General Progress Note ---
Assessment/Plan Assessment/Plan S: I am feeling ok O: diffuse redness and swelling in the base of the neck, interval improvement. Review of Systems Review of Symptoms General ROS: no weight loss or fever Psychological ROS: no depression or mood changes, no memory loss Ophthalmic ROS: no visual changes or eye irritation ENT ROS: no nasal congestion, hearing loss, dizziness Allergy and Immunology ROS: no allergic symptoms or urticaria Hematological and Lymphatic ROS: no swollen glands, unusual bleeding or bruising Endocrine ROS: no polyuria, polydipsia, weight changes, temperature intolerance Respiratory ROS: no cough, shortness of breath, or wheezing Cardiovascular ROS: no chest pain or dyspnea on exertion Gastrointestinal ROS: denies abdominal pain, bright red blood in stool. Musculoskeletal ROS: no myalgias or arthralgias Neurological ROS: no TIA or stroke symptoms Dermatological ROS: interval resolution of diffuse redness in base of the neck Physical Exam Physical Exam General appearance: alert, cooperative, no distress, appears stated age Head: Normocephalic, without obvious abnormality, atraumatic Eyes: conjunctivae/corneas clear. PERRL, EOM's intact. Fundi benign Throat: Lips, mucosa, and tongue normal. Teeth and gums normal Neck: supple, symmetrical, trachea midline, no adenopathy, t Lungs: clear to auscultation bilaterally Heart: regular rate and rhythm, S1, S2 normal, no murmur, click, rub or gallop Abdomen: soft, non-tender. Bowel sounds normal. No masses, no organomegaly Extremities: Diffuse swelling in base of the neck. Pulses: 2+ and symmetric Neurologic: Grossly normal, DERM interval resolution of diffuse redness in base of the neck 1- Sepsis : Resolved 2. Diffuse soft tissue swelling of the neck, possible parapharyngeal abscess 3- Diffuse Cellulitis of base of neck 4- Hypercalcemia, workup deferred to outpatient Plan: D/w ENT, agreed and will proceed for transferring patient to higher level of care secondary to possibility of expansion of infection/abscess in deep compartment of head and neck region. No sign of respiratory compromise at this time current abx on MAC list Given the favorable response to our conservative management. Pending ENT assessment may be a candidate for biopsy / I +D on parapharyngeal structures Subjective Allergies: Coded Allergies: No Known Allergies (Unverified , 07/04/18) Objective Last 24 Hour Vital Signs Date Time Temp Pulse Resp B/P (MAP) Pulse Ox O2 Delivery O2 Flow Rate FiO2 07/22/18 09:58 50 143/69 07/22/18 09:00 Room Air 07/22/18 08:00 98.0 50 20 143/69 (93) 99 07/22/18 04:00 97.3 58 18 132/71 (91) 96 07/22/18 00:00 98.0 53 20 142/52 (82) 100 07/21/18 21:00 Room Air 07/21/18 20:45 56 126/53 07/21/18 20:00 98.1 56 18 126/53 (77) 100 07/21/18 16:00 97.5 87 18 119/59 (79) 99 Intake and Output 07/21/18 07/22/18 19:00 07:00 Intake Total 775 ml 875 ml Balance 775 ml 875 ml Intake Oral 400 ml 720 ml IV Total 375 ml 155 ml # Voids 1 6 # Bowel Movements 1 Laboratory Tests 07/22/18 08:50: Vancomycin Level Trough 10.3 Height (Feet): 5 Height (Inches): 1.00 Weight (Pounds): 195 Mady Perez MD Jul 22, 2018 13:52
[2018-07-22] MEDS ORDERED: D5 1/2NS 1000ml IV ONE (15:22)
[2018-07-22] MEDS ORDERED: Tubing IV Secondary IV ONE ×2 (15:26→19:11)
[2018-07-22] MEDS ORDERED: NS 500ML ONE ×2 (15:26→19:10)
[2018-07-22 16:00] VITALS: BP 136/66
--- NOTE | 2018-07-22 16:00 | Surgery Progress Note ---
Surgery Progress Note Subjective Symptoms: improved, tolerating diet, passing flatus, BM Additional Comments improving. no complaints. no issues Objective Last 24 Hour Vital Signs Date Time Temp Pulse Resp B/P (MAP) Pulse Ox O2 Delivery O2 Flow Rate FiO2 07/22/18 09:58 50 143/69 07/22/18 09:00 Room Air 07/22/18 08:00 98.0 50 20 143/69 (93) 99 07/22/18 04:00 97.3 58 18 132/71 (91) 96 07/22/18 00:00 98.0 53 20 142/52 (82) 100 07/21/18 21:00 Room Air 07/21/18 20:45 56 126/53 07/21/18 20:00 98.1 56 18 126/53 (77) 100 07/21/18 16:00 97.5 87 18 119/59 (79) 99 I&O Intake and Output 07/21/18 07/22/18 19:00 07:00 Intake Total 775 ml 875 ml Balance 775 ml 875 ml Intake Oral 400 ml 720 ml IV Total 375 ml 155 ml # Voids 1 6 # Bowel Movements 1 Cardiovascular: RSR Respiratory: clear Abdomen: soft, flat, non-tender, non-distended Extremities: no edema, no tenderness, no cyanosis Laboratory Tests Test 07/22/18 08:50 Vancomycin Level Trough 10.3 ug/mL (5.0-12.0) Plan Problems: (1) Cellulitis Assessment & Plan: 67-year-old with left neck cellulitis. Leukocytosis. Low- grade fevers. Tenderness on examination with large area of cellulitis without fluctuance. CT scan ordered and pending final read but did speak with the radiologist and there is significant inflammation in the oropharynx and neck around the pharynx and trachea. There is subcutaneous tissue swelling consistent with cellulitis in the area as identified on clinical examination. There is a narrowed airway. Even these findings patient was transferred to the intensive care unit for close monitoring. Etiology of patient's infection is currently unknown and will need further workup. Currently respiratory stable without any signs of compromise or distress. Patient states she is breathing well without any shortness of breath or difficulty. Airway is currently patent. Radiological findings noted. labs improved exam improved liquid soft diet IV abx appreciate ENT input - transfer for higher level of care for I&D if shows signs of respiratory issues will need urgent intubation for airway protection vs tracheostomy Cellulitis has significantly improved and continues to do so. No signs of airway obstruction noted at this time. Tolerating diet. Unfortunately very difficult to find transfer for higher level of care eval. At some point may consider since patient stable DC with outpatient follow-up. still awaiting placement. significantly improved awaiting ENT input for d/c will follow with recs thank you Florencio Jimenez Jul 22, 2018 15:59
--- NOTE | 2018-07-22 17:13 | Infectious Diseases Prog Note ---
Assessment/Plan Problems: (1) Retropharyngeal abscess Assessment & Plan: with extension to the left clavicle , on triple antibiotics , need I&D , S/P ENT eval, clinically stable for now, may require trach if respiratory status worsened . will treat with iv antibiotics for four weeks (2) Cellulitis Assessment & Plan: of the left neck and upper shoulder, continue vancomycin , cefepime and metronidazole empirically, may need skin biopsy if no improvement with antibiotics alone to rule out malignant process (3) Sepsis Assessment & Plan: with leukocytosis , due to the above , continue wide spectrum antibiotics for four weeks (4) Hypercalcemia Assessment & Plan: improving , rule out malignancy , renal is following Subjective Constitutional: Reports: no symptoms HEENT: Reports: no symptoms Respiratory: Reports: no symptoms Breasts: Reports: no symptoms Cardiovascular: Reports: no symptoms Gastrointestinal/Abdominal: Reports: no symptoms Genitourinary: Reports: no symptoms Neurologic: Reports: no symptoms Psychiatric: Reports: no symptoms Skin: Reports: no symptoms Endocrine: Reports: no symptoms Hematologic: Reports: no symptoms Musculoskeletal: Reports: no symptoms Allergies: Coded Allergies: No Known Allergies (Unverified , 07/04/18) Objective Vital Signs Last 24 Hour Vital Signs Date Time Temp Pulse Resp B/P (MAP) Pulse Ox O2 Delivery O2 Flow Rate FiO2 07/22/18 09:58 50 143/69 07/22/18 09:00 Room Air 07/22/18 08:00 98.0 50 20 143/69 (93) 99 07/22/18 04:00 97.3 58 18 132/71 (91) 96 07/22/18 00:00 98.0 53 20 142/52 (82) 100 07/21/18 21:00 Room Air 07/21/18 20:45 56 126/53 07/21/18 20:00 98.1 56 18 126/53 (77) 100 Height (Feet): 5 Height (Inches): 1.00 Weight (Pounds): 195 General Appearance: WD/WN, no acute distress HEENT: normocephalic, atraumatic, anicteric, mucous membranes moist, PERRL Respiratory/Chest: chest wall non-tender, lungs clear, normal breath sounds, no respiratory distress, no accessory muscle use Cardiovascular: normal peripheral pulses, normal rate, regular rhythm, no gallop/murmur, no JVD Abdomen: normal bowel sounds, soft, non tender, no organomegaly, non distended , no mass, no scars Genitourinary: normal external genitalia Extremities: no cyanosis, no clubbing Skin: no rash, no lesions, no ulcers 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, no motor/sensory deficits, abnormal gait, alert, responsive Lymphatic: no neck adenopathy, no groin adenopathy Musculoskeletal: normal muscle bulk, no effusion Laboratory Tests Test 07/22/18 08:50 Vancomycin Level Trough 10.3 ug/mL (5.0-12.0) Current Medications Medications (Trade) Dose Ordered Sig/Omari Route PRN Reason Start Time Stop Time Status Last Admin Dose Admin Acetaminophen (Tylenol) 650 mg Q6H PRN ORAL Mild Pain/Temp > 100.5 07/06/18 17:33 08/05/18 17:32 Benztropine Mesylate (Cogentin) 1 mg BID ORAL 07/07/18 09:00 08/06/18 08:59 07/22/18 09:59 Cefepime HCl 2 gm/ Dextrose 55 ml @ 110 mls/hr Q24H IVPB 07/13/18 00:00 08/04/18 00:00 07/22/18 00:14 Chlorhexidine Gluconate (Hyun-Hex 2%) 1 applic DAILY@2000 TOPIC 07/11/18 20:00 08/10/18 19:59 07/21/18 20:45 Docusate Sodium (Colace) 250 mg DAILY ORAL 07/07/18 09:00 08/04/18 08:59 07/22/18 09:58 Haloperidol (Haldol) 5 mg DAILY ORAL 07/07/18 09:00 08/04/18 08:59 07/22/18 09:57 Heparin Sodium (Porcine) (Heparin 5000 units/ml) 5,000 units EVERY 12 HOURS SUBQ 07/06/18 21:00 08/03/18 20:59 07/22/18 09:58 [place] Carbonate ([place] Carbonate) 300 mg BID ORAL 07/07/18 09:00 08/06/18 08:59 07/22/18 09:58 Metronidazole 100 ml @ 100 mls/hr Q8HR IVPB 07/06/18 22:00 08/04/18 21:59 07/22/18 14:54 Mirtazapine (Remeron) 7.5 mg BEDTIME ORAL 07/06/18 21:00 08/03/18 20:59 07/21/18 20:48 Nifedipine (Adalat) 10 mg Q12HR ORAL 07/06/18 21:00 08/04/18 08:59 07/22/18 09:58 Pantoprazole (Protonix) 40 mg DAILY ORAL 07/07/18 09:00 08/04/18 08:59 07/22/18 09:58 Vancomycin HCl (Vanco rx to dose) 1 ea DAILY PRN MISC Per rx protocol 07/07/18 09:00 08/03/18 18:29 Vancomycin HCl 1 gm/Dextrose 275 ml @ 183.708 mls/hr Q24H IVPB 07/13/18 10:00 08/04/18 09:59 07/22/18 10:33 Gloria Nelson M.D. Jul 22, 2018 17:13
--- NOTE | 2018-07-22 19:30 | NUR ---
NURSE NOTES: Patient is in bed, aaox4, no signs of distress. No pain noted, no difficulty breathing. IV site intact and patent. Bed low, call light within reach.
--- NOTE | 2018-07-22 19:40 | NUR ---
HAND-OFF: Report given to Crista VALADEZ, pt in stable condition.
[2018-07-22 20:00] VITALS: BP 145/64
[2018-07-22] MEDS: Dyna-Hex 2% Top Sol 2oz TOPIC SCH (20:00)
[2018-07-23] VITALS: BP 138/63
[2018-07-23] MEDS: Cefepime HCl 2 GM in D5W 55 ML IVPB SCH (01:14)
[2018-07-23 04:00] VITALS: BP 135/65
--- NOTE | 2018-07-23 07:53 | NUR ---
HAND-OFF: Report given to RORY Horan. Patient stable.
--- NOTE | 2018-07-23 07:55 | NUR ---
NURSE NOTES: Received report from RORY Tobin. Patient asleep and at bedside. No respiratory distress noted. Denies any pain at this time. Bed in lowest position, call light within reach. Will continue to monitor.
[2018-07-23 08:00] VITALS: BP 128/53
[2018-07-23] MEDS: Docusate 250mg cap ORAL SCH (08:47)
[2018-07-23] MEDS: Benztropine 1mg tab ORAL SCH ×2 (08:48→17:46)
[2018-07-23] MEDS: NIFEdipine 10mg cap ORAL SCH ×2 (08:48→20:39)
[2018-07-23] MEDS: Heparin 5000 units/ml inj SUBQ SCH ×2 (08:49→20:41)
--- NOTE | 2018-07-23 11:08 | Surgery Progress Note ---
Surgery Progress Note Subjective Additional Comments at bedside. no acute events. resting comfortable. labs noted. exam stable. Objective Last 24 Hour Vital Signs Date Time Temp Pulse Resp B/P (MAP) Pulse Ox O2 Delivery O2 Flow Rate FiO2 07/23/18 08:48 54 128/53 07/23/18 08:00 97.7 54 18 128/53 (78) 98 07/23/18 04:00 98.9 56 21 135/65 (88) 96 07/23/18 00:00 98.4 59 20 138/63 (88) 98 07/22/18 21:54 54 136/66 07/22/18 21:00 Room Air 07/22/18 20:00 99.0 52 21 145/64 (91) 98 07/22/18 16:00 99.1 54 20 136/66 (89) 98 07/22/18 12:00 98.7 54 20 131/65 (87) 98 I&O Intake and Output 07/22/18 07/23/18 19:00 07:00 Intake Total 600 ml Balance 600 ml Intake Oral 600 ml # Voids 3 1 Cardiovascular: RSR Respiratory: clear Abdomen: soft, flat, non-tender Extremities: no edema, no tenderness, no cyanosis Laboratory Tests Test 07/23/18 09:00 Vancomycin Level Trough 11.6 ug/mL (5.0-12.0) Plan Problems: (1) Cellulitis Assessment & Plan: 67-year-old with left neck cellulitis. Leukocytosis. Low- grade fevers. Tenderness on examination with large area of cellulitis without fluctuance. CT scan ordered and pending final read but did speak with the radiologist and there is significant inflammation in the oropharynx and neck around the pharynx and trachea. There is subcutaneous tissue swelling consistent with cellulitis in the area as identified on clinical examination. There is a narrowed airway. Even these findings patient was transferred to the intensive care unit for close monitoring. Etiology of patient's infection is currently unknown and will need further workup. Currently respiratory stable without any signs of compromise or distress. Patient states she is breathing well without any shortness of breath or difficulty. Airway is currently patent. Radiological findings noted. labs improved exam improved liquid soft diet IV abx appreciate ENT input - transfer for higher level of care for I&D if shows signs of respiratory issues will need urgent intubation for airway protection vs tracheostomy Cellulitis has significantly improved and continues to do so. No signs of airway obstruction noted at this time. Tolerating diet. Unfortunately very difficult to find transfer for higher level of care eval. At some point may consider since patient stable DC with outpatient follow-up. still awaiting placement. significantly improved awaiting ENT input for d/c will follow with recs thank you Florencio Jimenez Jul 23, 2018 11:08
[2018-07-23] MEDS: Vancomycin 1gm/D5W 275ml IVPB SCH ×2 (11:28)
[2018-07-23 12:00] VITALS: BP 131/67
--- NOTE | 2018-07-23 12:49 | General Progress Note ---
Assessment/Plan Assessment/Plan S: I am feeling ok O: diffuse redness and swelling in the base of the neck, interval improvement. Review of Systems Review of Symptoms General ROS: no weight loss or fever Psychological ROS: no depression or mood changes, no memory loss Ophthalmic ROS: no visual changes or eye irritation ENT ROS: no nasal congestion, hearing loss, dizziness Allergy and Immunology ROS: no allergic symptoms or urticaria Hematological and Lymphatic ROS: no swollen glands, unusual bleeding or bruising Endocrine ROS: no polyuria, polydipsia, weight changes, temperature intolerance Respiratory ROS: no cough, shortness of breath, or wheezing Cardiovascular ROS: no chest pain or dyspnea on exertion Gastrointestinal ROS: denies abdominal pain, bright red blood in stool. Musculoskeletal ROS: no myalgias or arthralgias Neurological ROS: no TIA or stroke symptoms Dermatological ROS: interval resolution of diffuse redness in base of the neck Physical Exam Physical Exam General appearance: alert, cooperative, no distress, appears stated age Head: Normocephalic, without obvious abnormality, atraumatic Eyes: conjunctivae/corneas clear. PERRL, EOM's intact. Fundi benign Throat: Lips, mucosa, and tongue normal. Teeth and gums normal Neck: supple, symmetrical, trachea midline, no adenopathy, t Lungs: clear to auscultation bilaterally Heart: regular rate and rhythm, S1, S2 normal, no murmur, click, rub or gallop Abdomen: soft, non-tender. Bowel sounds normal. No masses, no organomegaly Extremities: Diffuse swelling in base of the neck. Pulses: 2+ and symmetric Neurologic: Grossly normal, DERM interval resolution of diffuse redness in base of the neck 1- Sepsis : Resolved 2. Diffuse soft tissue swelling of the neck, possible parapharyngeal abscess 3- Diffuse Cellulitis of base of neck 4- Hypercalcemia, workup deferred to outpatient Plan: D/w ENT, agreed and will proceed for transferring patient to higher level of care secondary to possibility of expansion of infection/abscess in deep compartment of head and neck region. No sign of respiratory compromise at this time current abx on MAC list Given the favorable response to our conservative management. Pending ENT assessment may be a candidate for biopsy / I +D on parapharyngeal structures. Given the complexity of this procedure, pending referral to higher level of care Subjective Allergies: Coded Allergies: No Known Allergies (Unverified , 07/04/18) Objective Last 24 Hour Vital Signs Date Time Temp Pulse Resp B/P (MAP) Pulse Ox O2 Delivery O2 Flow Rate FiO2 07/23/18 12:00 98.5 60 20 131/67 (88) 97 07/23/18 09:00 Room Air 07/23/18 08:48 54 128/53 07/23/18 08:00 97.7 54 18 128/53 (78) 98 07/23/18 04:00 98.9 56 21 135/65 (88) 96 07/23/18 00:00 98.4 59 20 138/63 (88) 98 07/22/18 21:54 54 136/66 07/22/18 21:00 Room Air 07/22/18 20:00 99.0 52 21 145/64 (91) 98 07/22/18 16:00 99.1 54 20 136/66 (89) 98 Intake and Output 07/22/18 07/23/18 19:00 07:00 Intake Total 600 ml Balance 600 ml Intake Oral 600 ml # Voids 3 1 Laboratory Tests 07/23/18 09:00: Vancomycin Level Trough 11.6 Height (Feet): 5 Height (Inches): 1.00 Weight (Pounds): 195 Mady Perez MD Jul 23, 2018 12:49
[2018-07-23] MEDS ORDERED: Isovue-300 100ml vial INJ PRN (13:00)
--- NOTE | 2018-07-23 13:26 | NUR ---
NURSE NOTES: Patient signed the consent and IV line was flushed. Patient off the unit for CT of Neck.
--- NOTE | 2018-07-23 13:46 | NUR ---
NURSE NOTES: Patient came back from MRI in stable condition. Addendum: 07/23/18 at 1347 by Chelsie Robbins RN DISCARD PLEASE WRONG NOTES
--- NOTE | 2018-07-23 13:48 | NUR ---
NURSE NOTES: Patient came back from CT of Neck in stable condition.
--- NOTE | 2018-07-23 13:49 | NUR ---
CASE MANAGEMENT:REVIEW 07/23/18 SI: LEFT NECK CELLULITIS PARAPHARYNGEAL ABSCESS EXTENDING TO CLAVICLE 98.5 60 20 131/67 97% ON RA IS: IV VANCOMYCIN Q24 IV CEFEPIME Q24 IV FLAGYL Q8HRS LIBRIUM PO BID HEPARIN SQ Q12 : MED/SURG STATUS 3 EAST PLAN: PATIENT IS ON THE MAC LIST TO TRANSFER TO A HIGHER LEVEL OF CARE...WAITING FOR [place] B[place] [facility] [facility] [place][id number] REFERRED TO BERNADETTE KINGSLEY ~ THEIR DOCTORS SAID TOO HIGH LEVEL FOR THEM REFERRED [facility] T: [phone] F:[phone]
--- NOTE | 2018-07-23 14:03 | NUR ---
TRANSFER UPDATE CALLED [facility] AND SPOKE WITH CECILIO. [facility] FACILITIES ARE STILL FULL TO [facility] T: [phone] OPT#2 F: [phone] MAC #[id number] ALSO REFERRED TO BERNADETTE KINGSLEY ~ AFTER REVIEWING THE CASE THEIR PHYSICIANS FELT THIS CASE WAS TOO HIGH LEVEL FOR THEM. REFERRED TO [facility] ~
--- NOTE | 2018-07-23 14:27 | Diagnostic Imaging Report ---
Indication: Left-sided neck and chest swelling pain Technique: Continuous helical imaging of the neck was obtained transaxially from the skull base to the upper thoracic spine during intravenous administration of nonionic contrast. 2-D coronal and sagittal reformatted images were obtained. Total Dose length Product (DLP): 582.[address] Dose Index Volume (CTDIvol): 21.51 mGy Comparison: None Findings: There is extensive left posterior and posterior lateral subcutaneous stranding and edema. In the neck this involves the left aspect of the skull base and the left posterior neck muscles which are edematous. As we proceed toward the base of the neck there is subcutaneous edema in association with muscular edema and hypertrophy on the left side involving again posterior strap muscles and the portions of the trapezius muscle extending into the left shoulder. There is no abscess identified. There are multiple nodes throughout the neck mostly in the posterior cervical region, presumably inflammatory. In the supraglottic airway there is moderate degree of mucosal thickening and edema narrowing the oropharyngeal airway. The area of the epiglottis is effaced. There is thickening of the soft palate and uvula. Please correlate clinically. The larynx and subglottic airway is unremarkable. There is thyromegaly present with suggestion of a hypodensities within both lobes nonspecific and only partially imaged on this study. IMPRESSION: No evidence of abscess. Extensive left-sided cellulitis involving the neck and upper chest. Reactive lymphadenopathy. Supraglottic/oropharyngeal edema. Epiglottitis is not excluded. Narrowing of the oropharyngeal airway noted at risk for airways compromise. [facility] has communicated the preliminary results. Their findings are largely concordant with this report. Critical value communication. Findings were discussed via telephone with consulting surgeon Dr. Jimenez by the [facility] physician Dr. Cortez on 07/04/18 at17:[address] scanner at [facility] is accredited by the [employer] and the scans are performed using dose optimization techniques as appropriate to a performed exam including Automatic Exposure control.
--- NOTE | 2018-07-23 14:27 | Diagnostic Imaging Report ---
Indication: Chest pain Comparison: None A single view chest radiograph was obtained. Findings: Thoracic spine osteophytes noted multiple levels. Heart size is borderline. Lungs are essentially clear IMPRESSION: No acute disease
[2018-07-23 16:00] VITALS: BP 123/68
--- NOTE | 2018-07-23 16:07 | Diagnostic Imaging Report ---
Indication: Neck swelling and pain, prior left neck infection Technique: IV administration nonionic contrast. Spiral acquisitions obtained through the neck Multiplanar reconstructions were generated. Total dose length product 728 mGycm. CTDIvol(s) 8, 56, 20 mGy. Radiation dose was minimized using automated exposure control Comparison: 07/04/2018 Findings: Again demonstrated is infiltration of the left supraclavicular fat an associated overlying skin thickening. This extends slightly into the upper chest wall and slightly into the lower left neck. The degree of infiltration appears decreased anteriorly since the previous exam. The previously demonstrated asymmetric trapezius muscle thickening and left lateral neck musculature thickening appears somewhat improved as well. There is decreased thickening of the lateral posterior subcutaneous fat, although less of this region is included in the current field of view. No focal fluid collections to suggest abscess demonstrated. Abundant regional lymph nodes are again demonstrated, none appearing pathologically enlarged. Again demonstrated is thyroid enlargement and multiple thyroid nodules. The left nodule measures 2.7 by 2.5 cm in diameter. That on the right measures 1.7 cm. No other cervical mass or adenopathy. The included sinuses are clear.. The nasopharynx, oropharynx, hypopharynx, larynx are all unremarkable. The previously demonstrated upper airway edema is no longer evident. The previously demonstrated retropharyngeal swelling has resolved. The proximal esophagus is unremarkable. The included upper mediastinum is unremarkable. The salivary glands are unremarkable. The bones demonstrate degenerative changes of the cervical and upper thoracic spine. The included lung apices are clear except for minimal atelectasis on the left. The orbits are unremarkable. The included intracranial structures are unremarkable. Impression: Left anterior supraclavicular and upper chest wall subcutaneous fat infiltration and associated skin and muscular thickening, given stated clinical history likely on the basis of soft tissue cellulitis. This appears somewhat improved from previous exam of 07/04/2018. No evidence of underlying abscess Marked improved hypopharyngeal mucosal edema and retropharyngeal soft tissue swelling, prior exam 07/04/2018, now largely resolved Bilateral thyroid nodules. Consider ultrasound evaluation if these have not been worked up previously. The CT scanner at [facility] is accredited by the [employer] and the scans are performed using protocols designed to limit radiation exposure to as low as reasonably achievable to attain images of sufficient resolution adequate for diagnostic evaluation.
--- NOTE | 2018-07-23 16:36 | Infectious Diseases Prog Note ---
Assessment/Plan Problems: (1) Retropharyngeal abscess Assessment & Plan: with extension to the left clavicle , on triple antibiotics , need I&D , S/P ENT eval, clinically stable for now, may require trach if respiratory status worsened . will treat with iv antibiotics for four weeks (2) Cellulitis Assessment & Plan: of the left neck and upper shoulder, continue vancomycin , cefepime and metronidazole empirically, may need skin biopsy if no improvement with antibiotics alone to rule out malignant process (3) Sepsis Assessment & Plan: with leukocytosis , due to the above , continue wide spectrum antibiotics for four weeks (4) Hypercalcemia Assessment & Plan: improving , rule out malignancy , renal is following Subjective Constitutional: Reports: no symptoms HEENT: Reports: no symptoms Respiratory: Reports: no symptoms Breasts: Reports: no symptoms Cardiovascular: Reports: no symptoms Gastrointestinal/Abdominal: Reports: no symptoms Genitourinary: Reports: no symptoms Neurologic: Reports: no symptoms Psychiatric: Reports: no symptoms Skin: Reports: no symptoms Endocrine: Reports: no symptoms Hematologic: Reports: no symptoms Musculoskeletal: Reports: no symptoms Allergies: Coded Allergies: No Known Allergies (Unverified , 07/04/18) Objective Vital Signs Last 24 Hour Vital Signs Date Time Temp Pulse Resp B/P (MAP) Pulse Ox O2 Delivery O2 Flow Rate FiO2 07/23/18 12:00 98.5 60 20 131/67 (88) 97 07/23/18 09:00 Room Air 07/23/18 08:48 54 128/53 07/23/18 08:00 97.7 54 18 128/53 (78) 98 07/23/18 04:00 98.9 56 21 135/65 (88) 96 07/23/18 00:00 98.4 59 20 138/63 (88) 98 07/22/18 21:54 54 136/66 07/22/18 21:00 Room Air 07/22/18 20:00 99.0 52 21 145/64 (91) 98 Height (Feet): 5 Height (Inches): 1.00 Weight (Pounds): 195 General Appearance: WD/WN, no acute distress HEENT: normocephalic, atraumatic, anicteric, mucous membranes moist Respiratory/Chest: chest wall non-tender, lungs clear, normal breath sounds, no respiratory distress, no accessory muscle use Cardiovascular: normal peripheral pulses, normal rate, regular rhythm, no gallop/murmur, no JVD Abdomen: normal bowel sounds, soft, non tender, no organomegaly, non distended , no mass, no scars Genitourinary: normal external genitalia Extremities: no cyanosis, no clubbing Skin: no rash, no lesions, no ulcers Neurologic/Psychiatric: soil tester II-XII grossly normal, no motor/sensory deficits, alert, oriented x 3, responsive Laboratory Tests Test 07/23/18 09:00 Vancomycin Level Trough 11.6 ug/mL (5.0-12.0) Current Medications Medications (Trade) Dose Ordered Sig/Omari Route PRN Reason Start Time Stop Time Status Last Admin Dose Admin Acetaminophen (Tylenol) 650 mg Q6H PRN ORAL Mild Pain/Temp > 100.5 07/06/18 17:33 08/05/18 17:32 Benztropine Mesylate (Cogentin) 1 mg BID ORAL 07/07/18 09:00 08/06/18 08:59 07/23/18 08:48 Cefepime HCl 2 gm/ Dextrose 55 ml @ 110 mls/hr Q24H IVPB 07/13/18 00:00 08/04/18 00:00 07/23/18 01:14 Chlorhexidine Gluconate (Hyun-Hex 2%) 1 applic DAILY@2000 TOPIC 07/11/18 20:00 08/10/18 19:59 07/21/18 20:45 Docusate Sodium (Colace) 250 mg DAILY ORAL 07/07/18 09:00 08/04/18 08:59 07/23/18 08:47 Haloperidol (Haldol) 5 mg DAILY ORAL 07/07/18 09:00 08/04/18 08:59 07/23/18 08:47 Heparin Sodium (Porcine) (Heparin 5000 units/ml) 5,000 units EVERY 12 HOURS SUBQ 07/06/18 21:00 08/03/18 20:59 07/23/18 08:49 Iopamidol (Isovue-300 100ml) 100 ml NOW PRN INJ Radiology Procedure 07/23/18 13:00 07/25/18 12:49 [place] Carbonate ([place] Carbonate) 300 mg BID ORAL 07/07/18 09:00 08/06/18 08:59 07/23/18 08:48 Metronidazole 100 ml @ 100 mls/hr Q8HR IVPB 07/06/18 22:00 08/04/18 21:59 07/23/18 14:03 Mirtazapine (Remeron) 7.5 mg BEDTIME ORAL 07/06/18 21:00 08/03/18 20:59 07/22/18 21:53 Nifedipine (Adalat) 10 mg Q12HR ORAL 07/06/18 21:00 08/04/18 08:59 07/23/18 08:48 Pantoprazole (Protonix) 40 mg DAILY ORAL 07/07/18 09:00 08/04/18 08:59 07/23/18 08:48 Vancomycin HCl (Vanco rx to dose) 1 ea DAILY PRN MISC Per rx protocol 07/07/18 09:00 08/03/18 18:29 Vancomycin HCl 1 gm/Dextrose 275 ml @ 183.708 mls/hr Q24H IVPB 07/13/18 10:00 08/04/18 09:59 07/23/18 11:28 Gloria Nelson M.D. Jul 23, 2018 16:36
--- NOTE | 2018-07-23 19:37 | NUR ---
HAND-OFF: Report given to RORY Tobin. Patient in stable condition.
--- NOTE | 2018-07-23 19:42 | NUR ---
NURSE NOTES: Received report from RORY Horan. Patient is in bed, aaox4. No signs of distress. No pain noted. IV sight intact/patent. at bedside. Bed low, call light within reach.
[2018-07-23 20:00] VITALS: BP 119/72
[2018-07-24] MEDS: Cefepime HCl 2 GM in D5W 55 ML IVPB SCH (00:19)
[2018-07-24 04:00] VITALS: BP 121/74
--- NOTE | 2018-07-24 07:20 | NUR ---
NURSE NOTES:BEDSIDE ROUNDS DONE WITH NIGHT RN(TANNA),PATIENT SLEEPING BUT AROUSABLE,ROOM AIR, AT BEDSIDE.WITH RESOLVING REDNESS AND SWELLING IN ANTERIOR NECK.NO C/O PAIN.
--- NOTE | 2018-07-24 07:31 | NUR ---
HAND-OFF: Report given to RORY Hein. Patient stable.
[2018-07-24] MEDS ORDERED: LITHIUM CARBON300 MG ORAL (07:45)
[2018-07-24] MEDS ORDERED: ADALAT10 MG ORAL (07:45)
[2018-07-24] MEDS ORDERED: Benztropine Mesylate ORAL (07:45)
[2018-07-24] MEDS ORDERED: MIRTAZAPINE15 M3 ORAL (07:45)
[2018-07-24] MEDS ORDERED: HALDOL5 MG ORAL (07:45)
--- NOTE | 2018-07-24 07:49 | General Progress Note ---
Assessment/Plan Assessment/Plan S: I am feeling ok O: diffuse redness and swelling in the base of the neck, interval improvement. Review of Systems Review of Symptoms General ROS: no weight loss or fever Psychological ROS: no depression or mood changes, no memory loss Ophthalmic ROS: no visual changes or eye irritation ENT ROS: no nasal congestion, hearing loss, dizziness Allergy and Immunology ROS: no allergic symptoms or urticaria Hematological and Lymphatic ROS: no swollen glands, unusual bleeding or bruising Endocrine ROS: no polyuria, polydipsia, weight changes, temperature intolerance Respiratory ROS: no cough, shortness of breath, or wheezing Cardiovascular ROS: no chest pain or dyspnea on exertion Gastrointestinal ROS: denies abdominal pain, bright red blood in stool. Musculoskeletal ROS: no myalgias or arthralgias Neurological ROS: no TIA or stroke symptoms Dermatological ROS: interval resolution of diffuse redness in base of the neck Physical Exam Physical Exam General appearance: alert, cooperative, no distress, appears stated age Head: Normocephalic, without obvious abnormality, atraumatic Eyes: conjunctivae/corneas clear. PERRL, EOM's intact. Fundi benign Throat: Lips, mucosa, and tongue normal. Teeth and gums normal Neck: supple, symmetrical, trachea midline, no adenopathy, t Lungs: clear to auscultation bilaterally Heart: regular rate and rhythm, S1, S2 normal, no murmur, click, rub or gallop Abdomen: soft, non-tender. Bowel sounds normal. No masses, no organomegaly Extremities: Diffuse swelling in base of the neck. Pulses: 2+ and symmetric Neurologic: Grossly normal, DERM interval resolution of diffuse redness in base of the neck 1- Sepsis : Resolved 2. Diffuse soft tissue swelling of the neck, possible parapharyngeal abscess 3- Diffuse Cellulitis of base of neck 4- Hypercalcemia, workup deferred to outpatient Plan: D/w ENT, agreed and will proceed for transferring patient to higher level of care secondary to possibility of expansion of infection/abscess in deep compartment of head and neck region. No sign of respiratory compromise at this time current abx on MAC list Given the favorable response to our conservative management. Pending ENT assessment may be a candidate for biopsy / I +D on parapharyngeal structures. No residual Lesion in Neck CT to suggest malignancy. out patient followup is reasonable at this point Subjective Allergies: Coded Allergies: No Known Allergies (Unverified , 3/24/19) Objective Last 24 Hour Vital Signs Date Time Temp Pulse Resp B/P (MAP) Pulse Ox O2 Delivery O2 Flow Rate FiO2 07/24/18 07:20 Room Air 07/24/18 04:00 98.4 55 18 121/74 (90) 94 07/23/18 21:00 Room Air 07/23/18 20:39 53 119/72 07/23/18 20:00 100.0 53 18 119/72 (88) 97 07/23/18 16:00 98.9 51 19 123/68 (86) 98 07/23/18 12:00 98.5 60 20 131/67 (88) 97 07/23/18 09:00 Room Air 07/23/18 08:48 54 128/53 07/23/18 08:00 97.7 54 18 128/53 (78) 98 Intake and Output 07/23/18 07/24/18 18:59 06:59 Intake Total 940 ml 240 ml Balance 940 ml 240 ml Intake Oral 840 ml 240 ml IV Total 100 ml # Voids 3 2 Laboratory Tests 07/23/18 09:00: Vancomycin Level Trough 11.6 Height (Feet): 5 Height (Inches): 1.00 Weight (Pounds): 195 Mady Perez MD Jul 24, 2018 07:49
[2018-07-24 08:00] VITALS: BP 153/78
[2018-07-24] MEDS: Benztropine 1mg tab ORAL SCH ×2 (08:36→17:24)
[2018-07-24] MEDS: NIFEdipine 10mg cap ORAL SCH ×2 (08:36→21:18)
[2018-07-24] MEDS: Docusate 250mg cap ORAL SCH (08:36)
[2018-07-24] MEDS: Heparin 5000 units/ml inj SUBQ SCH ×2 (08:38→21:19)
[2018-07-24] MEDS ORDERED: Tubing IV Secondary IV ONE (10:47)
--- NOTE | 2018-07-24 11:45 | NUR ---
CHARGE NURSE NOTES: Nelida w/ mahendra,medical case worker regarding the pt's disharge back to [facility]. Will await acceptance.
[2018-07-24 12:00] VITALS: BP 129/98
[2018-07-24] MEDS: Vancomycin 1.25gm Premix IVPB SCH (13:21)
--- NOTE | 2018-07-24 13:53 | Surgery Progress Note ---
Surgery Progress Note Subjective Symptoms: improved, tolerating diet, passing flatus, BM Objective Last 24 Hour Vital Signs Date Time Temp Pulse Resp B/P (MAP) Pulse Ox O2 Delivery O2 Flow Rate FiO2 07/24/18 12:00 98.8 55 17 129/98 (108) 98 07/24/18 08:36 61 153/78 07/24/18 08:00 98.5 61 17 153/78 (103) 99 07/24/18 07:20 Room Air 07/24/18 04:00 98.4 55 18 121/74 (90) 94 07/23/18 21:00 Room Air 07/23/18 20:39 53 119/72 07/23/18 20:00 100.0 53 18 119/72 (88) 97 07/23/18 16:00 98.9 51 19 123/68 (86) 98 I&O Intake and Output 07/23/18 07/24/18 19:00 07:00 Intake Total 940 ml 240 ml Balance 940 ml 240 ml Intake Oral 840 ml 240 ml IV Total 100 ml # Voids 3 2 Cardiovascular: RSR Respiratory: clear Abdomen: soft, flat, present bowel sounds, non-distended Extremities: no edema, no tenderness, no cyanosis Plan Problems: (1) Cellulitis Assessment & Plan: 67-year-old with left neck cellulitis. Leukocytosis. Low- grade fevers. Tenderness on examination with large area of cellulitis without fluctuance. CT scan ordered and pending final read but did speak with the radiologist and there is significant inflammation in the oropharynx and neck around the pharynx and trachea. There is subcutaneous tissue swelling consistent with cellulitis in the area as identified on clinical examination. There is a narrowed airway. Even these findings patient was transferred to the intensive care unit for close monitoring. Etiology of patient's infection is currently unknown and will need further workup. Currently respiratory stable without any signs of compromise or distress. Patient states she is breathing well without any shortness of breath or difficulty. Airway is currently patent. Radiological findings noted. labs improved exam improved liquid soft diet IV abx appreciate ENT input - transfer for higher level of care for I&D if shows signs of respiratory issues will need urgent intubation for airway protection vs tracheostomy Cellulitis has significantly improved and continues to do so. No signs of airway obstruction noted at this time. Tolerating diet. Unfortunately very difficult to find transfer for higher level of care eval. At some point may consider since patient stable DC with outpatient follow-up. still awaiting placement. significantly improved awaiting ENT input for d/c will follow with recs thank you Florencio Jimenez Jul 24, 2018 13:53
--- NOTE | 2018-07-24 14:00 | NUR ---
NURSE NOTES:DISCHARGE PENDING RE;PER JAVID(CASE MNGR.)NO BED AVAILABLE IN FACILITY,CHARGE NURSE (MERVAT) INFORMED.
--- NOTE | 2018-07-24 14:50 | Infectious Diseases Prog Note ---
Assessment/Plan Problems: (1) Retropharyngeal abscess Assessment & Plan: with extension to the left clavicle , on triple antibiotics , need I&D , S/P ENT eval, clinically stable for now, may require trach if respiratory status worsened . will treat with iv antibiotics for four weeks (2) Cellulitis Assessment & Plan: of the left neck and upper shoulder, continue vancomycin , cefepime and metronidazole empirically, may need skin biopsy if no improvement with antibiotics alone to rule out malignant process (3) Sepsis Assessment & Plan: with leukocytosis , due to the above , continue wide spectrum antibiotics for four weeks (4) Hypercalcemia Assessment & Plan: resolved , renal is following Subjective Constitutional: Reports: no symptoms HEENT: Reports: no symptoms Respiratory: Reports: no symptoms Breasts: Reports: no symptoms Cardiovascular: Reports: no symptoms Gastrointestinal/Abdominal: Reports: no symptoms Genitourinary: Reports: no symptoms Neurologic: Reports: no symptoms Psychiatric: Reports: no symptoms Skin: Reports: no symptoms Endocrine: Reports: no symptoms Hematologic: Reports: no symptoms Musculoskeletal: Reports: no symptoms Allergies: Coded Allergies: No Known Allergies (Unverified , 07/04/18) Subjective feels better overall, with less left neck and shoulder swelling and redness Objective Vital Signs Last 24 Hour Vital Signs Date Time Temp Pulse Resp B/P (MAP) Pulse Ox O2 Delivery O2 Flow Rate FiO2 07/24/18 12:00 98.8 55 17 129/98 (108) 98 07/24/18 08:36 61 153/78 07/24/18 08:00 98.5 61 17 153/78 (103) 99 07/24/18 07:20 Room Air 07/24/18 04:00 98.4 55 18 121/74 (90) 94 07/23/18 21:00 Room Air 07/23/18 20:39 53 119/72 07/23/18 20:00 100.0 53 18 119/72 (88) 97 07/23/18 16:00 98.9 51 19 123/68 (86) 98 Height (Feet): 5 Height (Inches): 1.00 Weight (Pounds): 195 General Appearance: WD/WN, no acute distress HEENT: normocephalic, atraumatic, anicteric, mucous membranes moist, PERRL Respiratory/Chest: chest wall non-tender, lungs clear, normal breath sounds, no respiratory distress, no accessory muscle use Cardiovascular: normal peripheral pulses, normal rate, regular rhythm, no gallop/murmur, no JVD Abdomen: normal bowel sounds, soft, non tender, no organomegaly, non distended , no mass, no scars Genitourinary: normal external genitalia Extremities: no cyanosis, no clubbing Skin: no rash, no lesions, no ulcers Neurologic/Psychiatric: slip dumper II-XII grossly normal, no motor/sensory deficits, alert, oriented x 3, responsive Lymphatic: no neck adenopathy, no groin adenopathy Musculoskeletal: normal muscle bulk, no effusion Current Medications Medications (Trade) Dose Ordered Sig/Omari Route PRN Reason Start Time Stop Time Status Last Admin Dose Admin Acetaminophen (Tylenol) 650 mg Q6H PRN ORAL Mild Pain/Temp > 100.5 07/06/18 17:33 08/05/18 17:32 Benztropine Mesylate (Cogentin) 1 mg BID ORAL 07/07/18 09:00 08/06/18 08:59 07/24/18 08:36 Cefepime HCl 2 gm/ Dextrose 55 ml @ 110 mls/hr Q24H IVPB 07/13/18 00:00 08/04/18 00:00 07/24/18 00:19 Docusate Sodium (Colace) 250 mg DAILY ORAL 07/07/18 09:00 08/04/18 08:59 07/24/18 08:36 Haloperidol (Haldol) 5 mg DAILY ORAL 07/07/18 09:00 08/04/18 08:59 07/24/18 08:36 Heparin Sodium (Porcine) (Heparin 5000 units/ml) 5,000 units EVERY 12 HOURS SUBQ 07/06/18 21:00 08/03/18 20:59 07/24/18 08:38 Iopamidol (Isovue-300 100ml) 100 ml NOW PRN INJ Radiology Procedure 07/23/18 13:00 07/25/18 12:49 Comerio Carbonate (Comerio Carbonate) 300 mg BID ORAL 07/07/18 09:00 08/06/18 08:59 07/24/18 08:35 Metronidazole 100 ml @ 100 mls/hr Q8HR IVPB 07/06/18 22:00 08/04/18 21:59 07/24/18 05:13 Mirtazapine (Remeron) 7.5 mg BEDTIME ORAL 07/06/18 21:00 08/03/18 20:59 07/23/18 20:38 Nifedipine (Adalat) 10 mg Q12HR ORAL 07/06/18 21:00 08/04/18 08:59 07/24/18 08:36 Pantoprazole (Protonix) 40 mg DAILY ORAL 07/07/18 09:00 08/04/18 08:59 07/24/18 08:36 Vancomycin HCl (Vanco rx to dose) 1 ea DAILY PRN MISC Per rx protocol 07/07/18 09:00 08/03/18 18:29 Vancomycin HCl/ Dextrose 275 ml @ 183.333 mls/hr Q24H IVPB 07/24/18 12:00 07/29/18 11:59 07/24/18 13:21 Gloria Nelson M.D. Jul 24, 2018 14:50
[2018-07-24 16:00] VITALS: BP 135/66
--- NOTE | 2018-07-24 19:20 | NUR ---
HAND-OFF: Report given to TANNA VALADEZ.PATIENT STABLE.
[2018-07-24 20:00] VITALS: BP 138/66
[2018-07-25] VITALS: BP 146/68
[2018-07-25] MEDS: Cefepime HCl 2 GM in D5W 55 ML IVPB SCH (00:42)
--- NOTE | 2018-07-25 02:30 | NUR ---
NURSE NOTES: Patient's IV site showing signs of swelling/redness with c/o irritation. IV site d/c'd. Unable to obtain IV access. ICU called. Said they will come up when able to
[2018-07-25 04:00] VITALS: BP 128/71
--- NOTE | 2018-07-25 04:17 | NUR ---
NURSE NOTES: New IV started left hand 22 gauge.
[2018-07-25 07:37] LABS: ANION GAP 5 mmol/L (5-15); BLOOD UREA NITROGEN 15 mg/dL (7-18); CALCIUM 11.2 MG/DL (8.5-10.1); CARBON DIOXIDE 23 MMOL/L (21-32); CHLORIDE 109 MMOL/L (98-107); CREATININE 1.3 MG/DL (0.55-1.30); POTASSIUM 4.3 MMOL/L (3.5-5.1); SODIUM 137 MMOL/L (136-145)
--- NOTE | 2018-07-25 07:45 | NUR ---
NURSE NOTES: Received report from Crista VALADEZ. Patient is asleep, but arousable to voice during rounds. No acute distress noted, RR even and unlabored. Patient's is at the bedside. Reporting no pain. IV intact and asymptomatic. Fall precautions maintained. Side rails upx3, bed low and locked, call light in reach. Will continue to monitor.
--- NOTE | 2018-07-25 07:47 | NUR ---
HAND-OFF: Report given to RORY Gunter. Patient stable.
[2018-07-25 08:00] VITALS: BP 152/76
[2018-07-25] MEDS: Heparin 5000 units/ml inj SUBQ SCH ×2 (09:12→21:09)
[2018-07-25] MEDS: Benztropine 1mg tab ORAL SCH ×2 (09:13→17:19)
[2018-07-25] MEDS: NIFEdipine 10mg cap ORAL SCH ×2 (09:13→21:07)
[2018-07-25] MEDS: Docusate 250mg cap ORAL SCH (09:13)
--- NOTE | 2018-07-25 10:53 | General Progress Note ---
Assessment/Plan Assessment/Plan S: I am feeling ok O: Resolustion of prior diffuse redness and swelling in the base of the neck Review of Systems Review of Symptoms General ROS: no weight loss or fever Psychological ROS: no depression or mood changes, no memory loss Ophthalmic ROS: no visual changes or eye irritation ENT ROS: no nasal congestion, hearing loss, dizziness Allergy and Immunology ROS: no allergic symptoms or urticaria Hematological and Lymphatic ROS: no swollen glands, unusual bleeding or bruising Endocrine ROS: no polyuria, polydipsia, weight changes, temperature intolerance Respiratory ROS: no cough, shortness of breath, or wheezing Cardiovascular ROS: no chest pain or dyspnea on exertion Gastrointestinal ROS: denies abdominal pain, bright red blood in stool. Musculoskeletal ROS: no myalgias or arthralgias Neurological ROS: no TIA or stroke symptoms Dermatological ROS: interval resolution of diffuse redness in base of the neck Physical Exam Physical Exam General appearance: alert, cooperative, no distress, appears stated age Head: Normocephalic, without obvious abnormality, atraumatic Eyes: conjunctivae/corneas clear. PERRL, EOM's intact. Fundi benign Throat: Lips, mucosa, and tongue normal. Teeth and gums normal Neck: supple, symmetrical, trachea midline, no adenopathy, t Lungs: clear to auscultation bilaterally Heart: regular rate and rhythm, S1, S2 normal, no murmur, click, rub or gallop Abdomen: soft, non-tender. Bowel sounds normal. No masses, no organomegaly Extremities: Diffuse swelling in base of the neck. Pulses: 2+ and symmetric Neurologic: Grossly normal, DERM interval resolution of diffuse redness in base of the neck 1- Sepsis : Resolved 2. Diffuse soft tissue swelling of the neck, possible parapharyngeal abscess 3- Diffuse Cellulitis of base of neck 4- Hypercalcemia, workup deferred to outpatient Plan: D/w ENT, agreed and will proceed for transferring patient to higher level of care secondary to possibility of expansion of infection/abscess in deep compartment of head and neck region. No sign of respiratory compromise at this time current abx on MAC list Given the favorable response to our conservative management. Pending ENT assessment may be a candidate for biopsy / I +D on parapharyngeal structures. No residual Lesion in Neck CT to suggest malignancy. out patient followup is reasonable at this point Subjective Allergies: Coded Allergies: No Known Allergies (Unverified , 3/24/19) Objective Last 24 Hour Vital Signs Date Time Temp Pulse Resp B/P (MAP) Pulse Ox O2 Delivery O2 Flow Rate FiO2 07/25/18 09:13 63 152/76 07/25/18 08:00 99.1 63 19 152/76 (101) 99 07/25/18 04:00 98.8 62 18 128/71 (90) 95 07/25/18 00:00 98.6 64 20 146/68 (94) 95 07/24/18 21:18 57 138/66 07/24/18 21:00 Room Air 07/24/18 20:00 99.4 57 18 138/66 (90) 97 07/24/18 16:00 99.3 60 18 135/66 (89) 97 07/24/18 12:00 98.8 55 17 129/98 (108) 98 Intake and Output 07/24/18 07/25/18 18:59 06:59 Intake Total 1075 ml 230 ml Balance 1075 ml 230 ml Intake Oral 800 ml 230 ml IV Total 275 ml # Voids 2 2 Laboratory Tests 07/25/18 05:19: Sodium Level 137, Potassium Level 4.3, Chloride Level 109H, Carbon Dioxide Level 23, Anion Gap 5, Blood Urea Nitrogen 15, Creatinine 1.3, Estimat Glomerular Filtration Rate 41.1, Glucose Level 118H, Calcium Level 11.2H Height (Feet): 5 Height (Inches): 1.00 Weight (Pounds): 195 Mady Perez MD Jul 25, 2018 10:53
[2018-07-25 12:00] VITALS: BP 117/56
[2018-07-25] MEDS: Vancomycin 1.25gm Premix IVPB SCH (12:09)
--- NOTE | 2018-07-25 13:50 | Surgery Progress Note ---
Surgery Progress Note Subjective Symptoms: improved, pain absent, tolerating diet, passing flatus, BM Objective Last 24 Hour Vital Signs Date Time Temp Pulse Resp B/P (MAP) Pulse Ox O2 Delivery O2 Flow Rate FiO2 07/25/18 12:00 98.9 63 20 117/56 (76) 96 07/25/18 09:13 63 152/76 07/25/18 09:00 Room Air 07/25/18 08:00 99.1 63 19 152/76 (101) 99 07/25/18 04:00 98.8 62 18 128/71 (90) 95 07/25/18 00:00 98.6 64 20 146/68 (94) 95 07/24/18 21:18 57 138/66 07/24/18 21:00 Room Air 07/24/18 20:00 99.4 57 18 138/66 (90) 97 07/24/18 16:00 99.3 60 18 135/66 (89) 97 I&O Intake and Output 07/24/18 07/25/18 18:59 06:59 Intake Total 1075 ml 230 ml Balance 1075 ml 230 ml Intake Oral 800 ml 230 ml IV Total 275 ml # Voids 2 2 Drains: none Cardiovascular: RSR Respiratory: clear Abdomen: soft, flat, non-tender, present bowel sounds Extremities: no edema, no tenderness, no cyanosis Laboratory Tests Test 07/25/18 05:19 Sodium Level 137 MMOL/L (136-145) Potassium Level 4.3 MMOL/L (3.5-5.1) Chloride Level 109 MMOL/L (98-107) H Carbon Dioxide Level 23 MMOL/L (21-32) Anion Gap 5 mmol/L (5-15) Blood Urea Nitrogen 15 mg/dL (7-18) Creatinine 1.3 MG/DL (0.55-1.30) Estimat Glomerular Filtration Rate 41.1 mL/min (>60) Glucose Level 118 MG/DL (74-106) H Calcium Level 11.2 MG/DL (8.5-10.1) H Plan Problems: (1) Cellulitis Assessment & Plan: 67-year-old with left neck cellulitis. Leukocytosis. Low- grade fevers. Tenderness on examination with large area of cellulitis without fluctuance. CT scan ordered and pending final read but did speak with the radiologist and there is significant inflammation in the oropharynx and neck around the pharynx and trachea. There is subcutaneous tissue swelling consistent with cellulitis in the area as identified on clinical examination. There is a narrowed airway. Even these findings patient was transferred to the intensive care unit for close monitoring. Etiology of patient's infection is currently unknown and will need further workup. Currently respiratory stable without any signs of compromise or distress. Patient states she is breathing well without any shortness of breath or difficulty. Airway is currently patent. Radiological findings noted. labs improved exam improved liquid soft diet IV abx appreciate ENT input - transfer for higher level of care for I&D if shows signs of respiratory issues will need urgent intubation for airway protection vs tracheostomy Cellulitis has significantly improved and continues to do so. No signs of airway obstruction noted at this time. Tolerating diet. Unfortunately very difficult to find transfer for higher level of care eval. At some point may consider since patient stable DC with outpatient follow-up. still awaiting placement. significantly improved awaiting ENT input for d/c will follow with recs thank you Florencio Jimenez Jul 25, 2018 13:50
[2018-07-25 16:00] VITALS: BP 108/60
--- NOTE | 2018-07-25 16:21 | Infectious Diseases Prog Note ---
Assessment/Plan Problems: (1) Retropharyngeal abscess Assessment & Plan: with extension to the left clavicle , on triple antibiotics , need I&D , S/P ENT eval, clinically stable for now, may require trach if respiratory status worsened . will treat with iv antibiotics for four weeks total since showed clinical improvement with antibiotics alone but very slow . (2) Cellulitis Assessment & Plan: of the left neck and upper shoulder, continue vancomycin , cefepime and metronidazole empirically, may need skin biopsy if no improvement with antibiotics alone to rule out malignant process (3) Sepsis Assessment & Plan: with leukocytosis , due to the above , continue wide spectrum antibiotics for four weeks (4) Hypercalcemia Assessment & Plan: resolved , renal is following Subjective Constitutional: Reports: no symptoms HEENT: Reports: no symptoms Respiratory: Reports: no symptoms Breasts: Reports: no symptoms Cardiovascular: Reports: no symptoms Gastrointestinal/Abdominal: Reports: no symptoms Genitourinary: Reports: no symptoms Neurologic: Reports: no symptoms Psychiatric: Reports: no symptoms Skin: Reports: no symptoms Endocrine: Reports: no symptoms Hematologic: Reports: no symptoms Musculoskeletal: Reports: no symptoms Allergies: Coded Allergies: No Known Allergies (Unverified , 07/04/18) Subjective feels better overall, with less left neck and shoulder swelling and redness Objective Vital Signs Last 24 Hour Vital Signs Date Time Temp Pulse Resp B/P (MAP) Pulse Ox O2 Delivery O2 Flow Rate FiO2 07/25/18 16:00 98.6 67 18 108/60 (76) 98 07/25/18 12:00 98.9 63 20 117/56 (76) 96 07/25/18 09:13 63 152/76 07/25/18 09:00 Room Air 07/25/18 08:00 99.1 63 19 152/76 (101) 99 07/25/18 04:00 98.8 62 18 128/71 (90) 95 07/25/18 00:00 98.6 64 20 146/68 (94) 95 07/24/18 21:18 57 138/66 07/24/18 21:00 Room Air 07/24/18 20:00 99.4 57 18 138/66 (90) 97 Height (Feet): 5 Height (Inches): 1.00 Weight (Pounds): 195 General Appearance: WD/WN, no acute distress HEENT: normocephalic, atraumatic, anicteric, mucous membranes moist Respiratory/Chest: chest wall non-tender, lungs clear, normal breath sounds, no respiratory distress, no accessory muscle use Cardiovascular: normal peripheral pulses, normal rate, regular rhythm, no gallop/murmur, no JVD Abdomen: normal bowel sounds, soft, non tender, no organomegaly, non distended , no mass, no scars Genitourinary: normal external genitalia Extremities: no cyanosis, no clubbing Skin: no rash, no lesions, no ulcers Neurologic/Psychiatric: manager lvn II-XII grossly normal, no motor/sensory deficits, alert, oriented x 3, responsive Lymphatic: no neck adenopathy, no groin adenopathy Musculoskeletal: normal muscle bulk, no effusion Laboratory Tests Test 07/25/18 05:19 Sodium Level 137 MMOL/L (136-145) Potassium Level 4.3 MMOL/L (3.5-5.1) Chloride Level 109 MMOL/L (98-107) H Carbon Dioxide Level 23 MMOL/L (21-32) Anion Gap 5 mmol/L (5-15) Blood Urea Nitrogen 15 mg/dL (7-18) Creatinine 1.3 MG/DL (0.55-1.30) Estimat Glomerular Filtration Rate 41.1 mL/min (>60) Glucose Level 118 MG/DL (74-106) H Calcium Level 11.2 MG/DL (8.5-10.1) H Current Medications Medications (Trade) Dose Ordered Sig/Omari Route PRN Reason Start Time Stop Time Status Last Admin Dose Admin Acetaminophen (Tylenol) 650 mg Q6H PRN ORAL Mild Pain/Temp > 100.5 07/06/18 17:33 08/05/18 17:32 Benztropine Mesylate (Cogentin) 1 mg BID ORAL 07/07/18 09:00 08/06/18 08:59 07/25/18 09:13 Cefepime HCl 2 gm/ Dextrose 55 ml @ 110 mls/hr Q24H IVPB 07/13/18 00:00 08/04/18 00:00 07/25/18 00:42 Docusate Sodium (Colace) 250 mg DAILY ORAL 07/07/18 09:00 08/04/18 08:59 07/25/18 09:13 Haloperidol (Haldol) 5 mg DAILY ORAL 07/07/18 09:00 08/04/18 08:59 07/25/18 09:13 Heparin Sodium (Porcine) (Heparin 5000 units/ml) 5,000 units EVERY 12 HOURS SUBQ 07/06/18 21:00 08/03/18 20:59 07/25/18 09:12 [place] Carbonate (Green [place] Carbonate) 300 mg BID ORAL 07/07/18 09:00 08/06/18 08:59 07/25/18 09:13 Metronidazole 100 ml @ 100 mls/hr Q8HR IVPB 07/06/18 22:00 08/04/18 21:59 07/25/18 14:09 Mirtazapine (Remeron) 7.5 mg BEDTIME ORAL 07/06/18 21:00 08/03/18 20:59 07/24/18 21:16 Nifedipine (Adalat) 10 mg Q12HR ORAL 07/06/18 21:00 08/04/18 08:59 07/25/18 09:13 Pantoprazole (Protonix) 40 mg DAILY ORAL 07/07/18 09:00 08/04/18 08:59 07/25/18 09:13 Vancomycin HCl (Vanco rx to dose) 1 ea DAILY PRN MISC Per rx protocol 07/07/18 09:00 08/03/18 18:29 Vancomycin HCl 1.25 gm/Dextrose 275 ml @ 183.333 mls/hr Q24H IVPB 07/26/18 12:00 07/29/18 11:59 Vancomycin HCl/ Dextrose 275 ml @ 183.333 mls/hr Q24H IVPB 07/24/18 12:00 07/25/18 18:00 07/25/18 12:09 Gloria Nelson M.D. Jul 25, 2018 16:21
--- NOTE | 2018-07-25 19:30 | NUR ---
HAND-OFF: Report given to Crista VALADEZ. Patient is in stable condition.
--- NOTE | 2018-07-25 19:59 | NUR ---
NURSE NOTES: Received report from RORY Gunter. Patient is in bed, asleep. No signs of respiratory distress. No pain noted. IV site patent. at bedside, bed low, call light within reach.
[2018-07-25 20:00] VITALS: BP 139/70
[2018-07-26] VITALS: BP 126/63
[2018-07-26] MEDS: Cefepime HCl 2 GM in D5W 55 ML IVPB SCH (00:44)
[2018-07-26 04:00] VITALS: BP 152/73
--- NOTE | 2018-07-26 07:50 | NUR ---
NURSE NOTES: Received report from RORY Tobin. Rounding done with outgoing nurse. Patient a/o x4 German speaking. Denies any pain at this time. Right wrist IV site is patent. is at bed side. Bed in lowest position, call light within reach. Will continue to monitor.
--- NOTE | 2018-07-26 07:50 | NUR ---
HAND-OFF: Report given to RORY Horan. Patient stable.
[2018-07-26 08:00] VITALS: BP 137/64
[2018-07-26] MEDS: Docusate 250mg cap ORAL SCH (09:06)
[2018-07-26] MEDS: NIFEdipine 10mg cap ORAL SCH (09:07)
[2018-07-26] MEDS: Heparin 5000 units/ml inj SUBQ SCH (09:07)
[2018-07-26] MEDS: Benztropine 1mg tab ORAL SCH (09:07)
--- NOTE | 2018-07-26 11:30 | NUR ---
DISCHARGE PLAN DISCHARGE ORDER NOTED FAXED CLINICALS TO [facility] T: [phone] F: [phone]
[2018-07-26 12:00] VITALS: BP 124/63
[2018-07-26] MEDS ORDERED: Vancomycin 1.25mg/D5W 275ml IVPB SCH ×2 (12:00)
--- NOTE | 2018-07-26 13:05 | General Progress Note ---
Assessment/Plan Assessment/Plan S: I am feeling ok O: Resolustion of prior diffuse redness and swelling in the base of the neck Review of Systems Review of Symptoms General ROS: no weight loss or fever Psychological ROS: no depression or mood changes, no memory loss Ophthalmic ROS: no visual changes or eye irritation ENT ROS: no nasal congestion, hearing loss, dizziness Allergy and Immunology ROS: no allergic symptoms or urticaria Hematological and Lymphatic ROS: no swollen glands, unusual bleeding or bruising Endocrine ROS: no polyuria, polydipsia, weight changes, temperature intolerance Respiratory ROS: no cough, shortness of breath, or wheezing Cardiovascular ROS: no chest pain or dyspnea on exertion Gastrointestinal ROS: denies abdominal pain, bright red blood in stool. Musculoskeletal ROS: no myalgias or arthralgias Neurological ROS: no TIA or stroke symptoms Dermatological ROS: interval resolution of diffuse redness in base of the neck Physical Exam Physical Exam General appearance: alert, cooperative, no distress, appears stated age Head: Normocephalic, without obvious abnormality, atraumatic Eyes: conjunctivae/corneas clear. PERRL, EOM's intact. Fundi benign Throat: Lips, mucosa, and tongue normal. Teeth and gums normal Neck: supple, symmetrical, trachea midline, no adenopathy, t Lungs: clear to auscultation bilaterally Heart: regular rate and rhythm, S1, S2 normal, no murmur, click, rub or gallop Abdomen: soft, non-tender. Bowel sounds normal. No masses, no organomegaly Extremities: Diffuse swelling in base of the neck. Pulses: 2+ and symmetric Neurologic: Grossly normal, DERM interval resolution of diffuse redness in base of the neck 1- Sepsis : Resolved 2. Diffuse soft tissue swelling of the neck, possible parapharyngeal abscess 3- Diffuse Cellulitis of base of neck 4- Hypercalcemia, workup deferred to outpatient Plan: D/w ENT, agreed and will proceed for transferring patient to higher level of care secondary to possibility of expansion of infection/abscess in deep compartment of head and neck region. No sign of respiratory compromise at this time current abx on MAC list Given the favorable response to our conservative management. Pending ENT assessment may be a candidate for biopsy / I +D on parapharyngeal structures. No residual Lesion in Neck CT to suggest malignancy. out patient followup is reasonable at this point Subjective Allergies: Coded Allergies: No Known Allergies (Unverified , 3/24/19) Objective Last 24 Hour Vital Signs Date Time Temp Pulse Resp B/P (MAP) Pulse Ox O2 Delivery O2 Flow Rate FiO2 07/26/18 12:00 99.3 65 20 124/63 (83) 96 07/26/18 09:07 60 137/64 07/26/18 09:00 Room Air 07/26/18 08:00 98.6 60 20 137/64 (88) 97 07/26/18 04:00 98.6 61 18 152/73 (99) 100 07/26/18 00:00 98.8 64 20 126/63 (84) 96 07/25/18 21:07 57 139/73 07/25/18 21:00 Room Air 07/25/18 20:00 98.0 57 20 139/70 (93) 97 07/25/18 16:00 98.6 67 18 108/60 (76) 98 Intake and Output 07/25/18 07/26/18 18:59 06:59 Intake Total 1426.666 ml Balance 1426.666 ml Intake Oral 960 ml IV Total 466.666 ml # Voids 2 Laboratory Tests 07/26/18 04:50: Ionized Calcium (Measured) 1.23 07/26/18 11:00: Vancomycin Level Trough 15.6H Height (Feet): 5 Height (Inches): 1.00 Weight (Pounds): 195 Mady Perez MD Jul 26, 2018 13:05
--- NOTE | 2018-07-26 13:32 | Surgery Progress Note ---
Surgery Progress Note Subjective Symptoms: improved, pain absent, tolerating diet, passing flatus, BM Objective Last 24 Hour Vital Signs Date Time Temp Pulse Resp B/P (MAP) Pulse Ox O2 Delivery O2 Flow Rate FiO2 07/26/18 12:00 99.3 65 20 124/63 (83) 96 07/26/18 09:07 60 137/64 07/26/18 09:00 Room Air 07/26/18 08:00 98.6 60 20 137/64 (88) 97 07/26/18 04:00 98.6 61 18 152/73 (99) 100 07/26/18 00:00 98.8 64 20 126/63 (84) 96 07/25/18 21:07 57 139/73 07/25/18 21:00 Room Air 07/25/18 20:00 98.0 57 20 139/70 (93) 97 07/25/18 16:00 98.6 67 18 108/60 (76) 98 I&O Intake and Output 07/25/18 07/26/18 18:59 06:59 Intake Total 1426.666 ml Balance 1426.666 ml Intake Oral 960 ml IV Total 466.666 ml # Voids 2 Drains: none Cardiovascular: RSR Respiratory: clear Abdomen: soft, flat, non-tender, present bowel sounds Extremities: no edema, no tenderness, no cyanosis Laboratory Tests Test 07/26/18 04:50 07/26/18 11:00 Ionized Calcium (Measured) 1.23 mmol/L (1.10-1.35) Vancomycin Level Trough 15.6 ug/mL (5.0-12.0) H Plan Problems: (1) Cellulitis Assessment & Plan: 67-year-old with left neck cellulitis. Leukocytosis. Low- grade fevers. Tenderness on examination with large area of cellulitis without fluctuance. CT scan ordered and pending final read but did speak with the radiologist and there is significant inflammation in the oropharynx and neck around the pharynx and trachea. There is subcutaneous tissue swelling consistent with cellulitis in the area as identified on clinical examination. There is a narrowed airway. Even these findings patient was transferred to the intensive care unit for close monitoring. Etiology of patient's infection is currently unknown and will need further workup. Currently respiratory stable without any signs of compromise or distress. Patient states she is breathing well without any shortness of breath or difficulty. Airway is currently patent. Radiological findings noted. labs improved exam improved liquid soft diet IV abx appreciate ENT input - transfer for higher level of care for I&D if shows signs of respiratory issues will need urgent intubation for airway protection vs tracheostomy Cellulitis has significantly improved and continues to do so. No signs of airway obstruction noted at this time. Tolerating diet. Unfortunately very difficult to find transfer for higher level of care eval. At some point may consider since patient stable DC with outpatient follow-up. still awaiting placement. significantly improved awaiting ENT input for d/c d/c planning will follow with recs thank you Florencio Jimenez Jul 26, 2018 13:32
--- NOTE | 2018-07-26 14:37 | Nephrology Progress Note ---
Assessment/Plan Assessment: A/P 1) YASMEEN- multifact (Contrast Neph/sepsis/hypercalcemia/vol depl) - Cr stable at 1.2-1.3. No changes 2) Hypercalcemia- SPEP neg. UPEP still pending. Large Prot:Alb dissociation. PTH still pending - s/p pamidronate and calcitonin. Ion Ca level normal 3) Neck Cellulitis- ENT, agrees and will proceed for transferring patient to higher level of care secondary to possibility of expansion of infection/abscess in deep compartment of head and neck region - much improved on Abx 4) Hypernatremia- resolved Subjective Date patient seen: Jul 26, 2018 Time patient seen: 14:35 ROS Limited/Unobtainable: No Allergies: Coded Allergies: No Known Allergies (Unverified , 07/04/18) Subjective Patient much improved. No difficulty swallowing Objective Last 24 Hour Vital Signs Date Time Temp Pulse Resp B/P (MAP) Pulse Ox O2 Delivery O2 Flow Rate FiO2 07/26/18 12:00 99.3 65 20 124/63 (83) 96 07/26/18 09:07 60 137/64 07/26/18 09:00 Room Air 07/26/18 08:00 98.6 60 20 137/64 (88) 97 07/26/18 04:00 98.6 61 18 152/73 (99) 100 07/26/18 00:00 98.8 64 20 126/63 (84) 96 07/25/18 21:07 57 139/73 07/25/18 21:00 Room Air 07/25/18 20:00 98.0 57 20 139/70 (93) 97 07/25/18 16:00 98.6 67 18 108/60 (76) 98 Intake and Output 07/25/18 07/26/18 18:59 06:59 Intake Total 1426.666 ml Balance 1426.666 ml Intake Oral 960 ml IV Total 466.666 ml # Voids 2 Laboratory Tests 07/26/18 04:50: Ionized Calcium (Measured) 1.23 07/26/18 11:00: Vancomycin Level Trough 15.6H Height (Feet): 5 Height (Inches): 1.00 Weight (Pounds): 195 General Appearance: no apparent distress, alert EENT: normal ENT inspection Neck: normal alignment, supple Cardiovascular: normal rate, regular rhythm Respiratory/Chest: lungs clear, normal breath sounds Abdomen: non tender, soft Edema: no edema noted Arm (L), no edema noted Arm (R), no edema noted Leg (L), no edema noted Leg (R), no edema noted Pedal (L), no edema noted Pedal (R), no edema noted Generalized Kota Navarrete MD Jul 26, 2018 14:37
--- NOTE | 2018-07-26 15:36 | NUR ---
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
[2018-07-26 16:00] VITALS: BP 111/59
--- NOTE | 2018-07-26 16:41 | NUR ---
NURSE NOTES: Report was given to RORY Naranjo at [facility].
--- NOTE | 2018-07-26 17:39 | Infectious Diseases Prog Note ---
Assessment/Plan Problems: (1) Retropharyngeal abscess Assessment & Plan: with extension to the left clavicle , on triple antibiotics , need I&D , S/P ENT eval, clinically stable for now, may require trach if respiratory status worsened . will treat with iv antibiotics for four weeks total since showed clinical improvement with antibiotics alone but very slow . (2) Cellulitis Assessment & Plan: of the left neck and upper shoulder, continue vancomycin , cefepime and metronidazole empirically, may need skin biopsy if no improvement with antibiotics alone to rule out malignant process (3) Sepsis Assessment & Plan: with leukocytosis , due to the above , continue wide spectrum antibiotics for four weeks (4) Hypercalcemia Assessment & Plan: resolved , renal is following Subjective Constitutional: Reports: no symptoms HEENT: Reports: no symptoms Respiratory: Reports: no symptoms Breasts: Reports: no symptoms Cardiovascular: Reports: no symptoms Gastrointestinal/Abdominal: Reports: no symptoms Genitourinary: Reports: no symptoms Neurologic: Reports: no symptoms Psychiatric: Reports: no symptoms Skin: Reports: no symptoms Endocrine: Reports: no symptoms Hematologic: Reports: no symptoms Musculoskeletal: Reports: no symptoms Allergies: Coded Allergies: No Known Allergies (Unverified , 07/04/18) Subjective feels better overall, with less left neck and shoulder swelling and redness Objective Vital Signs Last 24 Hour Vital Signs Date Time Temp Pulse Resp B/P (MAP) Pulse Ox O2 Delivery O2 Flow Rate FiO2 07/26/18 16:00 98.9 67 20 111/59 (76) 96 07/26/18 12:00 99.3 65 20 124/63 (83) 96 07/26/18 09:07 60 137/64 07/26/18 09:00 Room Air 07/26/18 08:00 98.6 60 20 137/64 (88) 97 07/26/18 04:00 98.6 61 18 152/73 (99) 100 07/26/18 00:00 98.8 64 20 126/63 (84) 96 07/25/18 21:07 57 139/73 07/25/18 21:00 Room Air 07/25/18 20:00 98.0 57 20 139/70 (93) 97 Height (Feet): 5 Height (Inches): 1.00 Weight (Pounds): 195 General Appearance: WD/WN, no acute distress HEENT: normocephalic, atraumatic, anicteric, mucous membranes moist, PERRL, pharynx normal, supple, no JVD Respiratory/Chest: chest wall non-tender, lungs clear, normal breath sounds, no respiratory distress, no accessory muscle use Cardiovascular: normal peripheral pulses, normal rate, regular rhythm, no gallop/murmur, no JVD Abdomen: normal bowel sounds, soft, non tender, no organomegaly, non distended , no mass, no scars Genitourinary: normal external genitalia Extremities: no cyanosis, no clubbing Skin: no rash, no lesions, no ulcers Neurologic/Psychiatric: 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 grossly normal, no motor/sensory deficits, alert, oriented x 3, responsive Lymphatic: no neck adenopathy, no groin adenopathy Musculoskeletal: normal muscle bulk, no effusion Laboratory Tests Test 07/26/18 04:50 07/26/18 11:00 Ionized Calcium (Measured) 1.23 mmol/L (1.10-1.35) Vancomycin Level Trough 15.6 ug/mL (5.0-12.0) H Current Medications Medications (Trade) Dose Ordered Sig/Omari Route PRN Reason Start Time Stop Time Status Last Admin Dose Admin Acetaminophen (Tylenol) 650 mg Q6H PRN ORAL Mild Pain/Temp > 100.5 07/06/18 17:33 08/05/18 17:32 Benztropine Mesylate (Cogentin) 1 mg BID ORAL 07/07/18 09:00 08/06/18 08:59 07/26/18 09:07 Cefepime HCl 2 gm/ Dextrose 55 ml @ 110 mls/hr Q24H IVPB 07/13/18 00:00 08/04/18 00:00 07/26/18 00:44 Docusate Sodium (Colace) 250 mg DAILY ORAL 07/07/18 09:00 08/04/18 08:59 07/26/18 09:06 Haloperidol (Haldol) 5 mg DAILY ORAL 07/07/18 09:00 08/04/18 08:59 07/26/18 09:06 Heparin Sodium (Porcine) (Heparin 5000 units/ml) 5,000 units EVERY 12 HOURS SUBQ 07/06/18 21:00 08/03/18 20:59 07/26/18 09:07 Marathon Carbonate (Marathon Carbonate) 300 mg BID ORAL 07/07/18 09:00 08/06/18 08:59 07/26/18 09:06 Metronidazole 100 ml @ 100 mls/hr Q8HR IVPB 07/06/18 22:00 08/04/18 21:59 07/26/18 14:42 Mirtazapine (Remeron) 7.5 mg BEDTIME ORAL 07/06/18 21:00 08/03/18 20:59 07/25/18 21:07 Nifedipine (Adalat) 10 mg Q12HR ORAL 07/06/18 21:00 08/04/18 08:59 07/26/18 09:07 Pantoprazole (Protonix) 40 mg DAILY ORAL 07/07/18 09:00 08/04/18 08:59 07/26/18 09:07 Vancomycin HCl (Vanco rx to dose) 1 ea DAILY PRN MISC Per rx protocol 07/07/18 09:00 08/03/18 18:29 Vancomycin HCl 1.25 gm/Dextrose 275 ml @ 183.333 mls/hr Q24H IVPB 07/26/18 12:00 07/29/18 11:59 07/26/18 12:33 Gloria Nelson M.D. Jul 26, 2018 17:39
--- NOTE | 2018-07-26 17:45 | NUR ---
NURSE NOTES: Discharge instruction was given. Belongings checked with her . IV and arm band were removed. Patient discharged with ambulance tech in stable condition.
[2018-07-26] MEDS ORDERED: Tubing IV Secondary IV ONE (18:43)
--- NOTE | 2018-07-28 09:26 | Discharge Summary ---
Discharge Summary Discharge Summary _ DATE OF ADMISSION: 07/04/2018 DATE OF DISCHARGE: 07/26/2018 DISCHARGED BY: Dr Perez REASON FOR ADMISSION: 67 years old female, with past medical history of cerebrovascular accident , hypertension, chronic renal insufficiency, anemia, schizophrenia, depression, was [facility] for [facility]. Patient apparently had swelling and redness of the left side of the neck and started on the Keflex. Patient denied any trauma or injury to left shoulder. Patient presented with low-grade fever , leukocytosis and tenderness of the left shoulder on examination. Chest x-ray revealed no acute cardiopulmonary disease. CT of the neck demonstrated no evidence of abscess. Extensive left-sided cellulitis, involving the neck and upper chest with reactive lymphadenopathy noted. Supraglottic/oropharyngeal erythema. Epiglottitis was not excluded. Narrowing of the oropharyngeal airway noted with risk for airway compromise. Laboratory workup revealed leukocytosis WBC 25.8, stable hemoglobin and hematocrit. BUN 17 creatinine 1.6. Lactic acid 0.9. Calcium level 13.5, albumin 3.1. Troponin negative, proBNP 259. EKG revealed sinus rhythm, no acute ischemic changes. Urinalysis revealed no evidence of UTI. Patient was started on triple antibiotics in the emergency department and admitted for further management CONSULTANTS: ID specialist Dr. Nelson fingerprint technician Dr.De Benoit surgery Dr. Jimenez ENT specialist Dr. Hargrove [facility]: Patient initially admitted to intensive care unit due to finding of narrowing of the oropharyngeal airway and started on empiric antibiotics. Airway patency was closely monitored. Patient was on high alert for urgent intubation for airway protection if any respiratory issues. ENT specialist seen and evaluated patient for retropharyngeal abscess and respiratory compromise. Due to airway narrowing noted on CT scan, patient subsequently undergone fiberoptic laryngoscopy. Patient appeared to have a parapharyngeal abscess extending into her left clavicle area. ENT recommended transfer patient to higher level of care for I&D. Supplemental oxygen provided to keep pulse oximetry above 92%. Pulmonary toilet provided as needed. Airway remained patent. Infectious disease followed and t directed antibiotic regimen. Blood cultures were negative. Leukocytosis and intermittent fevers resolved. Unfortunately it proved very challenging to arrange transfer to higher level of care for this patient. Patient was treated medically with IV antibiotics. Repeated CT of the neck demonstrated marked improvement in hypopharyngeal mucosal edema and retropharyngeal soft tissue swelling since prior exam, largely resolved. Left anterior supraclavicular and upper chest wall subcutaneous fat infiltration and associated skin and muscular thickening, given stated clinical history likely on the basis of soft tissue cellulitis. This appears somewhat improved from previous exam of 07/04/2018. No evidence of underlying abscess. No residual lesion on follow up neck CT to suggest malignancy. General surgeon closely followed. Clinical exam improved. No evidence of abscess. Patient tolerated diet. No signs of airway obstruction. Patient was initially on liquid diet and advanced to soft as tolerated. Patient was able to tolerate diet. Radiologist Physician followed for acute kidney injury and hypercalcemia. Patient undergone treatment with Aredia and calcitonin. Ionized calcium level down to normal. Acute kidney injury was multifactorial, likely due to contrast nephropathy , sepsis, hypercalcemia and volume depletion, -resolved. Creatinine remained stable in 1.2-1.3 range, no changes. Serum protein electrophoresis was negative. Urine protein electrophoresis still pending. PTH still pending 9. TSH within normal limits. Pain management was addressed. Supportive care provided. DVT and GI prophylaxis provided. Psychiatric medication continued. Per ID specialist patient will need total 4 weeks of IV antibiotics. Patient clinically stabilized. Leukocytosis and intermittent fevers resolved. No signs of respiratory distress. Given the favorable response to conservative management, patient was stable for discharge with outpatient follow up. Patient was subsequently [facility] to [facility] for [facility] of care. FINAL DIAGNOSES: Sepsis Left neck cellulitis Possible retropharyngeal/parapharyngeal abscess Hypercalcemia Acute kidney injury DISCHARGE MEDICATIONS: See Medication Reconciliation list. DISCHARGE INSTRUCTIONS: Patient was discharged to the [facility] Follow up with medical doctor at the facility. I have been assigned to dictate discharge summary for this account. I was not involved in the patient's management. Veronica Farrell NP Jul 28, 2018 09:26
== END 2018-07-26 18:44 | disposition home or self-care (01) | DRG 720 ==
LOC: EDBD 11:17 → EMR 12:10 → 4E 12:17 → EDBEDREQ 12:53 → 4E 16:45 → ICU 20:00 → 3E 07-06 18:05
PROC: 0CJS8ZZ Inspection of Larynx, Via Natural or Artificial Opening Endoscopic (ICD-10-PCS; principal; 2018-07-07)
PROC: B518ZZA Fluoroscopy of Superior Vena Cava, Guidance (ICD-10-PCS; 2018-07-11)
PROC: 02HV33Z Insertion of Infusion Device into Superior Vena Cava, Percutaneous Approach (ICD-10-PCS; 2018-07-11)
DX: A41.9 Sepsis, unspecified organism (principal); N17.9 Acute kidney failure, unspecified; E87.0 Hyperosmolality and hypernatremia; E83.52 Hypercalcemia; J39.0 Retropharyngeal and parapharyngeal abscess; E86.9 Volume depletion, unspecified; F20.9 Schizophrenia, unspecified; L03.221 Cellulitis of neck; N18.9 Chronic kidney disease, unspecified; L03.114 Cellulitis of left upper limb; I12.9 Hypertensive chronic kidney disease with stage 1 through stage 4 chronic kidney disease, or unspecified chronic kidney disease; D64.9 Anemia, unspecified; Z86.73 Personal history of transient ischemic attack (TIA), and cerebral infarction without residual deficits; F32.9 Major depressive disorder, single episode, unspecified
CPT/HCPCS: 36415; 36569; 70491; 71045; 76937; 80048; 80053; 80178; 80202; 81003; 82306; 82330; 82550; 83036; 83605; 83735; 83880; 83970; 84165; 84443; 84484; 85007; 85025; 85610; 85730; 87040; 87081; 93005; 96365; 96367; 99285; J2430

== ENCOUNTER 2018-11-24 16:13 | Inpatient (IN) | payer MEDICAID ==
[~2018-11-24] VITALS: Ht 157.5 cm; Wt 65.8 kg
[~2018-11-24 16:13] MED LIST: ADALAT10 MG; ADALAT10 MG ORAL; Benztropine Mesylate ORAL; HALDOL5 MG ORAL; LITHIUM CARBON300 MG ORAL; MIRTAZAPINE15 M3 ORAL
--- NOTE | 2018-11-24 16:13 | NUR ---
ED Nurse Note: PT BROUGHT IN TO ER TODAY BY KERRY FROM [facility] DUE TO ABNORMAL LABS. BUN: 50 AND CREATININE: 2.05. AT BEDSIDE, PT IS AGITATED, YELLING, AND PUNCHING/KICKING STAFF. PER EMS, PT HAS PSYCH HX AND RECEIVES HALDOL AT FACILITY.
[2018-11-24] MEDS ORDERED: LORAZEPAM0.5 MG ORAL (16:20)
[2018-11-24 16:26] VITALS: BP 127/93
[2018-11-24] MEDS ORDERED: LORazepam Inj 2mg/ml 1ml IV ONE (16:30)
[2018-11-24] MEDS ORDERED: Haloperidol 5mg/ml Inj IM ONE (16:30)
--- NOTE | 2018-11-24 17:01 | Diagnostic Imaging Report ---
Indication: Dyspnea Comparison: 07/04/2018 A single view chest radiograph was obtained. Findings: Cardiomediastinal appearance is within normal limits for age. The lungs are clear. Pulmonary vascularity is appropriate. The diaphragmatic contour is smooth and costophrenic angles are sharp. No pleural effusions are identified. There are osteophytes throughout the thoracic spine involving the vertebral endplates. Impression: No acute findings
--- NOTE | 2018-11-24 17:19 | NUR ---
ED Nurse Note: URINE COLLECTED AND SENT TO LAB. PT SLEEPING PEACEFULLY IN BED. VSS.
[2018-11-24 17:20] LABS: EOSINOPHILS % (AUTO) 0.1 % (0.0-3.0); HEMATOCRIT 36.2 % (37.0-47.0); HEMOGLOBIN 11.5 G/DL (12.0-16.0); LYMPHOCYTES % (AUTO) 14.1 % (20.0-45.0); MEAN CORPUSCULAR VOLUME 78 FL (80-99); MONOCYTES % (AUTO) 5.6 % (1.0-10.0); NEUTROPHILS % (AUTO) 79.2 % (45.0-75.0); PLATELET COUNT 241 K/UL (150-450); RED BLOOD COUNT 4.64 M/UL (4.20-5.40); RED CELL DISTRIBUTION WIDTH 16.2 % (11.6-14.8); WHITE BLOOD COUNT 10.5 K/UL (4.8-10.8)
[2018-11-24 17:24] VITALS: BP 108/62
[2018-11-24 17:33] LABS: ANION GAP 20 mmol/L (5-15); BLOOD UREA NITROGEN 53 mg/dL (7-18); CALCIUM 11.9 MG/DL (8.5-10.1); CARBON DIOXIDE 16 MMOL/L (21-32); CHLORIDE 112 MMOL/L (98-107); CREATININE 3.1 MG/DL (0.55-1.30); POTASSIUM 4.1 MMOL/L (3.5-5.1); SODIUM 148 MMOL/L (136-145)
--- NOTE | 2018-11-24 17:34 | Emergency Room Report ---
History of Present Illness General Chief Complaint: Abnormal Labs Source: Medical Record Present Illness HPI 68-year-old female presents ED for evaluation. Brought in by EMS from half-way facility. Sent in for change in mentation. Has baseline dementia and psychiatric history. Appears to be more agitated as of the last day. Patient is unable to provide any additional history at this time. Is mumbling. No signs of distress upon arrival. No reported fevers or chills. No other aggravating relieving factors. No other associated symptoms Allergies: Coded Allergies: No Known Allergies (Unverified , 07/04/18) Patient History Past Medical History: psych hx Pertinent Family History: none Social History: Denies: smoking, alcohol use, drug use Now: No Immunizations: UTD Reviewed Nursing Documentation: PMH: Agreed; PSxH: Agreed Nursing Documentation-PMH Hx Cardiac Problems: Yes - Anemia Hx Hypertension: Yes Hx Cancer: No Hx Gastrointestinal Problems: No Hx Dialysis: No - Chronic Renal Insufficiency History Of Psychiatric Problem: Yes - DEPRESSION,CONFUSION Hx Neurological Problems: Yes - EPS Review of Systems All Other Systems: limited Physical Exam Vital Signs Date Time Temp Pulse Resp B/P (MAP) Pulse Ox O2 Delivery O2 Flow Rate FiO2 11/24/18 16:03 97.9 78 18 130/80 (97) 97 Room Air Sp02 EP Interpretation: reviewed, normal General Appearance: no apparent distress, GCS 15, non-toxic, other - nonverbal mumbling Head: normocephalic Eyes: bilateral eye normal inspection, bilateral eye PERRL ENT: normal ENT inspection Neck: normal inspection Respiratory: chest non-tender, lungs clear, normal breath sounds, speaking full sentences Cardiovascular #1: regular rate, rhythm, no edema Gastrointestinal: normal bowel sounds, non tender, soft, non-distended, no guarding, no rebound Rectal: deferred Genitourinary: no CVA tenderness Musculoskeletal: normal inspection, other Neurologic: other - nonverbal. psych Psychiatric: other - nonverbal. psych Skin: other - see nursing skin notes Lymphatic: normal inspection Procedures Critical Care Time Critical Care Time i. I feel this is a highly complex case requiring extensive working including EKG/Rhythm strip, Xray/CT/US, Blood/urine lab work, repeat exams while in ED, and administration of strong opiates/narcotics for pain control, admission to hospital or close patient follow up. Total time: 30 min bedside evaluation and treatment excludes procedures (EKG). Reason for critical care: severe sepsis. renal insufficiency. UTI. hypernatremia Possible complications: hypotension, hypertension, DE, shock, arrhythmias, metabolic acidosis, end organ damage, respiratory failure. Interventions: labs, EKG, CXR, IVFS, UA. 30 cc/kg fluid bolus. Antibiotics. Course: Patient presenting with increased agitation. Psychiatric history. Given Ativan and Haldol. Labs show hypernatremia, elevated BUN/creatinine, lactic acid greater than 4. UTI. Given 30 cc/kg fluid bolus. Given broad- spectrum antibiotics. Given elevated lactic patient will be admitted to SDU Consultations: nursing staff, EMS, family Performed by: Dr Griffin Tolerated well condition = serious j. because of unstable vital signs this patient had a condition that could potentially threaten life or limb. I feel this is a critical patient who required my full attention while patient was considered critical. Total Critical Care Time excluding procedures was greater than 35 minutes Medical Decision Making Diagnostic Impression: Primary Impression: Encephalopathy Additional Impressions: Severe sepsis UTI (urinary tract infection) Qualified Codes: N39.0 - Urinary tract infection, site not specified Renal failure Qualified Codes: N19 - Unspecified kidney failure ER Course Hospital Course 68 yo F presents with increased agitation, h/o psych Differential diagnoses include: Pneumonia, UTI, sepsis, dehydration Clinical course Patient placed on stretcher. On traffic monitor specialist with stable vitals are ED course. After initial history and physical, I ordered labs, IV fluids, EKG, chest x-ray, blood cultures, UA. Labs - BUN/Cr elevated, Na elevated, no leukocytosis, lactic > 4, UA+ bacteria EKG - sinus bradycardia , no acute ischemic changes interpreted by me CXR - no acute process Abx given. given 30cc/kg fluid bolus. Case discussed with Dr Perez and they agreed to admit patient to their service for further care and support I feel this is a highly complex case requiring extensive working including EKG/ Rhythm strip, Xray/CT/US, Blood/urine lab work, repeat exams while in ED, and administration of strong opiates/narcotics for pain control, admission to hospital or close patient follow up. Diagnosis - encephalopathy, severe sepsis, UTI, renal failure Patient admitted to SDU in serious condition Labs Test 11/24/18 16:30 11/24/18 17:18 11/24/18 18:09 White Blood Count 10.5 K/UL (4.8-10.8) Red Blood Count 4.64 M/UL (4.20-5.40) Hemoglobin 11.5 G/DL (12.0-16.0) Hematocrit 36.2 % (37.0-47.0) Mean Corpuscular Volume 78 FL (80-99) Mean Corpuscular Hemoglobin 24.8 PG (27.0-31.0) Mean Corpuscular Hemoglobin Concent 31.8 G/DL (32.0-36.0) Red Cell Distribution Width 16.2 % (11.6-14.8) Platelet Count 241 K/UL (150-450) Mean Platelet Volume 8.2 FL (6.5-10.1) Neutrophils (%) (Auto) 79.2 % (45.0-75.0) Lymphocytes (%) (Auto) 14.1 % (20.0-45.0) Monocytes (%) (Auto) 5.6 % (1.0-10.0) Eosinophils (%) (Auto) 0.1 % (0.0-3.0) Basophils (%) (Auto) 1.0 % (0.0-2.0) Sodium Level 148 MMOL/L (136-145) Potassium Level 4.1 MMOL/L (3.5-5.1) Chloride Level 112 MMOL/L (98-107) Carbon Dioxide Level 16 MMOL/L (21-32) Anion Gap 20 mmol/L (5-15) Blood Urea Nitrogen 53 mg/dL (7-18) Creatinine 3.1 MG/DL (0.55-1.30) Estimat Glomerular Filtration Rate 15.1 mL/min (>60) Glucose Level 89 MG/DL (74-106) Lactic Acid Level 4.30 mmol/L (0.4-2.0) Calcium Level 11.9 MG/DL (8.5-10.1) Total Bilirubin 0.7 MG/DL (0.2-1.0) Aspartate Amino Transf (AST/SGOT) 39 U/L (15-37) Alanine Aminotransferase (ALT/SGPT) 41 U/L (12-78) Alkaline Phosphatase 98 U/L (46-116) Total Protein 9.2 G/DL (6.4-8.2) Albumin 4.1 G/DL (3.4-5.0) Globulin 5.1 g/dL Albumin/Globulin Ratio 0.8 (1.0-2.7) Urine Color Yellow Urine Appearance Clear Urine pH 5 (4.5-8.0) Urine Specific [place] 1.015 (1.005-1.035) Urine Protein 2+ (NEGATIVE) Urine Glucose (UA) Negative (NEGATIVE) Urine Ketones 2+ (NEGATIVE) Urine Blood 2+ (NEGATIVE) Urine Nitrite Positive (NEGATIVE) Urine Bilirubin 1+ (NEGATIVE) Urine Ictotest Negative (NEGATIVE) Urine Urobilinogen 1 MG/DL (0.0-1.0) Urine Leukocyte Esterase 3+ (NEGATIVE) Urine RBC 0-2 /HPF (0 - 2) Urine WBC 2-4 /HPF (0 - 2) Urine Squamous Epithelial Cells Few /LPF (NONE/OCC) Urine Bacteria Few /HPF (NONE) EKG Diagnostic Results Rate: bradycardiac Rhythm: NSR ST Segments: no acute changes ASA given to the pt in ED: No Rhythm Strip Diag. Results EP Interpretation: yes Rhythm: NSR, no PVC's, no ectopy Chest X-Ray Diagnostic Results Chest X-Ray Diagnostic Results : Chest X-Ray Ordered: Yes # of Views/Limited/Complete: 1 View Indication: Other EP Interpretation: Yes Interpretation: no consolidation, no effusion, no pneumothorax, no acute cardiopulmonary disease Impression: No acute disease Electronically Signed by: Electronically signed by Nilesh Griffin MD Last Vital Signs Date Time Temp Pulse Resp B/P (MAP) Pulse Ox O2 Delivery O2 Flow Rate FiO2 11/24/18 17:24 98.4 76 20 108/62 100 Room Air Status: improved Disposition: ADMITTED INPATIENT Condition: Serious Referrals: Mady Perez MD (PCP) Nilesh Griffin MD Nov 24, 2018 17:34
[2018-11-24 17:38] LABS: ALANINE AMINOTRANSFERASE 41 U/L (12-78); ALBUMIN 4.1 G/DL (3.4-5.0); ALBUMIN/GLOBULIN RATIO 0.8 (1.0-2.7); ALKALINE PHOSPHATASE 98 U/L (46-116); ASPARTATE AMINO TRANSFERASE 39 U/L (15-37); BILIRUBIN,TOTAL 0.7 MG/DL (0.2-1.0)
[2018-11-24 17:46] LABS: APPEARANCE,URINE CLEAR; BILIRUBIN, URINE 1+ (NEGATIVE); GLUCOSE, URINE (UA) NEGATIVE (NEGATIVE); KETONES,URINE 2+ (NEGATIVE); LEUKOCYTE ESTERASE ,URINE 3+ (NEGATIVE); NITRITE,URINE POSITIVE (NEGATIVE); PH,URINE 5 (4.5-8.0); PROTEIN,URINE 2+ (NEGATIVE); UROBILINOGEN,URINE 1 MG/DL (0.0-1.0)
[2018-11-24 17:53] LABS: COLOR,URINE YELLOW
--- NOTE | 2018-11-24 18:10 | NUR ---
ED Nurse Note: LACTIC REFLEX SENT TO LAB.
[2018-11-24] MEDS ORDERED: cefTRIAXone 1 GM in NS 55 ML IVPB ONE (18:15)
--- NOTE | 2018-11-24 18:57 | NUR ---
HAND-OFF: REPORT GIVEN TO RORY RENTERIA.
--- NOTE | 2018-11-24 19:07 | Infectious Diseases Prog Note ---
Assessment/Plan Problems: (1) UTI (urinary tract infection) Assessment & Plan: will send urine culture and start cefepime empirically (2) Sepsis Assessment & Plan: possible due to the above , will start cefepime empirically pending blood culture (3) Encephalopathy Assessment & Plan: suspect metabolic due to the above, continue hydration and close monitor in tele (4) Renal failure Assessment & Plan: suspect due to dehydration, continue IVF for hydration , with close monitor of renal function, consult renal Subjective Allergies: Coded Allergies: No Known Allergies (Unverified , 07/04/18) Objective Vital Signs Last 24 Hour Vital Signs Date Time Temp Pulse Resp B/P (MAP) Pulse Ox O2 Delivery O2 Flow Rate FiO2 11/24/18 17:24 98.4 76 20 108/62 100 Room Air 11/24/18 17:08 82 18 Room Air 11/24/18 16:26 98.2 113 22 127/93 100 Room Air 11/24/18 16:03 97.9 78 18 130/80 (97) 97 Room Air Height (Feet): 5 Height (Inches): 2.00 Weight (Pounds): 145 Microbiology Date/Time Source Procedure Growth Status 11/24/18 17:18 Rectum Received Laboratory Tests Test 11/24/18 16:30 11/24/18 17:18 11/24/18 18:09 White Blood Count 10.5 K/UL (4.8-10.8) Red Blood Count 4.64 M/UL (4.20-5.40) Hemoglobin 11.5 G/DL (12.0-16.0) L Hematocrit 36.2 % (37.0-47.0) L Mean Corpuscular Volume 78 FL (80-99) L Mean Corpuscular Hemoglobin 24.8 PG (27.0-31.0) L Mean Corpuscular Hemoglobin Concent 31.8 G/DL (32.0-36.0) L Red Cell Distribution Width 16.2 % (11.6-14.8) H Platelet Count 241 K/UL (150-450) Mean Platelet Volume 8.2 FL (6.5-10.1) Neutrophils (%) (Auto) 79.2 % (45.0-75.0) H Lymphocytes (%) (Auto) 14.1 % (20.0-45.0) L Monocytes (%) (Auto) 5.6 % (1.0-10.0) Eosinophils (%) (Auto) 0.1 % (0.0-3.0) Basophils (%) (Auto) 1.0 % (0.0-2.0) Sodium Level 148 MMOL/L (136-145) H Potassium Level 4.1 MMOL/L (3.5-5.1) Chloride Level 112 MMOL/L (98-107) H Carbon Dioxide Level 16 MMOL/L (21-32) L Anion Gap 20 mmol/L (5-15) H Blood Urea Nitrogen 53 mg/dL (7-18) H Creatinine 3.1 MG/DL (0.55-1.30) H Estimat Glomerular Filtration Rate 15.1 mL/min (>60) Glucose Level 89 MG/DL (74-106) Lactic Acid Level 4.30 mmol/L (0.4-2.0) H 1.00 mmol/L (0.66-2.22) Calcium Level 11.9 MG/DL (8.5-10.1) H Total Bilirubin 0.7 MG/DL (0.2-1.0) Aspartate Amino Transf (AST/SGOT) 39 U/L (15-37) H Alanine Aminotransferase (ALT/SGPT) 41 U/L (12-78) Alkaline Phosphatase 98 U/L (46-116) Total Protein 9.2 G/DL (6.4-8.2) H Albumin 4.1 G/DL (3.4-5.0) Globulin 5.1 g/dL Albumin/Globulin Ratio 0.8 (1.0-2.7) L Urine Color Yellow Urine Appearance Clear Urine pH 5 (4.5-8.0) Urine Specific [place] 1.015 (1.005-1.035) Urine Protein 2+ (NEGATIVE) H Urine Glucose (UA) Negative (NEGATIVE) Urine Ketones 2+ (NEGATIVE) H Urine Blood 2+ (NEGATIVE) H Urine Nitrite Positive (NEGATIVE) H Urine Bilirubin 1+ (NEGATIVE) H Urine Ictotest Negative (NEGATIVE) Urine Urobilinogen 1 MG/DL (0.0-1.0) H Urine Leukocyte Esterase 3+ (NEGATIVE) H Urine RBC 0-2 /HPF (0 - 2) Urine WBC 2-4 /HPF (0 - 2) Urine Squamous Epithelial Cells Few /LPF (NONE/OCC) Urine Bacteria Few /HPF (NONE) Current Medications Medications (Trade) Dose Ordered Sig/Omari Route PRN Reason Start Time Stop Time Status Last Admin Dose Admin Sodium Chloride 1,000 ml @ 999 mls/hr Q1H1M ONCE IV 11/24/18 18:15 11/24/18 19:15 11/24/18 18:13 Gloria Nelson M.D. Nov 24, 2018 19:07
[2018-11-24 19:50] VITALS: BP 100/65
[2018-11-24 20:00] VITALS: BP 153/75
--- NOTE | 2018-11-24 20:00 | NUR ---
NURSE NOTES: Patient arrived on unit lethargic and sleeping. Patient placed into bed, bed alarm activated, pvc monitor placed, wound care provided with pictures taken. sponge bath and linen change provided. Belongings accounted for. Report received from RORY Vo. Will initiate plan of care.
--- NOTE | 2018-11-24 20:09 | NUR ---
ED Nurse Note: Patient was admited to SDU due to encephalopathy, severe sepsis. Patient was transfered to the unit via gurney, by ACLS protocol with all belongings. AAO x1, VSS at this time, skin is dry warm to touch. Patient has redness of the skin on her sacral area.
[2018-11-24] MEDS ORDERED: Cefepime HCl 2 GM in D5W 55 ML IVPB SCH (21:00)
[2018-11-24] MEDS ORDERED: Cefepime 2gm/D5W 110ml IV ONE ×2 (21:00)
[2018-11-24] MEDS ORDERED: Haloperidol 5mg/ml Inj IM PRN (22:00)
[2018-11-25] VITALS: BP 104/63
[2018-11-25] MEDS: LORazepam Inj 2mg/ml 1ml IV PRN ×2 (00:44→09:38)
[2018-11-25 04:00] VITALS: BP 127/81
[2018-11-25 04:57] LABS: BASOPHILS % (AUTO) 0.9 % (0.0-2.0); EOSINOPHILS % (AUTO) 1.6 % (0.0-3.0); HEMATOCRIT 29.3 % (37.0-47.0); HEMOGLOBIN 9.1 G/DL (12.0-16.0); LYMPHOCYTES % (AUTO) 24.4 % (20.0-45.0); MEAN CORPUSCULAR VOLUME 81 FL (80-99); MONOCYTES % (AUTO) 7.2 % (1.0-10.0); NEUTROPHILS % (AUTO) 65.9 % (45.0-75.0); PLATELET COUNT 156 K/UL (150-450); RED BLOOD COUNT 3.63 M/UL (4.20-5.40); RED CELL DISTRIBUTION WIDTH 17.2 % (11.6-14.8); WHITE BLOOD COUNT 6.4 K/UL (4.8-10.8)
[2018-11-25 05:46] LABS: ALANINE AMINOTRANSFERASE 30 U/L (12-78); ALBUMIN 3.1 G/DL (3.4-5.0); ALBUMIN/GLOBULIN RATIO 0.8 (1.0-2.7); ALKALINE PHOSPHATASE 69 U/L (46-116); ANION GAP 13 mmol/L (5-15); ASPARTATE AMINO TRANSFERASE 28 U/L (15-37); BILIRUBIN,TOTAL 0.4 MG/DL (0.2-1.0); BLOOD UREA NITROGEN 45 mg/dL (7-18); CALCIUM 10.1 MG/DL (8.5-10.1); CARBON DIOXIDE 18 MMOL/L (21-32); CHLORIDE 122 MMOL/L (98-107); CREATININE 2.1 MG/DL (0.55-1.30); SODIUM 153 MMOL/L (136-145)
--- NOTE | 2018-11-25 07:18 | NUR ---
HAND-OFF: Report given to Chelly Dsouza RN.
--- NOTE | 2018-11-25 07:19 | NUR ---
NURSE NOTES: Received patient from RORY Ocampo. Patient calling out and confused at this time. Will administer anxiety medication as ordered. Patient has history of depression, anxiety, and psychological problems. Patient is a Wolof speaker. Patient showing sinus rhythm on the media monitor at a rate 83bpm. Patient alert to self but confused to place, time, and purpose. Patient on room air with no sign of respiratory distress. Patient has breakfast in front of her at this time but is not eating. Patient asking for water. Water given and patient still yelling. Patient has sacral wound unstaged and calluses with flaking on her feet. Patient has left forearm 20G peripheral IV that is saline locked at this time. Patient bed in low position with bed alarm on and call light in reach.
[2018-11-25 08:00] VITALS: BP 146/102
[2018-11-25] MEDS ORDERED: HydrALAZINE 25mg tab ORAL PRN ×2 (08:30→13:45)
--- NOTE | 2018-11-25 08:31 | Consultation ---
Consult Note Consult Note asked to eval for renal failure by Dr Perez patient seen in Rm [id number] and examined data reviewed poor historian lethargic ER note; 68-year-old female presents ED for evaluation. Brought in by EMS from [facility]. Sent in for change in mentation. Has baseline dementia and psychiatric history. Appears to be more agitated as of the last day. Patient is unable to provide any additional history at this time. Is mumbling. No signs of distress upon arrival. No reported fevers or chills. No other aggravating relieving factors. No other associated symptoms No Known Allergies (Unverified , 07/04/18) Past Medical History: psych hx Hx Cardiac Problems: Yes - Anemia Hx Hypertension: Yes Hx Dialysis: No - Chronic Renal Insufficiency History Of Psychiatric Problem: Yes - DEPRESSION,CONFUSION Hx Neurological Problems: Yes - EPS . Assessment/Plan Anemia- adequate Iron- slightly low folate Renal failure appears pre renal, ? underlying Renal Dehydration Psych history , On Kinta high Lipids UTI Plan; IV fluids , PRN Hydralazine for high BP Antibiotics Monitor renal parameters Kinta Level avoid nephrotoxics per orders Adilson Wells MD Nov 25, 2018 08:31
[2018-11-25] MEDS: LORazepam 0.5mg tab ORAL SCH ×3 (08:33→17:43)
[2018-11-25] MEDS: Heparin 5000 units/ml inj SUBQ SCH ×3 (08:35→20:30)
[2018-11-25] MEDS: Benztropine 1mg tab ORAL SCH ×2 (08:40→17:43)
[2018-11-25] MEDS ORDERED: NIFEdipine 10mg cap ORAL SCH (09:00)
[2018-11-25 09:09] LABS: CHOLESTEROL 278 MG/DL (< 200); CREATINE KINASE 352 U/L (26-308); GAMMA GLUTAMYL TRANSPEPTIDASE 19 U/L (5-85); HDL CHOLESTEROL 23 MG/DL (40-60); TRIGLYCERIDES 161 MG/DL (30-150)
[2018-11-25 09:11] LABS: FERRITIN 200 NG/ML (8-388)
[2018-11-25 09:25] LABS: % IRON SATURATION 20 % (15-50); IRON 43 ug/dL (50-175); TOTAL IRON BINDING CAPACITY 210 ug/dL (250-450)
--- NOTE | 2018-11-25 09:34 | NUR ---
Residential Property ManagerPan Devulcanizer Helper 68 Y/O Female SLIME from [facility] CC: evaluation of abnormal lab (BUN, Creat) SI: Encephalopathy, sepsis VS: BP: 130/80 HR: 78 RR 18 02 Sat 97% (RA) T: 97.8 NT: Hgb 11.5 Hct 36.2 UR Erythrocyt 2+ UR Protein 2+ UR Ketones 2+ UR Bilirubin 1+ UR Nitrite Positive Sodium 148 Anion Gap 20 BUN 53 Creatinine 3.1 Calcium 11.9 Total protein 9.2 Lactic Acid 4.3 CXR: negative IS: NS 1000ml IV Haldol 5mg IM Ativan 2mg IV NS 1000ml IV NS 1000ml IV Rocephin 1GM IVPB Admitted to [facility] Telemetry status DCP: Pending Hospital Stay
--- NOTE | 2018-11-25 10:20 | History & Physical ---
History and Physical History & Physicial seen and examined.Full Dictation completed on 1015 AM Mady Perez MD Nov 25, 2018 10:20
--- NOTE | 2018-11-25 10:22 | General Progress Note ---
Assessment/Plan Assessment/Plan: Seen and examined. Full Dictation in progress 1- Acute Metabolic encephalopathy 2- ARF 3- HyperNaremia Plan Nephro Psych ID are consulted Subjective Allergies: Coded Allergies: No Known Allergies (Unverified , 07/04/18) Objective Last 24 Hour Vital Signs Date Time Temp Pulse Resp B/P (MAP) Pulse Ox O2 Delivery O2 Flow Rate FiO2 11/25/18 08:00 98.4 89 18 146/102 (117) 100 11/25/18 04:00 Room Air 11/25/18 04:00 98.3 65 20 127/81 (96) 100 11/25/18 03:29 48 11/25/18 00:00 Room Air 11/25/18 00:00 96.5 58 16 104/63 (77) 99 11/24/18 23:32 51 11/24/18 20:01 65 11/24/18 20:00 97.6 67 16 153/75 (101) 100 11/24/18 20:00 Room Air 11/24/18 19:50 98.4 60 20 100/65 98 Room Air 11/24/18 17:24 98.4 76 20 108/62 100 Room Air 11/24/18 17:08 82 18 Room Air 11/24/18 16:26 98.2 113 22 127/93 100 Room Air 11/24/18 16:03 97.9 78 18 130/80 (97) 97 Room Air Intake and Output 11/24/18 11/25/18 19:00 07:00 Intake Total 1200 ml 0 ml Balance 1200 ml 0 ml Intake Oral 0 ml IV Total 1200 ml # Voids 1 Laboratory Tests 11/24/18 16:30: White Blood Count 10.5, Red Blood Count 4.64, Hemoglobin 11.5L, Hematocrit 36.2L , Mean Corpuscular Volume 78L, Mean Corpuscular Hemoglobin 24.8L, Mean Corpuscular Hemoglobin Concent 31.8L, Red Cell Distribution Width 16.2H, Platelet Count 241, Mean Platelet Volume 8.2, Neutrophils (%) (Auto) 79.2H, Lymphocytes (%) (Auto) 14.1L, Monocytes (%) (Auto) 5.6, Eosinophils (%) (Auto) 0.1, Basophils (%) (Auto) 1.0, Sodium Level 148H, Potassium Level 4.1, Chloride Level 112H, Carbon Dioxide Level 16L, Anion Gap 20H, Blood Urea Nitrogen 53H, Creatinine 3.1H, Estimat Glomerular Filtration Rate 15.1, Glucose Level 89, Lactic Acid Level 4.30H, Calcium Level 11.9H, Total Bilirubin 0.7, Aspartate Amino Transf (AST/SGOT) 39H, Alanine Aminotransferase (ALT/SGPT) 41, Alkaline Phosphatase 98, Total Protein 9.2H, Albumin 4.1, Globulin 5.1, Albumin/Globulin Ratio 0.8L 11/24/18 17:18: Urine Color Yellow, Urine Appearance Clear, Urine pH 5, Urine Specific [place] 1.015, Urine Protein 2+H, Urine Glucose (UA) Negative, Urine Ketones 2+H, Urine Blood 2+H, Urine Nitrite PositiveH, Urine Bilirubin 1+H, Urine Ictotest Negative , Urine Urobilinogen 1H, Urine Leukocyte Esterase 3+H, Urine RBC 0-2, Urine WBC 2-4, Urine Squamous Epithelial Cells Few, Urine Bacteria Few 11/24/18 18:09: Lactic Acid Level 1.00 11/25/18 03:40: White Blood Count 6.4, Red Blood Count 3.63L, Hemoglobin 9.1L, Hematocrit 29.3L , Mean Corpuscular Volume 81, Mean Corpuscular Hemoglobin 24.9L, Mean Corpuscular Hemoglobin Concent 30.9L, Red Cell Distribution Width 17.2H, Platelet Count 156, Mean Platelet Volume 7.8, Neutrophils (%) (Auto) 65.9, Lymphocytes (%) (Auto) 24.4, Monocytes (%) (Auto) 7.2, Eosinophils (%) (Auto) 1.6, Basophils (%) (Auto) 0.9, Sodium Level 153H, Potassium Level 4.0, Chloride Level 122H, Carbon Dioxide Level 18L, Anion Gap 13, Blood Urea Nitrogen 45H, Creatinine 2.1H, Estimat Glomerular Filtration Rate 23.6, Glucose Level 63L, Calcium Level 10.1, Total Bilirubin 0.4, Aspartate Amino Transf (AST/SGOT) 28, Alanine Aminotransferase (ALT/SGPT) 30, Alkaline Phosphatase 69, Total Protein 7.1, Albumin 3.1L, Globulin 4.0, Albumin/Globulin Ratio 0.8L, Iron Level 43L, Total Iron Binding Capacity 210L, Percent Iron Saturation 20, Unsaturated Iron Binding 167, Ferritin 200, Gamma Glutamyl Transpeptidase 19, Total Creatine Kinase 352H, Triglycerides Level 161H, Cholesterol Level 278H, LDL Cholesterol 215H, HDL Cholesterol 23L, Cholesterol/HDL Ratio 12.1H, Vitamin B12 Level 556, Folate 8.0L, Thyroid Stimulating Hormone (TSH) 0.368, [place] Level [Pending] Height (Feet): 5 Height (Inches): 2.00 Weight (Pounds): 145 Mady Perez MD Nov 25, 2018 10:22
--- NOTE | 2018-11-25 11:14 | Infectious Diseases Prog Note ---
Assessment/Plan Problems: (1) UTI (urinary tract infection) Assessment & Plan: continue cefepime pending urine culture (2) Sepsis Assessment & Plan: possible due to the above , on cefepime empirically pending blood culture (3) Encephalopathy Assessment & Plan: suspect metabolic due to the above, continue hydration and close monitor in tele (4) Renal failure Assessment & Plan: suspect due to dehydration, continue IVF for hydration , with close monitor of renal function, consult renal Subjective ROS Limited/Unobtainable: Yes Allergies: Coded Allergies: No Known Allergies (Unverified , 07/04/18) Subjective she was resting in bed sleepy after she received ativan, afebrile, NAD Objective Vital Signs Last 24 Hour Vital Signs Date Time Temp Pulse Resp B/P (MAP) Pulse Ox O2 Delivery O2 Flow Rate FiO2 11/25/18 08:00 98.4 89 18 146/102 (117) 100 11/25/18 08:00 Room Air 11/25/18 07:51 86 11/25/18 04:00 Room Air 11/25/18 04:00 98.3 65 20 127/81 (96) 100 11/25/18 03:29 48 11/25/18 00:00 Room Air 11/25/18 00:00 96.5 58 16 104/63 (77) 99 11/24/18 23:32 51 11/24/18 20:01 65 11/24/18 20:00 97.6 67 16 153/75 (101) 100 11/24/18 20:00 Room Air 11/24/18 19:50 98.4 60 20 100/65 98 Room Air 11/24/18 17:24 98.4 76 20 108/62 100 Room Air 11/24/18 17:08 82 18 Room Air 11/24/18 16:26 98.2 113 22 127/93 100 Room Air 11/24/18 16:03 97.9 78 18 130/80 (97) 97 Room Air Height (Feet): 5 Height (Inches): 2.00 Weight (Pounds): 145 General Appearance: WD/WN, no acute distress HEENT: normocephalic, atraumatic, anicteric, mucous membranes moist, supple, no JVD Respiratory/Chest: chest wall non-tender, lungs clear, normal breath sounds, no respiratory distress, no accessory muscle use Cardiovascular: normal peripheral pulses, normal rate, regular rhythm, no gallop/murmur, no JVD Abdomen: normal bowel sounds, soft, non tender, no organomegaly, non distended , no mass, no scars Extremities: no cyanosis, no clubbing Skin: no rash, no lesions, no ulcers Neurologic/Psychiatric: unresponsiveness Lymphatic: no neck adenopathy, no groin adenopathy Musculoskeletal: normal muscle bulk, no effusion Microbiology Date/Time Source Procedure Growth Status 11/24/18 17:18 Rectum Received Laboratory Tests Test 11/24/18 16:30 11/24/18 17:18 11/24/18 18:09 11/25/18 03:40 White Blood Count 10.5 K/UL (4.8-10.8) 6.4 K/UL (4.8-10.8) Red Blood Count 4.64 M/UL (4.20-5.40) 3.63 M/UL (4.20-5.40) L Hemoglobin 11.5 G/DL (12.0-16.0) L 9.1 G/DL (12.0-16.0) L Hematocrit 36.2 % (37.0-47.0) L 29.3 % (37.0-47.0) L Mean Corpuscular Volume 78 FL (80-99) L 81 FL (80-99) Mean Corpuscular Hemoglobin 24.8 PG (27.0-31.0) L 24.9 PG (27.0-31.0) L Mean Corpuscular Hemoglobin Concent 31.8 G/DL (32.0-36.0) L 30.9 G/DL (32.0-36.0) L Red Cell Distribution Width 16.2 % (11.6-14.8) H 17.2 % (11.6-14.8) H Platelet Count 241 K/UL (150-450) 156 K/UL (150-450) Mean Platelet Volume 8.2 FL (6.5-10.1) 7.8 FL (6.5-10.1) Neutrophils (%) (Auto) 79.2 % (45.0-75.0) H 65.9 % (45.0-75.0) Lymphocytes (%) (Auto) 14.1 % (20.0-45.0) L 24.4 % (20.0-45.0) Monocytes (%) (Auto) 5.6 % (1.0-10.0) 7.2 % (1.0-10.0) Eosinophils (%) (Auto) 0.1 % (0.0-3.0) 1.6 % (0.0-3.0) Basophils (%) (Auto) 1.0 % (0.0-2.0) 0.9 % (0.0-2.0) Sodium Level 148 MMOL/L (136-145) H 153 MMOL/L (136-145) H Potassium Level 4.1 MMOL/L (3.5-5.1) 4.0 MMOL/L (3.5-5.1) Chloride Level 112 MMOL/L (98-107) H 122 MMOL/L (98-107) H Carbon Dioxide Level 16 MMOL/L (21-32) L 18 MMOL/L (21-32) L Anion Gap 20 mmol/L (5-15) H 13 mmol/L (5-15) Blood Urea Nitrogen 53 mg/dL (7-18) H 45 mg/dL (7-18) H Creatinine 3.1 MG/DL (0.55-1.30) H 2.1 MG/DL (0.55-1.30) H Estimat Glomerular Filtration Rate 15.1 mL/min (>60) 23.6 mL/min (>60) Glucose Level 89 MG/DL (74-106) 63 MG/DL (74-106) L Lactic Acid Level 4.30 mmol/L (0.4-2.0) H 1.00 mmol/L (0.66-2.22) Calcium Level 11.9 MG/DL (8.5-10.1) H 10.1 MG/DL (8.5-10.1) Total Bilirubin 0.7 MG/DL (0.2-1.0) 0.4 MG/DL (0.2-1.0) Aspartate Amino Transf (AST/SGOT) 39 U/L (15-37) H 28 U/L (15-37) Alanine Aminotransferase (ALT/SGPT) 41 U/L (12-78) 30 U/L (12-78) Alkaline Phosphatase 98 U/L (46-116) 69 U/L (46-116) Total Protein 9.2 G/DL (6.4-8.2) H 7.1 G/DL (6.4-8.2) Albumin 4.1 G/DL (3.4-5.0) 3.1 G/DL (3.4-5.0) L Globulin 5.1 g/dL 4.0 g/dL Albumin/Globulin Ratio 0.8 (1.0-2.7) L 0.8 (1.0-2.7) L Urine Color Yellow Urine Appearance Clear Urine pH 5 (4.5-8.0) Urine Specific Jennings 1.015 (1.005-1.035) Urine Protein 2+ (NEGATIVE) H Urine Glucose (UA) Negative (NEGATIVE) Urine Ketones 2+ (NEGATIVE) H Urine Blood 2+ (NEGATIVE) H Urine Nitrite Positive (NEGATIVE) H Urine Bilirubin 1+ (NEGATIVE) H Urine Ictotest Negative (NEGATIVE) Urine Urobilinogen 1 MG/DL (0.0-1.0) H Urine Leukocyte Esterase 3+ (NEGATIVE) H Urine RBC 0-2 /HPF (0 - 2) Urine WBC 2-4 /HPF (0 - 2) Urine Squamous Epithelial Cells Few /LPF (NONE/OCC) Urine Bacteria Few /HPF (NONE) Iron Level 43 ug/dL (50-175) L Total Iron Binding Capacity 210 ug/dL (250-450) L Percent Iron Saturation 20 % (15-50) Unsaturated Iron Binding 167 ug/dL (112-346) Ferritin 200 NG/ML (8-388) Gamma Glutamyl Transpeptidase 19 U/L (5-85) Total Creatine Kinase 352 U/L (26-308) H Triglycerides Level 161 MG/DL (30-150) H Cholesterol Level 278 MG/DL (< 200) H LDL Cholesterol 215 mg/dL (<100) H HDL Cholesterol 23 MG/DL (40-60) L Cholesterol/HDL Ratio 12.1 (3.3-4.4) H Vitamin B12 Level 556 PG/ML (193-986) Folate 8.0 NG/ML (8.6-58.9) L Thyroid Stimulating Hormone (TSH) 0.368 uiU/mL (0.358-3.740) Vander[place] Level Pending Current Medications Medications (Trade) Dose Ordered Sig/Omari Route PRN Reason Start Time Stop Time Status Last Admin Dose Admin Acetaminophen (Tylenol) 650 mg Q6H PRN ORAL Mild Pain/Temp > 100.5 11/24/18 22:00 12/24/18 21:59 Benztropine Mesylate (Cogentin) 1 mg BID ORAL 11/25/18 09:00 12/25/18 08:59 11/25/18 08:40 Cefepime HCl 1 gm/ Dextrose 55 ml @ 110 mls/hr Q24H IVPB 11/25/18 21:00 12/02/18 20:59 Dextrose 1,000 ml @ 100 mls/hr Q10H IV 11/25/18 08:30 12/25/18 08:29 11/25/18 08:39 Haloperidol (Haldol) 5 mg DAILY ORAL 11/25/18 09:00 12/25/18 08:59 11/25/18 08:33 Haloperidol Lactate (Haldol) 5 mg Q8H PRN IM Agitation 11/24/18 22:00 12/24/18 21:59 Heparin Sodium (Porcine) (Heparin 5000 units/ml) 5,000 units EVERY 12 HOURS SUBQ 11/25/18 09:00 12/25/18 08:59 11/25/18 08:35 Hydralazine HCl (Apresoline) 25 mg Q4H PRN ORAL bp over 160 syst 11/25/18 08:30 12/25/18 08:29 Vander[place]ift Carbonate (Vander[place]ift Carbonate) 300 mg BID ORAL 11/25/18 09:00 12/25/18 08:59 11/25/18 08:40 Lorazepam (Ativan 2mg/ml 1ml) 1 mg Q8H PRN IV For Anxiety 11/24/18 22:00 12/01/18 21:59 11/25/18 09:38 Lorazepam (Ativan) 0.5 mg THREE TIMES A DAY ORAL 11/25/18 09:00 12/02/18 08:59 11/25/18 08:33 Mirtazapine (Remeron) 7.5 mg BEDTIME ORAL 11/25/18 21:00 12/25/18 20:59 Pantoprazole (Protonix) 40 mg BID ORAL 11/25/18 09:00 12/25/18 08:59 11/25/18 08:33 Gloria Nelson M.D. Nov 25, 2018 11:14
[2018-11-25 12:00] VITALS: BP 103/68
--- NOTE | 2018-11-25 12:30 | NUR ---
NURSE NOTES: Blood pressure 103/68, HR 55, temp 98.6, RR 18, and SpO2 99%. Patient calmer at this time but still confused. Family at the bedside. Patient slept most of the morning after the IV dose of Ativan was given to calm her down. The family is helping the patient to eat her lunch at this time. Patient sitting up in bed. Patient repositioned and oral care to be performed after she finishes her lunch. Will continue administer anxiety medication as ordered. Patient showing sinus bradycardia on the case monitor at a rate 55bpm. Patient on room air with no sign of respiratory distress. Left forearm 20G peripheral IV not working correctly at this time. IV site is slightly swollen at this time. Will insert new IV when patient finished eating. Patient bed in low position with bed alarm on and call light in reach. Patient has an order for renal ultrasound. Will follow up with customer account technician.
[2018-11-25 16:00] VITALS: BP 118/60
--- NOTE | 2018-11-25 16:00 | NUR ---
NURSE NOTES: Blood pressure 118/60, HR 87, temp 98.1, RR 18, and SpO2 100%. Patient calmer at this time but still confused and mumbling. Family no longer at the bedside. Patient repositioned and oral care to be performed at this time. Will continue tp administer anxiety medication as ordered. Patient showing sinus rhythm on the cardiac cath technician at a rate 87bpm. Patient on room air with no sign of respiratory distress. left hand 22 gauge PIV inserted at 1330. Patient voided a small amount and bed bath was performed at this time. Patient bladder distended at this time. Bladder scan performed. 999+ residual seen on bladder scan. Dr Wells called and message left on emergency line. Awaiting call back at this time. Patient bed in low position with bed alarm on and call light in reach.
--- NOTE | 2018-11-25 16:15 | Consultation ---
DATE OF CONSULTATION: 11/25/2018 INFECTIOUS DISEASES CONSULTATION CONSULTING PHYSICIAN: Gloria Nelson M.D. REQUESTING PHYSICIAN: Mady Perez M.D. REASON FOR CONSULTATION: Sepsis, UTI, recommendation for antibiotics treatment. HISTORY OF PRESENT ILLNESS: The patient is a 68-year-old female with past medical history of hypertension, cardiac disease, anemia, depression, epilepsy, and chronic renal failure, who was brought into [facility] emergency room via paramedics from [facility] due to change in mental status. The patient had baseline dementia and psych disorder. She was more agitated over the last 24 hours as per the staff, unable to provide any history in the emergency room due to confusion and altered mental status. No reported fever or chills at the [facility]. No other symptoms. Vitals were okay in the ER with temperature of 97.9, blood pressure 130/80, and pulse of 78. Extensive workup in the ED reveals evidence of leukocytosis concerning for sepsis and urine tract infection. So, she was started on ceftriaxone and Infectious Diseases consultation was requested for antibiotics treatment and further management. REVIEW OF SYSTEMS: A 14-point of system reviewed, were all negative. PAST MEDICAL HISTORY: Significant for cardiac disease, anemia, hypertension, chronic renal failure, depression, confusion, and epilepsy. PAST SURGICAL HISTORY: Not on record. ALLERGIES: No known drug allergies. MEDICATIONS: The patient received ceftriaxone in the ED. For rest of her medications, please refer to MAR. FAMILY HISTORY: Unable to obtain. SOCIAL HISTORY: She lives at the [facility]. No recent drugs, tobacco, or alcohol. PHYSICAL EXAMINATION: VITAL SIGNS: Temperature 98.2 degrees, pulse 115, respirations 22, blood pressure 127/93, and saturation 100% on room air. GENERAL: A middle-aged female, lying in bed, confused, altered, not agitated, not in acute distress. HEENT: Normocephalic and atraumatic. Pupils reactive to light. Pale sclerae. Dry oral mucosa. NECK: Supple. No lymphadenopathy. CARDIOVASCULAR: Regular rate and rhythm. No murmur or gallop. LUNGS: Clear bilaterally. Diminished breathing sounds at the bases. ABDOMEN: Soft, nontender, nondistended. Normal bowel sounds. No hepatosplenomegaly or ascites. EXTREMITIES: No edema or cyanosis. No clubbing. SKIN: Mild sacral erythema. GENITOURINARY: Normal genitalia. LABORATORY AND DIAGNOSTIC DATA: Labs showed white count of 10.5, hemoglobin of 11.5, hematocrit of 36.2, and platelet count of 241,000. BUN of 53 and creatinine of 3.1. AST of 39 and ALT of 41. Urinalysis was positive for nitrites, +3 leukocyte esterase, and few bacteria. Microbiology, blood culture and urine culture pending. Imaging, chest x-ray showed no acute finding. ASSESSMENT AND RECOMMENDATION: 1. UTI. We will send urine culture and start cefepime empiric coverage. 2. Sepsis, possibly due to the above. We will start cefepime empiric coverage, pending blood cultures. 3. Encephalopathy, suspect metabolic due to the above. Continue hydration and close monitoring in tele. 4. Renal failure, suspect due to dehydration. Continue IV fluids. Close monitor of renal function. Consult Renal. Thank you for the consult. ID will continue to follow. Please feel free to call with any question. Gloria Nelson M.D. DR: CRISTIANE JOB#: [id number] CC:
--- NOTE | 2018-11-25 16:47 | Diagnostic Imaging Report ---
Indication: Abnormal renal function, back pain Technique: Grayscale and duplex images of the kidneys, retroperitoneum, and bladder were obtained. Comparison: none Findings: Right kidney measures 8.4 cm in length. Left kidney measures 9 cm in length. Both kidneys demonstrate mildly increased echogenicity. No hydronephrosis. There are bilateral renal cysts. Normal inferior vena cava. Bladder is distended, volume 585 mL. Per technologist, patient had no urge to void at the time of exam. Impression: Negative for hydronephrosis Increased echogenicity of the kidneys, consistent with medical renal disease Distended urinary bladder.
--- NOTE | 2018-11-25 17:00 | NUR ---
NURSE NOTES: Received order from Dr Wells for rodarte placement. Inserted 16 nigerian rodarte using aseptic technique. 1200mL output was observed within a few minutes post rodarte insertion. Patient appears more comfortable. Bladder distention no longer present.
--- NOTE | 2018-11-25 19:00 | History and Physical Report ---
DATE OF ADMISSION: 11/24/2018 NOTE: "POOR AUDIO QUALITY" SOURCE OF INFORMATION: The patient and EMR. HISTORY OF PRESENT ILLNESS: The patient is a 68-year-old female, suffering from psychiatric problem. The patient has been noted to have more episodes of agitation and some episodes of confusion. The patient was transferred for the additional evaluation for change in mental status. Initial evaluation in the emergency room shows tachycardia with sodium of 153. The patient was admitted for additional evaluation. ALLERGIES: NKDA. REVIEW OF SYSTEMS: Poor historian and within this limitation, no history of trauma, shortness of breath, abnormal bleeding, or fever has been reported. PAST SURGICAL HISTORY: Not obtainable. MEDICATIONS: Current hospital medications including but not limited to lithium, cefepime, acetaminophen, heparin subcu, . PAST MEDICAL HISTORY: Including but not limited to psychiatric disorder, hypertension. LABORATORY DATA: Dated 11/24/2018, hemoglobin 11.5, platelets 245,000. Sodium 153, creatinine 3.1. AST 39. IMAGING: Chest x-ray dated 11/24/2018, unremarkable. PHYSICAL EXAMINATION: VITAL SIGNS: Blood pressure 120/80, temperature 98.2, pulse ox 98% on room air, and respiratory rate 18. HEAD AND NECK: Atraumatic and normocephalic. CHEST: Clear to auscultation. HEART: S1, S2. Regular rate and rhythm. ABDOMEN: Soft. No organomegaly. MUSCULOSKELETAL: No gross lateralized motor deficits. Positive for spontaneous movement of all extremities. NEUROLOGIC: The patient is awake and alert. Limited evaluation as the patient has lack of attention. ASSESSMENT: 1. Acute metabolic encephalopathy. 2. Hypernatremia. 3. Acute on chronic renal failure. 4. Anemia. 5. Psychiatric disorder. PLAN OF CARE: I agree with the current empiric antibiotic treatment. I consulted the Nephrology and ID. Pending the cultures. Psychiatrist, Dr. Garcia notified. Time of this dictation does not reflect the actual time of encounter. Mady Perez M.D. DR: SAWYER JOB#: [id number] CC:
--- NOTE | 2018-11-25 19:20 | NUR ---
HAND-OFF: Report given to RORY Ocampo. Patient VS stable at this time. Patient remains confused but is calm at this time. Patient has an order to transfer to med/surg. Endorsed to follow up.
--- NOTE | 2018-11-25 19:22 | NUR ---
NURSE NOTES: Received patient from Chelly Dsouza RN. Will continue plan of care.
[2018-11-25 20:00] VITALS: BP 106/70
[2018-11-25] MEDS ORDERED: Cefepime 1gm/D5W 55ml IVPB SCH ×2 (21:00)
[2018-11-26] VITALS: BP 95/53
--- NOTE | 2018-11-26 01:15 | NUR ---
NURSE NOTES:Patient received from Damaris Pérez Patient from 237 bed1 from ([facility] ) to 314 bed 1 . Patient french speaking A/A/OX3. Confused Patient denies any pain at this time. no s/s of distress noted . RHg #20 D5W at 50 cc/HR. Infusing well LT G#22 H/L Patent and intact sacral wound unstaged photo taken by myself Miranda Christiansen AND Damaris Buck. Patient with cellulitis and bilateral feet with flaky on her feet . patient personal belongings signed and with patient . family notified notified patient location. Safety and fall precautions call light within reach . bed in low position . call light within reach . bed in low position . will continue to monitor. (
--- NOTE | 2018-11-26 01:55 | NUR ---
NURSE NOTES: Transferred patient to [address] [place] [address]. Report given to RORY Jean. Patient is stable, belongings accounted for at bedside. Wound picture taken upon transfer.
[2018-11-26 04:00] VITALS: BP 102/62
--- NOTE | 2018-11-26 05:15 | NUR ---
NURSE NOTES:Jose Alejandro Avendaño from [facility] called. Patient Positive FOR VRE Rectum. Catherine AVELAR Notified and aware.
--- NOTE | 2018-11-26 05:15 | Consultation ---
DATE OF CONSULTATION: 11/25/2018 CONSULTING PHYSICIAN: Imer Garcia M.D. HISTORY OF PRESENT ILLNESS: This is a 68-year-old female with a history of multiple medical comorbidities including sepsis, renal failure, and bipolar disorder, who has been admitted to the hospital for medical stabilization. The patient is presenting with altered mental status. The patient is more confused than baseline. The daughter was in the room. The patient is Malay speaking. The patient is disoriented. Recognized family members, however, does not know the date and has a poor insight into her current situation. She has been agitated all morning. PAST PSYCHIATRIC HISTORY: Bipolar disorder and history of psychiatric hospitalization. PAST MEDICAL HISTORY: Significant for hypertension, renal failure, and anemia. SUBSTANCE ABUSE HISTORY: No known history of illicit drug use or alcohol. MENTAL STATUS EXAMINATION: The patient is alert and oriented times self and place. Mood is agitated. Affect is flat. Thought process is disorganized. Thought content, no suicidal or homicidal ideations. The memory is impaired. Insight and judgment are impaired. ASSESSMENT: AXIS I: Bipolar disorder. Acute metabolic encephalopathy. AXIS II: Deferred. AXIS III: As above. AXIS IV: Low. AXIS V: 20. PLAN: 1. The patient will be started on Reglan. 2. Continue on lithium. 3. Continue Ativan p.r.n. 4. Discussed the case with the family. Imer Garcia M.D. DR: MARIBETH JOB#: [id number] CC:
--- NOTE | 2018-11-26 05:30 | NUR ---
NURSE NOTES:Patient transferred from 314 bed1 to 317 bed 1.will continue to monitor . Addendum: 11/26/18 at 0706 by GERA DENG LVN Patient positive for VRE rectum . Leave message to Mady Vega . still awaiting to call back .
[2018-11-26] MEDS ORDERED: HydrALAZINE 25mg tab ORAL PRN (05:45)
--- NOTE | 2018-11-26 06:01 | NUR ---
NURSE NOTES Damaris Pérez From [facility] and endorsed patient refused [id number] mg po to get orders IV Left message to Mady Vega still awaiting to call back .
[2018-11-26 06:59] LABS: BASOPHILS % (AUTO) 1.2 % (0.0-2.0); EOSINOPHILS % (AUTO) 6.1 % (0.0-3.0); HEMOGLOBIN 9.5 G/DL (12.0-16.0); LYMPHOCYTES % (AUTO) 30.3 % (20.0-45.0); MEAN CORPUSCULAR VOLUME 79 FL (80-99); MONOCYTES % (AUTO) 7.9 % (1.0-10.0); NEUTROPHILS % (AUTO) 54.6 % (45.0-75.0); PLATELET COUNT 144 K/UL (150-450); RED BLOOD COUNT 3.78 M/UL (4.20-5.40); RED CELL DISTRIBUTION WIDTH 16.6 % (11.6-14.8); WHITE BLOOD COUNT 5.5 K/UL (4.8-10.8)
[2018-11-26 07:02] LABS: ALANINE AMINOTRANSFERASE 27 U/L (12-78); ALBUMIN 2.8 G/DL (3.4-5.0); ALBUMIN/GLOBULIN RATIO 0.8 (1.0-2.7); ALKALINE PHOSPHATASE 64 U/L (46-116); ANION GAP 10 mmol/L (5-15); ASPARTATE AMINO TRANSFERASE 19 U/L (15-37); BILIRUBIN,TOTAL 0.4 MG/DL (0.2-1.0); BLOOD UREA NITROGEN 27 mg/dL (7-18); CALCIUM 10.4 MG/DL (8.5-10.1); CARBON DIOXIDE 19 MMOL/L (21-32); CHLORIDE 116 MMOL/L (98-107); CREATININE 1.4 MG/DL (0.55-1.30); PHOSPHORUS 1.4 MG/DL (2.5-4.9); POTASSIUM 3.9 MMOL/L (3.5-5.1); SODIUM 145 MMOL/L (136-145)
--- NOTE | 2018-11-26 07:54 | NUR ---
NURSE NOTES: Received report from [facility]. Rounding done with outgoing nurse. Pt is confused, Salvadorean speaking, in bed. No respiratory distress noted. Rt hand, Lt thumb IV access is patent. D5 is running at this time. Bed in lowest position, call light within reach. Will continue to monitor.
--- NOTE | 2018-11-26 07:54 | NUR ---
HAND-OFF: Report given to MOHINDER KAUR R.N.
[2018-11-26 08:00] VITALS: BP_SYST 107; BP_DIAS 62; BP_DIAS 65
--- NOTE | 2018-11-26 08:55 | NUR ---
NURSE NOTES: Report was given to Maribell. Patient transferred to room 406. Pt a/o x 1-2, Nigerian speaking. VRE Contact isolation. Belongings checked with RN. Patient in stable condition.
[2018-11-26] MEDS: Benztropine 1mg tab ORAL SCH ×2 (09:00→17:27)
[2018-11-26] MEDS: LORazepam 0.5mg tab ORAL SCH ×3 (09:00→17:27)
[2018-11-26] MEDS: Heparin 5000 units/ml inj SUBQ SCH ×2 (09:00→20:56)
[2018-11-26] MEDS ORDERED: NS 275ml ONE (09:12)
[2018-11-26] MEDS ORDERED: Tubing IV Secondary IV ONE (09:12)
[2018-11-26] MEDS ORDERED: Potassium Phosphate 30 MM in NS 275 ML IV SCH (10:00)
--- NOTE | 2018-11-26 10:11 | General Progress Note ---
Assessment/Plan Assessment/Plan: S: " Not understable" O: verbal, seems comfortable, poor historian PHYSICAL EXAMINATION:HEAD AND NECK: Atraumatic and normocephalic. CHEST: Clear to auscultation.HEART: S1, S2. Regular rate and rhythm. ABDOMEN: Soft. No organomegaly.MUSCULOSKELETAL: No gross lateralized motor deficits. Positive for spontaneous movement of all extremities. NEUROLOGIC: The patient is awake and alert. Limited evaluation as the patient has lack of attention. Labs: reviwed Meds: reviwed ASSESSMENT: 1. Acute metabolic encephalopathy. 2. Hypernatremia. 3. Acute on chronic renal failure. 4. Anemia. 5. Psychiatric disorder. Plan: Notes from Nephro Psych ID are Reviewed Subjective Allergies: Coded Allergies: No Known Allergies (Unverified , 07/04/18) Objective Last 24 Hour Vital Signs Date Time Temp Pulse Resp B/P (MAP) Pulse Ox O2 Delivery O2 Flow Rate FiO2 11/26/18 08:00 98.3 70 18 107/62 (77) 97 70 11/26/18 04:00 97.2 70 18 102/62 (75) 100 70 11/26/18 00:00 Room Air 11/26/18 00:00 97.6 52 18 95/53 (67) 100 11/25/18 20:00 97.9 74 18 106/70 (82) 100 11/25/18 20:00 Room Air 11/25/18 17:00 Room Air 11/25/18 16:00 82 11/25/18 16:00 Room Air 11/25/18 16:00 98.1 87 19 118/60 (79) 100 11/25/18 12:00 55 11/25/18 12:00 98.6 79 18 103/68 (80) 99 11/25/18 12:00 Room Air Intake and Output 11/25/18 11/26/18 18:59 06:59 Intake Total 2430 ml 775 ml Output Total 1200 ml 550 ml Balance 1230 ml 225 ml Intake Oral 1480 ml 320 ml IV Total 950 ml 455 ml Output Urine Total 1200 ml 550 ml # Voids 1 Laboratory Tests 11/25/18 17:25: Urine Random Sodium 39 11/26/18 03:00: Urine Random Sodium 21, Urine Eosinophils None seen 11/26/18 05:50: White Blood Count 5.5, Red Blood Count 3.78L, Hemoglobin 9.5L, Hematocrit 30.0L , Mean Corpuscular Volume 79L, Mean Corpuscular Hemoglobin 25.0L, Mean Corpuscular Hemoglobin Concent 31.5L, Red Cell Distribution Width 16.6H, Platelet Count 144L, Mean Platelet Volume 8.4, Neutrophils (%) (Auto) 54.6, Lymphocytes (%) (Auto) 30.3, Monocytes (%) (Auto) 7.9, Eosinophils (%) (Auto) 6.1H, Basophils (%) (Auto) 1.2, Sodium Level 145, Potassium Level 3.9, Chloride Level 116H, Carbon Dioxide Level 19L, Anion Gap 10, Blood Urea Nitrogen 27H, Creatinine 1.4H, Estimat Glomerular Filtration Rate 37.6, Glucose Level 88, Hemoglobin A1c 5.0, Uric Acid 10.8H, Calcium Level 10.4H, Phosphorus Level 1.4L , Magnesium Level 1.8, Total Bilirubin 0.4, Aspartate Amino Transf (AST/SGOT) 19 , Alanine Aminotransferase (ALT/SGPT) 27, Alkaline Phosphatase 64, C-Reactive Protein, Quantitative 1.0H, Pro-B-Type Natriuretic Peptide 820H, Total Protein 6.5, Albumin 2.8L, Globulin 3.7, Albumin/Globulin Ratio 0.8L Height (Feet): 5 Height (Inches): 2.00 Weight (Pounds): 145 Mady Perez MD Nov 26, 2018 10:11
--- NOTE | 2018-11-26 11:00 | NUR ---
NURSE NOTES: Patient transferred from [facility]. Report received from RORY Horan. Patient refused PO medications this AM. Patient agitated and screaming. Patient shook head no. Patient rambling and resistive to care. When RN attempted to give patient PO medications, patient spat at RN. Patient not following commands.
[2018-11-26] MEDS: LORazepam Inj 2mg/ml 1ml IV PRN (11:30)
[2018-11-26 12:00] VITALS: BP 106/76
--- NOTE | 2018-11-26 12:46 | Nephrology Progress Note ---
Assessment/Plan Problem List: (1) Renal failure (ARF), acute on chronic (2) UTI (urinary tract infection) (3) Anemia (4) Dehydration (5) Electrolyte imbalance Assessment Anemia- adequate Iron- slightly low folate Renal failure appears pre renal, ? underlying Renal Dehydration Psych history , On [place] high Lipids UTI Plan IV fluids , start lipitor Mag , Phos , K , supplement as needed PRN Hydralazine for high BP Antibiotics Monitor renal parameters [place] Level LOW avoid nephrotoxics per orders Subjective ROS Limited/Unobtainable: No Constitutional: Reports: malaise, weakness Objective Objective Last 24 Hour Vital Signs Date Time Temp Pulse Resp B/P (MAP) Pulse Ox O2 Delivery O2 Flow Rate FiO2 11/26/18 12:00 98.1 58 18 106/76 (86) 98 11/26/18 09:00 Room Air 11/26/18 08:00 98.3 70 18 107/62 (77) 97 70 11/26/18 04:00 97.2 70 18 102/62 (75) 100 70 11/26/18 00:00 Room Air 11/26/18 00:00 97.6 52 18 95/53 (67) 100 11/25/18 20:00 97.9 74 18 106/70 (82) 100 11/25/18 20:00 Room Air 11/25/18 17:00 Room Air 11/25/18 16:00 82 11/25/18 16:00 Room Air 11/25/18 16:00 98.1 87 19 118/60 (79) 100 Intake and Output 11/25/18 11/26/18 19:00 07:00 Intake Total 2530 ml 675 ml Output Total 1200 ml 550 ml Balance 1330 ml 125 ml Intake Oral 1480 ml 320 ml IV Total 1050 ml 355 ml Output Urine Total 1200 ml 550 ml # Voids 1 Laboratory Tests 11/25/18 17:25: Urine Random Sodium 39 11/26/18 03:00: Urine Random Sodium 21, Urine Eosinophils None seen 11/26/18 05:50: White Blood Count 5.5, Red Blood Count 3.78L, Hemoglobin 9.5L, Hematocrit 30.0L , Mean Corpuscular Volume 79L, Mean Corpuscular Hemoglobin 25.0L, Mean Corpuscular Hemoglobin Concent 31.5L, Red Cell Distribution Width 16.6H, Platelet Count 144L, Mean Platelet Volume 8.4, Neutrophils (%) (Auto) 54.6, Lymphocytes (%) (Auto) 30.3, Monocytes (%) (Auto) 7.9, Eosinophils (%) (Auto) 6.1H, Basophils (%) (Auto) 1.2, Sodium Level 145, Potassium Level 3.9, Chloride Level 116H, Carbon Dioxide Level 19L, Anion Gap 10, Blood Urea Nitrogen 27H, Creatinine 1.4H, Estimat Glomerular Filtration Rate 37.6, Glucose Level 88, Hemoglobin A1c 5.0, Uric Acid 10.8H, Calcium Level 10.4H, Phosphorus Level 1.4L , Magnesium Level 1.8, Total Bilirubin 0.4, Aspartate Amino Transf (AST/SGOT) 19 , Alanine Aminotransferase (ALT/SGPT) 27, Alkaline Phosphatase 64, C-Reactive Protein, Quantitative 1.0H, Pro-B-Type Natriuretic Peptide 820H, Total Protein 6.5, Albumin 2.8L, Globulin 3.7, Albumin/Globulin Ratio 0.8L Height (Feet): 5 Height (Inches): 2.00 Weight (Pounds): 145 General Appearance: no apparent distress, agitated Neck: limited range of motion Cardiovascular: normal rate Respiratory/Chest: decreased breath sounds Abdomen: soft, distended Adilson Wells MD Nov 26, 2018 12:46
--- NOTE | 2018-11-26 13:54 | Infectious Diseases Prog Note ---
Assessment/Plan Problems: (1) UTI (urinary tract infection) Assessment & Plan: continue cefepime pending urine culture (2) Sepsis Assessment & Plan: possible due to the above , on cefepime empirically pending blood culture (3) Encephalopathy Assessment & Plan: suspect metabolic due to the above, continue hydration and close monitor in tele (4) Renal failure Assessment & Plan: suspect due to dehydration, continue IVF for hydration , with close monitor of renal function, consult renal Subjective ROS Limited/Unobtainable: Yes Allergies: Coded Allergies: No Known Allergies (Unverified , 07/04/18) Subjective she was resting in bed comfortable, not agitated, afebrile, NAD Objective Vital Signs Last 24 Hour Vital Signs Date Time Temp Pulse Resp B/P (MAP) Pulse Ox O2 Delivery O2 Flow Rate FiO2 11/26/18 12:00 98.1 58 18 106/76 (86) 98 11/26/18 09:00 Room Air 11/26/18 08:00 98.3 70 18 107/62 (77) 97 70 11/26/18 04:00 97.2 70 18 102/62 (75) 100 70 11/26/18 00:00 Room Air 11/26/18 00:00 97.6 52 18 95/53 (67) 100 11/25/18 20:00 97.9 74 18 106/70 (82) 100 11/25/18 20:00 Room Air 11/25/18 17:00 Room Air 11/25/18 16:00 82 11/25/18 16:00 Room Air 11/25/18 16:00 98.1 87 19 118/60 (79) 100 Height (Feet): 5 Height (Inches): 2.00 Weight (Pounds): 145 General Appearance: WD/WN, no acute distress HEENT: normocephalic, atraumatic, anicteric, mucous membranes moist, PERRL Respiratory/Chest: chest wall non-tender, lungs clear, no respiratory distress , no accessory muscle use, decreased breath sounds Cardiovascular: normal peripheral pulses, normal rate, regular rhythm, no gallop/murmur, no JVD Abdomen: normal bowel sounds, soft, non tender, no organomegaly, non distended , no mass, no scars Genitourinary: normal external genitalia Extremities: no cyanosis, no clubbing Skin: no rash, no lesions, no ulcers Neurologic/Psychiatric: alert Lymphatic: no neck adenopathy, no groin adenopathy Musculoskeletal: normal muscle bulk, no effusion Microbiology Date/Time Source Procedure Growth Status 11/24/18 16:50 Blood Blood Culture - Preliminary NO GROWTH AFTER 24 HOURS Resulted 11/24/18 16:30 Blood Blood Culture - Preliminary NO GROWTH AFTER 24 HOURS Resulted 11/24/18 17:18 Nasal Nares MRSA Culture - Final Staphylococcus Aureus - Mrsa Complete 11/24/18 17:18 Rectum - Final NO CARBAPENEM-RESISTANT ENTEROBACTERI... Complete 11/24/18 16:18 Rectum VRE Culture - Final Enterococcus Faecium - Vre Complete Laboratory Tests Test 11/25/18 17:25 11/26/18 03:00 11/26/18 05:50 Urine Random Sodium 39 mmol/L (20-110) 21 mmol/L (20-110) Urine Eosinophils None seen (NONE SEEN) White Blood Count 5.5 K/UL (4.8-10.8) Red Blood Count 3.78 M/UL (4.20-5.40) L Hemoglobin 9.5 G/DL (12.0-16.0) L Hematocrit 30.0 % (37.0-47.0) L Mean Corpuscular Volume 79 FL (80-99) L Mean Corpuscular Hemoglobin 25.0 PG (27.0-31.0) L Mean Corpuscular Hemoglobin Concent 31.5 G/DL (32.0-36.0) L Red Cell Distribution Width 16.6 % (11.6-14.8) H Platelet Count 144 K/UL (150-450) L Mean Platelet Volume 8.4 FL (6.5-10.1) Neutrophils (%) (Auto) 54.6 % (45.0-75.0) Lymphocytes (%) (Auto) 30.3 % (20.0-45.0) Monocytes (%) (Auto) 7.9 % (1.0-10.0) Eosinophils (%) (Auto) 6.1 % (0.0-3.0) H Basophils (%) (Auto) 1.2 % (0.0-2.0) Sodium Level 145 MMOL/L (136-145) Potassium Level 3.9 MMOL/L (3.5-5.1) Chloride Level 116 MMOL/L (98-107) H Carbon Dioxide Level 19 MMOL/L (21-32) L Anion Gap 10 mmol/L (5-15) Blood Urea Nitrogen 27 mg/dL (7-18) H Creatinine 1.4 MG/DL (0.55-1.30) H Estimat Glomerular Filtration Rate 37.6 mL/min (>60) Glucose Level 88 MG/DL (74-106) Hemoglobin A1c 5.0 % (4.3-6.0) Uric Acid 10.8 MG/DL (2.6-7.2) H Calcium Level 10.4 MG/DL (8.5-10.1) H Phosphorus Level 1.4 MG/DL (2.5-4.9) L Magnesium Level 1.8 MG/DL (1.8-2.4) Total Bilirubin 0.4 MG/DL (0.2-1.0) Aspartate Amino Transf (AST/SGOT) 19 U/L (15-37) Alanine Aminotransferase (ALT/SGPT) 27 U/L (12-78) Alkaline Phosphatase 64 U/L (46-116) C-Reactive Protein, Quantitative 1.0 mg/dL (0.00-0.90) H Pro-B-Type Natriuretic Peptide 820 pg/mL (0-125) H Total Protein 6.5 G/DL (6.4-8.2) Albumin 2.8 G/DL (3.4-5.0) L Globulin 3.7 g/dL Albumin/Globulin Ratio 0.8 (1.0-2.7) L Current Medications Medications (Trade) Dose Ordered Sig/Omari Route PRN Reason Start Time Stop Time Status Last Admin Dose Admin Acetaminophen (Tylenol) 650 mg Q6H PRN ORAL Mild Pain/Temp > 100.5 11/26/18 04:00 12/24/18 21:59 Atorvastatin Calcium (Lipitor) 10 mg BEDTIME ORAL 11/26/18 21:00 12/26/18 20:59 Benztropine Mesylate (Cogentin) 1 mg BID ORAL 11/26/18 09:00 12/25/18 08:59 Cefepime HCl 1 gm/ Dextrose 55 ml @ 110 mls/hr Q24H IVPB 11/26/18 21:00 12/02/18 20:59 Dextrose 1,000 ml @ 100 mls/hr Q10H IV 11/26/18 02:30 12/25/18 08:29 11/26/18 12:45 Haloperidol (Haldol) 5 mg DAILY ORAL 11/26/18 09:00 12/25/18 08:59 Haloperidol Lactate (Haldol) 5 mg Q8H PRN IM Agitation 11/26/18 06:00 12/24/18 21:59 Heparin Sodium (Porcine) (Heparin 5000 units/ml) 5,000 units EVERY 12 HOURS SUBQ 11/26/18 09:00 12/25/18 08:59 Hydralazine HCl (Apresoline) 25 mg Q4H PRN ORAL bp over 160 syst 11/26/18 05:45 12/25/18 13:44 [place] Carbonate ([place] Carbonate) 300 mg Q12HR ORAL 11/26/18 09:00 12/25/18 08:59 Lorazepam (Ativan 2mg/ml 1ml) 1 mg Q8H PRN IV For Anxiety 11/26/18 06:00 12/01/18 21:59 11/26/18 11:30 Lorazepam (Ativan) 0.5 mg THREE TIMES A DAY ORAL 11/26/18 09:00 12/02/18 08:59 Mirtazapine (Remeron) 7.5 mg BEDTIME ORAL 11/26/18 21:00 12/25/18 20:59 Pantoprazole (Protonix) 40 mg BID ORAL 11/26/18 09:00 12/25/18 08:59 Potassium Phosphate 30 mm/ Sodium Chloride 285 ml @ 47.5 mls/hr ONCE IV 11/26/18 10:00 11/26/18 16:00 11/26/18 10:26 Gloria Nelson M.D. Nov 26, 2018 13:54
[2018-11-26 16:00] VITALS: BP 146/85
--- NOTE | 2018-11-26 19:30 | NUR ---
NURSE NOTES: Received report from RORY Reyna. Patient awake and verbally responsive to her needs known with confusion. Breathing unlabored and evenly without signs of distress, discomfort, or sob on room air. Denies pain at this time. IV sites noted intact. Right hand IV site running fluid as ordered. [place]ima intact draining yellow urine. Bed placed at the lowest with alarm, brake, and side rails up for safety measure. Call light placed within reach and reinforced to press whenever assistance is needed. Will continue to monitor and provide care as ordered.
--- NOTE | 2018-11-26 19:39 | NUR ---
HAND-OFF: Report given to RORY Braun.
[2018-11-26 20:00] VITALS: BP 141/77
--- NOTE | 2018-11-26 20:16 | NUR ---
CASE MANAGEMENT: REVIEW SI: ENCEPHALOPATHY . SEPSIS . UTI . RENAL FAILURE T 97.2 HR 52 RR 18 BP 95/53 SAT 100% ROOM AIR H/H 9.5/30.0 BUN 27 CR 1.4 HEP PANEL PENDING IS: CEFEPIME IV Q24HR LITHIUM PO Q12HR PROTONIX PO BID D5W IVF@100ML/HR MED/SURG STATUS DCP: PATIENT IS FROM [facility]
[2018-11-26] MEDS: Cefepime HCl 1 GM in D5W 55 ML IVPB SCH (20:54)
--- NOTE | 2018-11-26 20:57 | NUR ---
NURSE NOTES: Patient was okay with IV antibiotic medication.
--- NOTE | 2018-11-26 20:57 | NUR ---
NURSE NOTES: Attempted multiple times (more than three attempts) to explain and encourage patient to take medications as prescribed. Patient verbally refused strongly. Will continue to monitor and attempt again.
--- NOTE | 2018-11-26 21:55 | NUR ---
NURSE NOTES: Explained patient again about her medications. Patient still refused and said "tomorrow" in [place].
--- NOTE | 2018-11-26 22:15 | NUR ---
NURSE NOTES: Reached Dr. Perez and Dr. Garcia to informed and made aware that patient has been refusing her PO medication which included [place]art, Atorvastatin, and Mirtazapine. No new ordered given to follow up.
[2018-11-27] VITALS: BP 151/79
[2018-11-27 04:00] VITALS: BP 117/68
--- NOTE | 2018-11-27 05:30 | NUR ---
NURSE NOTES: Found patient with bowel movement while taking wound care picture. Patient refused being clean and forcefully lay back on her back. After attempting to explain multiple times to allow to clean the patient, patient still refused and said she is not dirty and multiple phrases in Mauritian. Attempted again with DESIGN CHIEF, but patient continued to refuse care. Will endorse the matter to daytime nurse.
--- NOTE | 2018-11-27 06:00 | Progress Note ---
DATE: 11/26/2018 SUBJECTIVE: The patient is emotionally distressed. The patient continues to be noncompliant to medication. Poor insight. confused and disoriented. When family present, the patient takes medication. MENTAL STATUS EXAMINATION: The patient is alert, oriented times self and place. The patient is Mood is anxious. Affect is blunted, congruent with mood. Thought process is concrete. Thought content, no suicidal or homicidal ideation. ASSESSMENT: [place] I Schizophrenia. PLAN: 1. We will continue current medication. The patient. 2. We will continue to follow and readjust the medications. Imer Garcia M.D. DR: NILTON JOB#: [id number] CC: IMAN
[2018-11-27 08:00] VITALS: BP 120/73
--- NOTE | 2018-11-27 08:39 | NUR ---
HAND-OFF: Report given to RORY Benoit. Patient in stable condition.
--- NOTE | 2018-11-27 08:50 | NUR ---
NURSE NOTES: received pt from NOC RN Luis Nuñez. Patient laying in bed, disheveled, refuses to be cleaned at this time. IV access on the RH and LH, intact. Lima catheter in place, draining to gravity dark yellow urine. Bed in the lowest position possible, call light within eay reach, siderails up x2. Will continue to monitor pt and follow up with the plan of care.
[2018-11-27] MEDS: Heparin 5000 units/ml inj SUBQ SCH ×2 (09:00→20:59)
[2018-11-27] MEDS: Benztropine 1mg tab ORAL SCH ×2 (09:00→17:31)
[2018-11-27] MEDS: LORazepam 0.5mg tab ORAL SCH ×3 (09:00→17:31)
--- NOTE | 2018-11-27 09:15 | NUR ---
NURSE NOTES: patient refused all her am meds. Nurse explained possible outcomes of her not taking scheduled meds, patient still refused.
--- NOTE | 2018-11-27 10:14 | Nephrology Progress Note ---
Assessment/Plan Problem List: (1) Renal failure (ARF), acute on chronic (2) UTI (urinary tract infection) (3) Anemia (4) Dehydration (5) Electrolyte imbalance Assessment Anemia- adequate Iron- slightly low folate Renal failure appears pre renal, ? underlying Renal Dehydration Psych history , On [place] high Lipids UTI Plan today's labs pending discussed with charge nurse IV fluids , start lipitor Mag , Phos , K , supplement as needed PRN Hydralazine for high BP Antibiotics Monitor renal parameters [place] Level LOW avoid nephrotoxics per orders Subjective ROS Limited/Unobtainable: No Constitutional: Reports: malaise Objective Objective Last 24 Hour Vital Signs Date Time Temp Pulse Resp B/P (MAP) Pulse Ox O2 Delivery O2 Flow Rate FiO2 11/27/18 09:00 Room Air 11/27/18 08:00 98.8 56 18 120/73 (89) 99 11/27/18 04:00 97.5 53 19 117/68 (84) 98 11/27/18 00:00 97.8 74 20 151/79 (103) 96 11/26/18 21:00 Room Air 11/26/18 20:00 98.4 70 20 141/77 (98) 96 11/26/18 16:00 98.1 86 18 146/85 (105) 98 11/26/18 12:00 98.1 58 18 106/76 (86) 98 Intake and Output 11/26/18 11/27/18 19:00 07:00 Intake Total 660 ml 1075 ml Output Total 850 ml 850 ml Balance -190 ml 225 ml Intake Oral 360 ml 120 ml IV Total 300 ml 955 ml Output Urine Total 850 ml 850 ml # Voids 2 2 # Bowel Movements 1 Laboratory Tests 11/27/18 03:19: Urine Eosinophils None seen Height (Feet): 5 Height (Inches): 2.00 Weight (Pounds): 145 General Appearance: no apparent distress Objective no change Adilson Wells MD Nov 27, 2018 10:14
--- NOTE | 2018-11-27 11:58 | NUR ---
NURSE NOTES: Patient refused second blood draw today, with phlebotomist supervisor/instructor Manda trying draw blood with PHYSICAL THERAPIST ASSISTANT students holding patient. Patient adamantly refused the procedure and moved her body forcefully, pushing and pulling her arms, not allowing blood to be draw. Dr Wells and VALENTINO Toribio were notified.
[2018-11-27 16:00] VITALS: BP 127/78
--- NOTE | 2018-11-27 18:53 | Infectious Diseases Prog Note ---
Assessment/Plan Problems: (1) UTI (urinary tract infection) Assessment & Plan: continue cefepime pending urine culture (2) Sepsis Assessment & Plan: possible due to the above , on cefepime empirically pending blood culture (3) Encephalopathy Assessment & Plan: suspect metabolic due to the above, continue hydration and close monitor in tele (4) Renal failure Assessment & Plan: suspect due to dehydration, continue IVF for hydration , with close monitor of renal function, consult renal Subjective ROS Limited/Unobtainable: Yes Allergies: Coded Allergies: No Known Allergies (Unverified , 07/04/18) Subjective she was resting in bed comfortable, not agitated, afebrile, NAD Objective Vital Signs Last 24 Hour Vital Signs Date Time Temp Pulse Resp B/P (MAP) Pulse Ox O2 Delivery O2 Flow Rate FiO2 11/27/18 16:00 98.4 62 18 127/78 (94) 98 11/27/18 09:00 Room Air 11/27/18 08:00 98.8 56 18 120/73 (89) 99 11/27/18 04:00 97.5 53 19 117/68 (84) 98 11/27/18 00:00 97.8 74 20 151/79 (103) 96 11/26/18 21:00 Room Air 11/26/18 20:00 98.4 70 20 141/77 (98) 96 Height (Feet): 5 Height (Inches): 2.00 Weight (Pounds): 145 General Appearance: WD/WN, no acute distress HEENT: normocephalic, atraumatic, anicteric, mucous membranes moist, PERRL Respiratory/Chest: chest wall non-tender, no respiratory distress, no accessory muscle use, decreased breath sounds, crackles/rales Cardiovascular: normal peripheral pulses, normal rate, regular rhythm, no gallop/murmur, no JVD Abdomen: normal bowel sounds, soft, non tender, no organomegaly, non distended , no mass, no scars Genitourinary: normal external genitalia Extremities: no cyanosis, no clubbing Skin: no rash, no lesions Neurologic/Psychiatric: food service tray attendant II-XII grossly normal, alert, responsive Lymphatic: no neck adenopathy, no groin adenopathy Musculoskeletal: normal muscle bulk, no effusion Microbiology Date/Time Source Procedure Growth Status 11/26/18 03:00 Urine,Clean Catch Urine Culture - Preliminary NO GROWTH AFTER 24 HOURS Resulted Laboratory Tests Test 11/27/18 03:19 Urine Eosinophils None seen (NONE SEEN) Current Medications Medications (Trade) Dose Ordered Sig/Omari Route PRN Reason Start Time Stop Time Status Last Admin Dose Admin Acetaminophen (Tylenol) 650 mg Q6H PRN ORAL Mild Pain/Temp > 100.5 11/26/18 04:00 12/24/18 21:59 Atorvastatin Calcium (Lipitor) 10 mg BEDTIME ORAL 11/26/18 21:00 12/26/18 20:59 Benztropine Mesylate (Cogentin) 1 mg BID ORAL 11/26/18 09:00 12/25/18 08:59 Cefepime HCl 1 gm/ Dextrose 55 ml @ 110 mls/hr Q24H IVPB 11/26/18 21:00 12/02/18 20:59 11/26/18 20:54 Dextrose 1,000 ml @ 100 mls/hr Q10H IV 11/26/18 02:30 12/25/18 08:29 11/27/18 13:45 Haloperidol (Haldol) 5 mg DAILY ORAL 11/26/18 09:00 12/25/18 08:59 Haloperidol Lactate (Haldol) 5 mg Q8H PRN IM Agitation 11/26/18 06:00 12/24/18 21:59 Heparin Sodium (Porcine) (Heparin 5000 units/ml) 5,000 units EVERY 12 HOURS SUBQ 11/26/18 09:00 12/25/18 08:59 Hydralazine HCl (Apresoline) 25 mg Q4H PRN ORAL bp over 160 syst 11/26/18 05:45 12/25/18 13:44 [place] Carbonate ([place] Carbonate) 300 mg Q12HR ORAL 11/26/18 09:00 12/25/18 08:59 Lorazepam (Ativan 2mg/ml 1ml) 1 mg Q8H PRN IV For Anxiety 11/26/18 06:00 12/01/18 21:59 11/26/18 11:30 Lorazepam (Ativan) 0.5 mg THREE TIMES A DAY ORAL 11/26/18 09:00 12/02/18 08:59 Mirtazapine (Remeron) 7.5 mg BEDTIME ORAL 11/26/18 21:00 12/25/18 20:59 Pantoprazole (Protonix) 40 mg BID ORAL 11/26/18 09:00 12/25/18 08:59 Gloria Nelson M.D. Nov 27, 2018 18:53
--- NOTE | 2018-11-27 19:38 | NUR ---
HAND-OFF: Report given to RORY Nuñez.
--- NOTE | 2018-11-27 19:43 | General Progress Note ---
Assessment/Plan Assessment/Plan: S: " Not understable" O: verbal, seems comfortable, poor historian PHYSICAL EXAMINATION:HEAD AND NECK: Atraumatic and normocephalic. CHEST: Clear to auscultation.HEART: S1, S2. Regular rate and rhythm. ABDOMEN: Soft. No organomegaly.MUSCULOSKELETAL: No gross lateralized motor deficits. Positive for spontaneous movement of all extremities. NEUROLOGIC: The patient is awake and alert. Limited evaluation as the patient has lack of attention. Labs: reviwed Meds: reviwed ASSESSMENT: 1. Acute metabolic encephalopathy. 2. Hypernatremia. 3. Acute on chronic renal failure. 4. Anemia. 5. Psychiatric disorder. Plan: Notes from Nephro Psych ID are Reviewed Improving levels of sodium and Cr Will monitor Subjective Allergies: Coded Allergies: No Known Allergies (Unverified , 07/04/18) Objective Last 24 Hour Vital Signs Date Time Temp Pulse Resp B/P (MAP) Pulse Ox O2 Delivery O2 Flow Rate FiO2 11/27/18 16:00 98.4 62 18 127/78 (94) 98 11/27/18 09:00 Room Air 11/27/18 08:00 98.8 56 18 120/73 (89) 99 11/27/18 04:00 97.5 53 19 117/68 (84) 98 11/27/18 00:00 97.8 74 20 151/79 (103) 96 11/26/18 21:00 Room Air 11/26/18 20:00 98.4 70 20 141/77 (98) 96 Intake and Output 11/26/18 11/27/18 18:59 06:59 Intake Total 560 ml 1175 ml Output Total 850 ml 850 ml Balance -290 ml 325 ml Intake Oral 360 ml 120 ml IV Total 200 ml 1055 ml Output Urine Total 850 ml 850 ml # Voids 2 2 # Bowel Movements 1 Laboratory Tests 11/27/18 03:19: Urine Eosinophils None seen Height (Feet): 5 Height (Inches): 2.00 Weight (Pounds): 145 Mady Perez MD Nov 27, 2018 19:43
--- NOTE | 2018-11-27 19:45 | NUR ---
NURSE NOTES: Received report from RORY Benoit. Patient awake. Patient speaks Egyptian and saying "get out" in repetition. Refuses to answer questions asked. Refuses RN from assessing the patient. Breathing unlabored without apparent distress, discomfort, or sob. No complains of pain noted at this time. Lima intact draining urine and right IV site intact draining fluid as ordered. IV on the left hand noted intact. Bed placed at the lowest with alarm, brake, and side rails up for safety. Call light placed within reach but patient refuses to listen to reinforcement of calling for help whenever assistance is needed. Will continue to monitor and attempt provide care as orders as much as possible.
[2018-11-27 20:00] VITALS: BP 102/75
[2018-11-27] MEDS: Cefepime HCl 1 GM in D5W 55 ML IVPB SCH (20:50)
--- NOTE | 2018-11-27 21:30 | NUR ---
NURSE NOTES: Informed Dr. Perez again about patient refusing all care. Patient refused PO medications again. Patient has refused morning labs, hygiene, nutrition, and repositioning. Will continue to monitor and attempt to provide care as ordered.
[2018-11-28] VITALS: BP 140/68
--- NOTE | 2018-11-28 00:30 | Progress Note ---
DATE: 11/27/2018 SUBJECTIVE: The patient continues to have episodes of anxiety. The patient is Latvian-speaking, poor insight, easily agitated. MENTAL STATUS EXAMINATION: The patient is alert, confused and disoriented. She knows her name and she knows that she is in the hospital. Mood is agitated. Affect is flat. Thought process is tangential. Thought content, no suicidal or homicidal ideation. She is delusional. Insight and judgment nonexistent. ASSESSMENT: 1. Schizophrenia by history. 2. Acute encephalopathy. PLAN: 1. We will continue the risperidone. 2. [place]. I encouraged the patient to take medication. Medication noncompliance. Imer Garcia M.D. DR: NILTON JOB#: [id number] CC:
[2018-11-28 04:00] VITALS: BP 146/68
[2018-11-28 08:00] VITALS: BP 152/80
--- NOTE | 2018-11-28 08:34 | NUR ---
HAND-OFF: Report given to RORY Benoit.
--- NOTE | 2018-11-28 08:35 | NUR ---
NURSE NOTES: received pt from NOC RN Luis Nuñez. Patient laying in bed, disheveled, with family member by the bedside. IV access RH, intact. Lima catheter in place, draining to gravity dark yellow urine. Bed in the lowest position possible, call light within eay reach, siderails up x2. Will continue to monitor pt and follow up with the plan of care.
[2018-11-28] MEDS: Heparin 5000 units/ml inj SUBQ SCH ×2 (09:00→21:00)
[2018-11-28] MEDS: Benztropine 1mg tab ORAL SCH ×2 (09:00→18:00)
[2018-11-28] MEDS: LORazepam 0.5mg tab ORAL SCH ×3 (09:00→18:00)
[2018-11-28 12:00] VITALS: BP 154/85
--- NOTE | 2018-11-28 12:52 | Nephrology Progress Note ---
Assessment/Plan Problem List: (1) Renal failure (ARF), acute on chronic (2) UTI (urinary tract infection) (3) Anemia (4) Dehydration (5) Electrolyte imbalance Assessment Anemia- adequate Iron- slightly low folate Renal failure appears pre renal, ? underlying Renal Dehydration Psych history , On [place] high Lipids UTI Plan refuses blood work IV fluids as needed start lipitor Mag , Phos , K , supplement as needed PRN Hydralazine for high BP Antibiotics Monitor renal parameters [place] Level LOW avoid nephrotoxics per orders Subjective ROS Limited/Unobtainable: No Objective Objective Last 24 Hour Vital Signs Date Time Temp Pulse Resp B/P (MAP) Pulse Ox O2 Delivery O2 Flow Rate FiO2 11/28/18 12:00 98.0 55 17 154/85 (108) 100 11/28/18 09:00 Room Air 11/28/18 08:00 98.4 59 24 152/80 (104) 100 11/28/18 04:00 98.5 52 20 146/68 (94) 95 11/28/18 00:00 98.9 72 20 140/68 (92) 95 11/27/18 21:00 Room Air 11/27/18 20:00 98.7 58 20 102/75 (84) 96 11/27/18 16:00 98.4 62 18 127/78 (94) 98 Intake and Output 11/27/18 11/28/18 19:00 07:00 Intake Total 1480 ml 1055 ml Output Total 600 ml 1100 ml Balance 880 ml -45 ml Intake Oral 480 ml IV Total 1000 ml 1055 ml Output Urine Total 600 ml 1100 ml Laboratory Tests 11/28/18 02:40: Urine Eosinophils None seen Height (Feet): 5 Height (Inches): 2.00 Weight (Pounds): 145 General Appearance: no apparent distress Objective no change Adilson Wells MD Nov 28, 2018 12:52
--- NOTE | 2018-11-28 13:10 | Infectious Diseases Prog Note ---
Assessment/Plan Problems: (1) UTI (urinary tract infection) Assessment & Plan: with negative culture will stop cefepime (2) Sepsis Assessment & Plan: was ruled out with negative blood culture , will stop cefepime (3) Encephalopathy Assessment & Plan: suspect metabolic due to the above, continue hydration and close monitor in tele (4) Renal failure Assessment & Plan: suspect due to dehydration, continue IVF for hydration , with close monitor of renal function, consult renal Subjective Musculoskeletal: Reports: no symptoms Allergies: Coded Allergies: No Known Allergies (Unverified , 07/04/18) Subjective she was resting in bed comfortable, not agitated, afebrile, NAD Objective Vital Signs Last 24 Hour Vital Signs Date Time Temp Pulse Resp B/P (MAP) Pulse Ox O2 Delivery O2 Flow Rate FiO2 11/28/18 12:00 98.0 55 17 154/85 (108) 100 11/28/18 09:00 Room Air 11/28/18 08:00 98.4 59 24 152/80 (104) 100 11/28/18 04:00 98.5 52 20 146/68 (94) 95 11/28/18 00:00 98.9 72 20 140/68 (92) 95 11/27/18 21:00 Room Air 11/27/18 20:00 98.7 58 20 102/75 (84) 96 11/27/18 16:00 98.4 62 18 127/78 (94) 98 Height (Feet): 5 Height (Inches): 2.00 Weight (Pounds): 145 General Appearance: WD/WN HEENT: normocephalic, atraumatic, anicteric, mucous membranes moist, PERRL Respiratory/Chest: chest wall non-tender, lungs clear, normal breath sounds, no respiratory distress, no accessory muscle use Cardiovascular: normal peripheral pulses, normal rate, regular rhythm, no gallop/murmur, no JVD Abdomen: normal bowel sounds, soft, non tender, no organomegaly, non distended , no mass, no scars Extremities: no cyanosis, no clubbing Skin: no rash, no lesions, no ulcers Neurologic/Psychiatric: alert, oriented x 3, responsive Lymphatic: no neck adenopathy, no groin adenopathy Musculoskeletal: normal muscle bulk, no effusion Microbiology Date/Time Source Procedure Growth Status 11/26/18 03:00 Urine,Clean Catch Urine Culture - Final NO GROWTH AFTER 48 HOURS Complete Laboratory Tests Test 11/28/18 02:40 Urine Eosinophils None seen (NONE SEEN) Current Medications Medications (Trade) Dose Ordered Sig/Omari Route PRN Reason Start Time Stop Time Status Last Admin Dose Admin Acetaminophen (Tylenol) 650 mg Q6H PRN ORAL Mild Pain/Temp > 100.5 11/26/18 04:00 12/24/18 21:59 Atorvastatin Calcium (Lipitor) 10 mg BEDTIME ORAL 11/26/18 21:00 12/26/18 20:59 Benztropine Mesylate (Cogentin) 1 mg BID ORAL 11/26/18 09:00 12/25/18 08:59 Dextrose 1,000 ml @ 100 mls/hr Q10H IV 11/26/18 02:30 12/25/18 08:29 11/28/18 00:27 Haloperidol (Haldol) 5 mg DAILY ORAL 11/26/18 09:00 12/25/18 08:59 Haloperidol Lactate (Haldol) 5 mg Q8H PRN IM Agitation 11/26/18 06:00 12/24/18 21:59 Heparin Sodium (Porcine) (Heparin 5000 units/ml) 5,000 units EVERY 12 HOURS SUBQ 11/26/18 09:00 12/25/18 08:59 Hydralazine HCl (Apresoline) 25 mg Q4H PRN ORAL bp over 160 syst 11/26/18 05:45 12/25/18 13:44 [place] Carbonate ([place] Carbonate) 300 mg Q12HR ORAL 11/26/18 09:00 12/25/18 08:59 Lorazepam (Ativan 2mg/ml 1ml) 1 mg Q8H PRN IV For Anxiety 11/26/18 06:00 12/01/18 21:59 11/26/18 11:30 Lorazepam (Ativan) 0.5 mg THREE TIMES A DAY ORAL 11/26/18 09:00 12/02/18 08:59 Mirtazapine (Remeron) 7.5 mg BEDTIME ORAL 11/26/18 21:00 12/25/18 20:59 Pantoprazole (Protonix) 40 mg BID ORAL 11/26/18 09:00 12/25/18 08:59 Gloria Nelson M.D. Nov 28, 2018 13:10
--- NOTE | 2018-11-28 14:23 | NUR ---
NURSE NOTES: notified CN and dr. Perez pt refused to have IV access, previous one was infiltrated. Pt is belligerant, refused to have nurse take her abocath from her right hand.
[2018-11-28] MEDS ORDERED: D5NS 1000ml IV ONE (15:10)
[2018-11-28 16:00] VITALS: BP 122/89
[2018-11-28] MEDS: Haloperidol 5mg/ml Inj IM PRN (17:18)
--- NOTE | 2018-11-28 17:40 | NUR ---
NURSE NOTES: with help of daughter and son-in-law, taken impervious IV access of . Very agitated, belligerent, shouting, given Haldol 5mg IM as ordered. Notified dr. Garcia regarding patient condition, refusal of both PO meds and IV access.
--- NOTE | 2018-11-28 19:10 | NUR ---
HAND-OFF: Report given to RORY Nuñez.
--- NOTE | 2018-11-28 19:11 | NUR ---
NURSE NOTES: Received report from RORY Benoit. Patient awake with confusion. Speaks Armenian. Breathing unlabored without apparent distress, discomfort, or sob. No signs of pain noted at this time. No IV access, MD made aware on previous shift. Lima intact draining urine. Patient known to refuse all care and medications. MD aware. Bed placed at the lowest level with alarm, brake, and side rails up for safety. Call light placed within reach and reinforced. Will continue to monitor and provide care as ordered.
[2018-11-28 20:00] VITALS: BP 140/93
--- NOTE | 2018-11-28 20:41 | NUR ---
NURSE NOTES: Patient agitated, confused, yelling, and impulsive. Patient is high risk for fall with unsteady gait. Patient attempts to stand out of the bed to walk out from the hospital. Conversation, rest, positional change, linen change, and pain assessment done, but patient stays confused, disoriented, impulsive, and unable to communicate. IV was removed per patient during the previous shift. Reach Dr. Garcia to notify at 1951. Received call back at 2021 to initiate a bilateral soft wrist restraint for safety precaution to prevent fall and to administer one time Ativan 1 mg IM and Benadryl 50 mg IM. Restraints placed on 2036. Pulse present, skin intact, warm to touch on bilateral wrists. Will continue to monitor and carry out the orders.
[2018-11-28] MEDS ORDERED: DiphenhydrAMINE 50mg/ml Inj IM SCH (20:45)
[2018-11-28] MEDS ORDERED: LORazepam Inj 2mg/ml 1ml IM SCH (20:45)
--- NOTE | 2018-11-28 21:20 | NUR ---
NURSE NOTES: Attempted, explained, and encouraged patient to take prescribed medications more than three times. Medication crushed according to her diet order and gave it with a apple sauce, but patient spat the medication out. Patient refused to take oral medications. Oral medications wasted. Charge nurse made aware. Will continue to monitor and provide care as ordered.
[2018-11-29] VITALS: BP 142/72
--- NOTE | 2018-11-29 01:10 | NUR ---
NURSE NOTES: Inserted new 22g IV on right antecubital. New IV site intact, dry, clean, and patent. Currently running fluid as ordered. Explained procedure prior and during. Patient was not able to understand due to her current condition. Patient still impulsive, combative, high-risk for fall, agitated and confused. Needed extra staff help to place an IV. Will continue to monitor and provide care as ordered.
[2018-11-29] MEDS: LORazepam Inj 2mg/ml 1ml IV PRN (01:20)
[2018-11-29 04:00] VITALS: BP 143/68
--- NOTE | 2018-11-29 07:40 | NUR ---
HAND-OFF: Report given to RORY Benoit.
--- NOTE | 2018-11-29 07:53 | NUR ---
NURSE NOTES: received pt from NOC RN Savannah. Patient laying in bed, on bilateral soft wrist restraints, talking to self. No sign of pain or discomfort. IV access RAC, intact. Lima catheter in place, draining to gravity dark yellow urine. Bed in the lowest position possible, call light within easy reach, siderails up x2. Will continue to monitor pt and follow up with the plan of care.
[2018-11-29 08:00] VITALS: BP 143/76
[2018-11-29] MEDS: Benztropine 1mg tab ORAL SCH (09:00)
[2018-11-29] MEDS: LORazepam 0.5mg tab ORAL SCH ×2 (09:00→12:19)
[2018-11-29] MEDS: Heparin 5000 units/ml inj SUBQ SCH (09:00)
--- NOTE | 2018-11-29 09:01 | Nephrology Progress Note ---
Assessment/Plan Problem List: (1) Renal failure (ARF), acute on chronic (2) UTI (urinary tract infection) (3) Anemia (4) Dehydration (5) Electrolyte imbalance (6) Encephalopathy Assessment: h/o Psych Ds Assessment Anemia- adequate Iron- slightly low folate Renal failure appears pre renal, ? underlying Renal Dehydration Psych history , On [place] high Lipids UTI Plan refuses blood work IV fluids as needed start lipitor Mag , Phos , K , supplement as needed PRN Hydralazine for high BP Antibiotics Monitor renal parameters [place] Level LOW avoid nephrotoxics per orders Subjective ROS Limited/Unobtainable: Yes Objective Objective Last 24 Hour Vital Signs Date Time Temp Pulse Resp B/P (MAP) Pulse Ox O2 Delivery O2 Flow Rate FiO2 11/29/18 04:00 98.9 61 21 143/68 (93) 100 11/29/18 00:00 98.4 74 20 142/72 (95) 100 11/28/18 21:00 Room Air 11/28/18 20:00 98.3 82 20 140/93 (109) 95 11/28/18 16:00 98.2 105 20 122/89 (100) 98 11/28/18 12:00 98.0 55 17 154/85 (108) 100 Intake and Output 11/28/18 11/29/18 19:00 07:00 Intake Total 400 ml 500 ml Output Total 1001 ml 650 ml Balance -601 ml -150 ml Intake Oral 0 ml IV Total 400 ml 500 ml Output Urine Total 1000 ml 650 ml Stool Total 1 ml Height (Feet): 5 Height (Inches): 2.00 Weight (Pounds): 145 General Appearance: no apparent distress, agitated, combative Cardiovascular: normal rate Respiratory/Chest: decreased breath sounds Abdomen: distended Objective no change Adilson Wells MD Nov 29, 2018 09:01
[2018-11-29] MEDS ORDERED: MIRTAZAPINE15 M3 ORAL (10:15)
[2018-11-29] MEDS ORDERED: LITHIUM CARBON300 MG ORAL (10:15)
[2018-11-29] MEDS ORDERED: HYDRALAZINE HCL25 M1 ORAL (10:15)
--- NOTE | 2018-11-29 10:17 | General Progress Note ---
Assessment/Plan Assessment/Plan: S: " Not understable" O: verbal, seems comfortable, poor historian PHYSICAL EXAMINATION:HEAD AND NECK: Atraumatic and normocephalic. CHEST: Clear to auscultation.HEART: S1, S2. Regular rate and rhythm. ABDOMEN: Soft. No organomegaly.MUSCULOSKELETAL: No gross lateralized motor deficits. Positive for spontaneous movement of all extremities. NEUROLOGIC: The patient is awake and alert. Limited evaluation as the patient has lack of attention. Labs: reviwed, limited Meds: reviewed ASSESSMENT: 1. Acute metabolic encephalopathy. 2. Hypernatremia. 3. Acute on chronic renal failure. 4. Anemia. 5. Psychiatric disorder. 6. Refusal of medical care Plan: Notes from Nephro Psych ID are Reviewed Improving levels of sodium and Cr Will monitor continued refusal of medication and lab draw Subjective Allergies: Coded Allergies: No Known Allergies (Unverified , 07/04/18) Objective Last 24 Hour Vital Signs Date Time Temp Pulse Resp B/P (MAP) Pulse Ox O2 Delivery O2 Flow Rate FiO2 11/29/18 09:00 Room Air 11/29/18 08:00 98.4 70 18 143/76 (98) 94 11/29/18 04:00 98.9 61 21 143/68 (93) 100 11/29/18 00:00 98.4 74 20 142/72 (95) 100 11/28/18 21:00 Room Air 11/28/18 20:00 98.3 82 20 140/93 (109) 95 11/28/18 16:00 98.2 105 20 122/89 (100) 98 11/28/18 12:00 98.0 55 17 154/85 (108) 100 Intake and Output 11/28/18 11/29/18 19:00 07:00 Intake Total 400 ml 500 ml Output Total 1001 ml 650 ml Balance -601 ml -150 ml Intake Oral 0 ml IV Total 400 ml 500 ml Output Urine Total 1000 ml 650 ml Stool Total 1 ml Height (Feet): 5 Height (Inches): 2.00 Weight (Pounds): 145 Mady Perez MD Nov 29, 2018 10:17
--- NOTE | 2018-11-29 11:09 | NUR ---
DISCHARGE PLAN FAXED CLINICALS TO [facility] T: [phone] F: [phone] AWAIT ACCEPTANCE AND ASSIGNED ROOM NUMBER Addendum: 11/29/18 at 1146 by RADHA CERNA LVN LVN CALLED FOR ROOM NUMBER AND WAS INSTRUCTED TO CALL BACK IN 15 MINUTES
[2018-11-29] MEDS: Haloperidol 5mg/ml Inj IM PRN (11:34)
--- NOTE | 2018-11-29 11:40 | NUR ---
NURSE NOTES: patient has taken herself from the bilateral soft wrist restraints and went to the nurse station, shouting to the nurses. Lima catheter still in place, pt disconnected F/C from tubing to the bag. IV access has also be taken off by pt, dried blood noticed at the previous site. Given Haldol IM as ordered PRN for agitation.
[2018-11-29 12:00] VITALS: BP 157/61
--- NOTE | 2018-11-29 12:40 | NUR ---
NURSE NOTES: patient took herself off bilateral soft wrist restraints, this time Lima catheter was also taken off, with baloon intact, insublated. No bleeding noted. Restrained pt again, and notified. dr. Garcia.
--- NOTE | 2018-11-29 14:20 | NUR ---
DISCHARGE PLANNED PATIENT WILL RETURN TO [facility] [address] [place] [id number] T: [phone] FOR NURSE TO NURSE REPORT [facility] HAS BEEN ARRANGED FOR [address] Addendum: 11/29/18 at 1425 by RADHA CERNA LVN LVN ROOM: [address]
[2018-11-29] MEDS ORDERED: Haloperidol 5mg/ml Inj IM SCH (15:00)
[2018-11-29] MEDS ORDERED: DiphenhydrAMINE 50mg/ml Inj IM SCH (15:00)
[2018-11-29] MEDS ORDERED: LORazepam Inj 2mg/ml 1ml IM SCH (15:00)
--- NOTE | 2018-11-29 15:01 | NUR ---
NURSE NOTES: Pt is being prepared for discharge, left message to daughter Grace Yañez and Marilou Deal. Tried 2 attempts to give report to receiving facility, was disconnected. At the third attempt, after 20' on hold, given report to RORY Higuera from [facility]. No IV or FC on pt.
--- NOTE | 2018-11-29 15:20 | NUR ---
NURSE NOTES: not taken picture of sacral redness/maroon, not open wound due to pt being very agitated, disruptive, combative. CN Flakita helps nurse. Given Haldol 5mg IM, Benadryl 25mg IM and Ativan 1mg IM. Given report to EMT Sapna Amador, going by [facility], on [facility].
--- NOTE | 2018-11-29 15:30 | Hematology/Onc Progress Note ---
Assessment/Plan Assessment/Plan ASSESSMENT AND RECS # Anemia of chronic disease due to underlying chronic medical issues, multifactorial --> Anemia workup has been reviewed, ferritin 200 --> No evidence of hemolysis is noted, peripheral smear has been reviewed. --> Hgb goal >7. Transfuse prn. --> Epogen or iron at this time is not particularly indicated --> Medications have been reviewed --> low threshold for gi evaluation in case has occult + --> bone marrow biopsy is not indicated given the other more likely causes # Thrombocytopenia - potential causes multifactorial, evaluate liver and viral etiologies to begin, also could be related to underlying medications patient has received. --> Hep panel and HIV ordered and reviewed, both negative --> US abd to evaluate for cirrhosis and hsm ordered - results pending --> Peripheral smear ordered to evaluate for blasts /schistocytes --> abx and other meds have been reviewed --> ok for ppx if plt >50k w/ either heparin or lovenox --> Transfuse if Plt < 20k and fever, or if Plt < 10k without fever # Acute metabolic encephalopathy. # Hypernatremia. # Psychiatric disorder. # Refusal of medical care Greatly appreciate the consultation. Subjective Hematologic/Lymphatic: Reports: anemia Allergies: Coded Allergies: No Known Allergies (Unverified , 07/04/18) Subjective 11/29: agitated, on bilat wrist restraints, labs reviewed, dc planning Objective Objective Current Medications Medications (Trade) Dose Ordered Sig/Omari Route PRN Reason Start Time Stop Time Status Last Admin Dose Admin Acetaminophen (Tylenol) 650 mg Q6H PRN ORAL Mild Pain/Temp > 100.5 11/26/18 04:00 12/24/18 21:59 Atorvastatin Calcium (Lipitor) 10 mg BEDTIME ORAL 11/26/18 21:00 12/26/18 20:59 Benztropine Mesylate (Cogentin) 1 mg BID ORAL 11/26/18 09:00 12/25/18 08:59 Dextrose 1,000 ml @ 100 mls/hr Q10H IV 11/26/18 02:30 12/25/18 08:29 11/29/18 01:31 Diphenhydramine HCl (Benadryl) 25 mg ONCE IM 11/29/18 15:00 11/29/18 16:00 11/29/18 15:12 Haloperidol (Haldol) 5 mg DAILY ORAL 11/26/18 09:00 12/25/18 08:59 Haloperidol Lactate (Haldol) 5 mg ONCE IM 11/29/18 15:00 11/29/18 16:00 11/29/18 15:13 Haloperidol Lactate (Haldol) 5 mg Q8H PRN IM Agitation 11/26/18 06:00 12/24/18 21:59 11/29/18 11:34 Heparin Sodium (Porcine) (Heparin 5000 units/ml) 5,000 units EVERY 12 HOURS SUBQ 11/26/18 09:00 12/25/18 08:59 Hydralazine HCl (Apresoline) 25 mg Q4H PRN ORAL bp over 160 syst 11/26/18 05:45 12/25/18 13:44 [place] Carbonate ([place] Carbonate) 300 mg Q12HR ORAL 11/26/18 09:00 12/25/18 08:59 Lorazepam (Ativan 2mg/ml 1ml) 1 mg ONCE IM 11/29/18 15:00 11/29/18 16:00 11/29/18 15:13 Lorazepam (Ativan 2mg/ml 1ml) 1 mg Q8H PRN IV For Anxiety 11/26/18 06:00 12/01/18 21:59 11/29/18 01:20 Lorazepam (Ativan) 0.5 mg THREE TIMES A DAY ORAL 11/26/18 09:00 12/02/18 08:59 Mirtazapine (Remeron) 7.5 mg BEDTIME ORAL 11/26/18 21:00 12/25/18 20:59 Pantoprazole (Protonix) 40 mg BID ORAL 11/26/18 09:00 12/25/18 08:59 Last 24 Hour Vital Signs Date Time Temp Pulse Resp B/P (MAP) Pulse Ox O2 Delivery O2 Flow Rate FiO2 11/29/18 12:00 96.6 81 20 157/61 (93) 99 11/29/18 09:00 Room Air 11/29/18 08:00 98.4 70 18 143/76 (98) 94 11/29/18 04:00 98.9 61 21 143/68 (93) 100 11/29/18 00:00 98.4 74 20 142/72 (95) 100 11/28/18 21:00 Room Air 11/28/18 20:00 98.3 82 20 140/93 (109) 95 11/28/18 16:00 98.2 105 20 122/89 (100) 98 11/28/18 12:00 98.0 55 17 154/85 (108) 100 11/28/18 09:00 Room Air 11/28/18 08:00 98.4 59 24 152/80 (104) 100 11/28/18 04:00 98.5 52 20 146/68 (94) 95 11/28/18 00:00 98.9 72 20 140/68 (92) 95 11/27/18 21:00 Room Air 11/27/18 20:00 98.7 58 20 102/75 (84) 96 11/27/18 16:00 98.4 62 18 127/78 (94) 98 Intake and Output 11/28/18 11/29/18 18:59 06:59 Intake Total 400 ml 500 ml Output Total 1001 ml 650 ml Balance -601 ml -150 ml Intake Oral 0 ml IV Total 400 ml 500 ml Output Urine Total 1000 ml 650 ml Stool Total 1 ml Labs Test 11/27/18 03:19 11/28/18 02:40 Urine Eosinophils None seen (NONE SEEN) None seen (NONE SEEN) Height (Feet): 5 Height (Inches): 2.00 Weight (Pounds): 145 Jamey Pereira MD Nov 29, 2018 15:30
--- NOTE | 2018-11-29 15:33 | NUR ---
NURSE NOTES: patient has been discharged to [facility], left with all her belongings (clothes), unable to sign off discharge sheet. Belongings given to EMT Danyelle English. Pt going by [id number], by miriam.
--- NOTE | 2018-11-29 19:58 | Cardiology Report ---
APPROVED REPORT EKG Measurement Heart [id number] Sinus bradycardia Right bundle branch block Voltage criteria for left ventricular hypertrophy Abnormal ECG
--- NOTE | 2018-11-30 12:11 | Discharge Summary ---
Discharge Summary Discharge Summary _ DATE OF ADMISSION: 11/24/2018 DATE OF DISCHARGE: 11/29/2018 DISCHARGED BY: Dr Perez REASON FOR ADMISSION: 68 years old female with past medical history of hypertension, chronic renal insufficiency, hyperparathyroidism, depression, schizophrenia, was sent from the residential facility due to altered mental status. Patient appeared to be more agitated and confused at the facility. Patient was unable to provide any information. No signs of distress upon arrival were noted. No reported fever or chills. Upon evaluation vital signs were stable. Laboratory work-up revealed no leukocytosis , hemoglobin 11.5, hematocrit 26.2 , platelet count 241. Lactic acid 4.3. Sodium 138, BUN 53, creatinine 3.1. AST 39, ALT 41. Urinalysis revealed +2 protein , +2 ketones , +3 leukocyte esterase , positive nitrate, few bacteria noted. EKG revealed sinus bradycardia , no acute ischemic changes. Chest x-ray revealed no acute cardiopulmonary pathology. Septic work-up was initiated , patient started on empiric antibiotics and was admitted to direct observational unit for further management. CONSULTANTS: ID specialist Dr. Nelson micro photographer Dr. Wells crm marketing executive/oncologist Dr. Pereira psychiatrist [facility] COURSE: Patient admitted to direct observational unit. Patient started on empiric antibiotic. ID specialist followed. Blood cultures were negative. Urine culture were negative. Antibiotic stopped as per ID specialist recommendations. Renal parameters and electrolytes were closely monitored, electrolytes corrected as needed , and nephrotoxins were avoided. Renal ultrasound demonstrated no evidence of hydronephrosis. Increased echogenicity of the kidney was noted, consistent with medical renal disease. [employer] closely followed. Creatinine from 3.1 down to 1.4 and BUN from 53 down to 27. According to micro photographer, patient had acute on chronic renal failure , likely due to dehydration. Lipid panel revealed elevated total cholesterol , elevated LDL . Lipitor continued. Patient was encouraged compliance with medication regimen. Patient provided with low-fat low-cholesterol diet. DVT and GI prophylaxis provided. Psychiatrist followed. Per psychiatrist , patient had acute encephalopathy along with underlying schizophrenia. Psychiatric medication regimen was optimized. Risperidone was continued. Patient was encouraged by psychiatrist to take [place] . Patient was noncompliant with medication. Hemoglobin and hematocrit were closely monitored with goal to keep hemoglobin above 7. Prior to discharge hemoglobin 9.5, hematocrit 30. Anemia work-up was consistent with anemia of chronic disease. Anemia work-up also revealed evidence of folate deficiency. TSH within normal limits. Hepatitis panel was negative. HIV test was nonreactive. Supportive care provided. Bowel regimen instituted. Patient clinically stabilized and was ready for transfer back to residential facility for continuation of care. FINAL DIAGNOSES: Acute metabolic encephalopathy Acute on chronic renal failure Dehydration Anemia of chronic disease Electrolyte imbalance Schizophrenia Refusal of medical care DISCHARGE MEDICATIONS: See Medication Reconciliation list. DISCHARGE INSTRUCTIONS: Patient was discharged to the residential facility. Follow up with medical doctor at the facility. I have been assigned to dictate discharge summary for this account. I was not involved in the patient's management. Veronica Farrell NP Nov 30, 2018 12:11
== END 2018-11-29 15:46 | DRG 52 ==
LOC: EDBD 16:13 → EMR 16:45 → EDBEDREQ 18:04 → EDBEDREQSVC 18:04 → EDBEDREQ 19:23 → 2W 19:39 → 3E 11-26 01:53 → 4E 11-26 09:45
DX: G93.41 Metabolic encephalopathy (principal); N39.0 Urinary tract infection, site not specified; E86.0 Dehydration; N17.9 Acute kidney failure, unspecified; E87.0 Hyperosmolality and hypernatremia; F31.9 Bipolar disorder, unspecified; N18.9 Chronic kidney disease, unspecified; F20.9 Schizophrenia, unspecified; Z53.29 Procedure and treatment not carried out because of patient's decision for other reasons; D63.1 Anemia in chronic kidney disease; Z91.14 Patient's other noncompliance with medication regimen; D69.6 Thrombocytopenia, unspecified
CPT/HCPCS: 36415; 71045; 76770; 80053; 80061; 80178; 81003; 82550; 82607; 82728; 82746; 82977; 83036; 83540; 83550; 83605; 83735; 83880; 84100; 84300; 84443; 84550; 85025; 86140; 86703; 86705; 86709; 86803; 87040; 87081; 87086; 87340; 89050; 93005; 96361; 96365; 96367; 96372; 96375; 99291